=== PATIENT | female | born 1955 | race Caucasian/White ===

== ENCOUNTER 2023-06-23 11:58 | Outpatient (OUT) | payer MEDICARE, SELFPAY ==
--- NOTE | 2023-06-23 | XR_ITS ---
The [address] [address] Patient Name: SUSU CORONA MRN: [id number] date: 1955 Sex: F Assigned Patient Location: LAB Current Patient Location: LAB Accession/Order Number: [id number] Exam Date: 06/23/2023 12:35 Report Date: 06/23/2023 14:33 At the request of: JASVIR SHAVER Procedure: XR hip LT 2V w/ pelvis EXAM: AP of the pelvis and left hip HISTORY: . left hip pain . COMPARISON: None. TECHNIQUE: Views FINDINGS: Bony pelvis is intact. No fracture or bony destructive process is noted. No fracture or dislocation of the left hip is noted. Small spurs are noted involving the femoral head and the acetabulum. Surrounding soft tissues are unremarkable. XR/XR hip LT 2V w/ pelvis IMPRESSION: 1. Negative AP of the pelvis. 2. 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 Electronically authenticated by: JOSE LEE Date: 06/23/2023 14:33
[2023-06-23 12:34] LABS: Estimated Average Glucose 154 mg/dL
[2023-06-23 12:41] LABS: Creatinine Urine Random 65.65 mg/dL (20.00-300.00); Microalbum Creatinine Ratio Ur 19.8 mg/g (0.0-29.9); Microalbumin Urine Random <1.3 mg/dL (<=30.0)
[2023-06-23 13:15] LABS: Basophils Percent Auto 0.5 % (0.2-2.0); Eosinophils Absolute Auto 0.4 10^3/uL (0.0-0.7); Eosinophils Percent Auto 4.6 % (0.9-7.0); Hematocrit 41.6 % (36.0-48.0); Hemoglobin 13.2 g/dL (12.0-16.0); Immature Granulocytes Abs Auto 0.03 10^3/uL (0.00-0.03); Immature Granulocytes Pct Auto 0.4 % (0.0-0.5); Lymphocytes Absolute Auto 2.5 10^3/uL (1.2-3.8); Lymphocytes Percent Auto 31.5 % (20.5-60.0); Mean Corpuscular HGB Conc 31.7 g/dL (29.9-35.2); Mean Corpuscular Hemoglobin 29.1 pg (26.7-34.0); Mean Corpuscular Volume 91.6 fL (81.0-99.0); Monocytes Absolute Auto 0.8 10^3/uL (0.3-0.8); Monocytes Percent Auto 9.6 % (1.7-12.0); Neutrophils Absolute Auto 4.2 10^3/uL (1.4-6.5); Neutrophils Percent Auto 53.4 % (43.0-75.0); Platelet Count 319 10^3/uL (150-450); Red Blood Count 4.54 10^6/uL (4.20-5.40); White Blood Count 7.8 10^3/uL (4.0-11.0)
[2023-06-23 13:22] LABS: Bilirubin Urine NEGATIVE (NEGATIVE); Blood Urine NEGATIVE (NEGATIVE); Clarity Urine CLEAR (CLEAR); Color Urine LT. YELLOW (YELLOW); Glucose Urine UA >=1000 mg/dL (NEGATIVE); Ketones Urine NEGATIVE (NEGATIVE); Leukocyte Esterase Urine NEGATIVE (NEGATIVE); Nitrite Urine NEGATIVE (NEGATIVE); Protein Urine NEGATIVE (NEG/TRACE); Specific Gravity Urine 1.025 (1.005-1.025); Urobilinogen Urine 0.2 EU/dL (0.2-1.0); pH Urine 5.5 (5.0-9.0)
[2023-06-23 13:23] LABS: Urine Microscopic Indicated NO
[2023-06-23 13:39] LABS: Alanine Aminotransferase 18 U/L (14-59); Albumin Level 3.7 g/dL (3.4-5.0); Alkaline Phosphatase 84 U/L (46-116); Anion Gap 10.6; Aspartate Amino Transferase 14 U/L (15-37); BUN Creatinine Ratio 21.1; Bilirubin Total 0.6 mg/dL (0.2-1.0); Calcium 8.8 mg/dL (8.5-10.1); Carbon Dioxide 32.4 mmol/L (21.0-32.0); Chloride 100 mmol/L (98-107); Chol HDL Ratio 2.7; Cholesterol 178 mg/dL (<=200); Estimated GFR (African America >60 (>=60); Estimated GFR (Non-African Ame >60 (>=60); Globulin 3.6 g/dL; Glucose 123 mg/dL (74-106); HDL Cholesterol 66 mg/dL (40-60); Sodium 139 mmol/L (136-145); Total Protein 7.3 g/dL (6.4-8.2); Triglycerides 112 mg/dL (<=150); VLDL CHOLESTEROL 22.4 mg/dL
== END 2023-06-23 11:59 | disposition home or self-care (01) ==
LOC: LAB 12:04
PROVIDERS: PCP Nurse Practitioner; Visit Provider Nurse Practitioner
DX: I25.119 Atherosclerotic heart disease of native coronary artery with unspecified angina pectoris (principal); I10 Essential (primary) hypertension; E11.9 Type 2 diabetes mellitus without complications; E55.9 Vitamin D deficiency, unspecified; E78.2 Mixed hyperlipidemia; M25.552 Pain in left hip
CPT/HCPCS: 36415; 73502; 80053; 80061; 81003; 82043; 82306; 82570; 83036; 85025

== ENCOUNTER 2023-06-30 09:45 | Outpatient (RCR) | payer MEDICARE, SELFPAY | END 2023-07-01 11:27 | disposition home or self-care (01) | LOC: PT 09:45 | PROVIDERS: PCP Nurse Practitioner; Visit Provider Nurse Practitioner | DX: M25.552 Pain in left hip (principal); M54.16 Radiculopathy, lumbar region; R26.89 Other abnormalities of gait and mobility | CPT/HCPCS: 97110; 97161 ==

== ENCOUNTER 2023-07-05 08:07 | Outpatient (OUT) | payer MEDICARE, SELFPAY ==
--- NOTE | 2023-07-05 08:10 | MM_ITS ---
Patient Name: SUSU CORONA MR#: [id number] : 1955 Exam Date: 07/05/2023 Ordering Doctor: BROWN Mahmood CNP RADIOLOGY REPORT PROCEDURE: MM TOMOSYNTHESIS SCREENING BI COMPARISON: MG MAMM SCREEN 3D CAM CAD, 05/16/2022. MG MAMM SCREEN 3D CAM CAD, 04/06/2021. MG MAMM SCREEN CAM W CAD, 03/30/2020. MG MAMM CAM SCRN W CAD DIG, 06/19/2013. INDICATIONS: screening Calculator Name NCI Breast Cancer Risk Assessment Tool 5 Year Breast Cancer Risk 1.50% Lifetime Breast Cancer Risk 5.00% Personal Breast Cancer No Personal Ovarian Cancer No Treatments CHEMOTHERAPY AND RADIATION Family Cancers None LOCATION: The [facility] BREAST COMPOSITION: Heterogeneously dense,which may obscure small masses. FINDINGS: DIAGNOSTIC CATEGORY 2--BENIGN FINDING: RIGHT BREAST: No significant suspicious finding. Scattered benign-appearing lymph nodes are present. No significant change has occurred. LEFT BREAST: No significant suspicious finding. Scattered benign-appearing lymph nodes are present. No significant change has occurred. RECOMMENDATIONS: ROUTINE MAMMOGRAM AND CLINICAL EVALUATION IN 12 MONTHS. PLEASE NOTE: A NORMAL MAMMOGRAM DOES NOT EXCLUDE THE POSSIBILITY OF BREAST CANCER. A CLINICALLY SUSPICIOUS PALPABLE LUMP SHOULD BE BIOPSIED. Dictated by: Nahum Amato M.D. on 07/07/2023 at 10:31 Approved by: Nahum Amato M.D. on 07/07/2023 at 10:33
== END 2023-07-05 08:08 | disposition home or self-care (01) ==
LOC: MAMMO 08:07
PROVIDERS: PCP Nurse Practitioner; Visit Provider Nurse Practitioner
DX: Z12.31 Encounter for screening mammogram for malignant neoplasm of breast (principal)
CPT/HCPCS: 77063; 77067

== ENCOUNTER 2023-12-26 10:31 | Outpatient (OUT) | payer MEDICARE, SELFPAY ==
[2023-12-26 12:04] LABS: Estimated Average Glucose 148 mg/dL; Glycohemoglobin A1C 6.8 % (4.5-6.2)
== END 2023-12-26 10:32 | disposition home or self-care (01) ==
LOC: LAB 10:32
PROVIDERS: PCP Nurse Practitioner; Visit Provider Nurse Practitioner
DX: E11.9 Type 2 diabetes mellitus without complications (principal)
CPT/HCPCS: 36415; 83036

== ENCOUNTER 2024-06-24 09:15 | Outpatient (OUT) | payer MEDICARE, SELFPAY ==
--- OUTSIDE RECORDS SUMMARY | 2024-06-24 09:34 | XMS_ITS | CCD ---
Author Organization [facility] Care Team Providers Care Arbor Press Operator Name Role Phone Kinjal Sandhu Primary Care Provider MAGDA CARBALLO Referring Unavailable MAGDA CARBALLO Primary Care Unavailable MAGDA CARBALLO Referring Unavailable MAGDA CARBALLO Primary Care Unavailable MAGDA CARBALLO Referring Unavailable MAGDA CARBALLO Primary Care Unavailable MARY WATSON Admitting Unavailable MARY WATSON Attending Unavailable RICHIE MULTANI Consulting Unavailable KINJAL SANDHU Primary Care Unavailable MAGDA CARBALLO Referring Unavailable KINJAL SANDHU Primary Care Unavailable Magda Carballo Primary Care Provider Philhseverinoz, Ivanna Maya Unavailable Unavailable Unavailable RADHA HARRIS Primary Care Physician Rosie FARIAS Attending Unavailable AICHHOLZIVANNA Referring Unavailabl e NILNathalie, Rosie Weems Attending Unavailable NILRosie Zelaya Attending Unavailable McGuinn IIDavid Attending Unav ailable McGuinn II, David Mathias Referring Unav ailable Aichholz, MrsArsalan Trejo Primary Care Unavailab le AICHHOLZ, MANAGER OF ORGANIZATIONAL DEVELOPMENT IVANNA Admitting Unavailable AICHHOLZ, MANAGER OF ORGANIZATIONAL DEVELOPMENT IVANNA Primary Care Unavailable DR JOSE HICKS V Consulting Unavailable AICHHOLZ, MANAGER OF ORGANIZATIONAL DEVELOPMENT IVANNA Attending Unavailable AICHHOLZ, MANAGER OF ORGANIZATIONAL DEVELOPMENT IVANNA Consulting Unavailable JOSE LEE Consulting Unavailable AICHHOLZ, MANAGER OF ORGANIZATIONAL DEVELOPMENT IVANNA Admitting Unavailable AICHHOLZ, MANAGER OF ORGANIZATIONAL DEVELOPMENT IVANNA Primary Care Unavailable AICHHOLZ, MANAGER OF ORGANIZATIONAL DEVELOPMENT IVANNA Consulting Unavailable AICHHOLZ, MANAGER OF ORGANIZATIONAL DEVELOPMENT IVANNA Attending Unavailable AICHHOLZ, MANAGER OF ORGANIZATIONAL DEVELOPMENT IVANNA Primary Care Unavailable JARRETT, DR VELEZ Admitting Unavailable NILL, DR VELEZ Consulting Unavailable NILL, DR VELEZ Attending Unavailable AICHHOLZ, MANAGER OF ORGANIZATIONAL DEVELOPMENT IVANNA Primary Care Unavailable NILL, DR VELEZ Admitting Unavailable NILL, DR VELEZ Consulting Unavailable NILL, DR VELEZ Attending Unavailable DAVID TOPETE Consulting Unava ilable Philhholwaqar SOLAR BUSINESS DEVELOPER-MANAGER OF ORGANIZATIONAL DEVELOPMENT, Ivanna Trejo Primary Care Provider Alfonso Blank MD Primary Care Provider Aichuzair PEST LOCATOR, Ivanna Unavailable TIMOTEO, IVANNA Attending Unavailable AICHHOLZ, IVANNA Attending Unavailable AICHHOLZ, IVANNA Attending Unavailable AICHHOLZ, IVANNA Attending Unavailable PARI NORTON Attending Unavailable DAVID BERRIOS Referring Unavailable PHILHHOLWaqar, IVANNA TREJO Primary Care Unavailable PARI NORTON Referring Unavailable AICHHOLWaqar, IVANNA MAYA Primary Care Unavailable MEGHAN NORTONNA K Referring Unavailable TIMOTEO, IVANNA TREJO Primary Care Unavailable MEGHAN NORTONNA K Referring Unavailable PHILHHOLWaqar, IVANNA TREJO Primary Care Unavailable MEGHAN NORTONNA K Referring Unavailable AICHHOLWaqar, IVANNA MAYA Primary Care Unavailable Allergies Allergy Classification Reported Allergen(s) Allergy Type Date of Onset Reaction(s) Facility (1 source) No Known Medication Allergies; Translations: [No Known Medication Allergies] Propensity to adverse reactions (disorder) [facility] Rep[facility] Medications Current Medications Medication Drug Class(es) Dates Sig (Normalized) Sig (Original) alendronic acid 35 mg oral tablet (6 sources) Bisphosphonate Start: 11-05-2021 take 1 tablet by mouth every week alendronate 35 mg oral tablet 35 mg = 1 tab(s), Oral, qWeek, Refills(s) 0 Start Date: 11/05/21 Status: Ordered Start: 12-07-2018 End: 04-12-2023 alendronate (FOSAMAX) 35 MG tablet Take 1 tablet by mouth every 7 days 12 tablet 3 12/07/2018 Active amLODIPine 2.5 mg oral tablet (20 sources) Dihydropyridine Calcium Channel Pierre Start: 03-21-2019 End: 06-26-2024 take 1 tablet by mouth once daily amLODIPine (Norvasc) 2.5 MG tablet Indications: Primary hypertension (CMS/HCC) Take 1 tablet (2.5 mg) by mouth Daily 90 tablet 1 03/28/2024 06/26/2024 Active Arexvy 120 MCG/0.5ML reconstituted suspension (2 sources) Start: 07-14-2023 End: 04-09-2024 Arexvy 120 MCG/0.5ML reconstituted suspension 07/14/2023 04/09/2024 Discontinued (Therapy completed) aspirin 81 mg delayed release oral tablet (20 sources) Platelet Aggregation Inhibitor, Nonsteroidal Anti-inflammatory Drug Start: 11-09-2021 take 1 tablet by mouth once daily aspirin 81 mg Oral EC Tab 81 mg = 1 tab(s), Oral, Daily, Refills(s) 0 Start Date: 11/09/21 Status: Ordered Start: 11-27-[address] once daily aspirin (ASPIRIN [employer]IL[employer]) 81 MG chewable tablet Take 1 tablet by mouth daily 90 tablet 1 11/27/2018 Active take 81 mg by mouth once daily A SPIRIN 81 PO Take 81 mg by mouth Daily Active atorvastatin 10 mg oral tablet (3 sources) HMG-CoA Reductase Inhibitor Start: 04-10-2024 End: 04-24-2025 take 1 tablet by mouth once daily atorvastatin (Lipitor) 10 mg tablet Indications: 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 Take 1 tablet (10 mg) by mouth once daily. 30 tablet 11 04/24/2024 04/24/2025 Active cholecalciferol 0.05 mg oral tablet (20 sources) Vitamin D Start: 12-25-2023 take 1 tablet by mouth once daily cholecalciferol (Vitamin D-3) 50 MCG (2000 UT) tablet Indications: Vitamin D deficiency TAKE 1 TABLET BY MOUTH DAILY 90 tablet 1 12/25/2023 Active 0.5 ml dulaglutide 3 mg/ml auto-injector (2 sources) GLP-1 Receptor Agonist Start: 03-21-2019 Dulaglutide (TRULICITY) 1.5 MG/0.5ML SOPN Indications: Type 2 diabetes mellitus with complication, without long-term current use of insulin ([facility]) Inject 1.5 mg into the skin once a week 12 pen 3 03/21/2019 Active Start: 01-29-2019 Dulaglutide (T RULICITY) 0.75 MG/0.5ML SOPN Indications: Type 2 diabetes mellitus with complication, without long-term current use of insulin ([facility]) Inject 0.75 mg into the skin once a week 4 pen 3 01/29/2019 Active DULoxetine 30 mg delayed release oral capsule (20 sources) Serotonin and Norepinephrine Reuptake Inhibitor Start: 11-05-2021 End: 06-26-2024 take 1 capsule by mouth once daily DULoxetine (Cymbalta) [address] capsule Indications: Anxiety Take 1 capsule (30 mg) by mouth Daily 90 capsule 1 03/28/2024 06/26/2024 Active Start: 11-27-2018 take 1 capsule by [facility] once daily DULoxetine (CYMBALTA) 60 MG extended release capsule Indications: Positive depression screening , Dysthymia Take 1 capsule by mouth daily 90 capsule 1 11/27/2018 Active empagliflozin 10 mg oral tablet (20 sources) Sodium-Glucose Cotransporter 2 Inhibitor Start: 04-16-2024 End: 07-15-2024 take 1 tablet by mouth once daily empagliflozin (Jardiance) 10 MG Indications: Type 2 diabetes mellitus without complication, without long-term current use of insulin ([facility]) Take 1 tablet (10 mg) by mouth Daily 90 tablet 1 04/16/2024 07/15/2024 Active Start: 11-05-2021 End: 04-16-2024 take 1 tablet by mouth once daily in the morning Jardiance 10 mg oral tablet 10 mg = 1 tab(s), Oral, qAM, Refills(s) 0 Start Date: 11/05/21 Status: Ordered gabapentin 300 mg oral capsule (20 sources) Anti-epileptic Agent Start: 11-05-2021 End: 07-08-2024 take 1 capsule by mouth in the morning, then take 1 capsule by mouth in the evening, then take 1 capsule by mouth at bedtime gabapentin (Neurontin) 300 MG capsule Indications: Restless leg syndrome Take 1 capsule (300 mg) by mouth in the morning and 1 capsule (300 mg) in the evening and 1 capsule (300 mg) before bedtime. 270 capsule 1 04/09/2024 07/08/2024 Active Start: 11-27-2018 End: 05-26-2019 take 3 capsules by mouth once daily gabapentin (NEURONTIN) 300 MG capsule Take 3 capsules by mouth nightly for 180 days. Take 300 mg 1 tablet at dinner time and 600 mg 2 tablets 1-2 hours prior to sleeping. 270 capsule 1 11/27/2018 05/26/2019 Active glipiZIDE er 5 mg 24 hr extended release oral tablet (20 sources) Sulfonylurea Start: 09-05-2023 End: 07-08-2024 take 1 tablet by mouth once daily glipiZIDE XL (Glucotrol XL) 5 MG 24 hr tablet Indications: Type 2 diabetes mellitus without complication, without long-term current use of insulin (CMS/HCC) Take 1 tablet (5 mg) by mouth Daily 90 tablet 1 04/09/2024 07/08/2024 Active Start: 11-05-[address] once daily glipiZIDE 5 mg ER Tab 5 mg = 1 tab(s), Oral, Daily, Refills(s) 0 Start Date: 11/05/21 Status: Ordered Start: 11-27-[address] once daily glipiZIDE (GLUCOTROL XL) 5 MG extended release tablet Indications: Type 2 diabetes mellitus with complication, without long-term current use of insulin (HCC) Take 1 tablet by mouth daily 90 tablet 1 11/27/2018 Active take [address] once daily glipiZIDE (Glucotrol) 5 mg tablet Take 1 tablet (5 mg) by mouth once daily. Active hydroCHLOROthiazide 25 mg oral tablet (20 sources) Thiazide Diuretic Start: 04-02-2024 End: 07-08-2024 take 1 tablet by mouth in the morning hydroCHLOROthiazide (HYDRODiuril) 25 MG tablet Indications: Primary hypertension (CMS/HCC) Take 1 tablet (25 mg) by mouth in the morning. 90 tablet 1 04/09/2024 07/08/2024 Active Start: 12-07-2018 End: 03-04-2024 take 1 tablet by mouth in the morning hydroCHLOROthiazide (HYDRODiuril) 25 MG tablet Indications: Primary hypertension (CMS/HCC) Take 1 tablet (25 mg) by mouth in the morning. 90 tablet 1 12/05/2023 Active 24 hr isosorbide mononitrate 60 mg extended release oral tablet (20 sources) Nitrate Vasodilator Start: 04-09-2024 End: 04-09-2025 take 1 tablet by mouth once daily isosorbide mononitrate ER (Imdur) 60 mg 24 hr tablet Indications: Chest pain, unspecified type , Coronary artery disease involving [place] heart with other form of angina pectoris, unspecified vessel or lesion type Take 1 tablet (60 mg) by mouth once daily. Do not crush or chew. 90 tablet 3 04/09/2024 04/09/2025 Active Start: 09-05-[address] once daily isosorbide mononitrate ER (Imdur) 30 MG 24 hr tablet Indications: 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 (CMS/HCC) Take 1 tablet (30 mg) by mouth Daily 90 tablet 1 09/05/2023 Active Start: 03-21-[address] once daily in the morning isosorbide mononitrate 30 mg ER Tab 30 mg = 1 tab(s), Oral, qAM, Refills(s) 0 Start Date: 11/05/21 Status: Ordered lisinopril 5 mg oral tablet (20 sources) Angiotensin Converting Enzyme Inhibitor Start: 03-21-2019 End: 05-17-2024 take 1 tablet by mouth in the morning lisinopril 5 MG tablet Indications: Primary hypertension (CMS/HCC) Take 1 tablet (5 mg) by mouth in the morning. 90 tablet 1 02/17/2024 05/17/2024 Active losartan potassium 50 mg oral tablet (1 source) Angiotensin 2 Receptor Pierre Start: 11-27-2018 take 1 tablet by mouth once daily losartan (COZAAR) 50 MG tablet Take 1 tablet by mouth daily 90 tablet 1 11/27/2018 Active nitroglycerin 0.4 mg sublingual tablet (2 sources) Nitrate Vasodilator Start: 11-05-2021 nitroglycerin 0.4 mg sublingual Tab 0.4 mg = 1 tab(s), SubLingual, q5min, PRN for chest pain, Refills(s) 0 Start Date: 11/05/21 Status: Ordered Start: 03-13-2019 nitroGLYCERIN (NITROSTAT) 0.4 MG SL tablet up to max of 3 total doses. If no relief after 1 dose, call 911. 20 tablet 0 03/13/2019 Active propranolol hydrochloride 40 mg oral tablet (20 sources) beta-Adrenergic Pierre Start: 09-05-2023 End: 07-08-2024 take 1 tablet by mouth in the morning propranolol (Inderal) 40 MG tablet Indications: Tremors of nervous system Take 1 tablet (40 mg) by mouth in the morning and 1 tablet (40 mg) before bedtime. 180 tablet 1 04/09/2024 07/08/2024 Active Start: 12-07-[address] twice daily propranolol 40 mg Tab 40 mg = 1 tab(s), Oral, BID, Refills(s) 0 Start Date: 11/05/21 Status: Ordered take 2 tablets by mo [facility] once daily propranolol (Inderal) 40 mg tablet Take 2 tablets (80 mg) by mouth once daily. Active take [address] once daily Propranolol HCl - 40 MG Oral Tablet Take 1 tablet daily Quantity: 0 Refills: 0 Ordered: 05-Apr-2021 DO Active simvastatin 10 mg oral tablet (20 sources) HMG-CoA Reductase Inhibitor Start: 12-07-2018 End: 06-26-2024 take 1 tablet by mouth at bedtime simvastatin (Zocor) 10 MG tablet Indications: Mixed hyperlipidemia (CMS/HCC) Take 1 tablet (10 mg) by mouth at bedtime 90 tablet 1 03/28/2024 04/10/2024 Discontinued (Ineffective) Vitamin D3 2000 intl units oral Tab (1 source) Start: 11-05-2021 take 1 tablet by mouth once daily Vitamin D3 2000 intl units oral Tab 50 mcg, Oral, Daily, Refills(s) 0 Start Date: 11/05/21 Status: Ordered Completed/Discontinued Medications Medication Drug Class(es) Dates Sig (Normalized) Sig (Original) 10 ml aminophylline 25 mg/ml injection (1 source) Start: 04-22-2024 End: 04-22-2024 50 mg, intravenous, Administer over 1 Minutes, Once, On Mon04/22/24 at 1445, For 1 dose Start: 04-22-2024 End: 04-22-2024 50 mg, intravenous, Administ er over 1 Minutes, Once, On Mon04/22/24 at 1445, For 1 dose regadenoson (Lexiscan) injection 0.4 mg (1 source) Start: 04-22-2024 End: 04-22-2024 0.4 mg, intravenous, Once, O n 04/22/24 at 1330, For 1 dose Tc-99m tetrofosmin (Myoview) injection 10 millicurie (1 source) Start: 04-22-2024 End: 04-22-2024 10 millicurie, intravenous, Once in imaging, Starting on Mon04/22/24 at 1253, For 1 dose, Administer 45 to 90 minutes prior to imaging unless otherwise indicated. Tc-99m tetrofosmin (Myoview) injection 30 millicurie (1 source) Start: 04-22-2024 End: 04-22-2024 30 millicurie, intravenous, Once in imaging, Starting on Mon04/22/24 at 1418, For 1 dose, Administer 45 to 90 minutes prior to imaging unless otherwise indicated. Problems Active Problems Problem Classification Problem Date Documented Da te Episodic/Chronic Anxiety disorders (20 sources) Anxiety; Translations: [Anxiety disorder, unspecified] Onset: 06-05-2023 06-05-2023 Chronic Congestive heart failure; nonhypertensive (1 source) Chronic diastolic heart failure Onset: 03-13-2019 03-13-2019 Chronic Coronary atherosclerosis and other heart disease (20 sources) Coronary arteriosclerosis; Translations: [Coronary atherosclerosis of unspecified type of vessel, [place] or graft] Onset: 12-10-2021 11-05-2021 Chronic Diabetes mellitus with complications (2 sources) Retinopathy due to diabetes mellitus; Translations: [Type 2 diabetes mellitus with unspecified diabetic retinopathy without macular edema] Onset: 12-10-2021 11-05-2021 Chronic Diabetes mellitus without complication (20 sources) Type 2 diabetes mellitus; Translations: [Diabetes mellitus] Onset: 10-31-2018 03-13-2019 Chronic Disorders of lipid metabolism (20 sources) Dyslipidemia; Translations: [Hyperlipidemia] Onset: 01-29-2019 Resolved: 12-28-2023 01-29-2019 Chronic Diverticulosis and diverticulitis (2 sources) Diverticular disease; Translations: [Diverticulosis of large intestine without perforation or abscess without bleeding] Onset: 12-10-2021 11-08-2021 Chronic Essential hypertension (20 sources) Essential hypertension; Translations: [Benign essential hypertension] Onset: 01-29-2019 03-13-2019 Chronic Genitourinary symptoms and ill-defined conditions (1 source) Urinary incontinence 11-05-2021 Chronic Headache; including migraine (1 source) Migraine 11-05-2021 Chronic Mood disorders (4 sources) Dysthymia; Translations: [Depressive disorder] Onset: 10-31-2018 10-31-2018 Chronic Nonspecific chest pain (20 sources) Chest pain; Translations: [Chest pain, unspecified] Onset: 03-11-2019 03-13-2019 Episodic Nutritional deficiencies (18 sources) Vitamin D deficiency; Translations: [Vitamin D deficiency, unspecified] Onset: 05-20-2022 11-05-2021 Chronic Osteoporosis (2 sources) Osteoporosis; Translations: [Age-related osteoporosis without current pathological fracture] Onset: 12-10-2021 11-05-2021 Chronic Other and unspecified benign neoplasm (2 sources) History of polyp of colon; Translations: [Personal history of colonic polyps] Onset: 11-09-2021 Episodic Other and unspecified benign neoplasm (1 source) Villous adenoma of rectum 11-08-2021 Episodic Other gastrointestinal disorders (1 source) Irritable bowel syndrome without diarrhea; Translations: [IRRITABLE BOWEL SYND W/O DIARRHEA] Onset: 12-10-2021 Chronic Other hereditary and degenerative nervous system conditions (20 sources) Restless legs; Translations: [Restless legs syndrome] Onset: 10-31-2018 01-29-2019 Chronic Other hereditary and degenerative nervous system conditions (1 source) Essential tremor; Translations: [Essential and other specified forms of tremor] Chronic Other hereditary and degenerative nervous system conditions (1 source) Restless legs syndrome; Translations: [RESTLESS LEGS SYNDROME] Onset: 12-10-2021 Chronic Other nutritional; endocrine; and metabolic disorders (5 sources) Overweight in adulthood with body mass index of 25 or more but less than 30; Translations: [Overweight] Onset: 04-24-2024 11-09-2021 Episodic Other nutritional; endocrine; and metabolic disorders (2 sources) Body mass index (BMI) 26.0-26.9, adult; Translations: [Body mass index (BMI) 26.0-26.9, adult] Onset: 04-24-2024 Episodic Prolapse of female genital organs (1 source) Uterovaginal prolapse 11-05-2021 Chronic Residual codes; unclassified (1 source) Edema 11-05-2021 Episodic Residual codes; unclassified (1 source) Asymptomatic menopausal state; Translations: [ASYMPTOMATIC MENOPAUSAL STATE] Onset: 05-20-2022 Episodic Unclassified (1 source) CONTACT W/AND (SUSP) EXPOS COVID-19; Translations: [CONTACT W/AND (SUSP) EXPOS COVID-19] Onset: 12-07-2021 Past or Other Problems Problem Classification Problem Date Documented Da te Episodic/Chronic Mood disorders (15 sources) Mood disorders Onset: 09-05-2023 09-05-2023 Other aftercare (1 source) Other group home (current) drug therapy; Translations: [OTH HALF-WAY CURRENT DRUG THERAPY] Onset: 12-10-2021 Episodic Other aftercare (1 source) supervisor intermediates (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; 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] Onset: 12-10-2021 Episodic Other and unspecified benign neoplasm (1 source) Personal history of colonic polyps; Translations: [PERSONAL HISTORY OF COLONIC POLYPS] Onset: 12-10-2021 Episodic Other bone disease and musculoskeletal deformities (18 sources) Osteopenia; Translations: [Other specified disorders of bone density and structure, unspecified site] Onset: 01-29-2019 01-29-2019 Episodic Other gastrointestinal disorders (3 sources) Other fecal abnormalities; Translations: [OTHER FECAL ABNORMALITIES] Onset: 12-08-2021 Episodic Other gastrointestinal disorders (1 source) Change in bowel habit; Translations: [CHANGE IN BOWEL HABIT] Onset: 12-10-2021 Episodic Other nervous system disorders (20 sources) Tremor; Translations: [Tremor, unspecified] Onset: 06-05-2023 11-05-2021 Episodic Other non-traumatic joint disorders (15 sources) Hip pain; Translations: [Pain in left hip] Onset: 06-21-2023 06-21-2023 Episodic Other screening for suspected conditions (not mental disorders or infectious disease) (16 sources) Encounter for screening mammogram for malignant neoplasm of breast; Translations: [Patient encounter status] Onset: 05-20-2022 06-21-2023 Episodic Residual codes; unclassified (1 source) Postmenopausal state; Translations: [Post-menopausal] Episodic Residual codes; unclassified (8 sources) Never smoked any substance; Translations: [Other specified health status] Onset: 04-12-2023 04-12-2023 Episodic Spondylosis; intervertebral disc disorders; other back problems (15 sources) Lumbar radiculopathy; Translations: [Radiculopathy, lumbar region] Onset: 03-20-2024 03-20-2024 Episodic Unclassified (1 source) Never smoked tobacco; Translations: [Never a smoker] Unclassified (7 sources) Onset: 04-12-2023 Resolved: 04-24-2024 04-12-2023 Results Test Name Value Interpretation Reference Range Facility NM Heart Perfusion W stress and W radionuclide Betzy 04-22-2024 Normal Lexiscan Myov iew cardiac perfusion stress test. No evidence of ischemia or myocardial infarction by perfusion imaging. Normal left ventricular systolic function, ejection fraction 70%. No previous study available for comparison. Signed by: Dennis Cheng 04/22/2024 4:44 PM Dictation workstation: [id number] MMODAL Interpreted By: Dennis Cheng, and Navi Velez STUDY: MYOCARDIAL PERFUSION STRESS TEST WITH LEXISCAN Performing facility: [facility], [address] [place] [address], [address], [address] Provider: Pari Norton RN, MANAGER OF ORGANIZATIONAL DEVELOPMENT PCP: Dr. Jabier Mahmood MANAGER OF ORGANIZATIONAL DEVELOPMENT Supervising provider: Pari Norton RN, MANAGER OF ORGANIZATIONAL DEVELOPMENT INDICATION: Chest Pain; CAD; HISTORY: Gender: F; Age: 68 y/o ; Height: HT 160 cm cm; Weight: WT 67.132 kg kg. High Cholesterol; CAD; Diabetes; HTN; Chest Pain; Denies smoking. Cardiac catheterization on 2018. PTCA on 2018. COMPARISON: No comparison. ACCESSION NUMBER(S): [id number] ORDERING CLINICIAN: PARI NORTON TECHNIQUE: ONE DAY protocol. Stress injection: Date:04-22-24, 35.3 mCi of Myoview IV 20 seconds after rapid injection of Lexiscan. Rest injection: Date: 04-22-24, 10.7 mCi of Myoview IV at rest. The patient had a rapid injection of 0.4 mg of Lexiscan IV over 10 seconds. Imaging was performed by gated tomographic technique. Reason for Lexiscan: dizziness/unsteady/fall risk STRESS TEST DATA: Resting heart rate was 55 BPM. Resting blood pressure was 108/68 mmHg. Peak blood pressure was 100/64 mmHg. Peak heart rate was 80 BPM. TEST TERMINATED DUE TO: Protocol completed FINDINGS: STRESS TEST RESULTS: Resting electrocardiogram revealed normal sinus rhythm nonspecific ST-T changes. There were no significant ischemic ECG changes or dysrhythmias. The patient did not have chest pains/symptoms during procedure. There was a normal recovery phase. IMAGING RESULTS: Image quality was good. Rest and stress tomographic images were reviewed and revealed normal perfusion without evidence of ischemia, myocardial infarction, or left ventricular dilatation with stress. Overall left ventricular systolic function appeared to be normal without regional wall motion abnormalities. Ejection fraction was 78%. TID is 1.1 and is normal. There were no evidence of attenuation artifact. MMODAL Dennis Cheng MD - 04/22/2024 Interpreted By: Dennis Cheng and Giannuzzi Michael STUDY: MYOCARDIAL PERFUSION STRESS TEST WITH LEXISCAN Performing facility: [facility], [address] [place] [address], [address], [address] Provider: Pari Norton RN, MANAGER OF ORGANIZATIONAL DEVELOPMENT PCP: Dr. Jabier Mahmood CNP Supervising provider: Pari Norton RN, MANAGER OF ORGANIZATIONAL DEVELOPMENT INDICATION: Chest Pain; CAD; HISTORY: Gender: F; Age: 68 y/o ; Height: HT 160 cm cm; Weight: WT 67.132 kg kg. High Cholesterol; CAD; Diabetes; HTN; Chest Pain; Denies smoking. Cardiac catheterization on 2019. PTCA on 2019. COMPARISON: No comparison. ACCESSION NUMBER(S): [id number] ORDERING CLINICIAN: PARI NORTON TECHNIQUE: ONE DAY protocol. Stress injection: Date:04-22-24, 35.3 mCi of Myoview IV 20 seconds after rapid injection of Lexiscan. Rest injection: Date: 04-22-24, 10.7 mCi of Myoview IV at rest. The patient had a rapid injection of 0.4 mg of Lexiscan IV over 10 seconds. Imaging was performed by gated tomographic technique. Reason for Lexiscan: dizziness/unsteady/fall risk STRESS TEST DATA: Resting heart rate was 55 BPM. Resting blood pressure was 108/68 mmHg. Peak blood pressure was 100/64 mmHg. Peak heart rate was 80 BPM. TEST TERMINATED DUE TO: Protocol completed FINDINGS: STRESS TEST RESULTS: Resting electrocardiogram revealed normal sinus rhythm nonspecific ST-T changes. There were no significant ischemic ECG changes or dysrhythmias. The patient did not have chest pains/symptoms during procedure. There was a normal recovery phase. IMAGING RESULTS: Image quality was good. Rest and stress tomographic images were reviewed and revealed normal perfusion without evidence of ischemia, myocardial infarction, or left ventricular dilatation with stress. Overall left ventricular systolic function appeared to be normal without regional wall motion abnormalities. Ejection fraction was 78%. TID is 1.1 and is normal. There were no evidence of attenuation artifact. IMPRESSION: Normal Lexiscan Myoview cardiac perfusion stress test. No evidence of ischemia or myocardial infarction by perfusion imaging. Normal left ventricular systolic function, ejection fraction 70%. No previous study available for comparison. Signed by: Dennis Cheng 04/22/2024 4:44 PM Dictation workstation: [id number] [facility] Work Phone: Radiology Study observation (narrative) [facility] Work Phone: NM Heart Perfusion W stress and W radionuclide IVOrdered By: Dennis Cheng on 04-22-2024 [facility] Work Phone: NUCLEAR STRESS TESTon 2024 NUCLEAR STRESS TEST Interpreted By: Dennis Cheng and Giannuzzi Michael STUDY: MYOCARDIAL PERFUSION STRESS TEST WITH LEXISCAN Performing facility: [facility], [address] [place] [address], [address], [address] Provider: Pari Norton RN, MANAGER OF ORGANIZATIONAL DEVELOPMENT PCP: Dr. Jabier Mahmood MANAGER OF ORGANIZATIONAL DEVELOPMENT Supervising provider: Pari Norton RN, MANAGER OF ORGANIZATIONAL DEVELOPMENT INDICATION: Chest Pain; CAD; HISTORY: Gender: F; Age: 68 y/o ; Height: HT 160 cm cm; Weight: WT 67.132 kg kg. High Cholesterol; CAD; Diabetes; HTN; Chest Pain; Denies smoking. Cardiac catheterization on 2019. PTCA on 2019. COMPARISON: No comparison. ACCESSION NUMBER(S): [id number] ORDERING CLINICIAN: PARI NORTON TECHNIQUE: ONE DAY protocol. Stress injection: Date:04-22-24, 35.3 mCi of Myoview IV 20 seconds after rapid injection of Lexiscan. Rest injection: Date: 04-22-24, 10.7 mCi of Myoview IV at rest. The patient had a rapid injection of 0.4 mg of Lexiscan IV over 10 seconds. Imaging was performed by gated tomographic technique. Reason for Lexiscan: dizziness/unsteady/fall risk STRESS TEST DATA: Resting heart rate was 55 BPM. Resting blood pressure was 108/68 mmHg. Peak blood pressure was 100/64 mmHg. Peak heart rate was 80 BPM. TEST TERMINATED DUE TO: Protocol completed FINDINGS: STRESS TEST RESULTS: Resting electrocardiogram revealed normal sinus rhythm nonspecific ST-T changes. There were no significant ischemic ECG changes or dysrhythmias. The patient did not have chest pains/symptoms during procedure. There was a normal recovery phase. IMAGING RESULTS: Image quality was good. Rest and stress tomographic images were reviewed and revealed normal perfusion without evidence of ischemia, myocardial infarction, or left ventricular dilatation with stress. Overall left ventricular systolic function appeared to be normal without regional wall motion abnormalities. Ejection fraction was 78%. TID is 1.1 and is normal. There were no evidence of attenuation artifact. IMPRESSION: Normal Lexiscan Myoview cardiac perfusion stress test. No evidence of ischemia or myocardial infarction by perfusion imaging. Normal left ventricular systolic function, ejection fraction 70%. No previous study available for comparison. Signed by: Dennis Cheng 04/22/2024 4:44 PM Dictation workstation: [id number] [facility] HbA1c (Bld) [Mass fraction]o n 04-09-2024 Interpretation and review of laboratory results Abnormal [facility] 04-09-2024 HbA1c (Bld) [Mass fraction] 7.30 % [facility] MLR HEMOGLOBIN A1Con 024 Glucose [Mass/Vol] 148 mg/dL [facility] HbA1c (Bld) [Mass fraction] 6.8 % High 4.5 - 6.2 % [facility] Comment on above: ADA RECOMMENDED LIMI T 4.0 - 6.0 ADA THERAPEUTIC TARGET < 7.0 ACTION SUGGESTED > 7.0 Interpretation and review of laboratory results Abnormal [facility] CBC AUTO DIFFon 05-16-2022 BASO # 0.1 103/ul Normal 0.0-0.1 [facility] Comment on above: Performed By: #### C BC ####[facility] [address] [place], [place] [address]EoArsalan Herman Curiel Basophils/100 WBC (Bld) 0.6 % Normal 0.2-2.0 [facility] Comment on above: Performed By: #### C BC ####[facility] [address] [place] [address]Dr. Virgil Curiel EO # 0.2 103/ul Normal 0.0-0.7 [facility] Comment on above: Performed By: #### C BC ####[facility] [address] [place], [place] [address]Dr. Virgil Curiel Eosinophils/100 WBC (Bld) 2.6 % Normal 0.9-7.0 [facility] Comment on above: Performed By: #### C BC ####[facility] [address] [place], [place] [address]Dr. Virgil Curiel Erythrocyte distribution width (RBC) [Ratio] 13.1 % Normal 11.0-15.0 [facility] Comment on above: Performed By: #### C BC ####[facility] [address] [place], [place] [address]Dr. Virgil Curiel Hematocrit (Bld) [Volume fraction] 45.9 % Normal 36.0-48.0 [facility] Comment on above: Performed By: #### C BC ####[facility] [address] [place], [place] [address]Dr. Virgil Curiel Hemoglobin (Bld) [Mass/Vol] 15.1 g/dL Normal 12.0-16.0 [facility] Comment on above: Performed By: #### C BC ####[facility] [address] [place], [place] [address]Dr. Virgil Curiel IG # 0.02 10e3/ul Normal 0.00-0.03 [facility] Comment on above: Performed By: #### C BC ####[facility] [address] [place], [place] [address]Dr. Virgil Curiel IG % 0.2 % Normal 0.0-0.5 [facility] Comment on above: Performed By: #### C BC ####[facility] [address] [place], [place] [address]Dr. Virgil Curiel LYMPH # 2.6 103/ul Normal 1.2-3.8 [facility] Comment on above: Performed By: #### C BC ####[facility] [address] [place] [id number]. Ronitlupillo Curiel Lymphocytes/100 WBC (Bld) 31.6 % Normal 20.5-60.0 [facility] Comment on above: Performed By: #### C BC ####[facility] [address] [place] [id number]. Virgil Curiel MANUAL DIFF REQ NO Normal [facility] Comment on above: Performed By: #### C BC ####[facility] [address] [place] [id number]. Ronitlupillo Curiel MCH (RBC) [Entitic mass] 28.8 pg Normal 26.7-34.0 [facility] Comment on above: Performed By: #### C BC ####[facility] [address] [place], [place] [address]Dr. Virgil Curiel MCHC (RBC) [Mass/Vol] 32.9 g/dL Normal 29.9-35.2 [facility] Comment on above: Performed By: #### C BC ####[facility] [address] [place], [place] [address]Dr. Ronitlupillo Curiel MCV (RBC) [Entitic vol] 87.6 fL Normal 81.0-99.0 [facility] Comment on above: Performed By: #### C BC ####[facility] [address] [place], [place] [address]Dr. Virgil Curiel MONO # 1.0 103/ul Critically high 0.3-0.8 [facility] Comment on above: Performed By: #### C BC ####[facility] [address] [place], [place] [address]Dr. Virgil Curiel Monocytes/100 WBC (Bld) 12.2 % Critically high 1.7-12.0 [facility] Comment on above: Performed By: #### C BC ####[facility] [address] [place], [place] [address]Dr. Virgil Curiel NEUT # 4.4 103/ul Normal 1.4-6.5 [facility] Comment on above: Performed By: #### C BC ####[facility] [address] [place] [id number]. Virgil Curiel Neutrophils/100 WBC (Bld) 52.8 % Normal 43.0-75.0 [facility] Comment on above: Performed By: #### C BC ####[facility] [address] [place] [id number]. Virgil Curiel Platelet mean volume (Bld) [Entitic vol] 9.4 fL Critically low 9.5-13.5 [facility] Comment on above: Performed By: #### C BC ####[facility] [address] [place] [id number]. Virgil Curiel PLT 335 103/ul Normal 150-450 [facility] Comment on above: Performed By: #### C BC ####[facility] [address] [place] [id number]. Virgil Curiel RBC 5.24 106/ul Normal 4.20-5.40 [facility] Comment on above: Performed By: #### C BC ####[facility] [address] [place] [address]Dr. Virgil Curiel WBC 8.4 103/ul Normal 4.0-11.0 [facility] Comment on above: Performed By: #### C BC ####[facility] [address] [place] [id number]. Virgil Curiel GLYCOHEMOGLOBIN A1Con 2022 ADA RECOMMENDATION SEE BELOW Normal [facility] Comment on above: Result Comment: ADA RECOMMENDED LIMIT 4.0 - 6.0 ADA THERAPEUTIC TARGET < 7.0 ACTION SUGGESTED > 7.0 Performed By: #### A 1C #### [facility] [address] [place] [address] [address] Virgil Curiel Glucose [Mass/Vol] 163 mg/dL Normal [facility] Comment on above: Performed By: #### A 1C #### [facility] [address] [place] [address] [address] Virgil Curiel HbA1c (Bld) [Mass fraction] 7.3 % Critically high 4.5-6.2 [facility] Comment on above: Performed By: #### A 1C #### [facility] [address] [place], [place] [address] Dr. Virgil Curiel LIPID PROFILEon 05-16-2022 CHOL-HDL RATIO NORM SEE BELOW Normal [facility] Comment on above: Result Comment: 3.3 - 4.4 LOW RISK 4.4 - 7.1 AVERAGE RISK 7.1 - 11.0 MODERATE RISK >11.0 HIGH RISK Performed By: #### C MP, LIPID #### [facility] [address] [place], [place] [address] Dr. Virgil Curiel Cholesterol [Mass/Vol] 151 mg/dL Normal <=200 [facility] Comment on above: Performed By: #### C MP, LIPID #### [facility] [address] [place] [address] [address] Virgil Curiel Cholesterol in HDL [Mass/Vol] 56 mg/dL Normal 40-60 [facility] Comment on above: Performed By: #### C MP, LIPID #### [facility] [address] [place], [place] [address] Dr. Virgil Curiel Cholesterol in LDL [Mass/Vol] 74.0 mg/dL Normal [facility] Comment on above: Performed By: #### C MP, LIPID #### [facility] [address] [place], [place] [address] Dr. Virgil Curiel Cholesterol.total/C holesterol in HDL [Mass ratio] 2.7 {ratio} Normal [facility] Comment on above: Performed By: #### C MP, LIPID #### [facility] [address] [place], [place] [address] Dr. Virgil Curiel HDL NORMAL > or = 60 mg/dl - LO W CARDIOVASCULAR RISK <40 mg/dl - HIGH CARDIOVASCULAR RISK Normal [facility] Comment on above: Performed By: #### C MP, LIPID #### [facility] [address] [place], [place] [address] Dr. Virgil Curiel LDL CALC NORMAL SEE BELOW Normal [facility] Comment on above: Result Comment: <100 mg/dl OPTIMAL 100 - 129 mg/dl NEAR OR ABOVE OPTIMAL 130 - 159 mg/dl BORDERLINE HIGH 160 - 189 mg/dl HIGH >190 mg/dl VERY HIGH Performed By: #### C MP, LIPID #### [facility] [address] [place], [place] [address] Dr. Virgil Curiel Triglyceride [Mass/Vol] 105 mg/dL Normal <=150 [facility] Comment on above: Performed By: #### C MP, LIPID #### [facility] [address] [place], [place] [address] Dr. Virgil Curiel VLDL CALC 21.0 mg/dL Normal [facility] Comment on above: Performed By: #### C MP, LIPID #### [facility] [address] [place], [place] [address] Dr. Virgil Curiel MG MAMM SCREEN 3D CAM CADon 05-16-2022 MG MAMM SCREEN 3D CAM CAD Patient: NNEKA GARCIA Exam Date: 05/16/2022 : 1955 Gender:F Ordering : [facility] Admission #: [id number] Family : Order #: [id number] CLICK HERE TO VIEW EXAM RADIOLOGY REPORT PROCEDURE: MAMMOGRAM SCREENING 3D BILATERAL CAD COMPARISON: MG MAMM SCREEN CAM W CAD, 03/30/2020. MG MAMM SCREEN 3D CAM CAD, 04/06/2021. INDICATIONS: Screening mammography Calculator Name NCI Breast Cancer Risk Assessment Tool 5 Year Breast Cancer Risk 1.50% Lifetime Breast Cancer Risk 5.20% Personal Breast Cancer No Personal Ovarian Cancer No Treatments CHEMOTHERAPY AND RADIATION Family Cancers None LOCATION: [facility] BREAST COMPOSITION: Heterogeneously dense,which may obscure small masses. FINDINGS: DIAGNOSTIC CATEGORY 2--BENIGN FINDING. NO CHANGE FROM COMPARISON. Scattered benign-appearing nodules are present. Scattered benign-appearing calcifications are present. Scattered benign-appearing lymph nodes are present. RIGHT BREAST: No significant suspicious finding. LEFT BREAST: No significant suspicious finding. RECOMMENDATIONS: ROUTINE MAMMOGRAM AND CLINICAL EVALUATION IN 12 MONTHS. PLEASE NOTE: A NORMAL MAMMOGRAM DOES NOT EXCLUDE THE POSSIBILITY OF BREAST CANCER. A CLINICALLY SUSPICIOUS PALPABLE LUMP SHOULD BE BIOPSIED. Dictated by: Jose Hicks MD on 05/16/2022 at 08:58 Approved by: Jose Hicks MD on 05/16/2022 at 09:01 Normal [facility] MICROALBUMIN, RAND URon 02-1 3-2023 mALB <1.3 Normal <=30.0 [facility] Comment on above: Performed By: #### M ALBR ####[facility] [address] [place], [place] [address]RyDr. Virgil Curiel PROF 14(COMP METB)on 023 Albumin [Mass/Vol] 4.0 g/dL Normal 3.4-5.0 [facility] Comment on above: Performed By: #### C MP, LIPID #### [facility] [address] [place] [address] [address] Virgil Curiel Albumin/Globulin [Mass ratio] 1.0 {ratio} Normal [facility] Comment on above: Performed By: #### C MP, LIPID #### [facility] [address] [place] [address] [address] Virgil Curiel ALP [Catalytic activity/Vol] 87 U/L Normal 46-116 [facility] Comment on above: Performed By: #### C MP, LIPID #### [facility] [address] [place] [address] [address] Virgil Curiel ALT [Catalytic activity/Vol] 23 U/L Normal 14-59 [facility] Comment on above: Performed By: #### C MP, LIPID #### [facility] [address] [place] [address] [address] Virgil Curiel Anion gap [Moles/Vol] 12.8 mmol/L Normal [facility] Comment on above: Performed By: #### C MP, LIPID #### [facility] [address] [place] [address] [address] Virgil Curiel AST [Catalytic activity/Vol] 17 U/L Normal 15-37 [facility] Comment on above: Performed By: #### C MP, LIPID #### [facility] [address] [place] [address] [address] Virgil Curiel Bilirubin [Mass/Vol] 0.7 mg/dL Normal 0.2-1.0 [facility] Comment on above: Performed By: #### C MP, LIPID #### [facility] [address] [place] [address] [address] Virgil Curiel Calcium [Mass/Vol] 9.2 mg/dL Normal 8.5-10.1 [facility] Comment on above: Performed By: #### C MP, LIPID #### [facility] [address] [place] [address] Dr. Virgil Curiel Chloride [Moles/Vol] 101 mmol/L Normal 98-107 [facility] Comment on above: Performed By: #### C MP, LIPID #### [facility] [address] [place] [address] Dr. Virgil Curiel CO2 [Moles/Vol] 34.0 mmol/L Critically high 21.0-32.0 [facility] Comment on above: Performed By: #### C MP, LIPID #### [facility] [address] [place] [address] Dr. Virgil Curiel Creatinine [Mass/Vol] 0.68 mg/dL Normal 0.55-1.02 [facility] Comment on above: Performed By: #### C MP, LIPID #### [facility] [address] [place] [address] Dr. Virgil Curiel EGFR-AF CAMEROONIAN >60 Normal >=60 [facility] Comment on above: Performed By: #### C MP, LIPID #### [facility] [address] [place] [address] Dr. Virgil Curiel EGFR-NON AF CAMEROONIAN >60 Normal >=60 [facility] Comment on above: Performed By: #### C MP, LIPID #### [facility] [address] [place] [address] Dr. Virgil Curiel Globulin (S) [Mass/Vol] 3.9 g/dL Normal [facility] Comment on above: Performed By: #### C MP, LIPID #### [facility] [address] [place] [address] Dr. Virgil Curiel Glucose [Mass/Vol] 137 mg/dL Critically high 74-106 [facility] Comment on above: Performed By: #### C MP, LIPID #### [facility] [address] [place] [address] Dr. Virgil Curiel Potassium [Moles/Vol] 3.8 mmol/L Normal 3.5-5.1 [facility] Comment on above: Performed By: #### C MP, LIPID #### [facility] [address] [place] [address] Dr. Virgil Curiel Protein [Mass/Vol] 7.9 g/dL Normal 6.4-8.2 [facility] Comment on above: Performed By: #### C MP, LIPID #### [facility] [address] [place] [address] Dr. Virgil Curiel Sodium [Moles/Vol] 144 mmol/L Normal 136-145 [facility] Comment on above: Performed By: #### C MP, LIPID #### [facility] [address] [place] [address] Dr. Virgil Curiel Urea nitrogen [Mass/Vol] 14.0 mg/dL Normal 7.0-18.0 [facility] Comment on above: Performed By: #### C MP, LIPID #### [facility] [address] [place] [address] Dr. Virgil Curiel Urea nitrogen/Creatinine [Mass ratio] 20.6 mg/mg Normal [facility] Comment on above: Performed By: #### C MP, LIPID #### [facility] [address] [place] [address] Dr. Virgil Curiel UA RANDOM W/MICROSCOPICon BACTERIA NONE SEEN Normal NONE SEEN [facility] Comment on above: Performed By: #### U AMIC #### [facility] [address] [place] [address] Dr. Virgil Curiel Bilirubin Ql (U) Negative Normal NEGATIVE [facility] Comment on above: Performed By: #### U AMIC #### [facility] [address] [place] [address] Dr. Virgil Curiel CAST NONE SEEN Normal NONE SEEN [facility] Comment on above: Performed By: #### U AMIC #### [facility] [address] [place] [address] Dr. Virgil Curiel Clarity (U) CLEAR Normal CLEAR [facility] Comment on above: Performed By: #### U AMIC #### [facility] [address] [place] [address] [address] Virgil Curiel Color (U) YELLOW Normal YELLOW [facility] Comment on above: Performed By: #### U AMIC #### [facility] [address] [place] [address] [address] Virgil Curiel Crystals LM Nom (Urine sed) NONE SEEN Normal NONE SEEN [facility] Comment on above: Performed By: #### U AMIC #### [facility] [address] [place] [address] Dr. Virgil Curiel Epithelial cells LM Ql (Urine sed) NONE SEEN Normal NONE SEEN /RARE [facility] Comment on above: Performed By: #### U AMIC #### [facility] [address] [place] [address] Dr. Virgil Curiel Glucose Ql (U) 1000 mg/dl Abnormal NEGATIVE [facility] Comment on above: Performed By: #### U AMIC #### [facility] [address] [place] [address] Dr. Virgil Curiel Hemoglobin Ql (U) TRACE-INTACT Abnormal NEGATIVE [facility] Comment on above: Performed By: #### U AMIC #### [facility] [address] [place] [address] Dr. Virgil Curiel Ketones Ql (U) 15 mg/dl Abnormal NEGATIVE [facility] Comment on above: Performed By: #### U AMIC #### [facility] [address] [place] [address] [address] Virgil Curiel LEUKOCYTES Negative Normal NEGATIVE [facility] Comment on above: Performed By: #### U AMIC #### [facility] [address] [place] [address] [address] Virgil Curiel MUCOUS NONE SEEN Normal NONE SEEN [facility] Comment on above: Performed By: #### U AMIC #### [facility] [address] [place] [address] Dr. Virgil Curiel Nitrite Ql (U) Negative Normal NEGATIVE [facility] Comment on above: Performed By: #### U AMIC #### [facility] [address] [place] [address] Dr. Virgil Curiel pH (U) 5.5 [pH] Normal 5-9 [facility] Comment on above: Performed By: #### U AMIC #### [facility] [address] [place] [address] Dr. Virgil Curiel RBC 0-2 Normal 0-2 [facility] Comment on above: Performed By: #### U AMIC #### [facility] [address] [place] [address] [address] Virgil Curiel SPEC GRAVITY 1.020 Normal 1.005-<=1.025 [facility] Comment on above: Performed By: #### U AMIC #### [facility] [address] [place] [address] Dr. Virgil Curiel UA PROTEIN Negative Normal NEGATIVE/ TRACE [facility] Comment on above: Performed By: #### U AMIC #### [facility] [address] [place] [address] Dr. Virgil Curiel Urobilinogen Qn (U) 1.0 {Jaden'U}/dL Normal 0.2 - 1. 0 [facility] Comment on above: Performed By: #### U AMIC #### [facility] [address] [place] [address] Dr. Virgil Curiel WBC NONE SEEN Normal NONE SEEN [facility] Comment on above: Performed By: #### U AMIC #### [facility] [address] [place] [address] Dr. Virgil Curiel VITAMIN D 25 OHon 05-16-2022 VIT D 25-OH 62.7 ng/mL Normal [facility] Comment on above: Performed By: #### V ITAD #### [facility] [address] [place] [address] Dr. Virgil Curiel VIT D RANGES SEE BELOW Normal [facility] Comment on above: Result Comment: <20 ng/mL Vit D deficient 20 - <30 ng/mL Vit D insufficient 30 - 100 ng/mL Vit D sufficient >100 ng/mL Potential Toxicity Performed By: #### V ITAD #### [facility] [address] [place] [address] [address] Virgil Curiel XR DEXA BONE DENSITYon 05-16 XR DEXA BONE DENSITY DEXA Bone Density Study CLINICAL: Evaluate bone mineral density. Postmenopausal COMPARISON: 03/30/2020 FINDINGS: The bone density study was assessed by dual-energy x-ray absorptiometry with the [employer] scanner. The test results are expressed in T-Score, which is used for diagnosis for osteoporosis, and reflects the standard deviations from the mean peak bone mineral density in young adults. Additional information regarding the Z-Score reflects the standard deviations from the mean peak bone mineral density for age- and gender- matched subject. Lumbar Spine (L1-L4): BMD (gm/cm2): 1.226 T-Score: 0.4 Left Hip: BMD (gm/cm2): 0.955 T-Score: -0.4 Left Femoral Neck: BMD (gm/cm2): 0.932 T-Score: -0.8 Right Hip: BMD (gm/cm2): 0.909 T-Score: -0.8 Right Femoral Neck: BMD (gm/cm2): O.911 T-Score: -0.9 IMPRESSION: Lumbar spine, left hip, and right hip indicate no osteopenia or osteoporosis. REFERENCE: In children, postmenopausal women and males under age 50 not at increased risk for fractures, only Z-Scores, not T-Scores, are used to indicate fracture risk. A Z-Score above -2.0 is defined as within the expected range for age and Z-Score at or less than -2.0 is below the expected range for age. A Z-Score below the expected range for age in a patient with recent fractures and/or chronic corticosteroid treatment is consistent with a diagnosis of osteoporosis. In postmenopausal women and males over 50, comparison of the measured bone mineral density with the average value in young normal subjects (the T-Score) has been found to be useful in assessing fracture risk. Fracture risk approximately doubles for each 1.0 standard deviation (SD) that the individual's hip or spine bone mineral density is below the average value of young normal subjects. The World health Organization (WHO) has provided the following definitions: 1. Normal: T-Score within one standard deviation of young adult mean value (T-Score greater than -1.0). 2. Osteopenia (low bone mass): T-Score more than one standard deviation below the young adult mean but less than 2.5 standard deviations below the young adult mean (T-Score between -1.0 and -2.5). 3. Osteoporosis: T-Score more than 2.5 standard deviations below the young adult mean (T-Score less than -2.5). 4. Sever Osteoporosis (established osteoporosis): T-Score more than 2.5 standard deviations below young adult and one or more fragility fracture (T-Score less than -2.5 + fragility fractures). Electronically authenticated by: JOSE LEE Date: 2022-05-16 11:43 Normal [facility] Tobacco Screening.on 023 Adult depression screening assessment No [facility] [employer] [employer] 250 DO Work Phone: Fall risk assessment a) No falls within the last year [facility] 250 DO Work Phone: Tobacco use status [facility] b) No [facility] 250 DO Work Phone: Outside Colonoscopyon 2021 Outside Colonoscopy [id number]: 127 Normal [facility] Reminderson 12-09-2021 Reminders - From: Christy Xiao LPN To: N - Clinical; Sent: 12/09/2021 13:09:21 EDT Show up: 11/07/2026 07:00:00 EDT Subject: colonoscopy recall Due Date/Time: 12/08/2026 07:00:00 EDT Reminder/Recall Patient is due for colonoscopy 12/08/2026 due to history of rectal tubulovillous adenoma. Normal [facility] POINT OF CARE GLUCOSEon Glucose [Mass/Vol] 163 mg/dL Critically high 74-106 [facility] Comment on above: Performed By: #### P OCGLUC #### [facility] [address] [place] [address] Dr. Virgil Curiel Lab Reportson 12-07-2021 Lab Reports [id number]: 127 Normal [facility] Covid-19 PCR (CVDTB)on SARS-CoV-2 (COVID-19) RNA MOISÉS+probe Ql (Unsp spec) Not detected Normal NOT DETECTED [facility] Comment on above: Result Comment: This test is not yet approved or cleared by the [place] FDA. When there are no FDA-approved or cleared tests available, and other criteria are met, FDA can make tests available under an emergency access mechanism called an Emergency Use Authorization (EUA). The EUA for this test is supported by the [place] of Health and Human Service's (HHS's) declaration that circumstances exist to justify the emergency use of in vitro diagnostics for the detection and/or diagnosis of the virus that causes COVID-19. This EUA will remain in effect (meaning this test can be used) for the duration of the COVID-19 declaration justifying emergency of IVDs, unless it is terminated or revoked by FDA (after which the test may no longer be used). When diagnostic testing is negative, the possibility of a false negative should be considered in the context of a patient's recent exposures and the presence of clinical signs and symptoms consistent with SARS-CoV-2. Performed By: #### C ON LICENSE OF [facility] #### [facility] [address] [place] [address] Dr. Virgil Curiel Pre-Certification Formon Pre-Certification Form [id number] D:127 Normal [facility] Consent for Procedure/Surger yon 11-11-2021 Consent for Procedure/Surgery [id number]: 127 Normal [facility] Ambulatory Visit Summaryon 0 11-09-2021 Ambulatory Visit Summary NNEKA GARCIA :1955 Visit Date:11/09/2021 Ambulatory Visit Instructions Your Diagnosis Personal history of colonic polyps Your Care Team Attending Physician - JARRETT MARTINEZ, Rosie Weems Primary Care Physician - RADHA HARRIS DC This Is Your Medications List Contact prescribing physician if questions or concerns alendronate (alendronate 35 mg oral tablet) amlodipine (amLODIPine 2.5 mg Tab) aspirin (aspirin 81 mg Oral EC Tab) cholecalciferol (Vitamin D3 2000 intl units oral Tab) duloxetine (duloxetine 30 mg Cap-DR) empagliflozin (Jardiance 10 mg oral tablet) gabapentin (gabapentin 300 mg Cap) glipiZIDE (glipiZIDE 5 mg ER Tab) hydrochlorothiazide (hydrochlorothiazide 25 mg oral tablet) isosorbide mononitrate (isosorbide mononitrate 30 mg ER Tab) lisinopril (lisinopril 5 mg Tab) nitroglycerin (nitroglycerin 0.4 mg sublingual Tab) propranolol (propranolol 40 mg Tab) simvastatin (simvastatin 10 mg Tab) Procedures Performed Colonoscopy (02/25/2013), Colonoscopy (02/28/2007), Sigmoidoscopy (06/26/2006), Destruction of lesion of rectum by fulguration (04/27/2006), Sigmoidoscopy (04/24/2006), Cardiac catheterization, Diagnostic laparoscopy, Tonsillectomy, Tubal ligation. Discharge Vitals Heart Rate (Peripheral) 60 Respiratory Rate 16 Blood Pressure 106/60 Height 157.4 cm Height 157.4 cm Weight 66.8 kg Weight 66.8 kg BMI 26.96 Medications What How Much When Instructions Unchanged alendronate (alendronate 35 mg oral tablet) 1 Tablets By Mouth Every week Contact prescribing physician if questions or concerns Unchanged amlodipine (amLODIPine 2.5 mg Tab) 1 Tablets By Mouth Every day Contact prescribing physician if questions or concerns Unchanged aspirin (aspirin 81 mg Oral EC Tab) 1 Tablets By Mouth Every day Contact prescribing physician if questions or concerns Unchanged cholecalciferol (Vitamin D3 2000 intl units oral Tab) 50 Microgram By Mouth Every day Contact prescribing physician if questions or concerns Unchanged duloxetine (duloxetine 30 mg Cap-DR) 1 Capsules By Mouth Every day Contact prescribing physician if questions or concerns Unchanged empagliflozin (Jardiance 10 mg oral tablet) 1 Tablets By Mouth Once a day (in the morning) Contact prescribing physician if questions or concerns Unchanged gabapentin (gabapentin 300 mg Cap) 1 Capsules By Mouth 3 times a day Contact prescribing physician if questions or concerns Unchanged glipiZIDE (glipiZIDE 5 mg ER Tab) 1 Tablets By Mouth Every day Contact prescribing physician if questions or concerns Unchanged hydrochlorothiazide (hydrochlorothiazide 25 mg oral tablet) 1 Tablets By Mouth Every day Contact prescribing physician if questions or concerns Unchanged isosorbide mononitrate (isosorbide mononitrate 30 mg ER Tab) 1 Tablets By Mouth Once a day (in the morning) Contact prescribing physician if questions or concerns Unchanged lisinopril (lisinopril 5 mg Tab) 1 Tablets By Mouth Every day Contact prescribing physician if questions or concerns Unchanged nitroglycerin (nitroglycerin 0.4 mg sublingual Tab) 1 Tablets Sublingual Every 5 minutes as needed for for chest pain Contact prescribing physician if questions or concerns Unchanged propranolol (propranolol 40 mg Tab) 1 Tablets By Mouth 2 times a day Contact prescribing physician if questions or concerns Unchanged simvastatin (simvastatin 10 mg Tab) 1 Tablets By Mouth Once a day (at bedtime) Contact prescribing physician if questions or concerns Allergies No Known Allergies No Known Medication Allergies Problems Ongoing - Any problem that you are currently receiving treatment for. BMI 26.0-26.9,adult CAD (coronary artery disease) Depression Diabetes Diabetic retinopathy Diverticulosis Edema HTN (hypertension) Hyperlipemia Migraines Osteoporosis Personal history of colonic polyps Restless leg Tremors of nervous system Urinary incontinence Uterovaginal prolapse Villous adenoma of rectum Vitamin D deficiency Normal [facility] Physician Referralon 022 Physician Referral [id number]: 127 Normal [facility] GLYCOHEMOGLOBIN A1Con 2021 ADA RECOMMENDATION SEE BELOW Normal [facility] Comment on above: Result Comment: ADA RECOMMENDED LIMIT 4.0 - 6.0 ADA THERAPEUTIC TARGET < 7.0 ACTION SUGGESTED > 7.0 Performed By: #### A 1C #### [facility] [address] [address] [address] Virgil Curiel Glucose [Mass/Vol] 154 mg/dL Normal [facility] Comment on above: Performed By: #### A 1C #### [facility] [address], [place] [address] Dr. Virgil Curiel HbA1c (Bld) [Mass fraction] 7.0 % Critically high 4.5-6.2 [facility] Comment on above: Performed By: #### A 1C #### [facility] [address] [address] [address] Virgil Curiel PROF CHEM 8 (BAS METB)on Anion gap [Moles/Vol] 11.2 mmol/L Normal [facility] Comment on above: Performed By: #### B MP #### [facility] [address] [address] [address] Virgil Curiel Calcium [Mass/Vol] 9.1 mg/dL Normal 8.5-10.1 [facility] Comment on above: Performed By: #### B MP #### [facility] [address] [address] [address] Virgil Curiel Chloride [Moles/Vol] 100 mmol/L Normal 98-107 [facility] Comment on above: Performed By: #### B MP #### [facility] [address] [place] [address] Dr. Virgil Curiel CO2 [Moles/Vol] 32.6 mmol/L Critically high 21.0-32.0 [facility] Comment on above: Performed By: #### B MP #### [facility] [address] [place] [address] Dr. Virgil Curiel Creatinine [Mass/Vol] 0.73 mg/dL Normal 0.55-1.02 [facility] Comment on above: Performed By: #### B MP #### [facility] [address] [place] [address] Dr. Virgil Curiel EGFR-AF CAMEROONIAN >60 Normal >=60 [facility] Comment on above: Performed By: #### B MP #### [facility] [address] [place] [address] Dr. Virgil Curiel EGFR-NON AF CAMEROONIAN >60 Normal >=60 [facility] Comment on above: Performed By: #### B MP #### [facility] [address] [place] [address] Dr. Virgil Curiel Glucose [Mass/Vol] 107 mg/dL Critically high 74-106 [facility] Comment on above: Performed By: #### B MP #### [facility] [address], [place] [address] Dr. Virgil Curiel Potassium [Moles/Vol] 3.8 mmol/L Normal 3.5-5.1 [facility] Comment on above: Performed By: #### B MP #### [facility] [address], [place] [address] Dr. Virgil Curiel Sodium [Moles/Vol] 140 mmol/L Normal 136-145 [facility] Comment on above: Performed By: #### B MP #### [facility] [address], [place] [address] Dr. Virgil Curiel Urea nitrogen [Mass/Vol] 17.0 mg/dL Normal 7.0-18.0 [facility] Comment on above: Performed By: #### B MP #### [facility] [address], [place] [address] Dr. Virgil Curiel Urea nitrogen/Creatinine [Mass ratio] 23.3 mg/mg Normal [facility] Comment on above: Performed By: #### B MP #### [facility] [address], [place] [address] Dr. Virgil Curiel Office Visit (Cardiology)on 04-05-2021 Follow-up visit Diagnoses/Problems Assessed Hyperlipidemia (272.4) (E78.5) Diabetes mellitus (250.00) (E11.9) CAD (coronary artery disease) (414.00) (I25.10) Benign essential hypertension (401.1) (I10) Overweight with body mass index (BMI) of 26 to 26.9 in adult (278.02,V85.22) (E66.3,Z68.26) Orders CAD (coronary artery disease) Renew: Aspirin EC 81 MG Oral Tablet Delayed Release; TAKE 1 TABLET DAILY Patient Instructions By signing my name below, I, Aiden Okeefe LPN, attest that this documentation has been prepared under the direction and in the presence of Dr. David Berrios MD. Please bring all medicines, vitamins, and herbal supplements with you when you come to the office. Prescriptions will not be filled unless you are compliant with your follow up appointments or have a follow up appointment scheduled as per instruction of your physician. Refills should be requested at the time of your visit. Follow up in 1 year. Chief Complaint NNEKA GARCIA is being seen for an annual follow-up of. History of Present Illness Patient returns in follow-up of problems as noted. She doing well. She is active with no angina CHF arrhythmia or neurologic symptomatology. Cardiac risk factors and their management are reviewed including that of diabetes hypertension and hyperlipidemia and her control and treatment appears to be excellent. Because of this we recommend no change. We did advocate a modest diet and weight loss but otherwise she is doing well and consequently we suggest continued pharmacologic therapy as is and follow-up next year Current Meds Medication NameInstruction Alendronate Sodium 35 MG Oral TabletTAKE 1 TABLET ONCE WEEKLY. amLODIPine Besylate 2.5 MG Oral TabletTAKE 1 TABLET DAILY. Aspirin EC 81 MG Oral Tablet Delayed ReleaseTAKE 1 TABLET DAILY. DULoxetine HCl - 30 MG Oral Capsule Delayed Release ParticlesTAKE 1 CAPSULE Daily Gabapentin 300 MG Oral CapsuleTAKE 1 CAPSULE 3 TIMES DAILY. glipiZIDE 5 MG Oral TabletTAKE 1 TABLET DAILY. hydroCHLOROthiazide 25 MG Oral TabletTAKE 1 TABLET DAILY. Isosorbide Mononitrate ER 30 MG Oral Tablet Extended Release 24 HourTAKE 1 TABLET DAILY. Jardiance 10 MG Oral TabletTAKE 1 TABLET BY MOUTH ONCE DAILY Lisinopril 5 MG Oral TabletTAKE 1 TABLET DAILY. Propranolol HCl - 40 MG Oral TabletTake 1 tablet daily Simvastatin 10 MG Oral TabletTAKE 1 TABLET DAILY. Vitamin D 50 MCG (1999) Oral TabletTake 1 tablet daily Allergies Medication No Known Drug Allergies Recorded By: Martina Cohen; 03/02/2021 12:06:20 PM Social History Problems Caffeine use (V49.89) (Z78.9) 2 CUPS A DAY Never a smoker No alcohol use No illicit drug use Review of Systems Constitutional: not feeling tired. Eyes: no eyesight problems. ENT: no hearing loss and no nosebleeds. Cardiovascular: no intermittent leg claudication and as noted in HPI. Respiratory: no chronic cough and no shortness of breath. Gastrointestinal: no change in bowel habits and no blood in stools. Genitourinary: no urinary frequency. Skin: no skin rashes. Neurological: no seizures and no frequent falls. Psychiatric: no depression and not suicidal. All other systems have been reviewed and are negative for complaint. Vitals Vital Signs Recorded: 05Apr2021 10:10AM Heart Rate56, R Radial Pulse QualityRegular, R Radial Eciiwxrs033, RUE, Sitting [id number], RUE, Sitting Height5 ft 3 in [id number] lb 9.6 oz BMI Lkglyswcae51.86 kg/m2 BSA Calculated1.72 Tobacco Useb) No Fall Screeninga) No falls within the last year Physical Exam Constitutional: alert and in no acute distress. Eyes: no erythema, swelling or discharge from the eye . Neck: neck is supple, symmetric, trachea midline, no masses and no thyromegaly . Pulmonary: no increased work of breathing or signs of respiratory distress and lungs clear to auscultation. Cardiovascular: carotid pulses 2+ bilaterally with no bruit , JVP was normal, no thrills , regular rhythm, normal S1 and S2, no murmurs , pedal pulses 2+ bilaterally and no edema . Abdomen: abdomen non-tender, no masses and no hepatomegaly . Skin: skin warm and dry, normal skin turgor . Psychiatric judgment and insight is normal and oriented to person, place and time . Signatures Electronically signed by : David Berrios MD; Apr 05 2021 11:45AM EST (Author) Normal [employer] Tobacco Screening.on 022 Fall risk assessment a) No falls within the last year [facility] DO Work Phone: Heart Rate Regular [facility] DO Work Phone: Tobacco use status CP b) No [facility] DO Work Phone: Basic Metabolic Panelon 02-0 Anion gap [Moles/Vol] 12 mmol/L 9 - 17 mmol/L [employer] Phone: Bun/Cre Ratio 20 [employer] Work Phone: Calcium [Mass/Vol] 9.5 mg/dL 8.6 - 10. 4 mg/dL [employer] Phone: Chloride [Moles/Vol] 99 mmol/L 98 - 107 mmol/L [employer] Phone: CO2 [Moles/Vol] 30 mmol/L 20 - 31 mmol/L [facility] Work Phone: Creatinine [Mass/Vol] 0.71 mg/dL 0.5 - 0.9 mg/dL [facility] [employer] Phone: GFR >60 >60 mL/min [facility] [employer] Phone: GFR Non- >60 >60 mL/min [facility] [employer] Phone: Glucose [Mass/Vol] 102 mg/dL High 70 - 99 mg/dL [facility] [employer] Work Phone: Interpretation and review of laboratory results Abnormal [facility] [employer] Phone: Potassium [Moles/Vol] 4.3 mmol/L 3.7 - 5.3 mmol/L [facility] [employer] Phone: Sodium [Moles/Vol] 141 mmol/L 135 - 144 mmol/L [facility] [employer] Phone: Urea nitrogen [Mass/Vol] 14 mg/dL 8 - 23 mg/dL [facility] [employer] Phone: Basic Metabolic Profon 05-08 (cont.) Normal [facility] Comment on above: Result Comment: Aver age GFR for 60-69 years old: 85 mL/min/1.73sq m Chronic Kidney Disease: <60 mL/min/1.73sq m Kidney failure: <15 mL/min/1.73sq m eGFR calculated using average adult body mass. Additional eGFR calculator available at: http://www.Trovit.DivvyDown/multiple_crcl_2011.htm Performed By: #### C BC, BMP, FE, LIPR, GLYHGB #### [facility] [address] [place] [address] Web Publisher: Sharif Sims MD Anion gap [Moles/Vol] 12 mmol/L Normal - [facility] Comment on above: Performed By: #### C BC, BMP, FE, LIPR, GLYHGB #### [facility] [address] [place] [address] Web Publisher: Sharif Sims MD BUN/CRE Ratio 20 Normal 9-20 [facility] Comment on above: Performed By: #### C BC, BMP, FE, LIPR, GLYHGB #### [facility] [address] [place] [address] Web Publisher: Sharif Sims MD Calcium [Mass/Vol] 9.5 mg/dL Normal 8.6-10.4 [facility] Comment on above: Performed By: #### C BC, BMP, FE, LIPR, GLYHGB #### [facility] [address] [place] [address] Web Publisher: Sharif Sims MD Chloride [Moles/Vol] 99 mmol/L Normal 98-107 [facility] Comment on above: Performed By: #### C BC, BMP, FE, LIPR, GLYHGB #### [facility] [address] [place], [facility]83 Web Publisher: Sharif Sims MD CO2 [Moles/Vol] 30 mmol/L Normal 20-[address] [facility] Comment on above: Performed By: #### C BC, BMP, FE, LIPR, GLYHGB #### [facility] [address] [place] [address] Web Publisher: Sharif Sims MD Creatinine [Mass/Vol] 0.71 mg/dL Normal 0.50-0.90 [facility] Comment on above: Performed By: #### C BC, BMP, FE, LIPR, GLYHGB #### [facility] [address] [place] [address] Web Publisher: Sharif Sims MD GFR, Amer >60 Normal >60 [facility] Comment on above: Performed By: #### C BC, BMP, FE, LIPR, GLYHGB #### [facility] [address] [place] [address] Web Publisher: Sharif Sims MD GFR,non Amer >60 Normal >60 [facility] Comment on above: Performed By: #### C BC, BMP, FE, LIPR, GLYHGB #### [facility] [address] [place] [address] Web Publisher: Sharif Sims MD Glucose [Mass/Vol] 102 mg/dL High 70-99 [facility] Comment on above: Performed By: #### C BC, BMP, FE, LIPR, GLYHGB #### [facility] [address] [place] [address] Web Publisher: Sharif Sims MD Potassium [Moles/Vol] 4.3 mmol/L Normal 3.7-5.3 [facility] Comment on above: Performed By: #### C BC, BMP, FE, LIPR, GLYHGB #### [facility] [address] [place], [place] [address] Web Publisher: Sharif Sims MD Sodium [Moles/Vol] 141 mmol/L Normal 135-144 [facility] Comment on above: Performed By: #### C BC, BMP, FE, LIPR, GLYHGB #### [facility] [address] [place] [address] Web Publisher: Sharif Sims MD Staging: Normal [facility] Comment on above: Result Comment: Stag e 1: Some kidney damage normal GFR Stage 2: Mild kidney damage GFR 60-89 Stage 3: Moderate kidney damage GFR 30-59 Stage 4: Severe kidney damage GFR 15-29 Stage 5: Severe kidney damage GFR <15 ESRD - chronic treatment by dialysis or transplant Performed By: #### C BC, BMP, FE, LIPR, GLYHGB #### [facility] [address] [place] [address] Web Publisher: Sharif Sims MD Urea nitrogen [Mass/Vol] 14 mg/dL Normal 8-23 [facility] Comment on above: Performed By: #### C BC, BMP, FE, LIPR, GLYHGB #### [facility] [address] [place] [address] Web Publisher: Sharif Sims MD CBC Auto Differentialon - Basophils (Bld) [#/Vol] 0.06 10*3/uL [employer] Phone: Basophils/100 WBC (Bld) 1 % 0 - 2 % [employer] Phone: Differential Type NOT REPORTED [employer] Phone: Eosinophils (Bld) [#/Vol] 1.09 10*3/uL High [employer] Phone: Eosinophils/100 WBC (Bld) 12 % High 1 - 4 % [employer] Phone: Erythrocyte distribution width (RBC) [Ratio] 12.9 % 11.8 - 14.4 % [employer] Phone: Hematocrit (Bld) [Volume fraction] 43.8 % 36.3 - 47.1 % [employer] Phone: Hemoglobin (Bld) [Mass/Vol] 13.8 g/dL 11.9 - 15.1 g/dL [employer] Phone: Immature granulocytes (Bld) [#/Vol] 0 % 0 [employer] Phone: Immature granulocytes (Bld) [#/Vol] 0.03 10*3/uL [employer] Phone: Interpretation and review of laboratory results Abnormal [employer] Phone: Lymphocytes (Bld) [#/Vol] 2.38 10*3/uL [employer] Phone: Lymphocytes/100 WBC (Bld) 26 % 24 - 43 % [employer] Phone: MCH (RBC) [Entitic mass] 29.2 pg 25.2 - 33.5 pg [employer] Phone: MCHC (RBC) [Mass/Vol] 31.5 g/dL 28.4 - 34.8 g/dL [employer] Phone: MCV (RBC) [Entitic vol] 92.6 fL 82.6 - 102.9 fL [employer] Phone: Monocytes (Bld) [#/Vol] 0.72 10*3/uL [employer] Work Phone: Monocytes/100 WBC (Bld) 8 % 3 - 12 % [employer] Phone: Platelet mean volume (Bld) [Entitic vol] 9.3 fL 8.1 - 13.5 fL [employer] Phone: Platelets (Bld) [#/Vol] NOT REPORTED [employer] Phone: Platelets (Bld) [#/Vol] 367 10*3/uL [employer] Work Phone: RBC (Bld) [#/Vol] 4.73 10*6/uL 3.95 - 5.1 1 m/uL [employer] Work Phone: RBC morphology finding Nom (Bld) NOT REPORTED [employer] Phone: Segmented neutrophils/100 WBC (Bld) 53 % 36 - 65 % [employer] Work Phone: Segs Absolute 4.85 [employer] [facility] Work Phone: WBC (Bld) [#/Vol] 9.1 10*3/uL [employer] Work Phone: WBC (Bld) [#/Vol] 0.0 10*3/uL 0.0 per 10 0 WBC [employer] Phone: WBC Morphology NOT REPORTED [facility] Work Phone: CBC with Diffon 05-08-2019 Abs. Basophil 0.06 k/uL Normal 0.00-0.20 [facility] Comment on above: Performed By: #### C BC, BMP, FE, LIPR, GLYHGB #### [facility] [address] [place] [id number] Web Publisher: Sharif Sims MD Abs.Imm.Granulocyte 0.03 k/uL Normal 0.00-0.30 [facility] Comment on above: Performed By: #### C BC, BMP, FE, LIPR, GLYHGB #### [facility] [address] [address] Web Publisher: Sharif Sims MD Abs.Neutrophil (Seg) 4.85 k/uL Normal 1.50-8.10 [facility] Comment on above: Performed By: #### C BC, BMP, FE, LIPR, GLYHGB #### [address] [place] [address] Web Publisher: Sharif Sims MD Basophils/100 WBC (Bld) 1 % Normal 0-2 [facility] Comment on above: Performed By: #### C BC, BMP, FE, LIPR, GLYHGB #### [address] [place] [address] Web Publisher: Sharif Sims MD Eosinophils (Bld) [#/Vol] 1.09 10*3/uL High 0.00-0.44 [facility] Comment on above: Performed By: #### C BC, BMP, FE, LIPR, GLYHGB #### [address] [place] [id number] Web Publisher: Sharif Sims MD Eosinophils/100 WBC (Bld) 12 % High 1-4 [facility] Comment on above: Performed By: #### C BC, BMP, FE, LIPR, GLYHGB #### [address] [place] [id number] Web Publisher: Sharif Sims MD Erythrocyte distribution width (RBC) [Ratio] 12.9 % Normal 11.8-14.4 [facility] Comment on above: Performed By: #### C BC, BMP, FE, LIPR, GLYHGB #### [facility] [address] [place], [place] [id number] Web Publisher: Sharif Sims MD Hematocrit (Bld) [Volume fraction] 43.8 % Normal 36.3-47.1 [facility] Comment on above: Performed By: #### C BC, BMP, FE, LIPR, GLYHGB #### [facility] [address] [place] [place] [address] Web Publisher: Sharif Sims MD Hemoglobin (Bld) [Mass/Vol] 13.8 g/dL Normal 11.9-15.1 [facility] Comment on above: Performed By: #### C BC, BMP, FE, LIPR, GLYHGB #### [facility] [address] [place] [id number] Web Publisher: Sharif Sims MD Immature granulocytes (Bld) [#/Vol] 0 % Normal 0 [facility] Comment on above: Performed By: #### C BC, BMP, FE, LIPR, GLYHGB #### [facility] [address] [place] [id number] Web Publisher: Sharif Sims MD Lymphocytes (Bld) [#/Vol] 2.38 10*3/uL Normal 1.10-3.70 [facility] Comment on above: Performed By: #### C BC, BMP, FE, LIPR, GLYHGB #### [facility] [address] [place], [place] [id number] Web Publisher: Sharif Sims MD Lymphocytes/100 WBC (Bld) 26 % Normal 24-43 [facility] Comment on above: Performed By: #### C BC, BMP, FE, LIPR, GLYHGB #### [facility] [address] [place], [facility]83 Web Publisher: Sharif Sims MD MCH (RBC) [Entitic mass] 29.2 pg Normal 25.2-33.5 [facility] Comment on above: Performed By: #### C BC, BMP, FE, LIPR, GLYHGB #### [facility] [address] [place] [facility]83 Web Publisher: Sharif Sims MD MCHC (RBC) [Mass/Vol] 31.5 g/dL Normal 28.4-34.8 [facility] Comment on above: Performed By: #### C BC, BMP, FE, LIPR, GLYHGB #### [facility] [address] [place], [facility]83 Web Publisher: Sharif Sims MD MCV (RBC) [Entitic vol] 92.6 fL Normal 82.6-102.9 [facility] Comment on above: Performed By: #### C BC, BMP, FE, LIPR, GLYHGB #### [facility] [address] [place], [facility]83 Web Publisher: Sharif Sims MD Monocytes (Bld) [#/Vol] 0.72 10*3/uL Normal 0.10-1.20 [facility] Comment on above: Performed By: #### C BC, BMP, FE, LIPR, GLYHGB #### [facility] [address] [place], [facility]83 Web Publisher: Sharif Sims MD Monocytes/100 WBC (Bld) 8 % Normal 3-12 [facility] Comment on above: Performed By: #### C BC, BMP, FE, LIPR, GLYHGB #### [facility] [address] [place], [facility]83 Web Publisher: Sharif Sims MD Neutrophil (Seg) 53 % Normal 36-65 [facility] Comment on above: Performed By: #### C BC, BMP, FE, LIPR, GLYHGB #### [facility] [address] [place], [place] [id number] Web Publisher: Sharif Sims MD NRBC Automated 0.0 per 100 WBC Normal 0.0 [facility] Comment on above: Performed By: #### C BC, BMP, FE, LIPR, GLYHGB #### [facility] [address] [place], [facility]83 Web Publisher: Sharif Sims MD Platelet mean volume (Bld) [Entitic vol] 9.3 fL Normal 8.1-13.5 [facility] Comment on above: Performed By: #### C BC, BMP, FE, LIPR, GLYHGB #### [facility] [address] [place], [place] [id number] Web Publisher: Sharif Sims MD Platelets (Bld) [#/Vol] 367 10*3/uL Normal 138-453 [facility] Comment on above: Performed By: #### C BC, BMP, FE, LIPR, GLYHGB #### [address] [place], [place] [id number] Web Publisher: Sharif Sims MD RBC (Bld) [#/Vol] 4.73 10*6/uL Normal 3.95-5.11 [facility] Comment on above: Performed By: #### C BC, BMP, FE, LIPR, GLYHGB #### [facility] [address] [place], [place] [id number] Web Publisher: Sharif Sims MD WBC (Bld) [#/Vol] 9.1 10*3/uL Normal 3.5-11.3 [facility] Comment on above: Performed By: #### C BC, BMP, FE, LIPR, GLYHGB #### [facility] [address] [place], [place] [id number] Web Publisher: Sharif Sims MD Auto Diff Performed NOT REPORTED Normal [facility] Comment on above: Performed By: #### C BC, BMP, FE, LIPR, GLYHGB #### [facility] [address] [place], [place] [id number] Web Publisher: Sharif Sims MD Platelets (Bld) [#/Vol] NOT REPORTED Normal [facility] Comment on above: Performed By: #### C BC, BMP, FE, LIPR, GLYHGB #### [facility] [address] [place] [address] Web Publisher: Sharif Sims MD RBC morphology finding Nom (Bld) NOT REPORTED Normal [facility] Comment on above: Performed By: #### C BC, BMP, FE, LIPR, GLYHGB #### [facility] [address] [place], [place] [id number] Web Publisher: Sharif Sims MD WBC Morphology NOT REPORTED Normal [facility] Comment on above: Performed By: #### C BC, BMP, FE, LIPR, GLYHGB #### [facility] [address] [place], [place] [id number] Web Publisher: Sharif Sims MD Hemoglobin A1Con 05-08-2019 HbA1c (Bld) [Mass fraction] 6.5 % High 4.8-5.9 [facility] Comment on above: Performed By: #### C BC, BMP, FE, LIPR, GLYHGB #### [facility] [address] [place], [place] [id number] Web Publisher: Sharif Sims MD HbA1c (Bld) [Mass fraction] 140 mg/dL Normal [facility] Comment on above: Result Comment: The ADA and AACC recommend providing the estimated average glucose result to permit better patient understanding of their HBA1c result. Performed By: #### C BC, BMP, FE, LIPR, GLYHGB #### [facility] [address] [place], [place] [id number] Web Publisher: Sharif Sims MD Glucose [Mass/Vol] 140 mg/dL [facility] Phone: Comment on above: The ADA and AACC rec ommend providing the estimated average glucose result to permit better patient understanding of their HBA1c result. HbA1c (Bld) [Mass fraction] 6.5 % High 4.8 - 5.9 % [facility] Phone: Interpretation and review of laboratory results Abnormal [facility] Phone: Lipid Panelon 05-08-2019 Cholesterol [Mass/Vol] 133 mg/dL <200 [facility] Phone: Comment on above: Cholesterol Guidelines: <200 Desirable 200-240 Borderline >240 Undesirable Cholesterol in HDL [Mass/Vol] 52 mg/dL >40 [facility] Phone: Comment on above: HDL Guidelines: <40 Undesirable 40-59 Borderline >59 Desirable Cholesterol in LDL [Mass/Vol] 55 mg/dL 0 - 130 mg/dL [facility] Phone: Comment on above: LDL Guidelines: <100 Desirable 100-129 Near to/above Desirable 130-159 Borderline >159 Undesirable Direct (measured) LDL and calculated LDL are not interchangeable tests. Cholesterol in VLDL [Mass/Vol] NOT REPORTED 1 - 30 mg/dL [facility] Phone: Cholesterol.total/C holesterol in HDL [Mass ratio] 2.6 {ratio} <5 [facility] Phone: Triglyceride [Mass/Vol] 131 mg/dL <150 [facility] Phone: Comment on above: Triglyceride Guidelines: <150 Desirable 150-199 Borderline 200-499 High >499 Very high Based on AHA Guidelines for fasting triglyceride, January 2012. Lipid Profileon 05-08-2019 Cholesterol [Mass/Vol] 133 mg/dL Normal <200 [facility] Comment on above: Result Comment: Cholesterol Guidelines: <200 Desirable 200-240 Borderline >240 Undesirable Performed By: #### C BC, BMP, FE, LIPR, GLYHGB #### [facility] [address] [place], [facility]83 Web Publisher: Sharif Sims MD Cholesterol in HDL [Mass/Vol] 52 mg/dL Normal >40 [facility] Comment on above: Result Comment: HDL Guidelines: <40 Undesirable 40-59 Borderline >59 Desirable Performed By: #### C BC, BMP, FE, LIPR, GLYHGB #### [facility] [address] [place] [address] Web Publisher: Sharif Sims MD Cholesterol in LDL [Mass/Vol] 55 mg/dL Normal 0-130 [facility] Comment on above: Result Comment: LDL Guidelines: <100 Desirable 100-129 Near to/above Desirable 130-159 Borderline >159 Undesirable Direct (measured) LDL and calculated LDL are not interchangeable tests. Performed By: #### C BC, BMP, FE, LIPR, GLYHGB #### [facility] [address] [place] [address] Web Publisher: Sharif Sims MD Cholesterol.total/C holesterol in HDL [Mass ratio] 2.6 {ratio} Normal <5 [facility] Comment on above: Performed By: #### C BC, BMP, FE, LIPR, GLYHGB #### [facility] [address] [place] [address] Web Publisher: Sharif Sims MD Triglyceride [Mass/Vol] 131 mg/dL Normal <150 [facility] Comment on above: Result Comment: Triglyceride Guidelines: <150 Desirable 150-199 Borderline 200-499 High >499 Very high Based on AHA Guidelines for fasting triglyceride, January 2012. Performed By: #### C BC, BMP, FE, LIPR, GLYHGB #### [facility] [address] [place] [address] Web Publisher: Sharif Sims MD Cholesterol in VLDL [Mass/Vol] NOT REPORTED Normal 1-30 [facility] Comment on above: Performed By: #### C BC, BMP, FE, LIPR, GLYHGB #### [facility] [address] [place] [address] Web Publisher: Sharif Sims MD Metabolic Panelon 05-08-2019 GFR/1.73 sq M predicted among non-blacks MDRD (S/P/Bld) [Vol rate/Area] [facility] Work Phone: Comment on above: Stage 1: Some kidney damage normal GFR Stage 2: Mild kidney damage GFR 60-89 Stage 3: Moderate kidney damage GFR 30-59 Stage 4: Severe kidney damage GFR 15-29 Stage 5: Severe kidney damage GFR <15 ESRD - chronic treatment by dialysis or transplant Average GFR for 60-6 9 years old: 85 mL/min/1.73sq m Chronic Kidney Disease: <60 mL/min/1.73sq m Kidney failure: <15 mL/min/1.73sq m eGFR calculated using average adult body mass. Additional eGFR calculator available at: http://www.[employer]/multiple_crcl_2012.htm Microalb.,Random Uron 2019 Creatinine [Mass/Vol] 189.8 mg/dL Normal 28.0-217.0 [facility] Comment on above: Performed By: #### C BC, BMP, FE, LIPR, GLYHGB #### [facility] [address] [place] [address] [place] [address] Web Publisher: Sharif Sims MD Microalb/Creat Ratio CANNOT BE CALCULATED Normal <25 [facility] Comment on above: Performed By: #### C BC, BMP, FE, LIPR, GLYHGB #### [facility] [address] [place] [address] Web Publisher: Sharif Sims MD Microalbumin conc. <12 Normal <21 [facility] Comment on above: Performed By: #### C BC, BMP, FE, LIPR, GLYHGB #### [facility] [address] [place] [address] Web Publisher: Sharif Sims MD Microalbumin, Uron 0 Albumin/Creatinine DL <= 20 mg/L (24H U) [Mass ratio] <12 <21 mg/L [facility] Phone: Albumin/Creatinine DL <= 20 mg/L (U) [Ratio] CANNOT BE CALCULATED <25 mcg/mg creat [facility] Phone: Creatinine [Mass/Vol] 189.8 mg/dL 28 - 217 mg/dL [facility] Phone: CARDIAC STRESS TESTon 2018 CARDIAC STRESS TEST [address] [id number] CARDIAC STRESS TEST PATIENT NAME: NNEKA GARCIA : 1955 MED REC NO: [id number] ROOM: 0318 ACCOUNT NO: [id number] ADMIT DATE: 03/11/2019 PROVIDER: Richie Multani CARDIOVASCULAR DIAGNOSTIC DEPARTMENT DATE OF STUDY: 03/12/2019 ORDERING PROVIDER: Mary Watson MD PRIMARY CARE PROVIDER: Magda Carballo CNP INTERPRETING PHYSICIAN: Richie Multani MD EXERCISE MYOCARDIAL PERFUSION STRESS TEST REPORT Rest/stress single-isotope SPECT imaging with exercise stress and gated SPECT imaging INDICATION: Assessment of recent chest pain and/or discomfort CLINICAL HISTORY: The patient is a 63-year-old woman with no known coronary artery disease. Previous cardiac history includes: None Other previous history includes: Chest pain, fatigue, dyspnea, lightheadedness, diabetes mellitus, indigestion, heartburn, family history of CAD in mother and father, hypertension Symptoms just prior to testing included: None Relevant medications: Inderal PROCEDURE: The patient performed treadmill exercise using a Elio protocol, completing 6:01 minutes and completing an estimated workload of 7.00 metabolic equivalents (METS). The test was terminated due to fatigue, shortness of breath and chest pain. The heart rate was 70 beats per minute at baseline and increased to 142 beats per minute at peak exercise, which was 91% of the maximum predicted heart rate. The rest blood pressure was 144/84 mmHg and increased to 178/70 mmHg, which is a normal response. During the procedure, the patient developed fatigue shortness of breath, fatigue, and chest pain (1/3). Myocardial perfusion imaging: Imaging was performed at rest 30-45 minutes following the injection of 10.0 mCi of sestamibi. At peak exercise, the patient was injected with 30.0 mCi of sestamibi and exercise was continued for 1 minute. Gating post-stress tomographic imaging was performed 30-45 minutes after stress. STRESS ECG RESULTS: The resting electrocardiogram demonstrated normal sinus rhythm with ST-segment abnormalities suggestive of myocardial ischemia. At peak exercise and during recovery, the patient developed: No significant ST segment changes suggestive of myocardial ischemia with occasional premature atrial contractions (PACs) and occasional premature ventricular contractions (PVCs). NUCLEAR IMAGING RESULTS: The overall quality of the study is excellent. Mild attenuation artifact was seen. There is no evidence of abnormal lung uptake. Additionally, the right ventricle appears normal. The left ventricular cavity is noted to be normal in size on the stress images. There is no evidence of transient ischemic dilatation (TID) of the left ventricle. Gated SPECT imaging reveals normal myocardial thickening and wall motion with a calculated left ventricular ejection fraction of 69%. The rest images demonstrate homogeneous tracer distribution throughout the myocardium. On stress imaging, a small perfusion abnormality of mild intensity was noted in the lateral region(s) which may be due to artifact. IMPRESSION: 1. Most likely normal myocardial perfusion imaging with soft tissue artifact but without evidence of significant myocardial ischemia or infarction. 2. Global left ventricular systolic function was normal without regional wall motion abnormalities. 3. Significant electrocardiographic evidence of myocardial ischemia during EKG monitoring without significant associated arrhythmias. The patient's Copeland Treadmill score is -2, which correlates with an intermediate risk for significant coronary artery disease. Overall, these results are most consistent with a low/intermediate risk for significant coronary artery disease. Depending on the patient symptoms and level of clinical suspicion, aggressive medical management vs. additional testing by coronary angiography may be indicated. The sensitivity for detecting ischemia on this test may have been reduced due to the patient being on a beta pierre. RICHIE MULTANI AXEL/MARLIN_EDIT Doc#: Unknown CC: Mary Watson Shawn M. APRN-MANAGER OF ORGANIZATIONAL DEVELOPMENT Normal [facility] CBCon 03-12-2019 Erythrocyte distribution width (RBC) [Ratio] 13.5 % Normal 11.8-14.4 [facility] Comment on above: Performed By: #### C BC, BMP, FE, LIPR, GLYHGB #### [facility] [address] [place], [place] [id number] Web Publisher: Sharif Sims MD Hematocrit (Bld) [Volume fraction] 39.3 % Normal 36.3-47.1 [facility] Comment on above: Performed By: #### C BC, BMP, FE, LIPR, GLYHGB #### [facility] [address] [place] [facility]83 Web Publisher: Sharif Sims MD Hemoglobin (Bld) [Mass/Vol] 12.3 g/dL Normal 11.9-15.1 [facility] Comment on above: Performed By: #### C BC, BMP, FE, LIPR, GLYHGB #### [facility] [address] [place] [address] Web Publisher: Shraif Sims MD MCH (RBC) [Entitic mass] 28.6 pg Normal 25.2-33.5 [facility] Comment on above: Performed By: #### C BC, BMP, FE, LIPR, GLYHGB #### [address] [place] [address] Web Publisher: Sharif Sims MD MCHC (RBC) [Mass/Vol] 31.3 g/dL Normal 28.4-34.8 [facility] Comment on above: Performed By: #### C BC, BMP, FE, LIPR, GLYHGB #### [facility] [address] [place] [id number] Web Publisher: Sharif Sims MD MCV (RBC) [Entitic vol] 91.4 fL Normal 82.6-102.9 [facility] Comment on above: Performed By: #### C BC, BMP, FE, LIPR, GLYHGB #### [facility] [address] [place] [address] Web Publisher: Sharif Sims MD NRBC Automated 0.0 per 100 WBC Normal 0.0 [facility] Comment on above: Performed By: #### C BC, BMP, FE, LIPR, GLYHGB #### [facility] [address] [place], [place] [id number] Web Publisher: Sharif Sims MD Platelet mean volume (Bld) [Entitic vol] 9.1 fL Normal 8.1-13.5 [facility] Comment on above: Performed By: #### C BC, BMP, FE, LIPR, GLYHGB #### [facility] [address] [place], [place] [address] Web Publisher: Sharif Sims MD Platelets (Bld) [#/Vol] 344 10*3/uL Normal 138-453 [facility] Comment on above: Performed By: #### C BC, BMP, FE, LIPR, GLYHGB #### [facility] [address] [place], [place] [id number] Web Publisher: Sharif Sims MD RBC (Bld) [#/Vol] 4.30 10*6/uL Normal 3.95-5.11 [facility] Comment on above: Performed By: #### C BC, BMP, FE, LIPR, GLYHGB #### [facility] [address] [place], [place] [id number] Web Publisher: Sharif Sims MD WBC (Bld) [#/Vol] 6.9 10*3/uL Normal 3.5-11.3 [facility] Comment on above: Performed By: #### C BC, BMP, FE, LIPR, GLYHGB #### [facility] [address] [place] [address] Web Publisher: Sharif Sims MD Lipid Profileon 03-12-2019 Cholesterol [Mass/Vol] 134 mg/dL Normal <200 [facility] Comment on above: Result Comment: Cholesterol Guidelines: <200 Desirable 200-240 Borderline >240 Undesirable Performed By: #### C BC, BMP, FE, LIPR, GLYHGB #### [facility] [address] [place] [address] Web Publisher: Sharif Sims MD Cholesterol in HDL [Mass/Vol] 41 mg/dL Normal >40 [facility] Comment on above: Result Comment: HDL Guidelines: <40 Undesirable 40-59 Borderline >59 Desirable Performed By: #### C BC, BMP, FE, LIPR, GLYHGB #### [facility] [address] [place] [address] Web Publisher: Sharif Sims MD Cholesterol in LDL [Mass/Vol] 59 mg/dL Normal 0-130 [facility] Comment on above: Result Comment: LDL Guidelines: <100 Desirable 100-129 Near to/above Desirable 130-159 Borderline >159 Undesirable Direct (measured) LDL and calculated LDL are not interchangeable tests. Performed By: #### C BC, BMP, FE, LIPR, GLYHGB #### [address] [place] [address] Web Publisher: Sharif Sims MD Cholesterol.total/C holesterol in HDL [Mass ratio] 3.3 {ratio} Normal <5 [facility] Comment on above: Performed By: #### C BC, BMP, FE, LIPR, GLYHGB #### [facility] [address] [place] [address] Web Publisher: Sharif Sims MD Triglyceride [Mass/Vol] 172 mg/dL High <150 [facility] Comment on above: Result Comment: Triglyceride Guidelines: <150 Desirable 150-199 Borderline 200-499 High >499 Very high Based on AHA Guidelines for fasting triglyceride, January 2012. Performed By: #### C BC, BMP, FE, LIPR, GLYHGB #### [facility] [address] [place] [address] Web Publisher: Sharif Sims MD Cholesterol in VLDL [Mass/Vol] NOT REPORTED Normal 1-30 [facility] Comment on above: Performed By: #### C BC, BMP, FE, LIPR, GLYHGB #### [facility] [address] [place] [address] Web Publisher: Sharif Sims MD Troponinon 03-12-2019 Troponin I.cardiac [Mass/Vol] Normal [facility] Comment on above: Result Comment: Refe rence Range: <0.03 Within reference range. 0.03-0.09 Possible myocardial damage. Repeat at appropriate intervals to rule out chronic elevation. >= 0.10 Indicative of myocardial damage. Patients with high levels of Biotin oral intake (i.e >5mg/day) may have falsely decreased Troponin T levels. Samples collected within 8 hours of biotin intake may require additional information for diagnosis. Performed By: #### C BC, BMP, FE, LIPR, GLYHGB #### [facility] [address] [place] [address] Web Publisher: Sharif Sims MD Troponin I.cardiac [Mass/Vol] ng/mL Normal <0.03 [facility] Comment on above: Result Comment: Trop onin T results cannot be compared to Troponin-I results. Performed By: #### C BC, BMP, FE, LIPR, GLYHGB #### [facility] [address] [place] [address] Web Publisher: Sharif Sims MD Troponin I.cardiac [Mass/Vol] NOT REPORTED Normal 0-14 [facility] Comment on above: Performed By: #### C BC, BMP, FE, LIPR, GLYHGB #### [facility] [address] [place] [address] Web Publisher: Sharif Sims MD APTTon 03-11-2019 aPTT Coag (Bld) [Time] 20.4 s Low 23.2-34.4 [facility] Comment on above: Performed By: #### C BC, BMP, FE, LIPR, GLYHGB #### [facility] [address] [place] [address] Web Publisher: Sharif Sims MD Basic Metabolic Profon 03-11 (cont.) Normal [facility] Comment on above: Result Comment: Aver age GFR for 60-69 years old: 85 mL/min/1.73sq m Chronic Kidney Disease: <60 mL/min/1.73sq m Kidney failure: <15 mL/min/1.73sq m eGFR calculated using average adult body mass. Additional eGFR calculator available at: http://www.[employer]/multiple_crcl_2012.htm Performed By: #### C BC, BMP, FE, LIPR, GLYHGB #### [facility] [address] [place] [address] Web Publisher: Sharif Sims MD Anion gap [Moles/Vol] 13 mmol/L Normal 9-17 [facility] Comment on above: Performed By: #### C BC, BMP, FE, LIPR, GLYHGB #### [facility] [address] [place] [address] Web Publisher: Sharif Sims MD BUN/CRE Ratio 22 High 9-20 [facility] Comment on above: Performed By: #### C BC, BMP, FE, LIPR, GLYHGB #### [facility] [address] [place] [address] Web Publisher: Sharif Sims MD Calcium [Mass/Vol] 9.1 mg/dL Normal 8.6-10.4 [facility] Comment on above: Performed By: #### C BC, BMP, FE, LIPR, GLYHGB #### [facility] [address] [place] [address] Web Publisher: Sharif Sims MD Chloride [Moles/Vol] 97 mmol/L Low 98-107 [facility] Comment on above: Performed By: #### C BC, BMP, FE, LIPR, GLYHGB #### [facility] [address] [place] [address] Web Publisher: Sharif Sims MD CO2 [Moles/Vol] 30 mmol/L Normal 20-[address] [facility] Comment on above: Performed By: #### C BC, BMP, FE, LIPR, GLYHGB #### [facility] [address] [place] [address] Web Publisher: Sharif Sims MD Creatinine [Mass/Vol] 0.60 mg/dL Normal 0.50-0.90 [facility] Comment on above: Performed By: #### C BC, BMP, FE, LIPR, GLYHGB #### [facility] [address] [place] [address] Web Publisher: Sharif Sims MD GFR, Amer >60 Normal >60 [facility] Comment on above: Performed By: #### C BC, BMP, FE, LIPR, GLYHGB #### [facility] [address] [place] [address] Web Publisher: Sharif Sims MD GFR,non Amer >60 Normal >60 [facility] Comment on above: Performed By: #### C BC, BMP, FE, LIPR, GLYHGB #### [facility] [address] [place] [address] Web Publisher: Sharif Sims MD Glucose [Mass/Vol] 79 mg/dL Normal 70-99 [facility] Comment on above: Performed By: #### C BC, BMP, FE, LIPR, GLYHGB #### [facility] [address] [place] [address] Web Publisher: Sharif Sims MD Potassium [Moles/Vol] 3.6 mmol/L Low 3.7-5.3 [facility] Comment on above: Performed By: #### C BC, BMP, FE, LIPR, GLYHGB #### [facility] [address] [place] [address] Web Publisher: Sharif Sims MD Sodium [Moles/Vol] 140 mmol/L Normal 135-144 [facility] Comment on above: Performed By: #### C BC, BMP, FE, LIPR, GLYHGB #### [facility] [address] [place] [id number] Web Publisher: Sharif Sims MD Staging: Normal [facility] Comment on above: Result Comment: Stag e 1: Some kidney damage normal GFR Stage 2: Mild kidney damage GFR 60-89 Stage 3: Moderate kidney damage GFR 30-59 Stage 4: Severe kidney damage GFR 15-29 Stage 5: Severe kidney damage GFR <15 ESRD - chronic treatment by dialysis or transplant Performed By: #### C BC, BMP, FE, LIPR, GLYHGB #### [facility] [address] [place] [id number] Web Publisher: Sharif Sims MD Urea nitrogen [Mass/Vol] 13 mg/dL Normal 8-23 [facility] Comment on above: Performed By: #### C BC, BMP, FE, LIPR, GLYHGB #### [facility] [address] [place] [id number] Web Publisher: Sharif Sims MD CBC with Diffon 03-11-2019 Abs. Basophil 0.04 k/uL Normal 0.00-0.20 [facility] Comment on above: Performed By: #### C DP, BMP, TROPI #### [address] [place] [id number] Web Publisher: Sharif Sims MD Abs.Imm.Granulocyte <0.03 Normal 0.00-0.30 [facility] Comment on above: Performed By: #### C DP, BMP, TROPI #### [facility] [address] [place] [id number] Web Publisher: Sharif Sims MD Abs.Neutrophil (Seg) 4.69 k/uL Normal 1.50-8.10 [facility] Comment on above: Performed By: #### C DP, BMP, TROPI #### [address] [place], [place] [address] Web Publisher: Sharif Sims MD Basophils/100 WBC (Bld) 0 % Normal 0-2 [facility] Comment on above: Performed By: #### C DP, BMP, TROPI #### [facility] [address] [place], [facility]83 Web Publisher: Sharif Sims MD Eosinophils (Bld) [#/Vol] 0.43 10*3/uL Normal 0.00-0.44 [facility] Comment on above: Performed By: #### C DP, BMP, TROPI #### [facility] [address] [place], [place] [address] Web Publisher: Sharif Sims MD Eosinophils/100 WBC (Bld) 5 % High 1-4 [facility] Comment on above: Performed By: #### C DP, BMP, TROPI #### [address] [place], [place] [address] Web Publisher: Sharif Sims MD Erythrocyte distribution width (RBC) [Ratio] 13.2 % Normal 11.8-14.4 [facility] Comment on above: Performed By: #### C DP, BMP, TROPI #### [address] [place], [facility]83 Web Publisher: Sharif Sims MD Hematocrit (Bld) [Volume fraction] 41.1 % Normal 36.3-47.1 [facility] Comment on above: Performed By: #### C DP, BMP, TROPI #### [facility] [address] [place], [facility]83 Web Publisher: Sharif Sims MD Hemoglobin (Bld) [Mass/Vol] 13.5 g/dL Normal 11.9-15.1 [facility] Comment on above: Performed By: #### C DP, BMP, TROPI #### [facility] [address] [place], [facility]83 Web Publisher: Sharif Sims MD Immature granulocytes (Bld) [#/Vol] 0 % Normal 0 [facility] Comment on above: Performed By: #### C DP, BMP, TROPI #### [facility] [address] [place] [address] Web Publisher: Sharif Sims MD Lymphocytes (Bld) [#/Vol] 2.68 10*3/uL Normal 1.10-3.70 [facility] Comment on above: Performed By: #### C DP, BMP, TROPI #### [facility] [address] [place] [address] Web Publisher: Sharif Sims MD Lymphocytes/100 WBC (Bld) 30 % Normal 24-43 [facility] Comment on above: Performed By: #### C DP, BMP, TROPI #### [facility] [address] [place] [address] Web Publisher: Sharif Sims MD MCH (RBC) [Entitic mass] 29.1 pg Normal 25.2-33.5 [facility] Comment on above: Performed By: #### C SRINIVAS GARCIA, TROPI #### [facility] [address] [place], [place] [address] Web Publisher: Sharif Sims MD MCHC (RBC) [Mass/Vol] 32.8 g/dL Normal 28.4-34.8 [facility] Comment on above: Performed By: #### C RADHA BMP, TROPI #### [facility] [address] [place] [facility]83 Web Publisher: Sharif Sims MD MCV (RBC) [Entitic vol] 88.6 fL Normal 82.6-102.9 [facility] Comment on above: Performed By: #### C DP, BMP, TROPI #### [facility] [address] [place], [facility]83 Web Publisher: Sharif Sims MD Monocytes (Bld) [#/Vol] 1.03 10*3/uL Normal 0.10-1.20 [facility] Comment on above: Performed By: #### C DP, BMP, TROPI #### [facility] [address] [place] [address] Web Publisher: Sharif Sims MD Monocytes/100 WBC (Bld) 12 % Normal 3-12 [facility] Comment on above: Performed By: #### C DP, BMP, TROPI #### [facility] [address] [place] [address] Web Publisher: Sharif Sims MD Neutrophil (Seg) 53 % Normal 36-65 [facility] Comment on above: Performed By: #### C DP, BMP, TROPI #### [facility] [address] [place] [address] Web Publisher: Sharif Sims MD NRBC Automated 0.0 per 100 WBC Normal 0.0 [facility] Comment on above: Performed By: #### C DP, BMP, TROPI #### [facility] [address] [place] [address] Web Publisher: Sharif Sims MD Platelet mean volume (Bld) [Entitic vol] 9.1 fL Normal 8.1-13.5 [facility] Comment on above: Performed By: #### C DP, BMP, TROPI #### [facility] [address] [place] [address] Web Publisher: Sharif Sims MD Platelets (Bld) [#/Vol] 380 10*3/uL Normal 138-453 [facility] Comment on above: Performed By: #### C DP, BMP, TROPI #### [facility] [address] [place], [place] [id number] Web Publisher: Sharif Sims MD RBC (Bld) [#/Vol] 4.64 10*6/uL Normal 3.95-5.11 [facility] Comment on above: Performed By: #### C DP, BMP, TROPI #### [facility] [address] [place], [place] [id number] Web Publisher: Sharif Sims MD WBC (Bld) [#/Vol] 8.9 10*3/uL Normal 3.5-11.3 [facility] Comment on above: Performed By: #### C DP, BMP, TROPI #### [facility] [address] [place] [address] Web Publisher: Sharif Sims MD Auto Diff Performed NOT REPORTED Normal [facility] Comment on above: Performed By: #### C DP, BMP, TROPI #### [address] [place] [address] Web Publisher: Sharif Sims MD Platelets (Bld) [#/Vol] NOT REPORTED Normal [facility] Comment on above: Performed By: #### C DP, BMP, TROPI #### [address] [place] [address] Web Publisher: Sharif Sims MD RBC morphology finding Nom (Bld) NOT REPORTED Normal [facility] Comment on above: Performed By: #### C DP, BMP, TROPI #### [address] [place] [address] Web Publisher: Sharif Sims MD WBC Morphology NOT REPORTED Normal [facility] Comment on above: Performed By: #### C DP, BMP, TROPI #### [facility] [address] [place], [place] [id number] Web Publisher: Sharif Sims MD CTA CHEST W WO CONTRASTon CTA CHEST W WO CONTRAST EXAMINATION: CTA OF THE CHEST WITH AND WITHOUT CONTRAST 03/11/2019 4:29 pm TECHNIQUE: CTA of the chest was performed before and after the administration of intravenous contrast. Multiplanar reformatted images are provided for review. MIP images are provided for review. Dose modulation, iterative reconstruction, and/or weight based adjustment of the mA/kV was utilized to reduce the radiation dose to as low as reasonably achievable. COMPARISON: None. HISTORY: ORDERING SYSTEM PROVIDED HISTORY: rule out thoracic aortic dissection TECHNOLOGIST PROVIDED HISTORY: rule out thoracic aortic dissection FINDINGS: Aorta: No evidence of thoracic aortic aneurysm or dissection. No acute abnormality of the aorta. Mediastinum: Satisfactory enhancement of pulmonary arteries. No evidence of mediastinal lymphadenopathy. The heart and pericardium demonstrate no acute abnormality. Lungs/Pleura: Bandlike reticular densities at the lung bases consistent with subsegmental atelectasis/scarring. There is some air trapping noted with geographic lucent areas scattered throughout the lungs. No focal consolidation to suggest pneumonia. No pleural effusion or pneumothorax. Central airways unremarkable. Upper Abdomen: Limited images of the upper abdomen are unremarkable. Soft Tissues/Bones: No acute bone or soft tissue abnormality. IMPRESSION: 1. No evidence for thoracic aorta aneurysm or dissection. 2. Bibasilar subsegmental atelectasis/scarring. 3. Air trapping. Interpreted by: Cedric Shannon MD Signed by: Cedric Shannon MD 03/11/19 Final result Normal [facility] PTon 03-11-2019 INR Coag (PPP) [Relative time] 1.0 {INR} Normal 0.9-1.2 [facility] Comment on above: Performed By: #### C SRINIVAS CARRASCO, FE, LIPR, GLYHGB #### [facility] [address] [place] [address] Web Publisher: Sharif Sims MD PT Coag (PPP) [Time] 10.0 s Normal 9.7-12.2 [facility] Comment on above: Performed By: #### C DANILO, BMP, FE, LIPR, GLYHGB #### [facility] [address] [place] [address] Web Publisher: Sharif Sims MD Troponinon 03-11-2019 Troponin I.cardiac [Mass/Vol] Normal [facility] Comment on above: Result Comment: Refe rence Range: <0.03 Within reference range. 0.03-0.09 Possible myocardial damage. Repeat at appropriate intervals to rule out chronic elevation. >= 0.10 Indicative of myocardial damage. Patients with high levels of Biotin oral intake (i.e >5mg/day) may have falsely decreased Troponin T levels. Samples collected within 8 hours of biotin intake may require additional information for diagnosis. Performed By: #### C BC, BMP, FE, LIPR, GLYHGB #### [facility] [address] [place], [place] [id number] Web Publisher: Sharif Sims MD Troponin I.cardiac [Mass/Vol] ng/mL Normal <0.03 [facility] Comment on above: Result Comment: Trop onin T results cannot be compared to Troponin-I results. Performed By: #### C BC, BMP, FE, LIPR, GLYHGB #### [facility] [address] [place], [place] [id number] Web Publisher: Sharif Sims MD Troponin I.cardiac [Mass/Vol] NOT REPORTED Normal 0-14 [facility] Comment on above: Performed By: #### C BC, BMP, FE, LIPR, GLYHGB #### [facility] [address] [place], [place] [id number] Web Publisher: Sharif Sims MD Troponin I.cardiac [Mass/Vol] Normal [facility] Comment on above: Result Comment: Refe rence Range: <0.03 Within reference range. 0.03-0.09 Possible myocardial damage. Repeat at appropriate intervals to rule out chronic elevation. >= 0.10 Indicative of myocardial damage. Patients with high levels of Biotin oral intake (i.e >5mg/day) may have falsely decreased Troponin T levels. Samples collected within 8 hours of biotin intake may require additional information for diagnosis. Performed By: #### C BC, BMP, FE, LIPR, GLYHGB #### [facility] [address] [place], [place] [id number] Web Publisher: Sharif Sims MD Troponin I.cardiac [Mass/Vol] ng/mL Normal <0.03 [facility] Comment on above: Result Comment: Trop onin T results cannot be compared to Troponin-I results. Performed By: #### C BC, BMP, FE, LIPR, GLYHGB #### [facility] [address] [place], [place] [id number] Web Publisher: Sharif Sims MD Troponin I.cardiac [Mass/Vol] NOT REPORTED Normal 0-14 [facility] Comment on above: Performed By: #### C BC, BMP, FE, LIPR, GLYHGB #### [facility] [address] [place], [place] [address] Web Publisher: Sharif Sims MD Troponin I.cardiac [Mass/Vol] ng/mL Normal <0.03 [facility] Comment on above: Result Comment: Trop onin T results cannot be compared to Troponin-I results. Performed By: #### C BC, BMP, FE, LIPR, GLYHGB #### [facility] [address] [place], [place] [id number] Web Publisher: Sharif Sims MD Troponin I.cardiac [Mass/Vol] Normal [facility] Comment on above: Result Comment: Refe rence Range: <0.03 Within reference range. 0.03-0.09 Possible myocardial damage. Repeat at appropriate intervals to rule out chronic elevation. >= 0.10 Indicative of myocardial damage. Patients with high levels of Biotin oral intake (i.e >5mg/day) may have falsely decreased Troponin T levels. Samples collected within 8 hours of biotin intake may require additional information for diagnosis. Performed By: #### C BC, BMP, FE, LIPR, GLYHGB #### [facility] [address] [place] [address] Web Publisher: Sharif Sims MD Troponin I.cardiac [Mass/Vol] NOT REPORTED Normal 0-14 [facility] Comment on above: Performed By: #### C BC, BMP, FE, LIPR, GLYHGB #### [facility] [address] [place], [place] [id number] Web Publisher: Sharif Sims MD XR CHEST PORTABLEon 12-09-20 19 XR CHEST PORTABLE EXAMINATION: ONE XRAY VIEW OF THE CHEST 03/11/2019 3:04 pm COMPARISON: None. HISTORY: ORDERING SYSTEM PROVIDED HISTORY: cp TECHNOLOGIST PROVIDED HISTORY: cp FINDINGS: Single portable frontal view of the chest is submitted for review. The cardiac silhouette is normal in size. Mild generalized interstitial prominence. Linear scarring/atelectasis within the left lower lobe. No obvious focal airspace consolidation or pneumothorax. Trachea is midline. Osseous structures and soft tissues are grossly intact. IMPRESSION: Generalized interstitial thickening and left basilar atelectasis/scarring. No focal airspace consolidation. Interpreted by: Reji Oleary MD Signed by: Reji Oleary MD 03/11/19 Final result Normal [facility] DEXA BONE DENSITY AXIAL SKEL ETONon 02-20-2019 DEXA BONE DENSITY AXIAL SKELETON EXAMINATION: BONE DENSITOMETRY 02/20/2019 1:55 pm TECHNIQUE: A bone density dual x-ray absorptiometry (DEXA) scan was performed of the lumbar spine and left hip on a Digital [employer] system. COMPARISON: None. HISTORY: ORDERING SYSTEM PROVIDED HISTORY: Post-menopausal 63-year-old postmenopausal female who presents for osteoporosis screening FINDINGS: LUMBAR SPINE: The bone mineral density in the lumbar spine including the L1-L4 levels is measured at 1.173 g/cm2, which corresponds to a T-score of -0.1 and a Z-score of 1.2. This is within the normal range by WHO criteria. LEFT HIP: The bone mineral density in the total hip is measured at 0.960 g/cm2 corresponding to a T-score of -0.4 and a Z-score of 0.6. This is within the normal range by WHO criteria. The bone mineral density of the femoral neck is measured at 0.853 g/cm2 corresponding to a T-score of -1.3 and a Z-score of -0.1. This is within the osteopenia range by WHO criteria. IMPRESSION: Osteopenia by WHO criteria. Fracture risk is moderate. Treatment is advised. Interpreted by: Primitivo Ordaz MD Signed by: Primitivo Ordaz MD 02/20/19 Final result Normal [facility] Osteopenia by WHO criteria. Fracture risk is moderate. Treatment is advised. [facility] [place] EXAMINATION: BONE DENSITOMETRY 02/20/2019 1:55 pm TECHNIQUE: A bone density dual x-ray absorptiometry (DEXA) scan was performed of the lumbar spine and left hip on a [employer] system. COMPARISON: None. HISTORY: ORDERING SYSTEM PROVIDED HISTORY: Post-menopausal 63-year-old postmenopausal female who presents for osteoporosis screening FINDINGS: LUMBAR SPINE: The bone mineral density in the lumbar spine including the L1-L4 levels is measured at 1.173 g/cm2, which corresponds to a T-score of -0.1 and a Z-score of 1.2. This is within the normal range by WHO criteria. LEFT HIP: The bone mineral density in the total hip is measured at 0.960 g/cm2 corresponding to a T-score of -0.4 and a Z-score of 0.6. This is within the normal range by WHO criteria. The bone mineral density of the femoral neck is measured at 0.853 g/cm2 corresponding to a T-score of -1.3 and a Z-score of -0.1. This is within the osteopenia range by WHO criteria. [facility] [place] [place] Incoming Radiant Results From [employer] - 02/20/2019 2:06 PM EST EXAMINATION: BONE DENSITOMETRY 02/20/2019 1:55 pm TECHNIQUE: A bone density dual x-ray absorptiometry (DEXA) scan was performed of the lumbar spine and left hip on a [employer] system. COMPARISON: None. HISTORY: ORDERING SYSTEM PROVIDED HISTORY: Post-menopausal 63-year-old postmenopausal female who presents for osteoporosis screening FINDINGS: LUMBAR SPINE: The bone mineral density in the lumbar spine including the L1-L4 levels is measured at 1.173 g/cm2, which corresponds to a T-score of -0.1 and a Z-score of 1.2. This is within the normal range by WHO criteria. LEFT HIP: The bone mineral density in the total hip is measured at 0.960 g/cm2 corresponding to a T-score of -0.4 and a Z-score of 0.6. This is within the normal range by WHO criteria. The bone mineral density of the femoral neck is measured at 0.853 g/cm2 corresponding to a T-score of -1.3 and a Z-score of -0.1. This is within the osteopenia range by WHO criteria. IMPRESSION: Osteopenia by WHO criteria. Fracture risk is moderate. Treatment is advised. [facility]- [place], [place] DEANNE DIGITAL SCREEN W OR WO C AD BILATERALon 12-26-2018 DEANNE DIGITAL SCREEN W OR WO CAD BILATERAL EXAMINATION: BILATERAL DIGITAL SCREENING MAMMOGRAM 12/25/2018 TECHNIQUE: Screening mammography was performed with tomosynthesis including MLO and CC views of the bilateral breasts. Computer aided detection was used for the interpretation of this exam. COMPARISON: 04/20/2017, 10/06/2016, 03/15/2016, 03/08/2016 HISTORY: Screening. No current complaints, prior breast procedures, nor family history of breast cancer. Personal history of colon cancer. FINDINGS: There are scattered areas of fibroglandular density. No new dominant masses, suspicious calcifications, nor areas of architectural distortion are seen. Tomosynthesis images demonstrate no suspicious abnormality. IMPRESSION: Stable benign mammogram. BIRADS: BIRADS - CATEGORY 1 Negative, no evidence of malignancy. Normal interval follow-up is recommended in 12 months. OVERALL ASSESSMENT - NEGATIVE A letter of notification will be sent to the patient regarding the results. The [employer] recommends annual mammograms for women 40 years and older. Interpreted by: Rosie Smith MD Signed by: Rosie Smith MD 12/26/18 Final result Normal [facility] Basic Metabolic Profon 07-30 (cont.) Normal [facility] Comment on above: Result Comment: Aver age GFR for 60-69 years old: 85 mL/min/1.73sq m Chronic Kidney Disease: <60 mL/min/1.73sq m Kidney failure: <15 mL/min/1.73sq m eGFR calculated using average adult body mass. Additional eGFR calculator available at: http://www.Trovit.DivvyDown/multiple_crcl_2012.htm Performed By: #### C BC, BMP, FE, LIPR, GLYHGB #### [facility] [address] [place] [address] Web Publisher: Sharif Sims MD Anion gap [Moles/Vol] 12 mmol/L Normal - [facility] Comment on above: Performed By: #### C BC, BMP, FE, LIPR, GLYHGB #### [facility] [address] [place] [address] Web Publisher: Sharif Sims MD BUN/CRE Ratio 20 Normal 9-20 [facility] Comment on above: Performed By: #### C BC, BMP, FE, LIPR, GLYHGB #### [facility] [address] [place], [place] [id number] Web Publisher: Sharif Sims MD Calcium [Mass/Vol] 9.3 mg/dL Normal 8.6-10.4 [facility] Comment on above: Performed By: #### C BC, BMP, FE, LIPR, GLYHGB #### [facility] [address] [place] [address] Web Publisher: Sharif Sims MD Chloride [Moles/Vol] 93 mmol/L Low 98-107 [facility] Comment on above: Performed By: #### C BC, BMP, FE, LIPR, GLYHGB #### [address] [place], [place] [id number] Web Publisher: Sharif Sims MD CO2 [Moles/Vol] 32 mmol/L High 20-[address] [facility] Comment on above: Performed By: #### C BC, BMP, FE, LIPR, GLYHGB #### [address] [place] [address] Web Publisher: Sharif Sims MD Creatinine [Mass/Vol] 0.64 mg/dL Normal 0.50-0.90 [facility] Comment on above: Performed By: #### C BC, BMP, FE, LIPR, GLYHGB #### [facility] [address] [place] [address] Web Publisher: Sharif Sims MD GFR, Amer >60 Normal >60 [facility] Comment on above: Performed By: #### C BC, BMP, FE, LIPR, GLYHGB #### [facility] [address] [place] [address] Web Publisher: Sharif Sims MD GFR,non Amer >60 Normal >60 [facility] Comment on above: Performed By: #### C BC, BMP, FE, LIPR, GLYHGB #### [facility] [address] [place], [place] [id number] Web Publisher: Sharif Sims MD Glucose [Mass/Vol] 166 mg/dL High 70-99 [facility] Comment on above: Performed By: #### C BC, BMP, FE, LIPR, GLYHGB #### [facility] [address] [place] [address] Web Publisher: Sharif Sims MD Potassium [Moles/Vol] 3.8 mmol/L Normal 3.7-5.3 [facility] Comment on above: Performed By: #### C BC, BMP, FE, LIPR, GLYHGB #### [facility] [address] [place], [place] [id number] Web Publisher: Sharif Sims MD Sodium [Moles/Vol] 137 mmol/L Normal 135-144 [facility] Comment on above: Performed By: #### C BC, BMP, FE, LIPR, GLYHGB #### [facility] [address] [place], [place] [id number] Web Publisher: Sharif Sims MD Staging: Normal [facility] Comment on above: Result Comment: Stag e 1: Some kidney damage normal GFR Stage 2: Mild kidney damage GFR 60-89 Stage 3: Moderate kidney damage GFR 30-59 Stage 4: Severe kidney damage GFR 15-29 Stage 5: Severe kidney damage GFR <15 ESRD - chronic treatment by dialysis or transplant Performed By: #### C BC, BMP, FE, LIPR, GLYHGB #### [facility] [address] [place] [address] Web Publisher: Sharif Sims MD Urea nitrogen [Mass/Vol] 13 mg/dL Normal 8-23 [facility] Comment on above: Performed By: #### C BC, BMP, FE, LIPR, GLYHGB #### [facility] [address] [place] [address] Web Publisher: Sharif Sims MD CBCon 07-30-2018 Erythrocyte distribution width (RBC) [Ratio] 12.9 % Normal 11.8-14.4 [facility] Comment on above: Performed By: #### C BC, BMP, FE, LIPR, GLYHGB #### [facility] [address] [place], [place] [id number] Web Publisher: Sharif Sims MD Hematocrit (Bld) [Volume fraction] 45.9 % Normal 36.3-47.1 [facility] Comment on above: Performed By: #### C BC, BMP, FE, LIPR, GLYHGB #### [address] [place], [facility]83 Web Publisher: Sharif Sims MD Hemoglobin (Bld) [Mass/Vol] 14.4 g/dL Normal 11.9-15.1 [facility] Comment on above: Performed By: #### C BC, BMP, FE, LIPR, GLYHGB #### [address] [place] [address] Web Publisher: Sharif Sims MD MCH (RBC) [Entitic mass] 28.7 pg Normal 25.2-33.5 [facility] Comment on above: Performed By: #### C BC, BMP, FE, LIPR, GLYHGB #### [address] [place] [address] Web Publisher: Sharif Sims MD MCHC (RBC) [Mass/Vol] 31.4 g/dL Normal 28.4-34.8 [facility] Comment on above: Performed By: #### C BC, BMP, FE, LIPR, GLYHGB #### [address] [place] [id number] Web Publisher: Sharif Sims MD MCV (RBC) [Entitic vol] 91.6 fL Normal 82.6-102.9 [facility] Comment on above: Performed By: #### C BC, BMP, FE, LIPR, GLYHGB #### [address] [place] [address] Web Publisher: Sharif Sims MD NRBC Automated 0.0 per 100 WBC Normal 0.0 [facility] Comment on above: Performed By: #### C BC, BMP, FE, LIPR, GLYHGB #### [address] [place] [id number] Web Publisher: Sharif Sims MD Platelet mean volume (Bld) [Entitic vol] 9.8 fL Normal 8.1-13.5 [facility] Comment on above: Performed By: #### C BC, BMP, FE, LIPR, GLYHGB #### [address] [place], [facility]83 Web Publisher: Sharif Sims MD Platelets (Bld) [#/Vol] 321 10*3/uL Normal 138-453 [facility] Comment on above: Performed By: #### C BC, BMP, FE, LIPR, GLYHGB #### [address] [place] [address] Web Publisher: Sharif Sims MD RBC (Bld) [#/Vol] 5.01 10*6/uL Normal 3.95-5.11 [facility] Comment on above: Performed By: #### C BC, BMP, FE, LIPR, GLYHGB #### [address] [place] [address] Web Publisher: Sharif Sims MD WBC (Bld) [#/Vol] 8.0 10*3/uL Normal 3.5-11.3 [facility] Comment on above: Performed By: #### C BC, BMP, FE, LIPR, GLYHGB #### [facility] [address] [place] [address] Web Publisher: Sharif Sims MD Hemoglobin A1Con 07-30-2018 HbA1c (Bld) [Mass fraction] 8.1 % High 4.8-5.9 [facility] Comment on above: Performed By: #### C BC, BMP, FE, LIPR, GLYHGB #### [facility] [address] [place], [place] [id number] Web Publisher: Sharif Sims MD HbA1c (Bld) [Mass fraction] 186 mg/dL Normal [facility] Comment on above: Result Comment: The ADA and AACC recommend providing the estimated average glucose result to permit better patient understanding of their HBA1c result. Performed By: #### C BC, BMP, FE, LIPR, GLYHGB #### [facility] [address] [place] [address] Web Publisher: Sharif Sims MD Ironon 07-30-2018 Iron [Mass/Vol] 127 ug/dL Normal 37-[address] [facility] Comment on above: Performed By: #### C BC, BMP, FE, LIPR, GLYHGB #### [facility] [address] [place] [address] Web Publisher: Sharif Sims MD Lipid Profileon 07-30-2018 Cholesterol [Mass/Vol] 164 mg/dL Normal <200 [facility] Comment on above: Result Comment: Cholesterol Guidelines: <200 Desirable 200-240 Borderline >240 Undesirable Performed By: #### C BC, BMP, FE, LIPR, GLYHGB #### [facility] [address] [place] [address] Web Publisher: Sharif Sims MD Cholesterol in HDL [Mass/Vol] 60 mg/dL Normal >40 [facility] Comment on above: Result Comment: HDL Guidelines: <40 Undesirable 40-59 Borderline >59 Desirable Performed By: #### C BC, BMP, FE, LIPR, GLYHGB #### [facility] [address] [place], [place] [id number] Web Publisher: Sharif Sims MD Cholesterol in LDL [Mass/Vol] 79 mg/dL Normal 0-130 [facility] Comment on above: Result Comment: LDL Guidelines: <100 Desirable 100-129 Near to/above Desirable 130-159 Borderline >159 Undesirable Direct (measured) LDL and calculated LDL are not interchangeable tests. Performed By: #### C BC, BMP, FE, LIPR, GLYHGB #### [facility] [address] [place], [place] [id number] Web Publisher: Sharif Sims MD Cholesterol.total/C holesterol in HDL [Mass ratio] 2.7 {ratio} Normal <5 [facility] Comment on above: Performed By: #### C BC, BMP, FE, LIPR, GLYHGB #### [facility] [address] [place], [place] [id number] Web Publisher: Sharif Sims MD Triglyceride [Mass/Vol] 123 mg/dL Normal <150 [facility] Comment on above: Result Comment: Triglyceride Guidelines: <150 Desirable 150-199 Borderline 200-499 High >499 Very high Based on AHA Guidelines for fasting triglyceride, January 2012. Performed By: #### C BC, BMP, FE, LIPR, GLYHGB #### [facility] [address] [place], [place] [id number] Web Publisher: Sharif Sims MD Cholesterol in VLDL [Mass/Vol] NOT REPORTED Normal 05-02 [facility] Comment on above: Performed By: #### C BC, BMP, FE, LIPR, GLYHGB #### [facility] [address] [place] [address] Web Publisher: Sharif Sims MD Microalb.,Random Uron 2018 Creatinine [Mass/Vol] 122.9 mg/dL Normal 28.0-217.0 [facility] Comment on above: Performed By: #### U RNMAB #### [facility] [address] [place], [place] [id number] Web Publisher: Sharif Sims MD Microalb/Creat Ratio CANNOT BE CALCULATED Normal <25 [facility] Comment on above: Performed By: #### U RNMAB #### [facility] [address] [place] [address] Web Publisher: Sharif Sims MD Microalbumin conc. <12 Normal <21 [facility] Comment on above: Performed By: #### U RNMAB #### [facility] [address] [place] [address] Web Publisher: Sharif Sims MD TSH w/reflex to FT4on 2018 TSH Qn 1.02 m[IU]/L Normal 0.30-5.00 [facility] Comment on above: Performed By: #### T SHX #### [facility] [address] [place], [facility] Web Publisher: Sharif Sims MD Vital Signs Date Time Vital Sign Value Performing Clinician Facility 04-24-2024 13:18-0500 Body height 160 cm Pari Norton APRN-MANAGER OF ORGANIZATIONAL DEVELOPMENT Work Phone: [facility] 04-24-2024 13:18-0500 Body mass index (BMI) [Ratio] 26.22 kg/m2 Pari Norton APRN-MANAGER OF ORGANIZATIONAL DEVELOPMENT Work Phone: [facility] 04-24-2024 13:18-0500 Body weight 67.13 kg Pari Norton APRN-MANAGER OF ORGANIZATIONAL DEVELOPMENT Work Phone: [facility] 04-24-2024 13:18-0500 Diastolic blood pressure 68 mm[Hg] Pari Norton SOLAR BUSINESS DEVELOPER-MANAGER OF ORGANIZATIONAL DEVELOPMENT Work Phone: [facility] 04-24-2024 13:18-0500 Heart rate 60 /min Pari Norton SOLAR BUSINESS DEVELOPER-MANAGER OF ORGANIZATIONAL DEVELOPMENT Work Phone: [facility] 04-24-2024 13:18-0500 Systolic blood pressure 100 mm[Hg] Pari Norton SOLAR BUSINESS DEVELOPER-MANAGER OF ORGANIZATIONAL DEVELOPMENT Work Phone: [facility] 04-09-2024 13:06-0500 Body height 160 cm Ivanna Crookswaqar PEST LOCATOR Work Phone: [facility] 04-09-2024 13:06-0500 Body mass index (BMI) [Ratio] 26.29 kg/m2 Ivanna Jaredholz PEST LOCATOR Work Phone: [facility] 04-09-2024 13:06-0500 Body temperature 98.1 [degF] Ivannaedvin Colemanholz PEST LOCATOR Work Phone: [facility] 04-09-2024 13:06-0500 Body weight 67.31 kg Ivannaedvin Colemanholz PEST LOCATOR Work Phone: [facility] 04-09-2024 13:06-0500 Diastolic blood pressure 80 mm[Hg] Ivanna Jaredholz PEST LOCATOR Work Phone: [facility] 04-09-2024 13:06-0500 Heart rate 56 /min Ivannaedvin Colemanholz PEST LOCATOR Work Phone: [facility] 04-09-2024 13:06-0500 Respiratory rate 18 /min Ivannaedvin Colemanholz PEST LOCATOR Work Phone: [facility] 04-09-2024 13:06-0500 SaO2% (BldA) [Mass fraction] 96 % Ivanna Valeriyz PEST LOCATOR Work Phone: [facility] 04-09-2024 13:06-0500 Systolic blood pressure 110 mm[Hg] Ivannaedvin Colemanholz PEST LOCATOR Work Phone: [facility] 12-28-2023 10:41-0400 Body height 160 cm Ivannaedvin Colemanholz PEST LOCATOR Work Phone: [facility] 12-28-2023 10:41-0400 Body mass index (BMI) [Ratio] 26.18 kg/m2 Ivanna Jaredholz PEST LOCATOR Work Phone: [facility] 12-28-2023 10:41-0400 Body temperature 98.29 [degF] Ivanna Crooksz PEST LOCATOR Work Phone: [facility] 12-28-2023 10:41-0400 Body weight 67.04 kg Ivannaedvin Colemanholz PEST LOCATOR Work Phone: [facility] 12-28-2023 10:41-0400 Diastolic blood pressure 78 mm[Hg] Ivanna Jardeholz PEST LOCATOR Work Phone: [facility] 12-28-2023 10:41-0400 Heart rate 59 /min Ivanna Philhholz PEST LOCATOR Work Phone: [facility] 12-28-2023 10:41-0400 Respiratory rate 19 /min Ivanna Jaredholz PEST LOCATOR Work Phone: [facility] 12-28-2023 10:41-0400 SaO2% (BldA) [Mass fraction] 96 % Ivanna Jaredholz PEST LOCATOR Work Phone: [facility] 12-28-2023 10:41-0400 Systolic blood pressure 120 mm[Hg] Ivanna Jaredholz PEST LOCATOR Work Phone: [facility] 04-12-2023 12:47-0500 Body height 160 cm David Berrios MD Work Phone: [facility] 04-12-2023 12:47-0500 Body mass index (BMI) [Ratio] 26.22 kg/m2 David Berrios MD Work Phone: [facility] 04-12-2023 12:47-0500 Body weight 67.13 kg David Berrios MD Work Phone: [facility] 04-12-2023 12:47-0500 Diastolic blood pressure 58 mm[Hg] David Berrios MD Work Phone: [facility] 04-12-2023 12:47-0500 Heart rate 52 /min David Berrios MD Work Phone: [facility] 04-12-2023 12:47-0500 Systolic blood pressure 98 mm[Hg] David Berrios MD Work Phone: [facility] 04-12-2022 10:46-0500 Body height 160.02 cm Ivanna Mahmood Work Phone: [facility] 250 DO Work Phone: 04-12-2022 10:46-0500 Body mass index (BMI) [Ratio] 26.39 kg/m2 Ivanna Colemanholwaqar Work Phone: [facility] 250 DO Work Phone: 04-12-2022 10:46-0500 Body surface area Derived from formula 1.71 m2 Ivanna Trejo Philalexsandra Work Phone: [facility] 250 DO Work Phone: 04-12-2022 10:46-0500 Body weight 67.59 kg Ivanna Mahmood Work Phone: [facility] 250 DO Work Phone: 04-12-2022 10:46-0500 Diastolic blood pressure 76 mm[Hg] Ivanna Mahmood Work Phone: [facility] 250 DO Work Phone: 04-12-2022 10:46-0500 Heart rate 62 /min Ivanna Mahmood Work Phone: [facility] 250 DO Work Phone: 04-12-2022 10:46-0500 Systolic blood pressure 110 mm[Hg] Ivanna Trejo Philhaileyholwaqar Work Phone: [facility] 250 DO Work Phone: 11-09-2021 13:23-0400 Blood Pressure Location Rosie JARRETT [facility] [place] 11-09-2021 13:23-0400 Diastolic blood pressure 60 mm[Hg] Rosie NILL [facility] [place] 11-09-2021 13:23-0400 Heart rate 60 /min Rosie NILL [facility] [place] 11-09-2021 13:23-0400 Respiratory rate 16 /min Rosie NILL [facility] [place] 11-09-2021 13:23-0400 Systolic blood pressure 106 mm[Hg] Rosie NILL [facility] [place] 04-05-2021 10:10-0500 Body height 160.02 cm Ivanna Mahmood Work Phone: [facility] [employer] 250 DO Work Phone: 04-05-2021 10:10-0500 Body mass index (BMI) [Ratio] 26.86 kg/m2 Ivanna Mahmood Work Phone: [facility] [employer] 250 DO Work Phone: 04-05-2021 10:10-0500 Body surface area Derived from formula 1.72 m2 Ivanna Mahmood Work Phone: [facility] [employer] 250 DO Work Phone: 04-05-2021 10:10-0500 Body weight 68.77 kg Ivanna Mahmood Work Phone: [facility] [employer] 250 DO Work Phone: 04-05-2021 10:10-0500 Diastolic blood pressure 80 mm[Hg] Ivanna Colemanholwaqar Work Phone: [facility] [employer] 250 DO Work Phone: 04-05-2021 10:10-0500 Heart rate 56 /min Ivanna Trejo Philhholz Work Phone: [facility] 250 DO Work Phone: 04-05-2021 10:10-0500 Systolic blood pressure 110 mm[Hg] Ivanna Trejo Aichholz Work Phone: [facility] 250 DO Work Phone: Encounters Encounter Date Encounter Type Care Provider Facility Start: 04-24-2024 End: 04-24-2024 Office outpatient visit 15 minutes Pari [facility] SOLAR BUSINESS DEVELOPER-MANAGER OF ORGANIZATIONAL DEVELOPMENT Work Phone: [facility] Comment on above: Mixed hyperlipidemia (Primary Dx); 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; Benign essential hypertension; Diabetes mellitus of other type without complication, unspecified whether group home insulin use (Multi); BMI 26.0-26.9,adult Start: 04-24-2024 End: 04-24-2024 ambulatory [facility] Start: 04-22-2024 End: 04-22-2024 Subsequent hospital visit by physician Filomena Neil [facility] [facility] Comment on above: Chest pain, unspecif ied type; Coronary artery disease involving p[place]enta heart with other form of angina pectoris, unspecified vessel or lesion type Start: 04-22-2024 End: 04-22-2024 ambulatory [facility] Start: 04-16-2024 End: 04-16-2024 Refill Ivanna Aichholz PEST LOCATOR Work Phone: [facility] Comment on above: Type 2 diabetes montserrat itus without complication, without long- term current use of insulin (CMS/HCC) (Primary Dx) Start: 04-10-2024 End: 04-10-2024 Refill Ivanna Aichholz PEST LOCATOR Work Phone: [facility] Comment on above: Mixed hyperlipidemia (CMS/HCC) (Primary Dx); 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 (CMS/HCC) Start: 04-09-2024 End: 04-09-2024 Bamboo flowsheet Ivanna Aichholz PEST LOCATOR Work Phone: [facility] Start: 04-09-2024 End: 04-09-2024 Bamboo flowsheet Ivanna Aichholz PEST LOCATOR Work Phone: [facility] Start: 04-09-2024 End: 04-09-2024 ambulatory IVANNA AICHHOLZ Not Available Start: 04-09-2024 End: 04-09-2024 Office outpatient visit 25 minutes Ivanna Aichholz PEST LOCATOR Work Phone: [facility] Comment on above: 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 (CMS/HCC) (Primary Dx); Type 2 diabetes mellitus without complication, without long-term current use of insulin (CMS/HCC); Restless leg syndrome; Primary hypertension (CMS/HCC); Mixed hyperlipidemia (CMS/HCC); Tremors of nervous system; Anxiety Start: 03-28-2024 End: 03-28-2024 Refill Ivanna Aichholz PEST LOCATOR Work Phone: [facility] Comment on above: Anxiety; Primary hypertension (CMS/HCC); Mixed hyperlipidemia (CMS/HCC) Start: 02-17-2024 End: 02-17-2024 Refill Ivanna Aichholz PEST LOCATOR Work Phone: [facility] Comment on above: Primary hypertension (CMS/HCC) Start: 01-02-2024 End: 01-02-2024 Refill Ivanna Aichholz PEST LOCATOR Work Phone: [facility] Comment on above: Tremors of nervous s ystem Start: 12-28-2023 End: 12-28-2023 Bamboo flowsheet Ivanna Aichholz PEST LOCATOR Work Phone: [facility] Start: 12-28-2023 End: 12-28-2023 Bamboo flowsheet Ivanna Aichholz PEST LOCATOR Work Phone: [facility] Start: 12-28-2023 End: 12-28-2023 Office outpatient visit 25 minutes Ivanna Aichholz PEST LOCATOR Work Phone: [facility] Comment on above: 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 (CMS/HCC) (Primary Dx); Primary hypertension (CMS/HCC); Type 2 diabetes mellitus without complication, without long-term current use of insulin (CMS/HCC); Anxiety; Mixed hyperlipidemia (CMS/HCC); Tremors of nervous system Start: 12-28-2023 End: 12-28-2023 ambulatory IVANNA AICHHOLZ Not Available Start: 12-26-2023 End: 12-26-2023 Clinisync Result Encounter Ivanna Aichholz PEST LOCATOR Work Phone: [facility] External Department Unsolicited Start: 12-26-2023 End: 12-26-2023 Clinisync Result Encounter Ivanna Aichholz PEST LOCATOR Work Phone: [facility] External Department Unsolicited Start: 12-25-2023 End: 12-25-2023 Refill Ivanna Aichholz PEST LOCATOR Work Phone: [facility] Comment on above: Vitamin D deficiency Start: 12-05-2023 End: 12-05-2023 Refill Ivanna Aichholz PEST LOCATOR Work Phone: [facility] Comment on above: Primary hypertension (CMS/HCC); Anxiety Start: 09-05-2023 Patient encounter procedure Ivanna Aichholz PEST LOCATOR Work Phone: [facility] Start: 09-05-2023 End: 09-05-2023 ambulatory IVANNA AICHHOLZ Not Available Start: 06-21-2023 End: 06-21-2023 ambulatory IVANNA AICHHOLZ Not Available Start: 04-12-2023 End: 04-12-2023 Office outpatient visit 25 minutes David Berrios MD Work Phone: [facility] Comment on above: 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paskenta coronary artery of p[place]enta heart without angina pectoris (Primary Dx); Benign essential hypertension; Mixed hyperlipidemia; Diabetes mellitus of other type without complication, unspecified whether group home insulin use ([facility]); Never smoked any substance Start: 05-16-2022 End: 05-17-2022 ambulatory BROWN TAY PHILHaileySEVERINOWaqar Facility:[facility]1 Start: 04-12-2022 ambulatory David Berrios II Facility: Start: 04-12-2022 Office outpatient vi sit 25 minutes Ivanna Maya Mahmood Work Phone: [facility] 250 DO Work Phone: Start: 12-08-2021 End: 12-09-2021 ambulatory Rosie FARIAS Facility:CD:[id number] Start: 12-07-2021 Encounter for preprocedural laboratory examination DR ROSIE FARIAS [facility] Start: 12-04-2021 End: 12-05-2021 ambulatory BROWN TAY PHILHaileyUZAIR Facility:[facility] Start: 12-04-2021 End: 12-05-2021 Encounter for preprocedural laboratory examination BROWN COLEMANSEVERINOWaqar Facility:[facility] Start: 11-09-2021 End: 11-10-2021 ambulatory Rosie FARIAS Facility:[facility] Start: 11-09-2021 End: 11-09-2021 Patient encounter procedure Rosie FARIAS [facility] [place] Start: 10-08-2021 ambulatory Rosie FARIAS Facility :[facility] Start: 10-07-2021 End: 10-08-2021 ambulatory BROWN COLEMANSEVERINOWaqar Facility:[facility] Start: 04-05-2021 Office outpatient vi sit 25 minutes Ivanna Maya Villarrealhaileyuzair Work Phone: [facility] 250 DO Work Phone: Start: 05-08-2019 End: 05-09-2019 Patient encounter procedure MAGDA Richards [facility] Start: 05-08-2019 End: 05-08-2019 Subsequent hospital visit by physician Kinjal [facility] Comment on above: Type 2 diabetes montserrat itus with complication, without long-term current use of insulin ([facility]); Essential hypertension; Dyslipidemia Start: 03-11-2019 End: 03-13-2019 Evaluation and management of inpatient MARY Richards [facility] Start: 02-20-2019 End: 02-23-2019 Patient encounter procedure MAGDA M [facility] Start: 02-20-2019 End: 02-22-2019 Subsequent hospital visit by physician Melissa Araiza [facility] Comment on above: Post-menopausal; Osteopenia, unspecified location Start: 12-25-2018 End: 12-28-2018 Patient encounter procedure MAGDA Richards [facility] Start: 07-30-2018 End: 07-31-2018 Patient encounter procedure [facility] Procedures Date Procedure Procedure Detail Performing Clinician Start: 04-22-2024 Cv strs tst xers&/or rx cont ecg trcg only Pari Norton SOLAR BUSINESS DEVELOPER-MANAGER OF ORGANIZATIONAL DEVELOPMENT Work Phone: Start: 04-09-2024 Hemoglobin glycosylated a1c Ivanna Aichholz PEST LOCATOR Work Phone: Start: 12-26-2023 MLR HEMOGLOBIN A1C Ivanna Aichholz PEST LOCATOR Work Phone: Start: 07-07-2023 Mammography Ivanna Aichh olz PEST LOCATOR Work Phone: Start: 12-08-2021 Colonoscopy Ivanna Aichh olz PEST LOCATOR Work Phone: Start: 05-08-2019 Urine albumin quantitative MAGDA CARBALLO Start: 05-08-2019 Basic metabolic pane l calcium total MAGDA CARBALLO Start: 05-08-2019 Blood count complete auto&auto difrntl wbc MAGDA CARBALLO Start: 05-08-2019 Hemoglobin glycosylated a1c MAGDA CARBALLO Start: 05-08-2019 Lipid panel MAGDA TORRES S Start: 05-08-2019 Urine albumin quantitative Magda Carballo Work Phone: Start: 05-08-2019 Basic metabolic pane l calcium total Magda Carballo Work Phone: Start: 05-08-2019 Blood count complete auto&auto difrntl wbc Magda Carballo Work Phone: Start: 05-08-2019 Hemoglobin glycosylated a1c Magda Maurice Ishmael Work Phone: Start: 05-08-2019 Lipid panel Magda Maurice Khan Work Phone: Start: 03-13-2019 Myocardial spect mul tiple studies MAGDA CARBALLO Start: 03-13-2019 DISCHARGE PATIENT MAGDA CARBALLO Start: 03-13-2019 AMBULATE PATIENT MAGDA DEAWESLEY Start: 03-13-2019 DIET GENERAL MAGDA DEAT S Start: 03-13-2019 INITIATE OXYGEN THER APY PROTOCOL MAGDA CARBALLO Start: 03-13-2019 NEURO/VASCULAR CHECKS Eric CARBALLO Start: 03-13-2019 NOTIFY PHYSICIAN (SPECIFY) MAGDA CARBALLO Start: 03-13-2019 NURSING COMMUNICATION Eric CARBALLO Start: 03-13-2019 PUNCTURE SITE CARE KATRINA CARBALLO Start: 03-13-2019 TOBACCO CESSATION EDUCATION MAGDA CARBALLO Start: 03-13-2019 FULL CODE MAGDA ROWET S Start: 03-13-2019 TELEMETRY MONITORING MORIS CARBALLO Start: 03-13-2019 VITAL SIGNS MAGDA TORRES S Start: 03-13-2019 TRANSFER PATIENT MAGDA CARBALLO Start: 03-13-2019 HAND RUG BRAIDER REPORT MAGDA LAZCANO Start: 03-13-2019 NOTIFY PHYSICIAN (SPECIFY) MAGDA CARBALLO Start: 03-13-2019 NURSING COMMUNICATION Eric CARBALLO Start: 03-13-2019 PULSE OXIMETRY SPOT CHECK MAGDA CARBALLO Start: 03-13-2019 TELEMETRY MONITORING MORIS CARBALLO Start: 03-13-2019 VITAL SIGNS MAGDA ROWET S Start: 03-13-2019 DIAGNOSIS FOR PROCEDURE MAGDA CARBALLO Start: 03-13-2019 R & l hrt cath w/njx l ventriculog img s&i MAGDA DEAWESLEY Start: 03-13-2019 TREATMENT CONSENT MAGDA DEATS Start: 03-13-2019 VERIFY INFORMED CONSENT MAGDA CARBALLO Start: 03-13-2019 Glucose quantitative blood xcpt reagent strip MAGDA CARBALLO Start: 03-13-2019 INITIATE OXYGEN THER APY PROTOCOL MAGDA CARBALLO Start: 03-13-2019 INTAKE AND OUTPUT MAGDA DEATS Start: 03-12-2019 Echo tthrc r-t 2d w/ wom-mode compl spec&colr d MAGDA DEATS Start: 03-12-2019 Ecg routine ecg w/le ast 12 lds w/i&r MAGDA DEATS Start: 03-12-2019 EKG REPORT MAGDA DEAT S Start: 03-12-2019 INITIATE OXYGEN THER APY PROTOCOL MAGDA DEATS Start: 03-12-2019 Blood count complete automated MAGDA DEATS Start: 03-12-2019 Lipid panel MAGDA DEAT S Start: 03-12-2019 DAILY WEIGHTS MAGDA JAE TS Start: 03-12-2019 INTAKE AND OUTPUT MAGDA DEATS Start: 03-12-2019 Assay of troponin quantitative MAGDA DEATS Start: 03-11-2019 Assay of troponin quantitative MAGDA DEATS Start: 03-11-2019 IP CONSULT TO [facility] MAGDA DEATS Start: 03-11-2019 IP CONSULT TO CARDIOLOGY MAGDA DEATS Start: 03-11-2019 REASON FOR NOT SELEC TING ANTILIPEMIC MAGDA DEATS Start: 03-11-2019 INITIATE OXYGEN THER APY PROTOCOL MAGDA DEATS Start: 03-11-2019 INTAKE AND OUTPUT MAGDA DEATS Start: 03-11-2019 IP CONSULT TO CASE MANAGEMENT MAGDA DEATS Start: 03-11-2019 PULSE OXIMETRY SPOT CHECK MAGDA DEATS Start: 03-11-2019 REASON FOR NO MECHAN ICAL VTE PROPHYLAXIS MAGDA DEATS Start: 03-11-2019 TELEMETRY MONITORING SH AWN DEATS Start: 03-11-2019 TOBACCO CESSATION EDUCATION MAGDA DEATS Start: 03-11-2019 VITAL SIGNS MAGDA DEAT S Start: 03-11-2019 PATIENT STATUS (FROM ED OR OR/PROCEDURAL) MAGDA DEATS Start: 03-11-2019 Assay of troponin quantitative MAGDA DEATS Start: 03-11-2019 Ecg routine ecg w/le ast 12 lds w/i&r MAGDA DEATS Start: 03-11-2019 EKG REPORT MAGDA DEAT S Start: 03-11-2019 Ct angiography chest w/contrast/noncontrast MAGDA DEATS Start: 03-11-2019 Radiologic exam ches t single view MAGDA DEATS Start: 03-11-2019 Assay of troponin quantitative MAGDA DEATS Start: 03-11-2019 Basic metabolic pane l calcium total MAGDA DEATS Start: 03-11-2019 Blood count complete auto&auto difrntl wbc MAGDA DEATS Start: 03-11-2019 Prothrombin time MAGDA DEATS Start: 03-11-2019 Thromboplastin time partial plasma/whole blood MAGDA DEATS Start: 03-11-2019 Ecg routine ecg w/le ast 12 lds w/i&r MAGDA DEATS Start: 03-11-2019 EKG REPORT MAGDA DEAT S Start: 03-11-2019 INSERT PERIPHERAL IV SH AWN DEATS Start: 03-11-2019 TELEMETRY MONITORING SH AWN DEATS Start: 03-11-2019 VITAL SIGNS MAGDA DEAT S Start: 02-20-2019 Dxa bone density teresa dy 1/> sites axial skel MAGAD DEATS Start: 02-20-2019 Dxa bone density teresa dy 1/> sites axial skel Magda M Deats Work Phone: Start: 12-25-2018 Screening mammograph y bi 2-view breast inc cad MAGDA DEATS Start: 07-30-2018 Assay of thyroid sti mulating hormone tsh MAGDA DEATS Start: 07-30-2018 Assay of iron MAGDA JAE TS Start: 07-30-2018 Basic metabolic pane l calcium total MAGDA DEATS Start: 07-30-2018 Blood count complete automated MAGDA DEATS Start: 07-30-2018 Hemoglobin glycosylated a1c MAGDA DEATS Start: 07-30-2018 Lipid panel MAGDA DEAT S Start: 07-30-2018 Urine albumin quantitative MAGDA DEATS Start: 02-25-2013 Colonoscopy David Salguero MD Work Phone: Start: 02-25-2013 Colonoscopy Rosie CRAWFORD Start: 02-28-2007 Colonoscopy Rosie CRAWFORD Start: 06-26-2006 Sigmoidoscopy Rosie CROSS Start: 04-27-2006 Destruction of lesio n of rectum by fulguration Rosie FARIAS Start: 04-24-2006 Sigmoidoscopy Rosie CROSS Cardiac catheterization Marlo matthew NILNathalie Diagnostic laparoscopy [place] FARIAS Ligation of fallopian tube [address] Trejo Aichholz Work Phone: Ligation of fallopian tube M ichtiff CHOWDHURYL Operation on colon Ivanna Trejo Edvin ichholz Work Phone: Tonsillectomy Ivanna Trejo Aichho lz Work Phone: Tonsillectomy Rosie FARIAS Total colonoscopy Ivanna Trejo chholz Work Phone: Plan of Treatment Date Care Activity Detail Author Start: 07-13-2033 DTaP/Tdap/Td Vaccines (2 - Td or Tdap) DTaP/Tdap/Td Vaccines (2 - Td or Tdap) [facility] Start: 12-09-2031 Screening for malignant neoplasm of colon [facility] Start: 11-15-2025 Glaucoma screening Diabetes: Retinopathy Screening [facility] Start: 04-28-2025 End: 04-28-2025 Patient encounter procedure 04/28/2025 2:30 PM EST Office Visit [facility] [address] [address] [place] [id number] Pari Norton, SOLAR BUSINESS DEVELOPER-MANAGER OF ORGANIZATIONAL DEVELOPMENT [address] [facility] [address] [place] [address] [facility] Start: 11-15-2024 Glaucoma screening Diabetes: Retinopathy Screening [facility] Start: 09-04-2024 Medicare Annual Wellness (AWV) Medicare Annual Wellness (AWV) [facility] Start: 07-08-2024 Hemoglobin A1c measurement Diabetes: Hemoglobin A1C [facility] Start: 07-06-2024 Screening for malignant neoplasm of breast Mammogram [facility] Start: 06-22-2024 Urine screening for protein Diabetes: Urine Protein Screening [facility] Start: 06-08-2024 End: 04-10-2025 Alanine aminotransferase [Enzymatic activity/volume] in Serum or Plasma ALT Lab Routine Mixed hyperlipidemia (CMS/HCC) Expected: 06/08/2024 (Approximate), Expires: 04/10/2025 [facility] Comment on above: Expected: 06/08/2024 (Approximate), Expi res: 04/10/2025 Start: 06-08-2024 End: 04-10-2025 Aspartate aminotransferase [Enzymatic activity/volume] in Serum or Plasma AST Lab Routine Mixed hyperlipidemia (CMS/HCC) Expected: 06/08/2024 (Approximate), Expires: 04/10/2025 [facility] Comment on above: Expected: 06/08/2024 (Approximate), Expi res: 04/10/2025 Start: 06-08-2024 End: 04-10-2025 Lipid 1996 panel - Serum or Plasma Lipid panel Lab Routine Mixed hyperlipidemia (CMS/HCC) Expected: 06/08/2024 (Approximate), Expires: 04/10/2025 [facility] Work Phone: Comment on above: Expected: 06/08/2024 (Approximate), Expi res: 04/10/2025 Start: 05-08-2024 End: 05-08-2024 Patient encounter procedure 05/08/2024 1:20 PM EST Office Visit [facility] [address] [place] [address] Ivanna Mahmood, MARIAJOSE [address] [place] [id number] [facility] Start: 04-24-2024 End: 04-24-2024 Patient encounter procedure [facility] Start: 03-26-2024 Hemoglobin A1c measurement Diabetes: Hemoglobin A1C [facility] Start: 03-25-2024 End: 03-25-2024 Patient encounter procedure 03/25/2024 9:40 AM EST Office Visit [facility] [address] [place] [address] Ivanna Mahmood, PEST LOCATOR [address] [place] [id number] [facility] Start: 02-22-2024 Influenza vaccination Influenza Vaccine (#1) [facility] Comment on above: Postponed from 12/03/2023 (Patient Does Not Have Time) Start: 12-28-2023 End: 12-28-2023 Patient encounter procedure 12/28/2023 10:50 AM EDT Office Visit [facility] [address] [place] [address] Ivanna Mahmood NP [address] [place] [address] Arrived [facility] Comment on above: Arrived Start: 12-03-2023 COVID-19 Vaccine ( season) COVID-19 Vaccine ( season) [facility] Start: 12-03-2023 Influenza vaccination Influenza Vaccine (#1) [facility] Start: 04-12-2023 FUV, Provider: David Berrios, Status: Pen, Time: 1:00 PM FUV, Provider: David Berrios, Status: Pen, Time: 1:00 PM [facility] [employer] 250 DO Work Phone: Start: 04-11-2023 COVID-19 Vaccine (3 - Moderna series) COVID-19 Vaccine (3 - Moderna series) [facility] Start: 04-11-2023 Zoster Vaccines (2 of 2) Zoster Vaccines (2 of 2) [facility] Start: 02-25-2023 Screening for malignant neoplasm of colon [facility] Start: 04-12-2022 FUV, Provider: David Berrios, Status: Pen, Time: 10:30 AM FUV, Provider: David Berrios, Status: Pen, Time: 10:30 AM [facility] [employer] 250 DO Work Phone: Start: 12-25-2020 Breast cancer screen Breast cancer screen [employer] [facility] [place] Start: 03-12-2020 Lipid screen Lipid screen [employer] Work Phone: Start: 03-11-2020 Creatinine monitoring Creatinine monitoring [facility] [employer] Phone: Start: 03-11-2020 Potassium monitoring Potassium monitoring [facility] [employer] Phone: Start: 01-30-2020 [object Object] Diabetic foot exam [place], [place] Start: 01-30-2020 A1C test (Diabetic or Prediabetic) A1C test (Diabetic or Prediabetic) [place] Start: 01-30-2020 Colon Cancer Screen FIT/FOBT Colon Cancer Screen FIT/FOBT [place] Start: 11-06-2019 End: 11-06-2019 Office Visit 11/06/2019 Office Visit Cardiology Siddharth Garrison MD [address] [place] [address] [place] [address] [facility] Start: 10-26-2019 Diabetic retinal exam Diabetic retinal exam [place], [place] Comment on above: Postponed from 1964 (Patient Refus ed) Start: 08-06-2019 Hemoglobin A1c measurement Diabetes: Hemoglobin A1C [facility] Start: 07-31-2019 Creatinine monitoring Creatinine monitoring [place], [place] Start: 07-31-2019 Diabetic microalbuminuria test Diabetic microalbuminuria test [place] Start: 07-31-2019 Lipid screen Lipid screen [place] Start: 07-31-2019 Potassium monitoring Potassium monitoring [place] Start: 07-27-2019 Cervical cancer screen Cervical cancer screen [place], [place] Comment on above: Postponed from 07/18/1975 (Patient Refus ed) Start: 07-27-2019 DTaP/Tdap/Td vaccine (1 - Tdap) DTaP/Tdap/Td vaccine (1 - Tdap) [place] Comment on above: Postponed from 1965 (Patient Refus ed) Start: 07-27-2019 Hepatitis C screen Hepatitis C screen [place] Comment on above: Postponed from 1954 (Patient Refus ed) Start: 07-27-2019 HIV screen HIV screen [place] Comment on above: Postponed from 1969 (Patient Refus ed) Start: 07-27-2019 Shingles Vaccine (1 of 2) Shingles Vaccine (1 of 2) [facility] CITLALI THOMAS Comment on above: Postponed from 2004 (Patient Refus ed) Start: 06-20-2019 End: 06-20-2019 Office Visit 06/20/2019 Office Visit Primary Care Kinjal Sandhu, SOLAR BUSINESS DEVELOPER - MANAGER OF ORGANIZATIONAL DEVELOPMENT [address] [place] [address] [phone] [facility] Start: 05-01-2019 End: 05-01-2019 Office Visit 05/01/2019 Office Visit Primary Care Kinjal Sandhu, SOLAR BUSINESS DEVELOPER - MANAGER OF ORGANIZATIONAL DEVELOPMENT [address] [place] [address] [phone] [facility] Start: 06-27-2011 Screening for malignant neoplasm of colon Sigmoidoscopy [facility] Start: 1994 Screening for malignant neoplasm of breast Mammogram [facility] Start: 1976 DTaP/Tdap/Td Vaccines (1 - Tdap) DTaP/Tdap/Td Vaccines (1 - Tdap) [facility] Start: 1973 Hepatitis B vaccine (1 of 3 - Risk 3-dose series) Hepatitis B vaccine (1 of 3 - Risk 3-dose series) [facility] Work Phone: Start: 1973 Urine screening for protein Diabetes: Urine Protein Screening [facility] Start: 1972 Hepatitis C screening Hepatitis C Screening [facility] Start: 1964 Diabetic foot examination Diabetes: Foot Exam [facility] Start: 1964 Glaucoma screening Diabetes: Retinopathy Screening [facility] Start: 1954 Creatinine measurement Creatinine Level [facility] Start: 1954 Echocardiography Echocardiogram [facility] Start: 1954 Hemoglobin A1c measurement Diabetes: Hemoglobin A1C [facility] Start: 1954 Lipid panel Lipid Panel [facility] Start: 1954 Medicare Annual Wellness Visit Medicare Annual Wellness Visit (AWV) [facility] Start: 1954 Potassium measurement Potassium Level [facility] Start: 1954 Screening for malignant neoplasm of colon [facility] Start: 1954 Screening for osteoporosis Bone Density Scan [facility] Start: 1954 Urine screening for protein Diabetes: Urine Protein Screening [facility] Immunizations Immunization Date Immunization Notes Care Provider Fa cility 01-29-2024 influenza virus vacc ine, unspecified formulation Ivanna Timoteo PEST LOCATOR Work Phone: [facility] 01-29-2024 influenza, high dose seasonal, preservative-free Ivanna Valeriyz PEST LOCATOR Work Phone: [facility] 01-29-2024 Fluzone High-Dose 0. 5 ML suspension prefilled syringe Ivanna Timoteo PEST LOCATOR Work Phone: [facility] 01-16-2024 pneumococcal polysaccharide vaccine, 23 valent Pari Norton SOLAR BUSINESS DEVELOPER-MANAGER OF ORGANIZATIONAL DEVELOPMENT Work Phone: [facility] Work Phone: 01-09-2024 influenza, seasonal, injectable Pari Norton SOLAR BUSINESS DEVELOPER-MANAGER OF ORGANIZATIONAL DEVELOPMENT Work Phone: [facility] Work Phone: 01-08-2024 varicella virus vaccine Duke Norton SOLAR BUSINESS DEVELOPER-MANAGER OF ORGANIZATIONAL DEVELOPMENT Work Phone: [facility] Work Phone: 07-14-2023 diphtheria, tetanus toxoids and acellular pertussis vaccine, unspecified formulation Ivanna Jaredholz PEST LOCATOR Work Phone: [facility] 07-14-2023 RSV, recombinant, protein subunit RSVpreF, adjuvant reconstitu, 120mcg/0.5mL, PF (Arexvy) Ivanna Valeriyz PEST LOCATOR Work Phone: [facility] 07-14-2023 tetanus toxoid, redu martínez diphtheria toxoid, and acellular pertussis vaccine, adsorbed Ivanna Philhholz PEST LOCATOR Work Phone: [facility] 05-15-2023 zoster vaccine recombinant Ivanna Aichholz PEST LOCATOR Work Phone: [facility] 05-15-2023 Shingrix 50 MCG/0.5M L vaccine Ivanna Aichholz PEST LOCATOR Work Phone: [facility] 02-14-2023 zoster vaccine recombinant Ivanna Aichholz PEST LOCATOR Work Phone: [facility] 01-29-2023 Influenza, High-dose Seasonal, Quadrivalent, Preservative Free Ivanna Aichholz PEST LOCATOR Work Phone: [facility] 01-29-2023 Pneumococcal Conjuga te PCV 20 Ivanna Aichholz PEST LOCATOR Work Phone: [facility] 01-29-2023 influenza virus vacc ine, unspecified formulation Ivanna Aichholz PEST LOCATOR Work Phone: [facility] 01-12-2022 Fluzone High-Dose Quadrivalent 0.7 ML Intramuscular Suspension Prefilled Syringe Ivanna Maya Aichholz Work Phone: [facility] 250 DO Work Phone: 01-12-2022 influenza, injectabl e, quadrivalent, preservative free David Berrios MD Work Phone: [facility] Work Phone: 08-05-2020 Moderna COVID-19 Vac cine 100 MCG/0.5ML Intramuscular Suspension Ivanna Maya Aichholz Work Phone: [facility] 250 DO Work Phone: 07-08-2020 Moderna COVID-19 Vac cine 100 MCG/0.5ML Intramuscular Suspension Ivanna Maya Aichholz Work Phone: [facility] 250 DO Work Phone: 02-02-2020 influenza, seasonal, injectable Ivanna Maya Aichholz Work Phone: [facility] 250 DO Work Phone: 01-29-2019 influenza, injectabl e, quadrivalent, preservative free [facility] 12-02-2018 influenza, seasonal, injectable Ivanna Mahmood Work Phone: [facility] 10-25-2018 pneumococcal polysaccharide vaccine, 23 valent [facility] 04-03-2018 pneumococcal polysaccharide vaccine, 23 valent Ivanna Mahmood Work Phone: [facility] Payers Date Payer Category Payer Managed Care (Private) [facility] [id number] 2024 Medicare [id number] 2021 Medicare [id number] 2021 Medicare (Managed Care) 1.2. [id number] 2018 Unknown [id number]. [id number] 2018 Unknown [id number] 1959 Unknown [id number] 1954 Unknown [id number] 2.16.840.1.625053.3.579.2. 173 1954 Unknown [id number] 2.16.840.1.018872.3.579.2. 173 1954 Unknown [id number] 2.16.840.1.748441.3.579.2. 173 1954 Unknown [id number] 2.16.840.1.197636.3.579.2. 173 1954 Unknown [id number] 2.16.840.1.890916.3.579.2. 173 1954 Unknown [id number] 2.16.840.1.797172.3.579.2. 727 1954 Unknown [id number] 2.16.840.1.148061.3.579.2. 727 1954 Unknown [id number] 2.16.840.1.444993.3.579.2. 727 1954 Unknown [id number] 2.16.840.1.030523.3.579.2. 356 1954 Unknown [id number] 2.16.840.1.411819.3.579.2. 593 1954 Unknown [id number] 2.16.840.1.726593.3.579.2. 593 1954 Unknown [id number] 2.16.840.1.295454.3.579.2. 593 1954 Unknown [id number] 2.16.840.1.085573.3.579.2. 593 1954 Unknown [id number] 2.16.840.1.757245.3.579.2. 1259 1954 Unknown [id number] 2.16.840.1.165590.3.579.2. 1259 1954 Unknown [id number] 2.16.840.1.045102.3.579.2. 1259 1954 Unknown [id number] 2.16.840.1.463269.3.579.2. 1259 1954 Unknown [id number] 2.16.840.1.832802.3.579.2. 1244 1954 Unknown [id number] 2.16.840.1.380940.3.579.2. 1246 1954 Unknown [id number] 2.16.840.1.944755.3.579.2. 1246 1954 Unknown [id number] 2.16.840.1.751186.3.579.2. 1246 1954 Unknown [id number] 2.16.840.1.423087.3.579.2. 1246 1954 Unknown [id number] 2.16.840.1.181056.3.579.2. 124 Unknown ANTHEM MEDICARE ADV Social History Date Type Detail Facility Start: 05-08-2019 End: 04-12-2023 Tobacco smoking status NHIS Never smoker [place] Start: 05-08-2019 End: 04-24-2024 Alcohol intake Lifetime non-drinker (finding) [place] Start: 07-26-2018 History SDOH Alcohol Frequency 1 [place], [place] Start: 1955 Sex Assigned At Not on file M [place], [place] Start: 04-12-2023 End: 04-24-2024 Never a smoker Never a smoker [facility] 250 DO Work Phone: Comment on above: 2 CUPS A DAY; Tobacco smoking status Never [facility] Start: 04-12-2023 End: 04-24-2024 Sex Assigned At Female [facility] Start: 04-12-2023 End: 06-21-2023 Tobacco use and exposure Smokeless tobacco non-user [facility] Work Phone: Start: 04-02-2023 End: 04-24-2024 Exposure to SARS-CoV-2 (event) Not sure [facility] Start: 06-21-2023 Alcohol Comment caffine: 2-6 c ups of coffee/tea daily [facility] Functional Status Date Assessment Result Facility 11-09-2021 Functional Status N/A [facility] Clinical Notes 11-09-2021 to 04-24-2024 Assessment & Plan Note - JESS Malloy - 04/24/2024 3:51 PM ESTAssessment & Plan Note - JESS Malloy - 04/24/2024 3:51 PM ESTPatient InstructionsPatient Instructions Note Date & Type Note Facility 04-24-2024 Evaluation + Plan note Associated Problem(s): BMI 26.0-26.9,adult Reviewed the merits of healthy lifestyle choices on overall cardiovascular health. [facility] Work Phone: 04-24-2024 Evaluation + Plan note Associated Problem(s): Diabetes mellitus (Multi) On ROBERTA/statin Unknown hemoglobin A1c [facility] Work Phone: 04-24-2024 Miscellaneous Notes Associated Problem(s): BMI 26.0-26.9,adult Reviewed the merits of healthy lifestyle choices on overall cardiovascular health. Associated Problem(s): Diabetes mellitus (Multi) On ROBERTA/statin Unknown hemoglobin A1c Associated Problem(s): Hyperlipidemia Reports she was recently changed from simvastatin over to atorvastatin and we will plan on getting labs I believe in 2 months. Associated Problem(s): Benign essential hypertension Mild asymptomatic hypotension noted in the office today. Associated Problem(s): CAD (coronary artery disease) Mar 2019 @ [facility] heart cath: . Very small circumflex coronary artery with what appeared to be mild to moderate vasospasm of the left main on engagement but no significant atherosclerotic coronary artery disease. Normal left ventricular end diastolic pressure (LVEDP). Proceed with guideline directed maximal medical management for possible coronary vasospasm if clinically indicated. April 2024 MPI No ischemia, no infarct. EF 70% Current daily activity greater than 4 METS without recurrent symptoms documented in this encounter [facility] Work Phone: 04-24-2024 Evaluation + Plan note Associated Problem(s): Hyperlipidemia Reports she was recently changed from simvastatin over to atorvastatin and we will plan on getting labs I believe in 2 months. [facility] Work Phone: 04-24-2024 Evaluation + Plan note Associated Problem(s): Benign essential hypertension Mild asymptomatic hypotension noted in the office today. [facility] Work Phone: 04-24-2024 History of Presen t illness Narrative Chief Complaint I think I am doing better Reason for Visit Add-on at request of PCP Patient presents to the office today for outpatient follow-up for chest pain and cardiovascular testing. Last evaluated in clinic by Dr. Jean-Baptiste April 2023. Presents today ambulatory with steady gait. Accompanied by patient Patient denies any hospitalizations or significant changes to interval medical history since last office follow-up. History of Present Illness Patient is a pleasant 68-year-old female who presents to the office today with no voiced cardiovascular complaints. PCP had called into the office last month with concerns regarding chest pain, a perfusion study was completed last week without evidence of ischemia or infarct, EF 70%. Patient reports that approximately 1 month ago she was in the process of moving and after lifting boxes for period of time she will get a discomfort across her back with some pressure in her chest. It would be relieved with 1 nitroglycerin. It happened on 4 occasions. The last chest pain was about 1 month ago. She now remains aerobically active doing housework including vacuuming and mopping, came in from the parking lot without concerns. Reviewed prior cardiac cath showing possibility of vasospasm. She has been maintained on low-dose Norvasc, long-acting nitrates and beta-pierre since that time. Last month was her first episode of chest discomfort. Symptoms have abated over this last month. She is not limiting her physical activity to avoid exertional symptoms. Reviewed stress test findings. She will notify me if there is any additional symptoms and may consider cardiac catheterization versus intensification of Norvasc for possibility of vasospasm. She is a non-smoker. Patient reports that overall has no complaint(s) of chest pain, chest pressure/discomfort, claudication, dyspnea, exertional chest pressure/discomfort, fatigue, and irregular heart beat Daily activity: Greater than 4 METS Denies any change in exercise capacity or functional tolerance since last office visit. The importance of secondary prevention reviewed: HTN: Optimal HLD: Recent medication changes and due for repeat labs DM: Treated unknown hemoglobin A1c Smoker: Denies BMI: Reviewed the merits of healthy lifestyle choices on overall cardiovascular health. Discussed the dynamic nature of coronary artery disease and the importance of seeking medical attention if new symptoms arise. Review of Systems Cardiovascular: Negative for chest pain, dyspnea on exertion, irregular heartbeat, leg swelling, near-syncope, orthopnea, palpitations, paroxysmal nocturnal dyspnea and syncope. Visit Vitals BP 100/68 (BP Location: Left arm, Patient Position: Sitting) Pulse 60 Ht 1.6 m (5' 3 ) Wt 67.1 kg (148 lb) BMI 26.22 kg/m Smoking Status Never BSA 1.73 m Physical Exam Vitals and nursing note reviewed. HENT: Head: Normocephalic. Cardiovascular: Rate and Rhythm: Normal rate and regular rhythm. Heart sounds: Normal heart sounds. Pulmonary: Effort: Pulmonary effort is normal. Breath sounds: Normal breath sounds. Abdominal: Palpations: Abdomen is soft. Musculoskeletal: Right lower leg: No edema. Left lower leg: No edema. Skin: General: Skin is warm and dry. Neurological: General: No focal deficit present. Mental Status: She is alert. Psychiatric: Mood and Affect: Mood normal. Behavior: Behavior normal. No Known Allergies Current Outpatient Medications Medication Instructions amLODIPine (Norvasc) 2.5 mg tablet 1 tablet, Daily aspirin 81 mg EC tablet 1 tablet, Daily atorvastatin (LIPITOR) 10 mg, oral, Daily cholecalciferol (Vitamin D-3) 50 MCG (1999) tablet 1 tablet, Daily DULoxetine (Cymbalta) [address] capsule 1 capsule, Daily gabapentin (Neurontin) 300 mg capsule 1 capsule, 3 times daily glipiZIDE (Glucotrol) 5 mg tablet 1 tablet, Daily hydroCHLOROthiazide (HYDRODiuril) 25 mg tablet 1 tablet, Daily isosorbide mononitrate ER (IMDUR) 60 mg, oral, Daily, Do not crush or chew. lisinopril 5 mg tablet 1 tablet, Daily propranolol (Inderal) 40 mg tablet 2 tablets, Daily Assessment: CAD (coronary artery disease) Mar 2019 @ [facility] heart cath: . Very small circumflex coronary artery with what appeared to be mild to moderate vasospasm of the left main on engagement but no significant atherosclerotic coronary artery disease. Normal left ventricular end diastolic pressure (LVEDP). Proceed with guideline directed maximal medical management for possible coronary vasospasm if clinically indicated. April 2024 MPI No ischemia, no infarct. EF 70% Current daily activity greater than 4 METS without recurrent symptoms Benign essential hypertension Mild asymptomatic hypotension noted in the office today. Hyperlipidemia Reports she was recently changed from simvastatin over to atorvastatin and we will plan on getting labs I believe in 2 months. Diabetes mellitus (Multi) On ROBERTA/statin Unknown hemoglobin A1c BMI 26.0-26.9,adult Reviewed the merits of healthy lifestyle choices on overall cardiovascular health. Plan: Through informed decision making process incorporating patients unique circumstances, the following treatment plan will be initiated: 1. Prescription drug management of cardiovascular medication for efficacy, adherence to treatment, side effect assessment and polypharmacy. Current treatment clinically warranted and to continue without modifications. 2. Return for follow-up; in the interim, contact the office if new symptoms arise. PEST LOCATOR annual Discussed the dynamic nature of coronary artery disease and the importance of seeking medical attention if new symptoms arise. Pari Norton MSN, SOLAR BUSINESS DEVELOPER-MANAGER OF ORGANIZATIONAL DEVELOPMENT, PMHNP-[facility] [place], [place] Please excuse any errors in grammar or translation related to this dictation. Voice recognition software was utilized to prepare this document. documented in this encounter [facility] Work Phone: 04-24-2024 Instructions JESS Malloy - 04/24/2024 1:30 PM EST Please bring all medicines, vitamins, and herbal supplements with you when you come to the office. Prescriptions will not be filled unless you are compliant with your follow up appointments or have a follow up appointment scheduled as per instruction of your physician. Refills should be requested at the time of your visit. Fall Prevention Education Given PLAN: Through informed decision making process incorporating patients unique circumstances, the following treatment plan will be initiated: 1. Prescription drug management of cardiovascular medication for efficacy, adherence to treatment, side effect assessment and polypharmacy. Current treatment clinically warranted and to continue without modifications. 2. Return for follow-up; in the interim, contact the office if new symptoms arise. PEST LOCATOR annual Discussed the dynamic nature of coronary artery disease and the importance of seeking medical attention if new symptoms arise. documented in this encounter [facility] Work Phone: 04-24-2024 Evaluation + Plan note Associated Problem(s): CAD (coronary artery disease) Mar 2019 @ [facility] heart cath: . Very small circumflex coronary artery with what appeared to be mild to moderate vasospasm of the left main on engagement but no significant atherosclerotic coronary artery disease. Normal left ventricular end diastolic pressure (LVEDP). Proceed with guideline directed maximal medical management for possible coronary vasospasm if clinically indicated. April 2024 MPI No ischemia, no infarct. EF 70% Current daily activity greater than 4 METS without recurrent symptoms [facility] Work Phone: 04-09-2024 History of Presen t illness Narrative Images from the original note were not included. Nneka Corona is a 68 y.o. female presents with chief complaint of Diabetes HPI: Diabetes She presents for her follow-up diabetic visit. She has type 2 diabetes mellitus. Her disease course has been stable. Hypoglycemia symptoms include nervousness/anxiousness and tremors. Pertinent negatives for hypoglycemia include no dizziness, headaches or seizures. Associated symptoms include chest pain and polydipsia. Pertinent negatives for diabetes include no blurred vision, no foot paresthesias, no polyphagia and no polyuria. There are no hypoglycemic complications. Symptoms are stable. Diabetic complications include heart disease and peripheral neuropathy. Pertinent negatives for diabetic complications include no PVD. Risk factors for coronary artery disease include diabetes mellitus, dyslipidemia, hypertension and post-menopausal. Current diabetic treatment includes oral agent (dual therapy). She is compliant with treatment all of the time. An ROBERTA inhibitor/angiotensin II receptor pierre is being taken. She does not see a prepress stripper.Eye exam is current. Hypertension This is a chronic problem. The current episode started more than 1 year ago. The problem is unchanged. The problem is controlled. Associated symptoms include anxiety and chest pain. Pertinent negatives include no blurred vision, headaches, neck pain, orthopnea, palpitations, peripheral edema or shortness of breath. There are no associated agents to hypertension. Risk factors for coronary artery disease include diabetes mellitus, dyslipidemia, sedentary lifestyle and post-menopausal state. Past treatments include calcium channel blockers, diuretics and ROBERTA inhibitors. The current treatment provides significant improvement. There are no compliance problems. Hypertensive end-organ damage includes CAD/LA. There is no history of kidney disease, heart failure or PVD. Heart Problem This is a chronic problem. The current episode started more than 1 year ago. The problem occurs rarely. The problem has been unchanged. Associated symptoms include chest pain. Pertinent negatives include no abdominal pain, anorexia, arthralgias, chills, congestion, coughing, fever, headaches, joint swelling, myalgias, nausea, neck pain, numbness, rash, sore throat, vertigo or vomiting. Nothing aggravates the symptoms. Anxiety Presents for follow-up visit. Symptoms include chest pain and nervous/anxious behavior. Patient reports no decreased concentration, depressed mood, dizziness, insomnia, irritability, nausea, palpitations, shortness of breath or suicidal ideas. Symptoms occur occasionally. The severity of symptoms is mild. Her past medical history is significant for anxiety/panic attacks and CAD. Compliance with medications is 76-100%. Chest Pain This is a recurrent problem. The current episode started more than 1 month ago. The onset quality is gradual. The problem occurs intermittently. The problem has been gradually worsening. The pain is present in the substernal region. The pain is at a severity of 7/10. The pain is moderate. The quality of the pain is described as heavy. Radiates to: shoulder blades. Pertinent negatives include no abdominal pain, back pain, cough, dizziness, fever, headaches, lower extremity edema, nausea, numbness, orthopnea, palpitations, shortness of breath or vomiting. Her past medical history is significant for anxiety/panic attacks, CAD, heart disease and hypertension. Pertinent negatives for past medical history include no PVD and no seizures. SUBJECTIVE: MEDICATIONS: Current Outpatient Medications Medication Instructions amLODIPine (NORVASC) 2.5 mg, Oral, Daily ASPIRIN 81 PO 81 mg, Daily cholecalciferol (Vitamin D-3) 50 MCG (1999) tablet Oral, Daily DULoxetine (CYMBALTA) 30 mg, Oral, Daily empagliflozin (JARDIANCE) 10 mg, Daily gabapentin (NEURONTIN) 300 mg, Oral, 3 times daily glipiZIDE XL (GLUCOTROL XL) 5 mg, Oral, Daily hydroCHLOROthiazide (HYDRODIURIL) 25 mg, Oral, Every morning isosorbide mononitrate ER (IMDUR) 30 mg, Oral, Daily lisinopril 5 mg, Oral, Every morning propranolol (INDERAL) 40 mg, Oral, 2 times daily simvastatin (ZOCOR) 10 mg, Oral, Nightly ALLERGIES: No Known Allergies REVIEW OF SYMPTOMS: Review of Systems Constitutional: Negative for appetite change, chills, fever and irritability. HENT: Negative for congestion, ear pain and sore throat. Eyes: Negative for blurred vision, pain, discharge, redness and visual disturbance. Respiratory: Negative for cough, shortness of breath and wheezing. Cardiovascular: Positive for chest pain. Negative for palpitations, orthopnea and leg swelling. Gastrointestinal: Negative for abdominal pain, anorexia, blood in stool, constipation, diarrhea, nausea and vomiting. Genitourinary: Negative for difficulty urinating, dysuria and frequency. Musculoskeletal: Negative for arthralgias, back pain, joint swelling, myalgias and neck pain. Skin: Negative for rash and wound. Neurological: Positive for tremors. Negative for dizziness, vertigo, seizures, syncope, numbness and headaches. Psychiatric/Behavioral: Negative for behavioral problems, decreased concentration, self-injury and suicidal ideas. The patient is nervous/anxious. The patient does not have insomnia. Hematological: Does not bruise/bleed easily. Endocrine: Positive for polydipsia. Negative for polyphagia and polyuria. Allergic/Immunologic: Negative for environmental allergies and food allergies. 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 No pertinent surgical history. family history is not on file. OBJECTIVE: Visit Vitals BP 110/80 (BP Location: Left arm, Patient Position: Sitting, BP Cuff Size: Adult long) Pulse 56 Temp 98.1 F (Temporal) Resp 18 Ht 5' 3 Wt 148 lb 6.4 oz SpO2 96% BMI 26.29 kg/m Smoking Status Never BSA 1.73 m Physical Exam Vitals and nursing note reviewed. Constitutional: General: She is not in acute distress. Appearance: Normal appearance. HENT: Head: Normocephalic and atraumatic. Right Ear: External ear normal. Left Ear: External ear normal. Nose: Nose normal. Mouth/Throat: Mouth: Mucous membranes are moist. Eyes: Extraocular Movements: Extraocular movements intact. Conjunctiva/sclera: Conjunctivae normal. Neck: Vascular: No carotid bruit. Cardiovascular: Rate and Rhythm: Normal rate and regular rhythm. Pulses: Normal pulses. Heart sounds: Normal heart sounds. Pulmonary: Effort: Pulmonary effort is normal. Breath sounds: Normal breath sounds. No wheezing or rales. Abdominal: General: Bowel sounds are normal. There is no distension. Palpations: Abdomen is soft. There is no mass. Tenderness: There is no abdominal tenderness. There is no guarding. Hernia: No hernia is present. Musculoskeletal: General: Normal range of motion. Cervical back: Normal range of motion and neck supple. Right lower leg: No edema. Left lower leg: No edema. Lymphadenopathy: Cervical: No cervical adenopathy. Skin: General: Skin is warm and dry. Capillary Refill: Capillary refill takes 2 to 3 seconds. Findings: No rash. Neurological: General: No focal deficit present. Mental Status: She is alert and oriented to person, place, and time. Psychiatric: Mood and Affect: Mood normal. Behavior: Behavior normal. Thought Content: Thought content normal. Judgment: Judgment normal. ASSESSMENT AND PLAN: No follow-ups on file. Problem List Items Addressed This Visit Primary hypertension ([facility]) Please check blood pressure daily and record DASH diet Limit caffeine Take medication as directed Contact office if chest pain, pressure, dizziness, shortness of breath, swelling legs Recommend slow position changes Current meds: amlodipine, asa, hydrochlorothiazide, lisinopril, propranolol Relevant Medications hydroCHLOROthiazide (HYDRODiuril) 25 MG tablet Type 2 diabetes mellitus without complication, without long-term current use of insulin ([facility]) - Primary Check blood sugars daily, notify if <70 or >200. Take medications (pills or insulin) as directed. Monitor for s/s of hypoglycemia (sweaty, dizziness, nausea, vomiting, or shakiness). Watch for increase in thirst, urination, or appetite. Inspect feet frequently monitoring for open wounds , and also recommend yearly eye exam. Pt should attempt to remain as physically active as chronic conditions allow, as well as trying to follow a diet low in carbohydrates, and simple sugars. Current meds: asa, statin, roberta, jardiance and glipizide A1c 7.3% 04/09/24 Relevant Medications glipiZIDE XL (Glucotrol XL) 5 MG 24 hr tablet Other Relevant Orders POCT glycosylated hemoglobin (Hb A1C) docked device (Completed) 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 ([facility]) chest pain, w activity, nitroglycerin relieves it Spoke with NESHA Gentile regarding this, she does have upcoming appt with Cardiology PEST LOCATOR on 04/24/24, she will speak to PEST LOCATOR about possible ECHO or stress prior to this appt. I did confirm that they had her working number continue tight blood pressure/blood sugar control Cont ASA 81mg and imdur and statin Hyperlipidemia (CMS/HCC) On statin therapy Check labs yearly and prn dose changes Restless leg syndrome Takes julianne Relevant Medications gabapentin (Neurontin) 300 MG capsule Anxiety Currently taking duloxetine Tremors of nervous system Cont with b pierre therapy Relevant Medications propranolol (Inderal) 40 MG tablet Associated Problem(s): Anxiety Currently taking duloxetine Associated Problem(s): Tremors of nervous system Cont with b pierre therapy Associated Problem(s): Hyperlipidemia ([facility]) On statin therapy Check labs yearly and prn dose changes Associated Problem(s): Type 2 diabetes mellitus without complication, without long-term current use of insulin ([facility]) Check blood sugars daily, notify if <70 or >200. Take medications (pills or insulin) as directed. Monitor for s/s of hypoglycemia (sweaty, dizziness, nausea, vomiting, or shakiness). Watch for increase in thirst, urination, or appetite. Inspect feet frequently monitoring for open wounds , and also recommend yearly eye exam. Pt should attempt to remain as physically active as chronic conditions allow, as well as trying to follow a diet low in carbohydrates, and simple sugars. Current meds: asa, statin, roberta, jardiance and glipizide A1c 7.3% 04/09/24 Associated Problem(s): Primary hypertension (CMS/HCC) Please check blood pressure daily and record DASH diet Limit caffeine Take medication as directed Contact office if chest pain, pressure, dizziness, shortness of breath, swelling legs Recommend slow position changes Current meds: amlodipine, asa, hydrochlorothiazide, lisinopril, propranolol Associated Problem(s): 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 (CMS/HCC) chest pain, w activity, nitroglycerin relieves it Spoke with NESHA Gentile regarding this, she does have upcoming appt with Cardiology PEST LOCATOR on 04/24/24, she will speak to PEST LOCATOR about possible ECHO or stress prior to this appt. I did confirm that they had her working number continue tight blood pressure/blood sugar control Cont ASA 81mg and imdur and statin Associated Problem(s): Restless leg syndrome Takes julianne documented in this encounter [facility] 04-09-2024 Instructions Ivanna Mahmood NP - 04/09/2024 1:00 PM EST I called [facility] ([phone]), spoke with Nurse Gentile, she will contact the PEST LOCATOR to see if a stress test or ECHO of your heart is to be done prior to appt on 04/24/24 If worsening chest pain, go to ER. Avoid strenuous activity as well documented in this encounter [facility] 12-28-2023 History of Presen t illness Narrative Associated Problem(s): Tremors of nervous system Cont with b pierre therapy Associated Problem(s): Hyperlipidemia (CMS/HCC) Cont statin Associated Problem(s): Anxiety Continue current dose of meds Associated Problem(s): Type 2 diabetes mellitus without complication, without long-term current use of insulin (CMS/HCC) Check blood sugars daily, notify if <70 or >200. Take medications (pills or insulin) as directed. Monitor for s/s of hypoglycemia (sweaty, dizziness, nausea, vomiting, or shakiness). Watch for increase in thirst, urination, or appetite. Inspect feet frequently monitoring for open wounds , and also recommend yearly eye exam. Pt should attempt to remain as physically active as chronic conditions allow, as well as trying to follow a diet low in carbohydrates, and simple sugars. Reviewed A1c, no med dose changes Associated Problem(s): Primary hypertension (CMS/HCC) Stable with current med dose Associated Problem(s): 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 (CMS/HCC) No active chest pain, continue tight blood pressure/blood sugar control Cont ASA 81mg and imdur and statin Pt had gotten her retinopathy screening done in nov at the [facility] [place] on Images from the original note were not included. chase Corona is a 68 y.o. female presents with chief complaint of No chief complaint on file. HPI: Diabetes She presents for her follow-up diabetic visit. She has type 2 diabetes mellitus. Her disease course has been stable. Hypoglycemia symptoms include nervousness/anxiousness. Pertinent negatives for hypoglycemia include no dizziness, headaches, seizures or tremors. Associated symptoms include foot paresthesias. Pertinent negatives for diabetes include no chest pain, no polydipsia, no polyphagia, no polyuria, no visual change and no weight loss. Symptoms are stable. Diabetic complications include heart disease and peripheral neuropathy. Pertinent negatives for diabetic complications include no nephropathy. Risk factors for coronary artery disease include dyslipidemia, diabetes mellitus, hypertension and sedentary lifestyle. She is compliant with treatment all of the time. She is following a diabetic diet. She has not had a previous visit with a dietitian. She participates in exercise weekly. Her overall blood glucose range is 140-180 mg/dl. An ROBERTA inhibitor/angiotensin II receptor pierre is being taken. She does not see a prepress stripper.Eye exam is current. Hypertension This is a chronic problem. The current episode started more than 1 year ago. The problem is unchanged. The problem is controlled. Associated symptoms include anxiety. Pertinent negatives include no chest pain, headaches, palpitations, peripheral edema or shortness of breath. There are no associated agents to hypertension. Risk factors for coronary artery disease include diabetes mellitus and dyslipidemia. Past treatments include beta blockers, calcium channel blockers and angiotensin blockers. The current treatment provides significant improvement. There are no compliance problems. Hypertensive end-organ damage includes CAD/LA. Anxiety Presents for follow-up visit. Symptoms include nervous/anxious behavior. Patient reports no chest pain, dizziness, irritability, nausea, palpitations, panic, shortness of breath or suicidal ideas. Symptoms occur occasionally. The severity of symptoms is mild. The quality of sleep is good. Compliance with medications is 76-100%. SUBJECTIVE: MEDICATIONS: Current Outpatient Medications Medication Instructions amLODIPine (NORVASC) 2.5 mg, Oral, Daily ASPIRIN 81 PO 81 mg, Oral, Daily cholecalciferol (Vitamin D-3) 50 MCG (1999) tablet Oral, Daily DULoxetine (CYMBALTA) 30 mg, Oral, Daily RT empagliflozin (JARDIANCE) 10 mg, Daily, PA program gabapentin (NEURONTIN) 300 mg, Oral, 3 times daily glipiZIDE XL (GLUCOTROL XL) 5 mg, Oral, Daily hydroCHLOROthiazide (HYDRODIURIL) 25 mg, Oral, Every morning isosorbide mononitrate ER (IMDUR) 30 mg, Oral, Daily lisinopril 5 mg, Oral, Every morning propranolol (INDERAL) 40 mg, Oral, 2 times daily simvastatin (ZOCOR) 10 mg, Oral, Nightly ALLERGIES: No Known Allergies REVIEW OF SYMPTOMS: Review of Systems Constitutional: Negative for appetite change, chills, fever, irritability and weight loss. HENT: Negative for congestion, ear pain and sore throat. Eyes: Negative for pain, discharge, redness and visual disturbance. Respiratory: Negative for cough, shortness of breath and wheezing. Cardiovascular: Negative for chest pain, palpitations and leg swelling. Gastrointestinal: Negative for abdominal pain, blood in stool, constipation, diarrhea, nausea and vomiting. Genitourinary: Negative for difficulty urinating, dysuria and frequency. Musculoskeletal: Negative for arthralgias, back pain, joint swelling and myalgias. Skin: Negative for rash and wound. Neurological: Negative for dizziness, tremors, seizures, syncope and headaches. Psychiatric/Behavioral: Negative for behavioral problems, self-injury and suicidal ideas. The patient is nervous/anxious. Hematological: Does not bruise/bleed easily. Endocrine: Negative for polydipsia, polyphagia and polyuria. Allergic/Immunologic: Negative for environmental allergies and food allergies. PAST MEDICAL HISTORY Past Medical History: Diagnosis Date 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 ([facility]) 03/20/2023 Primary hypertension (CMS/HCC) 03/06/2023 Type 2 diabetes mellitus without complication, without long-term current use of insulin ([facility]) 03/06/2023 History reviewed. No pertinent surgical history. family history is not on file. OBJECTIVE: Visit Vitals BP 120/78 Pulse 59 Temp 98.3 F (Temporal) Resp 19 Ht 5' 3 Wt 147 lb 12.8 oz SpO2 96% BMI 26.18 kg/m Smoking Status Never BSA 1.73 m Physical Exam Vitals and nursing note reviewed. Constitutional: General: She is not in acute distress. Appearance: Normal appearance. HENT: Head: Normocephalic and atraumatic. Right Ear: External ear normal. Left Ear: External ear normal. Nose: Nose normal. Mouth/Throat: Mouth: Mucous membranes are moist. Eyes: Extraocular Movements: Extraocular movements intact. Conjunctiva/sclera: Conjunctivae normal. Neck: Vascular: No carotid bruit. Cardiovascular: Rate and Rhythm: Normal rate and regular rhythm. Pulses: Normal pulses. Heart sounds: Normal heart sounds. Pulmonary: Effort: Pulmonary effort is normal. Breath sounds: Normal breath sounds. No wheezing or rales. Abdominal: General: Bowel sounds are normal. There is no distension. Palpations: Abdomen is soft. There is no mass. Tenderness: There is no abdominal tenderness. Musculoskeletal: General: Normal range of motion. Cervical back: Normal range of motion and neck supple. Right lower leg: No edema. Left lower leg: No edema. Lymphadenopathy: Cervical: No cervical adenopathy. Skin: General: Skin is warm and dry. Capillary Refill: Capillary refill takes 2 to 3 seconds. Findings: No rash. Neurological: General: No focal deficit present. Mental Status: She is alert and oriented to person, place, and time. Psychiatric: Mood and Affect: Mood normal. Behavior: Behavior normal. Thought Content: Thought content normal. Judgment: Judgment normal. ASSESSMENT AND PLAN: No follow-ups on file. Problem List Items Addressed This Visit Primary hypertension (CMS/HCC) Stable with current med dose Type 2 diabetes mellitus without complication, without long-term current use of insulin ([facility]) Check blood sugars daily, notify if <70 or >200. Take medications (pills or insulin) as directed. Monitor for s/s of hypoglycemia (sweaty, dizziness, nausea, vomiting, or shakiness). Watch for increase in thirst, urination, or appetite. Inspect feet frequently monitoring for open wounds , and also recommend yearly eye exam. Pt should attempt to remain as physically active as chronic conditions allow, as well as trying to follow a diet low in carbohydrates, and simple sugars. Reviewed A1c, no med dose changes 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 (CMS/HCC) - Primary No active chest pain, continue tight blood pressure/blood sugar control Cont ASA 81mg and imdur and statin Hyperlipidemia (CMS/HCC) Cont statin Anxiety Continue current dose of meds Tremors of nervous system Cont with b pierre therapy documented in this encounter [facility] 04-12-2023 History of Presen t illness Narrative Subjective Nneka CORONA is a 67 y.o. female Chief Complaint Follow-up HPI had 50 % lad in 2019 Patient returns in follow-up of problems as noted. She is done well in the interim and denies angina CHF or arrhythmia symptomatology. She recently got and has been more active than usual. These increased aerobic activities have not provoke typical or atypical anginal type symptoms and because of this we believe her coronary disease to be stable. In that regard, we do not have the angiogram that was performed in 2019 in [facility]. Nonetheless the patient gives a good recounting of the event and she states she had 50% stenosis in 1 vessel. Because of this no intervention was undertaken and she has been stable and asymptomatic ever since. The merits of treating her risk factors hypertension and hyperlipidemia were reviewed and review of the treatment demonstrates satisfactory control hence no adjustments in therapy are recommended. She has a low normal blood pressure today but she is completely asymptomatic and because of this no changes in therapy are planned Review of Systems All other systems reviewed and are negative. Visit Vitals BP 98/58 (BP Location: Left arm, Patient Position: Sitting) Pulse 52 Ht 1.6 m (5' 3 ) Wt 67.1 kg (148 lb) BMI 26.22 kg/m Smoking Status Never BSA 1.73 m Objective Physical Exam Constitutional: Appearance: Normal appearance. She is normal weight. HENT: Nose: Nose normal. Neck: Vascular: No carotid bruit. Cardiovascular: Rate and Rhythm: Normal rate. Pulses: Normal pulses. Heart sounds: Normal heart sounds. Pulmonary: Effort: Pulmonary effort is normal. Abdominal: General: Bowel sounds are normal. Palpations: Abdomen is soft. Genitourinary: Rectum: Normal. Musculoskeletal: General: Normal range of motion. Cervical back: Normal range of motion. Right lower leg: No edema. Left lower leg: No edema. Skin: General: Skin is warm and dry. Neurological: General: No focal deficit present. Mental Status: She is alert. Psychiatric: Mood and Affect: Mood normal. Behavior: Behavior normal. Thought Content: Thought content normal. Judgment: Judgment normal. Current Medications Current Outpatient Medications: amLODIPine (Norvasc) 2.5 mg tablet, Take 1 tablet (2.5 mg) by mouth once daily., Disp: , Rfl: aspirin 81 mg EC tablet, Take 1 tablet (81 mg) by mouth once daily., Disp: , Rfl: cholecalciferol (Vitamin D-3) 50 MCG (2000 UT) tablet, Take 1 tablet (2,000 Units) by mouth once daily., Disp: , Rfl: DULoxetine (Cymbalta) [address] capsule, Take 1 capsule (30 mg) by mouth once daily., Disp: , Rfl: gabapentin (Neurontin) 300 mg capsule, Take 1 capsule (300 mg) by mouth 3 times a day., Disp: , Rfl: glipiZIDE (Glucotrol) 5 mg tablet, Take 1 tablet (5 mg) by mouth once daily., Disp: , Rfl: hydroCHLOROthiazide (HYDRODiuril) 25 mg tablet, Take 1 tablet (25 mg) by mouth once daily., Disp: , Rfl: isosorbide mononitrate ER (Imdur) 30 mg 24 hr tablet, Take 1 tablet (30 mg) by mouth once daily., Disp: , Rfl: lisinopril 5 mg tablet, Take 1 tablet (5 mg) by mouth once daily., Disp: , Rfl: propranolol (Inderal) 40 mg tablet, Take 2 tablets (80 mg) by mouth once daily., Disp: , Rfl: simvastatin (Zocor) 10 mg tablet, Take 1 tablet (10 mg) by mouth once daily., Disp: , Rfl: Assessment/Plan 1. 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 No anginal symptomatology with aerobic activity. We presume CAD to be stable. 2. Benign essential hypertension Upon review it appears she has good blood pressure control. We offered to reduce her antihypertensive regimen because of a low normal reading today but she is reluctant hence we will continue as is. 3. Mixed hyperlipidemia Lipids are adequately controlled on current therapy. No indication for adjustment. 4. Diabetes mellitus of other type without complication, unspecified whether terminal computer operator insulin use ([facility]) Managed by other providers. She claims good control. 5. Never smoked any substance As above Scribe Attestation By signing my name below, Deborah Sorto Wolf Ahumada LPN , [place] attest that this documentation has been prepared under the direction and in the presence of David Berrios MD. documented in this encounter [facility] Work Phone: 04-12-2023 Instructions Deborah Bowens LPN - 04/12/2023 1:00 PM EST Please bring all medicines, vitamins, and herbal supplements with you when you come to the office. Prescriptions will not be filled unless you are compliant with your follow up appointments or have a follow up appointment scheduled as per instruction of your physician. Refills should be requested at the time of your visit. documented in this encounter [facility] Work Phone: 12-08-2021 Note OPERATIVE NOTE OPERATION DATE: 12/08/2021 PREOPERATIVE DIAGNOSIS: Guaiac positive stool, personal history of rectal tubulovillous adenoma, bowel changes. POSTOPERATIVE DIAGNOSIS: Sigmoid diverticulosis as well as spasm of the colon. PROCEDURE: Colonoscopy to cecum. SURGEON: Rosie Farias M.D. ANESTHESIA: Monitored anesthesia care. ESTIMATED BLOOD LOSS: Zero. INDICATIONS AND CONSENT: Patient is a 66-year-old female with a persona history of tubulovillous adenoma of the rectum that was treated in 2005. She did have a colonoscopy in 2012 that was within normal limits, a negative Cologuard in 2018. She presented with problems with constipation and occult positive stools. Indications, risks, benefits, alternatives of proceeding with colonoscopy were explained extensively to the patient, including the risks of bleeding, colon perforation or anesthetic complications. All of her questions were answered. Informed consent was obtained. PROCEDURE: Patient brought to the operating room, placed in the left lateral decubitus position. Monitored anesthesia care was provided. Rectal exam was performed which revealed no masses or blood. The scope was inserted into the anal canal. Under direct visualization was advanced. With the aid of abdominal compression, it was advanced to the cecum where cecal markings were clearly identified. There was noted to be a fair prep with some cloudy liquid stool throughout the colon that was partially irrigated clear. Upon withdrawal of the scope, mucosal surfaces were carefully examined. There were no mass lesions or polyps noted. No inflammatory changes or ulcerations. There was mild sigmoid diverticulosis without inflammatory changes or scarring. The scope was retroflexed in the anal canal. There was no evidence of recurrent polyps, no ulceration, no evidence of old or new blood. The scope was then withdrawn. Patient tolerated procedure well, was sent to recovery room in good condition. CC: Ivanna Mahmood, BROWN [facility] 11-09-2021 Note Chief Complaint consultation for anemia and positive occult stool HPI Staff 66 year old female presents on consultation from Ivanna Mahmood for colonoscopy. 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 Treatment included partial excision, radiation, chemotherapy and electrofulguration. Denies abdominal or rectal pain. No rectal bleeding. Reports one month history of constipation for which she takes Colace. Denies unexplained weight loss. Last colonoscopy completed 02/2013- normal. History of Present Illness 66 yo female with h/o CAD, htn, DMII, hyperlipidemia, migraine headaches, referred for surveillance colonoscopy; h/o tubulovillous adenoma, extensive, dx in 2005; had multiple excisions and fulgurations; last colonoscopy [address] Dumont, [place]; negative Cologuard in 2018; some constipation over the past month, improved with colace, no blood in stools, no abdominal complaints; abdominal operations significant for Laparoscopy and tubal ligation; on baby asa daily, no NSAID use, no SBE prophylaxis; no fmhx of GI malignancy or IBD; no tobacco use. Review of Systems PHQ Score Initial Depression Screen Score: 0 ROS - Provider Constitutional: no fever, no sweats, no weight loss. Eyes: no glasses, no blurred vision, no visual loss. ENMT: no dentures, no hoarseness, no swallowing difficulties, no hearing loss, no ear infection(s), no nose bleeds. Cardiovascular: normal blood pressure, no chest pain, regular heartbeat, no heart murmur. Respiratory: no shortness of breath, no cough, no asthma, no wheezing. Gastrointestinal: no nausea, no vomiting, no diarrhea, no constipation, no blood in stool, no change in bowel habits, no abdominal pain, no hepatitis. Genitourinary: no kidney stones, no urine infection, no dysuria. Musculoskeletal: no pain, no weakness. Skin: no changing moles, no rash, no skin lumps. Neurologic: no seizures, no epilepsy, no headache. Psychiatric: no emotional or psychiatric problem. Heme/Lymph: no bleeding problems, no anemia, no blood clots, no transfusions. Allergy/Immunologic: no swollen lymph nodes/glands, no IV drug abuse. Other: Additional ROS info: Except as noted in the above Review of Systems and in the History of Present Illness, all other systems have been reviewed and are negative or noncontributory. Physical Exam Vitals & Measurements HR: 60(Peripheral) RR: 16 BP: 106/60 HT: 157.4 cm HT: 157.4 cm WT: 66.8 kg WT: 66.8 kg BMI: 26.96 HEENT: normal conjunctiva, sclera clear, no scleral icterus, EOM intact, PERRLA, oral mucosa moist without lesions. Neck: trachea midline, no mass, symmetric, no thyromegaly or nodules, no adenopathy Respiratory: lungs CTA, respirations non labored. Cardiovascular: regular rate and rhythm, no murmur, no pedal edema or varicosities. Gastrointestinal: obese, soft, non distended, no tenderness, no masses, no palpable hernias, diastasis recti no, no hepatosplenomegaly; normal bs Lymphatic: no cervical adenopathy, Musculoskeletal: normal gait, digits and nails without infection, nodes, cyanosis, clubbing. Skin: no rashes, no lesions, no ulcers, no subcutaneous nodules, induration. Psychiatric/Neuro: oriented to time, place, person, judgement normal, affect appropriate for age, insight intact, no focal deficits. Tests: review of old records completed, Discussed surgical options, risks, and possible complications with patient. Assessment/Plan 1. Personal history of colonic polyps (Z86.010: Personal history of colonic polyps) plan colonoscopy under anesthesia, informed consent obtained. Follow-up No qualifying data available Problem List/Past Medical History Ongoing BMI 26.0-26.9,adult CAD (coronary artery disease) Depression Diabetes Diabetic retinopathy Diverticulosis Edema HTN (hypertension) Hyperlipemia Migraines Osteoporosis Personal history of colonic polyps Restless leg Tremors of nervous system Urinary incontinence Uterovaginal prolapse Villous adenoma of rectum Vitamin D deficiency Historical No qualifying data Procedure/Surgical History Colonoscopy (02/25/2013), Colonoscopy (02/28/2007), Sigmoidoscopy (06/26/2006), Destruction of lesion of rectum by fulguration (04/27/2006), Sigmoidoscopy (04/24/2006), Cardiac catheterization, Diagnostic laparoscopy, Tonsillectomy, Tubal ligation. Medications alendronate 35 mg oral tablet, 35 mg= 1 tab(s), Oral, qWeek amLODIPine 2.5 mg Tab, 2.5 mg= 1 tab(s), Oral, Daily aspirin 81 mg Oral EC Tab, 81 mg= 1 tab(s), Oral, Daily duloxetine 30 mg Cap-DR, 1 cap(s), Oral, Daily gabapentin 300 mg Cap, 300 mg= 1 cap(s), Oral, TID glipiZIDE 5 mg ER Tab, 5 mg= 1 tab(s), Oral, Daily hydrochlorothiazide 25 mg oral tablet, 25 mg= 1 tab(s), Oral, Daily isosorbide mononitrate 30 mg ER Tab, 30 mg= 1 tab(s), Oral, qAM Jardiance 10 mg oral tablet, 10 mg= 1 tab(s), Oral, qAM lisinopril 5 mg Tab, 5 mg= 1 tab(s), Oral, Daily nitroglycerin 0.4 mg sublingual Tab, 0.4 mg= 1 (more content not included)... 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 insulin use (CMS/HCC) Never smoked any substance documented in this encounter [facility] Work Phone: Evaluation note* Diagnosis Tremors of nervous system [facility] Diagnosis Left hip pain- Primary Pain in joint, pelvic region and thigh 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 (CMS/HCC) Primary hypertension (CMS/HCC) Unspecified essential hypertension Type 2 diabetes mellitus without complication, without long-term current use of insulin (CMS/HCC) Vitamin D deficiency Mixed hyperlipidemia (CMS/HCC) Mixed hyperlipidemia Encounter for screening mammogram for malignant neoplasm of breast Lumbar back pain with radiculopathy affecting left lower extremity Encounter for subsequent annual wellness visit (AWV) in Medicare patient- Primary Primary hypertension (CMS/HCC) Unspecified essential hypertension Anxiety Anxiety state, unspecified Restless leg syndrome Restless legs syndrome (RLS) Tremors of nervous system Type 2 diabetes mellitus without complication, without long-term current use of insulin (CMS/HCC) 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 (CMS/HCC) Mixed hyperlipidemia (CMS/HCC) Mixed hyperlipidemia Vitamin D deficiency 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 (CMS/HCC)- Primary Primary hypertension (CMS/HCC) Unspecified essential hypertension Type 2 diabetes mellitus without complication, without long-term current use of insulin (CMS/HCC) Anxiety Anxiety state, unspecified Mixed hyperlipidemia (CMS/HCC) Mixed hyperlipidemia Tremors of nervous system Primary hypertension (CMS/HCC) Unspecified essential hypertension [facility] Diagnosis Primary hypertension (CMS/HCC) Unspecified essential hypertension Anxiety Anxiety state, unspecified [facility] Diagnosis 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 (CMS/HCC)- Primary Primary hypertension (CMS/HCC) Unspecified essential hypertension Type 2 diabetes mellitus without complication, without long-term current use of insulin (CMS/HCC) Anxiety Anxiety state, unspecified Mixed hyperlipidemia (CMS/HCC) Mixed hyperlipidemia Tremors of nervous system [facility] Diagnosis Vitamin D deficiency [facility] Diagnosis Left hip pain- Primary Pain in joint, pelvic region and thigh 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 (CMS/HCC) Primary hypertension (CMS/HCC) Unspecified essential hypertension Type 2 diabetes mellitus without complication, without long-term current use of insulin (CMS/HCC) Vitamin D deficiency Mixed hyperlipidemia (CMS/HCC) Mixed hyperlipidemia Encounter for screening mammogram for malignant neoplasm of breast Lumbar back pain with radiculopathy affecting left lower extremity Encounter for subsequent annual wellness visit (AWV) in Medicare patient- Primary Primary hypertension (CMS/HCC) Unspecified essential hypertension Anxiety Anxiety state, unspecified Restless leg syndrome Restless legs syndrome (RLS) Tremors of nervous system Type 2 diabetes mellitus without complication, without long-term current use of insulin (CMS/HCC) 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 (CMS/HCC) Mixed hyperlipidemia (CMS/HCC) Mixed hyperlipidemia Vitamin D deficiency 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 (CMS/HCC)- Primary Primary hypertension (CMS/HCC) Unspecified essential hypertension Type 2 diabetes mellitus without complication, without long-term current use of insulin (CMS/HCC) Anxiety Anxiety state, unspecified Mixed hyperlipidemia (CMS/HCC) Mixed hyperlipidemia Tremors of nervous system Anxiety Anxiety state, unspecified Primary hypertension (CMS/HCC) Unspecified essential hypertension Mixed hyperlipidemia (CMS/HCC) Mixed hyperlipidemia [facility] Diagnosis Left hip pain- Primary Pain in joint, pelvic region and thigh 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 (CMS/HCC) Primary hypertension (CMS/HCC) Unspecified essential hypertension Type 2 diabetes mellitus without complication, without long-term current use of insulin (CMS/HCC) Vitamin D deficiency Mixed hyperlipidemia (CMS/HCC) Mixed hyperlipidemia Encounter for screening mammogram for malignant neoplasm of breast Lumbar back pain with radiculopathy affecting left lower extremity Encounter for subsequent annual wellness visit (AWV) in Medicare patient- Primary Primary hypertension (CMS/HCC) Unspecified essential hypertension Anxiety Anxiety state, unspecified Restless leg syndrome Restless legs syndrome (RLS) Tremors of nervous system Type 2 diabetes mellitus without complication, without long-term current use of insulin ([facility]/HCC) 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 (CMS/HCC) Mixed hyperlipidemia (CMS/HCC) Mixed hyperlipidemia Vitamin D deficiency 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 (CMS/HCC)- Primary Primary hypertension (CMS/HCC) Unspecified essential hypertension Type 2 diabetes mellitus without complication, without long-term current use of insulin (CMS/HCC) Anxiety Anxiety state, unspecified Mixed hyperlipidemia (CMS/HCC) Mixed hyperlipidemia Tremors of nervous system 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 (CMS/HCC)- Primary Type 2 diabetes mellitus without complication, without long-term current use of insulin (CMS/HCC) Restless leg syndrome Restless legs syndrome (RLS) Primary hypertension (CMS/HCC) Unspecified essential hypertension Mixed hyperlipidemia (CMS/HCC) Mixed hyperlipidemia Tremors of nervous system Anxiety Anxiety state, unspecified [facility] Diagnosis Left hip pain- Primary Pain in joint, pelvic region and thigh 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 (CMS/HCC) Primary hypertension (CMS/HCC) Unspecified essential hypertension Type 2 diabetes mellitus without complication, without long-term current use of insulin (CMS/HCC) Vitamin D deficiency Mixed hyperlipidemia (CMS/HCC) Mixed hyperlipidemia Encounter for screening mammogram for malignant neoplasm of breast Lumbar back pain with radiculopathy affecting left lower extremity Encounter for subsequent annual wellness visit (AWV) in Medicare patient- Primary Primary hypertension (CMS/HCC) Unspecified essential hypertension Anxiety Anxiety state, unspecified Restless leg syndrome Restless legs syndrome (RLS) Tremors of nervous system Type 2 diabetes mellitus without complication, without long-term current use of insulin (CMS/HCC) 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 (CMS/HCC) Mixed hyperlipidemia (CMS/HCC) Mixed hyperlipidemia Vitamin D deficiency 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 (CMS/HCC)- Primary Primary hypertension (CMS/HCC) Unspecified essential hypertension Type 2 diabetes mellitus without complication, without long-term current use of insulin (CMS/HCC) Anxiety Anxiety state, unspecified Mixed hyperlipidemia (CMS/HCC) Mixed hyperlipidemia Tremors of nervous system 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 (CMS/HCC)- Primary Type 2 diabetes mellitus without complication, without long-term current use of insulin (CMS/HCC) Restless leg syndrome Restless legs syndrome (RLS) Primary hypertension (CMS/HCC) Unspecified essential hypertension Mixed hyperlipidemia (CMS/HCC) Mixed hyperlipidemia Tremors of nervous system Anxiety Anxiety state, unspecified Mixed hyperlipidemia (CMS/HCC)- Primary Mixed hyperlipidemia 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 (CMS/HCC) [facility] Diagnosis Left hip pain- Primary Pain in joint, pelvic region and thigh 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 (CMS/HCC) Primary hypertension (CMS/HCC) Unspecified essential hypertension Type 2 diabetes mellitus without complication, without long-term current use of insulin (CMS/HCC) Vitamin D deficiency Mixed hyperlipidemia (CMS/HCC) Mixed hyperlipidemia Encounter for screening mammogram for malignant neoplasm of breast Lumbar back pain with radiculopathy affecting left lower extremity Encounter for subsequent annual wellness visit (AWV) in Medicare patient- Primary Primary hypertension (CMS/HCC) Unspecified essential hypertension Anxiety Anxiety state, unspecified Restless leg syndrome Restless legs syndrome (RLS) Tremors of nervous system Type 2 diabetes mellitus without complication, without long-term current use of insulin (CMS/HCC) 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 (CMS/HCC) Mixed hyperlipidemia (CMS/HCC) Mixed hyperlipidemia Vitamin D deficiency 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 (CMS/HCC)- Primary Primary hypertension (CMS/HCC) Unspecified essential hypertension Type 2 diabetes mellitus without complication, without long-term current use of insulin (CMS/HCC) Anxiety Anxiety state, unspecified Mixed hyperlipidemia (CMS/HCC) Mixed hyperlipidemia Tremors of nervous system 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 (CMS/HCC)- Primary Type 2 diabetes mellitus without complication, without long-term current use of insulin (CMS/HCC) Restless leg syndrome Restless legs syndrome (RLS) Primary hypertension (CMS/HCC) Unspecified essential hypertension Mixed hyperlipidemia (CMS/HCC) Mixed hyperlipidemia Tremors of nervous system Anxiety Anxiety state, unspecified Type 2 diabetes mellitus without complication, without long-term current use of insulin (CMS/HCC)- Primary [facility] Diagnosis Chest pain, unspecified type Coronary artery disease involving [place] heart with other form of angina pectoris, unspecified vessel or lesion type documented in this encounter [facility] Work Phone: Evaluation note* Diagnosis Mixed hyperlipidemia- Primary 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 Benign essential hypertension Essential hypertension, benign Diabetes mellitus of other type without complication, unspecified whether group home insulin use (Multi) BMI 26.0-26.9,adult documented in this encounter [facility] Work Phone: History of Present illness NarrativePatient returns in follow-up of problems as noted. She doing well. She is active with no angina CHF arrhythmia or neurologic symptomatology. Cardiac risk factors and their management are reviewed including that of diabetes hypertension and hyperlipidemia and her control and treatment appears to be excellent. Because of this we recommend no change. We did advocate a modest diet and weight loss but otherwise she is doing well and consequently we suggest continued pharmacologic therapy as is and follow-up next yearWilliam [place]ille [id number] DO Work Phone: History of Present illness NarrativePatient returns in follow-up of problems as noted. In the interim she is done well. Control risk factors including diabetes hypertension and hyperlipidemia is reviewed and felt to be adequate and appropriate. We reviewed in detail the old and/or outside records from [facility]. She appeared to have coronary spasm but no occlusive disease and because of this the likelihood of a coronary event in the near future appears very low. We suggest continued aggressive risk factor management but otherwise no other testing or intervention appears necessary.[place] [id number] DO Work Phone: Hospital Discharge instructions No data available for this section [facility] [place] Progress note No data available for this section [facility] [place] Reason for referral (narrative)* Consultation (Routine) - Authorized Specialty Diagnoses / Procedures Referred By Contac t Referred To Contact Cardiology Diagnoses 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 Benign essential hypertension Procedures Follow Up In Cardiology David Berrios MD [address] [facility] [address], [address] [address] David Berrios MD [address] [facility] [address], [address] [address] Referral ID Status Reason Start Date Expiration Date V isits Requested Visits Authorized [id number] Authorized 04/12/2023 04/11/2024 1 1 [facility] Work Phone: reason for visit Narrative* Cardiac Stress Testing (Routine) - Authorized Specialty Diagnoses / Procedures Referred By Contac t Referred To Contact Radiology Diagnoses Chest pain, unspecified type Coronary artery disease involving [place] heart with other form of angina pectoris, unspecified vessel or lesion type Procedures Nuclear Stress Test CHG MYOCARDIAL SPECT MULTIPLE STUDIES Pari Norton SOLAR BUSINESS DEVELOPER-MANAGER OF ORGANIZATIONAL DEVELOPMENT [address] [facility] [address], [address] [address] Phone: tel: fax: Referral ID Status Reason Start Date Expiration Date V isits Requested Visits Authorized [id number] Authorized 04/09/2024 04/09/2025 5 5 [facility] Work Phone: reason for visit Narrative* Cardiac Stress Testing (Routine) - Authorized Specialty Diagnoses / Procedures Referred By Contac t Referred To Contact Radiology Diagnoses Chest pain, unspecified type Coronary artery disease involving [place] heart with other form of angina pectoris, unspecified vessel or lesion type Procedures Nuclear Stress Test CHG MYOCARDIAL SPECT MULTIPLE STUDIES Pari Norton SOLAR BUSINESS DEVELOPER-MANAGER OF ORGANIZATIONAL DEVELOPMENT [address] [facility] [address], [address] [address] Phone: tel: fax: Referral ID Status Reason Start Date Expiration Date V isits Requested Visits Authorized [id number] Authorized 04/09/2024 04/09/[address] [place] [address] Work Phone: Assessments Diagnosis Type 2 diabetes mellitus with complication, without long-term current use of insulin (HCC) Essential hypertension Unspecified essential hypertension Dyslipidemia Other and unspecified hyperlipidemia Diagnosis Post-menopausal Asymptomatic postmenopausal status (age-related) (natural) Osteopenia, unspecified location Advance Directives No Advanced Directives Records FoundDocuments on File Type Date Recorded Patient 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 Expl anation Advance Directives and Living Will Power of Law Enforcement Instructor Latest Code Status on File Code Status Date Activated Date Inactivated Comments Full Code 03/13/2019 10:08 AM 03/13/2019 4:32 PM Full Code 03/13/2019 8:12 AM 03/13/2019 10:08 AM Full Code 03/11/2019 6:58 PM 03/13/2019 8:12 AM Documents on File Type Date Recorded Patient 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 Expl anation Advance Directives and Living Will Power of Law Enforcement Instructor Summary Purpose Family History No Family History Records FoundUnknown Family Member Name Dates Details Heart problem: Mother, Fathe r Status:Active Family history of diabetes m ellitus: Brother(V18.0, Z83.3) Status:Active Unknown Family Member Name Dates Details Heart problem: Mother, Fathe r Status:Active Family history of diabetes m ellitus: Brother(V18.0, Z83.3) Status:Active Chief Complaint NNEKA GARCIA is being seen for an annual follow-up of.NNEKA GARCIA is being seen for an annual follow-up of. Additional Source Comments INFORMATION SOURCE (unrecogn ized section and content) DATE CREATED AUTHOR 05/09/2019 [facility] DATE CREATED AUTHOR AUTHOR'S ORGANIZ ATION 04/05/2021 Touchworks DATE CREATED AUTHOR AUTHOR'S ORGANIZ ATION 01/01/2022 [facility] ical Center DATE CREATED AUTHOR AUTHOR'S ORGANIZ ATION 04/12/2022 [facility] ical Center DATE CREATED AUTHOR AUTHOR'S ORGANIZ ATION 05/21/2022 [facility] DATE CREATED AUTHOR AUTHOR'S ORGANIZ ATION 04/15/2024 [facility] EPIC DATE CREATED AUTHOR AUTHOR'S ORGANIZ ATION 04/24/2024 [facility] DATE CREATED AUTHOR AUTHOR'S ORGANIZ ATION 04/26/2024 [facility] Reason for Visit (unrecogniz ed section and content) Status Reason Specialty Diagnoses / Procedures Referre d By Contact Referred To Contact Open Radiology Diagnoses Post-menopausal Osteopenia, unspecified location Procedures DEXA BONE DENSITY AXIAL SKELETON DEXA BONE DENSITY 2 SITES HC DEXA AXIAL SKELETON Magda Carballo, SOLAR BUSINESS DEVELOPER - MANAGER OF ORGANIZATIONAL DEVELOPMENT [address] [place] [address] Reason Comments Follow-up 1y Reason Comments Med Refill Reason Comments Diabetes Reason Comments Results mpl Specialty Diagnoses / Procedures Referred By Zack t Referred To Contact Cardiology Diagnoses 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 Benign essential hypertension Procedures Follow Up In Cardiology David Berrios MD McGuinn, William P, MD Retired From Practice Referral ID Status Reason Start Date Expiration Date V isits Requested Visits Authorized [id number] Authorized 04/12/2023 04/11/2024 1 1 Care Team (unrecognized sect ion and content) Arbor Press Operator Relationship Specialty Start Date End Date Ivanna Mahmood, SOLAR BUSINESS DEVELOPER-MANAGER OF ORGANIZATIONAL DEVELOPMENT [address] [place] [address] PCP - General 04/03/16 Arbor Press Operator Relationship Specialty Start Date End Date Alfonso Blank MD [address] [place] [address] PCP - General Family Medicine 06/21/23 Arbor Press Operator Relationship Specialty Start Date End Date Alfonso Blank MD [address] [place] [address] PCP - General Family Medicine 06/21/23 Ivanna Mahmood NP [address] [place] [address] PCP - Deep CARDOZA 12/03/23 Arbor Press Operator Relationship Specialty Start Date End Date Alfonso Blank MD [address] [place] [address] PCP - General Family Medicine 06/21/23 Arbor Press Operator Relationship Specialty Start Date End Date Alfonso Blank MD [address] [place] [address] PCP - General Family Medicine 06/21/23 Arbor Press Operator Relationship Specialty Start Date End Date Alfonso Blank MD [address] [place] [address] PCP - General Family Medicine 06/21/23 Arbor Press Operator Relationship Specialty Start Date End Date Alfonso Blank MD [address] [place] [address] PCP - General Family Medicine 06/21/23 Arbor Press Operator Relationship Specialty Start Date End Date Alfonso Blank MD [address] [place] [address] PCP - General Family Medicine 06/21/23 Arbor Press Operator Relationship Specialty Start Date End Date Alfonso Blank MD [address] [place] [address] PCP - General Family Medicine 06/21/23 Ivanna Mahmood, MARIAJOSE [address] [place] [address] PCP - Deep CARDOZA 12/03/23 Arbor Press Operator Relationship Specialty Start Date End Date Alfonso Blank MD [address] [place] [address] PCP - General Family Medicine 06/21/23 Ivanna Mahmood, MARIAJOSE [address] [place] [address] PCP Cruz Adame MA 12/03/23 Arbor Press Operator Relationship Specialty Start Date End Date Alfonso Blank MD [address] [place] [address] PCP - General Family Medicine 06/21/23 Ivanna Mahmood NP [address] [place] [address] PCP Cruz Adame MA 12/03/23 Arbor Press Operator Relationship Specialty Start Date End Date Alfonso Blank MD [address] [place] [address] PCP - General Family Medicine 06/21/23 Ivanna Mahmood NP [address] [place] [address] PCP Cruz Adame MA 12/03/23 Arbor Press Operator Relationship Specialty Start Date End Date Alfonso Blank MD [address] [place] [address] PCP - General Family Medicine 06/21/23 Ivanna Mahmood NP [address] [place] [address] PCP Cruz Adame MA 12/03/23 Arbor Press Operator Relationship Specialty Start Date End Date Ivanna Mahmood, SOLAR BUSINESS DEVELOPER-MANAGER OF ORGANIZATIONAL DEVELOPMENT [address] [place] [address] PCP - General 04/03/16 Arbor Press Operator Relationship Specialty Start Date End Date JaredseverinowaqarIvanna APRN-MANAGER OF ORGANIZATIONAL DEVELOPMENT [address] [place] [facility] [address] PCP - General 04/03/16 Arbor Press Operator Relationship Specialty Start Date End Date PhilhaileyIvanna davalos [facility] [address] [facility] [place] [address] PCP - General 04/03/16 Arbor Press Operator Relationship Specialty Start Date End Date PhilhaileyIvanna davalos APRN-MANAGER OF ORGANIZATIONAL DEVELOPMENT [address] [place] [facility] [address] PCP - General 04/03/16 Arbor Press Operator Relationship Specialty Start Date End Date PhlihaileyIvanna davalos APRN-MANAGER OF ORGANIZATIONAL DEVELOPMENT [address] [place] [address] PCP General 04/03/16 FOR RECORDS PERTAINING TO PATIENTS WHO ARE OR HAVE BEEN ENROLLED IN A CHEMICAL DEPENDENCY/SUBSTANCEABUSE PROGRAM, SOME INFORMATION MAY BE OMITTED. This clinical summary was aggregated from multiple sources. Caution should be exercised in using it in the provision of clinical care. This summary normalizes information from multiple sources, and as a consequence, information in this document may materially change the coding, format and clinical context of patient data. In addition, data may be omitted in some cases. CLINICAL DECISIONS SHOULD BE BASED ON THE PRIMARY CLINICAL RECORDS. [facility] [facility] provides no warranty or guarantee of the accuracy or completeness of information in this document.
[2024-06-24 10:05] LABS: Alanine Aminotransferase 25 U/L (14-59); Aspartate Amino Transferase 14 U/L (15-37); Chol HDL Ratio 2.6; Cholesterol 171 mg/dL (<=200); HDL Cholesterol 66 mg/dL (40-60); Triglycerides 138 mg/dL (<=150); VLDL CHOLESTEROL 27.6 mg/dL
== END 2024-06-24 09:16 | disposition home or self-care (01) ==
PROVIDERS: PCP Nurse Practitioner; Visit Provider Nurse Practitioner
DX: E78.2 Mixed hyperlipidemia (principal)
CPT/HCPCS: 36415; 80061; 84450; 84460

== ENCOUNTER 2024-08-27 12:51 | Outpatient (OUT) | payer MEDICARE, SELFPAY ==
--- NOTE | 2024-08-27 | MM_ITS ---
Patient Name: SUSU CORONA MR#: [id number] : 1955 Exam Date: 08/27/2024 Ordering Doctor: BROWN SHAVER CNP RADIOLOGY REPORT PROCEDURE: MM TOMOSYNTHESIS SCREENING BI COMPARISON: MM TOMOSYNTHESIS SCREENING BI, 07/05/2023. MG MAMM SCREEN 3D CAM CAD, 05/16/2022. MG MAMM SCREEN 3D CAM CAD, 04/06/2021. MG MAMM CAM SCRN W CAD DIG, 06/19/2013. INDICATIONS: Screening for malignant neoplasm Calculator Name NCI Breast Cancer Risk Assessment Tool 5 Year Breast Cancer Risk 1.50% Lifetime Breast Cancer Risk 4.50% Personal Breast Cancer No Personal Ovarian Cancer No Treatments CHEMOTHERAPY AND RADIATION Family Cancers None LOCATION: [facility] BREAST COMPOSITION: The breasts are heterogeneously dense,which may obscure small masses. FINDINGS: RIGHT BREAST: No significant suspicious finding. LEFT BREAST: No significant suspicious finding. DIAGNOSTIC CATEGORY 1--NEGATIVE. RECOMMENDATIONS: ROUTINE MAMMOGRAM AND CLINICAL EVALUATION IN 12 MONTHS. PLEASE NOTE: A NORMAL MAMMOGRAM DOES NOT EXCLUDE THE POSSIBILITY OF BREAST CANCER. A CLINICALLY SUSPICIOUS PALPABLE LUMP SHOULD BE BIOPSIED. Dictated by: Dimitry Mahan DO on 08/27/2024 at 13:39 Approved by: Dimitry Mahan DO on 08/27/2024 at 13:41
--- OUTSIDE RECORDS SUMMARY | 2024-08-27 12:53 | XMS_ITS | Encounter Summary ---
Author Organization [facility] Address [address] [place] [address] Care Team Providers Care Cook Helper Juice Name Role Phone Alfonso Blank MD Primary Care Provider [phone] Ivanna Mahmood OCTAVE BOARD RACKER Unavailable [phone] Encounter Details Date Type Department Care Team (Late st Contact Info) Description 06/26/2023 Orders Only [facility] [address] [place] [address] Ivanna Mahmood, OCTAVE BOARD RACKER [address] [place] [address] Social History Tobacco Use Types Packs/Day Years Used Date Smoking Tobacco: Never Smokeless Tobacco: Never Alcohol Use Standard Drinks/Week Comments Never 0 (1 standard drink = 0.6 oz pure alcohol) caffine: 2-6 cups of coffee/tea daily PHQ-2 Answer Date Recorded Patient Health Questionnaire-2 Score 0 06/21/2023 Comments Unknown Sex and Gender Information Value Date Recorded Sex Assigned at Not on file Legal Sex Female 6:48 PM EDT Gender Identity Not on file Sexual Orientation Not on file documented as of this encounter Plan of Treatment Not on file documented as of this encounter Procedures Procedure Name Priority Date/Time Associated Diagnosis Comments XR HIP 2-3 VIEWS LEFT Routine 06/23/2023 9:28 AM EDT documented in this encounter Results * XR HIP 2-3 VIEWS LEFT (06/23/2023 9:28 AM EDT) Anatomical Region Laterality Modality Radiographic Lilly ging us Ivanna Aichholz OCTAVE BOARD RACKER IMG XR PROCEDURES Final Result documented in this encounter Visit Diagnoses Not on filedocumented in this encounter Care Teams Cook Helper Juice Relationship Specialty Start Date End Date Alfonso Blank MD [address] [place] [address] PCP - General Family Medicine 06/21/23 Ivanna Mahmood NP [address] [place] [address] PCP - Deep CARDOZA 12/03/23 04/02/24 documented as of this encounter
--- OUTSIDE RECORDS SUMMARY | 2024-08-27 12:53 | XMS_ITS | Encounter Summary ---
Author Organization [facility] Address [address] [place] [address] Care Team Providers Care Film Touch Up Inspector Name Role Phone Alfonso Blank MD Primary Care Provider [phone] Ivanna Mahmood NP Unavailable [phone] Encounter Details Date Type Department Care Team (Late st Contact Info) Description 07/07/2023 Clinisync Result Encounter [facility] External Department Unsolicited Ivanna Mahmood, MARIAJOSE [address] [place] [address] Social History Tobacco Use Types Packs/Day Years [...] Procedure Name Priority Date/Time Associated Diagnosis Comments MM TOMOSYNTHESIS SCREENING BI 07/07/2023 10:33 AM EDT documented in this encounter Results * MM TOMOSYNTHESIS SCREENING BI (07/07/2023 10:33 AM EDT) Anatomical Region Laterality Modality Other 07/07/2023 10:3 3 AM EDT Narrative 07/07/2023 10:34 [place] [address] Mammography Report Signed Patient: NNEKA LEI MR#: [id number] : 1955 Acct:[id number] Age/Sex: 67 / F ADM Date: 07/05/23 Loc: MAMMO Attending Dr: Ivanna Mahmood NP Ordering Physician: Ivanna Mahmood NP Results: Date of Service: 07/05/23 Follow Up: Procedure(s): MM tomosynthesis screening BI Accession Number(s): [id number] cc: Ivanna Mahmood NP Patient Name: NNEKA LEI MR#: [id number] : 1955 Exam Date: 07/05/2023 Ordering Doctor: BROWN Mahmood CNP RADIOLOGY REPORT PROCEDURE: MM TOMOSYNTHESIS SCREENING BI COMPARISON: MG MAMM SCREEN 3D CAM CAD, 05/16/2022. MG MAMM SCREEN 3D CAM CAD, 04/06/2021. MG MAMM SCREEN CAM W CAD, 03/30/2020. MG MAMM CAM SCRN W CAD DIG, 06/19/2013. INDICATIONS: screening Calculator Name NCI Breast Cancer Risk Assessment Tool 5 Year Breast Cancer Risk 1.50% Lifetime Breast Cancer Risk 5.00% Personal Breast Cancer No Personal Ovarian Cancer No Treatments CHEMOTHERAPY AND RADIATION Family Cancers None LOCATION: [facility] BREAST COMPOSITION: Heterogeneously dense,which may obscure small masses. FINDINGS: DIAGNOSTIC CATEGORY 2--BENIGN FINDING: RIGHT BREAST: No significant suspicious finding. Scattered benign-appearing lymph nodes are present. No significant change has occurred. LEFT BREAST: No significant suspicious finding. Scattered benign-appearing lymph nodes are present. No significant change has occurred. RECOMMENDATIONS: ROUTINE MAMMOGRAM AND CLINICAL EVALUATION IN 12 MONTHS. PLEASE NOTE: A NORMAL MAMMOGRAM DOES NOT EXCLUDE THE POSSIBILITY OF BREAST CANCER. A CLINICALLY SUSPICIOUS PALPABLE LUMP SHOULD BE BIOPSIED. Dictated by: Nahum Amato M.D. on 07/07/2023 at 10:31 Approved by: Nahum Amato M.D. on 07/07/2023 at 10:33 Dictated By: Nahum Amato M.D. Signed By: 07/07/23 1034 DD/ 1033 TD/TT: Hanging Flags Decorator: Procedure Note Radiology, Radiologist, MD - 07/07/2023 [place] [address] Mammography Report Signed Patient: NNEKA LEI LMR#: [id number] : 5Acct:[id number] Age/Sex: 67 / FADM Date: 07/05/23 Loc: MAMMO Attending Dr: Ivanna Mahmood WORD PROCESSOR TECHNICIAN Ordering Physician: Ivanna Mahmood NPResults: Date of Service: 07/05/23Follow Up: Procedure(s): MM tomosynthesis screening BI Accession Number(s): [id number] cc: Ivanna Mahmood NP Patient Name: NNEKA LEI MR#: [id number] : 1955 Exam Date: 07/05/2023 Ordering Doctor: BROWN Mahmood MANAGER PLAN RADIOLOGY REPORT PROCEDURE: MM TOMOSYNTHESIS SCREENING BI COMPARISON: MG MAMM SCREEN 3D CAM CAD, 05/16/2022. MG MAMM SCREEN 3DBIL CAD, 04/06/2021. MG MAMM SCREEN CAM W CAD, 03/30/2020. MG MAMM CAM SCRN WCAD DIG, 06/19/2013. INDICATIONS: screening Calculator Name NCI Breast Cancer Risk Assessment Tool 5 Year Breast Cancer Risk 1.50% Lifetime Breast Cancer Risk 5.00% Personal Breast Cancer No Personal Ovarian Cancer No Treatments CHEMOTHERAPY AND RADIATION Family Cancers None LOCATION: [facility] BREAST COMPOSITION: Heterogeneously dense,which may obscure smallmasses. FINDINGS: DIAGNOSTIC CATEGORY 2--BENIGN FINDING: RIGHT BREAST: No significant suspicious finding. Scatteredbenign-appearing lymph nodes are present. No significant change has occurred. LEFT BREAST: No significant suspicious finding. Scatteredbenign-appearing lymph nodes are present. No significant change has occurred. RECOMMENDATIONS: ROUTINE MAMMOGRAM AND CLINICAL EVALUATION IN 12 MONTHS. PLEASE NOTE: A NORMAL MAMMOGRAM DOES NOT EXCLUDE THE POSSIBILITY OFBREAST CANCER. A CLINICALLY SUSPICIOUS PALPABLE LUMP SHOULD BE BIOPSIED. Dictated by: Nahum Amato M.D. on 07/07/2023 at 10:31 Approved by: Nahum Amato M.D. on 07/07/2023 at 10:33 Dictated By: Nahum Amato M.D. Signed By:07/07/23 1034 DD/ 1033 TD/TT: Hanging Flags Decorator: us Ivanna Mahmood NP [facility] Final Result documented in this encounter Visit Diagnoses Not on filedocumented in this encounter Care Teams Film Touch Up Inspector Relationship Specialty Start Date End Date Alfonso Blank MD [address] [place] [address] PCP - General Family Medicine 06/21/23 Ivanna Mahmood NP [address] [place] [address] PCP - Deep CARDOZA 12/03/23 04/02/24 documented as of this encounter
--- OUTSIDE RECORDS SUMMARY | 2024-08-27 12:53 | XMS_ITS | Encounter Summary ---
Author Organization [facility] Address [address] [place] [address] Care Team Providers Care Crimping Press Operator Name Role Phone Alfonso Blank MD Primary Care Provider [phone] Ivanna Mahmood NP Unavailable [phone] Encounter Details Date Type Department Care Team (Late st Contact Info) Description 06/23/2023 Clinisync Result Encounter [facility] External Department Unsolicited Ivanna Mahmood, MARIAJOSE [address] [place] [address] Social History Tobacco Use Types Packs/Day Years [...] Priority Date/Time Associated Diagnosis Comments XR HIP 2 OR 3 VW LEFT 06/23/2023 2:33 PM EDT documented in this encounter Results * XR hip left 2 or 3 views (06/23/2023 2:33 PM EDT) Anatomical Region Laterality Modality Lower Extremities, Hip Left Radiograp hic Imaging 06/23/2023 2:33 PM EDT Narrative 06/23/2023 2:35 PM EDT The [address] [address] XRay Report Signed Patient: NNEKA LEI MR#: [id number] : 1955 Acct:[id number] Age/Sex: 67 / F ADM Date: 06/23/23 Loc: LAB Attending Dr: Ivanna Mahmood BREAST PULLER Ordering Physician: Ivanna Mahmood NP Date of Service: 06/23/23 Procedure(s): XR hip LT 2V w/ pelvis Accession Number(s): [id number] cc: Ivanna Mahmood NP The [place] [id number] Patient Name: NNEKA LEI MRN: [id number] date: 1955 Sex: F Assigned Patient Location: LAB Current Patient Location: LAB Accession/Order Number: [id number] Exam Date: 06/23/2023 12:35 Report Date: 06/23/2023 14:33 At the request of: IVANNA MAHMOOD Procedure: XR hip LT 2V w/ pelvis EXAM: AP of the pelvis and left hip HISTORY: . left hip pain . COMPARISON: None. TECHNIQUE: Views FINDINGS: Bony pelvis is intact. No fracture or bony destructive process is noted. No fracture or dislocation of the left hip is noted. Small spurs are noted involving the femoral head and the acetabulum. Surrounding soft tissues are unremarkable. XR/XR hip LT 2V w/ pelvis IMPRESSION: 1. Negative AP of the pelvis. 2. 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 Electronically authenticated by: JOSE DORAN Date: 06/23/2023 14:33 Dictated By: Jose Doran M.D. Signed By: 06/23/23 1435 DD/ 143 TD/TT: Crossing Supervisor: Procedure Note Radiology, Radiologist, - 06/23/[address] [address] XRay Report Signed Patient: NNEKA LEI LMR#: [id number] : 5Acct:[id number] Age/Sex: 67 / FADM Date: 06/23/23 Loc: LAB Attending Dr: Ivanna Mahmood BREAST PULLER Ordering Physician: Ivanna Mahmood NP Date of Service: 06/23/23 Procedure(s): XR hip LT 2V w/ pelvis Accession Number(s): [id number] cc: Ivanna Mahmood NP [place] [id number] Patient Name: NNEKA LEI MRN: [id number] date: 1955 Sex: F Assigned Patient Location: LAB Current Patient Location: LAB Accession/Order Number: [id number] Exam Date: 06/23/2023 12:35 Report Date: 06/23/2023 14:33 At the request of: IVANNA MAHMOOD Procedure: XR hip LT 2V w/ pelvis EXAM: AP of the pelvis and left hip HISTORY: . left hip pain . COMPARISON: None. TECHNIQUE: Views FINDINGS: Bony pelvis is intact. No fracture or bony destructive processis noted. No fracture or dislocation of the left hip is noted. Small spurs are noted involving the femoral head and the acetabulum. Surrounding soft tissues are unremarkable. XR/XR hip LT 2V w/ pelvis IMPRESSION: 1. Negative AP of the pelvis. 2. 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 Electronically authenticated by: JOSE DORAN Date: 06/23/2023 14:33 Dictated By: Jose Doran M.D. Signed By:06/23/23 1435 DD/ 1433 TD/TT: Crossing Supervisor: us Ivanna Mahmood BREAST PULLER IMG XR PROCEDURES Final Result documented in this encounter Visit Diagnoses Not on filedocumented in this encounter Care Teams Crimping Press Operator Relationship Specialty Start Date End Date Alfonso Blank MD [address] [place] [address] PCP - General Family Medicine 06/21/23 Ivanna Mahmood NP [address] [place] [address] PCP - Deep CARDOZA 12/03/23 04/02/24 documented as of this encounter
--- OUTSIDE RECORDS SUMMARY | 2024-08-27 12:53 | XMS_ITS | Clinical Summary ---
Author Organization [facility] Address [address] [place] [address] Phone Care Team Providers Care Medical Technologist Name Role Phone Ivanna Mahmood APRN-PRODUCT SAFETY CONSULTANT Primary Care Provider Allergies No known active allergies Medications gabapentin (Neurontin) 300 mg capsule Take 1 capsule (300 mg) by mouth 3 times a day. Active glipiZIDE (Glucotrol) 5 mg tablet Take 1 tablet (5 mg) by mouth once daily. Active lisinopril 5 mg tablet Take 1 tablet (5 mg) by mouth once daily. Active propranolol (Inderal) 40 mg tablet Take 2 tablets (80 mg) by mouth once daily. Active amLODIPine (Norvasc) 2.5 mg tablet Take 1 tablet (2.5 mg) by mouth once daily. Active aspirin 81 mg EC tablet Take 1 tablet (81 mg) by mouth once daily. Active DULoxetine (Cymbalta) [address] capsule Take 1 capsule (30 mg) by mouth once daily. Active hydroCHLOROthiaz mariano (HYDRODiuril) 25 mg tablet Take 1 tablet (25 mg) by mouth once daily. Active cholecalciferol (Vitamin D-3) 50 MCG (2000 UT) tablet Take 1 tablet (2,000 Units) by mouth once daily. Active isosorbide mononitrate ER (Imdur) 60 mg 24 hr tabletIndication s:Chest pain, unspecified type,Coronary artery disease involving [place] heart with other form of angina pectoris, unspecified vessel or lesion type Take 1 tablet (60 mg) by mouth once daily. Do not crush or chew. 90 tablet 3 04/09/2024 04/09/19 26 Active atorvastatin (Lipitor) 10 mg tabletIndication s:Coronary artery disease involving [place] coronary artery of [place] heart without angina pectoris Take 1 tablet (10 mg) by mouth once daily. 30 tablet 11 04/24/2024 04/24/19 26 Active Active Problems Problem Noted Date Diagnosed Date BMI 26.0-26.9,adult 04/24/2024 Assessment & Plan (04/24/2024 3:51 PM EST): Reviewed the merits of healthy lifestyle choices on overall cardiovascular health. Never smoked any substance 04/12/2023 Benign essential hypertension 03/29/2023 Assessment & Plan (04/24/2024 3:50 PM EST): Mild asymptomatic hypotension noted in the office today. CAD (coronary artery disease) 03/29/2023 Assessment & Plan (04/24/2024 3:50 PM EST): Mar 2019 @ [facility] heart cath: . Very small circumflex [...] greater than 4 METS without recurrent symptoms Diabetes mellitus (Multi) 03/29/2023 Assessment & Plan (04/24/2024 3:51 PM EST): On FRANC/statin Unknown hemoglobin A1c Hyperlipidemia 03/29/2023 Assessment & Plan (04/24/2024 3:50 PM EST): Reports she was recently changed from simvastatin over to atorvastatin and we will plan on getting labs I believe in 2 months. Immunizations Immunization Administration Dates Next Due Flu vaccine (IIV4), preserva tive free *Check age/dose* 01/12/2022 Influenza, seasonal, injectable 01/09/2024,12/02 Moderna SARS-CoV-2 Vaccination 08/05/2020,2020 Pneumococcal polysaccharide vaccine, 23-valent, age 2 years and older (PNEUMOVAX 23) 01/16/2024,10/25/2018,04/03/2018 Varicella vaccine, subcutaneous (VARIVAX) 2023 Family History Medical History Relation Name Comments heart problems Father heart problems Mother Diabetes type I Mother's Sister Relation Name Status Comments Father Mother Mother's Sister Social History Tobacco Use Types Packs/Day Years Used Date Smoking Tobacco: Never Smokeless Tobacco: Never Tobacco Cessation:Counseling Given: Yes Alcohol Use Standard Drinks/Week Comments Never 0 (1 standard drink = 0.6 oz pur e alcohol) Comments Unknown Sex and Gender Information Value Date Recorded Sex Assigned at Not on file Legal Sex Female 8:27 PM EST Gender Identity Not on file Sexual Orientation Not on file Last Filed Vital Signs Vital Sign Reading Time Taken Comments Blood Pressure 100/68 04/24/2024 1:18 PM EST Pulse 60 04/24/2024 1:18 PM EST Temperature - - Respiratory Rate - - Oxygen Saturation - - Inhaled Oxygen Concentration - - Weight 67.1 kg (148 lb) 04/24/2024 1:18 PM EST Height 160 cm (5' 3 ) 04/24/2024 1:18 PM EST Body Mass Index 26.22 04/24/2024 1:18 PM EST Plan of Treatment Upcoming Encounters Date Type Department Care Team (Late st Contact Info) Description 04/28/2025 2:30 PM EST Office Visit [facility] [address] [phone] Yaneth Norton, SILICA FILTER OPERATOR-PRODUCT SAFETY CONSULTANT [address] [facility] [address] [place] [address] Health Maintenance Due Date Last Done Comments Bone Density Scan 1954 CT Colonography 1954 Creatinine Level 1954 Diabetes: Hemoglobin A1C 1954 Diabetes: Urine Protein Screening 1954 Echocardiogram 1954 FIT-DNA (Cologuard) 1954 FIT 1954 Lipid Panel 1954 Medicare Annual Wellness Visit (AWV) 1954 Potassium Level 1954 Diabetes: Retinopathy Screening 1964 Hepatitis C Screening 1972 Mammogram 1994 Sigmoidoscopy 06/27/2011 06/26/2006, 04/24/2006 Colonoscopy 02/25/2023 02/25/2013, 02/28/2007 Colorectal Cancer Screening 02/25/2023 COVID-19 Vaccine ( season) 2023 02/14/2023, 08/05/2020, 07/08/2020 DTaP/Tdap/Td Vaccines (2 - Td or Tdap) 07/13/2033 07/14/2023 RSV High Risk: (Elderly (60+) or Population) Completed 07/14/2023 Zoster Vaccines Completed 01/08/2024, 05/04, 02/14/2023 Pneumococcal Vaccine Completed 01/16/2024, 01/29/2023, 10/25/2018, Additional history exists Influenza Vaccine Completed 01/29/2024, , 01/29/2023, Additional history exists HIB Vaccines Aged Out No longer eligi ble based on patient's age to complete this topic HPV Vaccines Aged Out No longer eligi ble based on patient's age to complete this topic Hepatitis A Vaccines Aged Out No long er eligible based on patient's age to complete this topic Hepatitis B Vaccines Aged Out No long er eligible based on patient's age to complete this topic IPV Vaccines Aged Out No longer eligi ble based on patient's age to complete this topic Meningococcal Vaccine Aged Out No george devin eligible based on patient's age to complete this topic Rotavirus Vaccines Aged Out No longer eligible based on patient's age to complete this topic Insurance [employer]M MEDICARE ADVANTAGE Member Subscriber Plan / Payer (Ef fective 2023-Present) Name:Nneka Bergeron Relation to Subscriber:Self Name:Nneka Bergeron Payer ID:[id number] ([facility]) Group ID:[id number] Type:Not on file Address: [address] [employer] MEDICARE [employer]M MEDICARE ADVANTAGE UNITED HEALTH[employer] MEDICARE Care Teams Medical Technologist Relationship Specialty Start Date End Date Ivanna Mahmood, SILICA FILTER OPERATOR-PRODUCT SAFETY CONSULTANT [address] [place] [address] PCP - General 04/03/16
--- OUTSIDE RECORDS SUMMARY | 2024-08-27 12:53 | XMS_ITS | Encounter Summary ---
Author Organization [facility] Address [address] [place] [address] Care Team Providers Care Nuclear Reactor Operator Name Role Phone Alfonso Blank MD Primary Care Provider [phone] Ivanna Mahmood NP Unavailable [phone] Encounter Details Date Type Department Care Team (Late st Contact Info) Description 07/11/2023 Orders Only [facility] [address] [place] [address] Ivanna Mahmood, MARIAJOSE [address] [place] [address] Social History Tobacco Use Types Packs/Day Years [...] Name Priority Date/Time Associated Diagnosis Comments MM SCREENING MAMM WITH 3D JOSE - US AND ADDITIONAL Routine 07/05/2023 9:37 AM EDT documented in this encounter Results * MM SCREENING MAMM WITH 3D JOSE - US AND ADDITIONAL (07/05/2023 9:37 AM EDT) Anatomical Region Laterality Modality Radiographic Lilly ging Ivanna Mahmood CHIEF SCIENTIFIC OFFICER IMG XR PROCEDURES Final Result documented in this encounter Visit Diagnoses Not on filedocumented in this encounter Care Teams Nuclear Reactor Operator Relationship Specialty Start Date End Date Alfonso Blank MD [address] [place] [address] PCP - General Family Medicine 06/21/23 Ivanna Mahmood NP [address] [place] [phone] PCP - Deep CARDOZA 12/03/23 04/02/24 documented as of this encounter
--- OUTSIDE RECORDS SUMMARY | 2024-08-27 12:53 | XMS_ITS | Encounter Summary ---
Author Organization [facility] Address [address] [place] [address] Phone Care Team Providers Care Employer Relations Representative Name Role Phone Ivanna Mahmood APRN-BROWN Primary Care Provider Encounter Details Date Type Department Care Team (Late st Contact Info) Description 03/18/2021 Orders Only [facility] [address] [place] [address] Conversion, Onbase Social History Tobacco Use Types Packs/Day Years Used Date Smoking Tobacco: Never Assessed Comments Unknown Sex and Gender Information Value Date Recorded Sex Assigned at Not on file Legal Sex Female 8:27 PM EST Gender Identity Not on file Sexual Orientation Not on file documented as of this encounter Plan of Treatment Upcoming Encounters Date Type Department Care Team (Late st Contact Info) Description 04/28/2025 2:30 PM EST Office Visit [place] [id number] [facility] [address] [place] [address] Yaneth Norton APRN-BUILDING DRAFTING OFFICER [address]03 [facility] [address] [place] [address] Scheduled Orders Name Type Priority Associated Diagnoses Orde r Schedule OUTSIDE LAB SCAN Lab Ordered: 03/18/2021 documented as of this encounter Visit Diagnoses Not on filedocumented in this encounter Care Teams Employer Relations Representative Relationship Specialty Start Date End Date Ivanna Mahmood APRN-CNP [address] [place] [address] PCP - General 04/03/16 documented as of this encounter
--- OUTSIDE RECORDS SUMMARY | 2024-08-27 12:53 | XMS_ITS | Encounter Summary ---
Author Organization [facility] Address [address] [place] [address] Phone Care Team Providers Care Substation Superintendent Name Role Phone Ivanna Mahmood APRN-BROWN Primary Care Provider Encounter Details Date Type Department Care Team (Late st Contact Info) Description 10/07/2021 Orders Only [facility] [address] [place] [address] Conversion, Onbase Social History Tobacco Use Types [...] Description 04/28/2025 2:30 PM EST Office Visit [place] [id number] [facility] [address] [place] [address] Yaneth Norton APRN-INDUSTRIAL REHABILITATION CONSULTANT [address] [facility] [address] [place] [address] Scheduled Orders Name Type Priority Associated Diagnoses Orde r Schedule OUTSIDE LAB SCAN Lab Ordered: 10/07/2021 documented as of this encounter Visit Diagnoses Not on filedocumented in this encounter Care Teams Substation Superintendent Relationship Specialty Start Date End Date Ivanna Mahmood APRN-CNP [address] [place] [address] PCP - General 04/03/16 documented as of this encounter
--- OUTSIDE RECORDS SUMMARY | 2024-08-27 12:53 | XMS_ITS | Encounter Summary ---
Author Organization [facility] Address [address] [facility] [place] [address] Care Team Providers Care Handmade Tile Artist Name Role Phone Alfonso Blank MD Primary Care Provider [phone] Ivanna Mahmood NP Unavailable [phone] Reason for Visit * Reason Comments Med Refill Encounter Details Date Type Department Care Team (Late st Contact Info) Description 04/01/2024 Refill [facility] [address] [place] [address] Ivanna Mahmood NP [address] [place] [address] Primary hypertension (CMS/HCC) Social History Tobacco Use Types Packs/Day Years Used Date Smoking Tobacco: Never Smokeless Tobacco: Never Alcohol Use Standard Drinks/Week Comments Never 0 (1 standard drink = 0.6 oz pure alcohol) caffine: 2-6 cups of coffee/tea daily PHQ-2 Answer Date Recorded Patient Health Questionnaire-2 Score 0 09/05/2023 Comments Unknown Sex and Gender Information Value Date Recorded Sex Assigned at Not on file Legal Sex Female 6:48 PM EDT Gender Identity Not on file Sexual Orientation Not on file documented as of this encounter Miscellaneous Notes * Telephone Encounter - Ivanna Mahmood NP - 04/02/2024 6:24 AM EST Please call and reschedule pt's appt . Cancelled her 03/25/24 appt [place] documented in this encounter Plan of Treatment Not on file documented as of this encounter Visit Diagnoses Diagnosis Primary hypertension (CMS/HCC) Unspecified essential hypertension documented in this encounter Additional Health Concerns Assessment Noted Time PHQ-9 Depression Total Score: 2 09/05/19 10:22 AM EDT documented as of this encounter Care Teams Handmade Tile Artist Relationship Specialty Start Date End Date Alfonso Blank MD [address] [place] [address] PCP - General Family Medicine 06/21/23 Ivanna Mahmood NP [address] [place] [address] PCP - Deep CARDOZA 12/03/23 04/02/24 documented as of this encounter
--- OUTSIDE RECORDS SUMMARY | 2024-08-27 12:53 | XMS_ITS | Clinical Summary ---
Author Organization [facility] Healthcare Address [address] [place] [address] Care Team Providers Care Gyro Mechanic Name Role Phone Alfonso Blank MD Primary Care Provider [phone] Allergies No known active allergies Medications cholecalciferol (Vitamin D-3) 50 MCG (1999) tabletIndications:V itamin D deficiency TAKE 1 TABLET BY MOUTH DAILY 90 tablet 1 4 Active ASPIRIN 81 PO Take 81 mg by mouth Daily Active DULoxetine (Cymbalta) [address] capsuleIndications: Anxiety Take 1 capsule (30 mg) by mouth Daily 90 capsule 1 4 Active amLODIPine (Norvasc) 2.5 MG tabletIndications:P rimary hypertension (CMS/HCC) Take 1 tablet (2.5 mg) by mouth Daily 90 tablet 1 4 Active gabapentin (Neurontin) 300 MG capsuleIndications: Restless leg syndrome Take 1 capsule (300 mg) by mouth in the morning and 1 capsule (300 mg) in the evening and 1 capsule (300 mg) before bedtime. 270 capsule 5 Active glipiZIDE XL (Glucotrol XL) 5 MG 24 hr tabletIndications:T ype 2 diabetes mellitus without complication, without long-term current use of insulin Take 1 tablet (5 mg) by mouth Daily 90 tablet 1 5 Active hydroCHLOROthiazide (HYDRODiuril) 25 MG tabletIndications:P rimary hypertension (CMS/HCC) Take 1 tablet (25 mg) by mouth in the morning. 90 tablet 1 5 Active propranolol (Inderal) 40 MG tabletIndications:T remors of nervous system Take 1 tablet (40 mg) by mouth in the morning and 1 tablet (40 mg) before bedtime. 180 tablet 1 5 Active atorvastatin (Lipitor) 10 MG tabletIndications:M ixed hyperlipidemia (CMS/HCC),Coronary artery disease involving [place] coronary artery of [place] heart with angina pectoris (CMS/HCC) Take 1 tablet (10 mg) by mouth at bedtime 90 tablet 5 Active empagliflozin (Jardiance) 10 MGIndications:Type 2 diabetes mellitus without complication, without long-term current use of insulin Take 1 tablet (10 mg) by mouth Daily 90 tablet 1 5 Active isosorbide mononitrate ER (Imdur) 30 MG 24 hr tabletIndications:C oronary artery disease involving [place] coronary artery of [place] heart with angina pectoris (CMS/HCC) Take 1 tablet (30 mg) by mouth Daily 90 tablet 1 5 09/29/19 25 Active lisinopril 5 MG tabletIndications:P rimary hypertension (CMS/HCC) Take 1 tablet (5 mg) by mouth in the morning. 90 tablet 1 5 10/21/19 25 Active Active Problems Problem Noted Date Diagnosed Date Encounter for subsequent [facility] wellness visit (AWV) in Medicare patient 09/05/2023 Assessment & Plan (09/05/2023 11:09 AM EDT): Reviewed Ht/Wt/BMI Recommend eye exam yearly Recommend dental exams twice a year Balance work/leisure activities Exercises is recommended most days of the week (appropriate as chronic conditions allow) Follow up yearly and prn Encounter for screening mamm ogram for malignant neoplasm of breast 06/21/2023 Left hip pain 06/21/2023 Assessment & Plan (06/21/2023 5:10 PM EDT): Unclear if this is radiculopathy from lumbar spine, or bursitis Will check xray, trial NSAID Fu in 2-3 weeks Lumbar back pain with radicu lopathy affecting left lower extremity 06/21/2023 Assessment & Plan (06/21/2023 5:15 PM EDT): Trial NSAIDS No steroids at this time d/t DM Vitamin D deficiency 06/05/2023 Assessment & Plan (06/21/2023 5:12 PM EDT): Check labs Anxiety 06/05/2023 Assessment & Plan (04/09/2024 7:06 AM EST): Currently taking duloxetine Assessment & Plan (12/28/2023 11:25 AM EDT): Continue current dose of meds Tremors of nervous system 06/05/2023 Assessment & Plan (04/09/2024 7:06 AM EST): Cont with b pierre therapy Assessment & Plan (12/28/2023 11:25 AM EDT): Cont with b pierre therapy Hyperlipidemia 03/29/2023 Assessment & Plan (04/09/2024 7:06 AM EST): On statin therapy Check labs yearly and prn dose changes Assessment & Plan (12/28/2023 11:25 AM EDT): Cont statin Assessment & Plan (06/21/2023 5:12 PM EDT): Cont statin, check labs Coronary artery disease invo lving [place] coronary artery of [place] heart with angina pectoris 03/20/2023 Assessment & Plan (04/09/2024 1:53 PM EST): chest pain, w activity, nitroglycerin relieves it Spoke with NESHA Gentile regarding this, she does have upcoming appt with Cardiology ART PROFESSOR on 04/24/24, she will speak to ART PROFESSOR about possible ECHO or stress prior to this appt. I did confirm that they had her working number continue tight blood pressure/blood sugar control Cont ASA 81mg and imdur and statin Assessment & Plan (12/28/2023 11:24 AM EDT): No active chest pain, continue tight blood pressure/blood sugar control Cont ASA 81mg and imdur and statin Assessment & Plan (06/21/2023 5:10 PM EDT): Stable no chest pain, cont statin and b pierre Primary hypertension 03/06/2023 Assessment & Plan (04/09/2024 7:05 AM EST): Please check blood pressure daily and record DASH diet Limit caffeine Take medication as directed Contact office if chest pain, pressure, dizziness, shortness of breath, swelling legs Recommend slow position changes Current meds: amlodipine, asa, hydrochlorothiazide, lisinopril, propranolol Assessment & Plan (12/28/2023 11:24 AM EDT): Stable with current med dose Assessment & Plan (06/21/2023 5:10 PM EDT): At goal, cont current meds, check labs Type 2 diabetes mellitus wit hout complication, without long-term current use of insulin 03/06/2023 Overview (04/09/2024): A1c on 04/02/23: 7.0%, 12/26/23: 6.8%, 04/09/24 7.3% Assessment & Plan (04/09/2024 1:23 PM EST): Check blood sugars daily, notify if <70 [...] roberta, jardiance and glipizide A1c 7.3% 04/09/24 Assessment & Plan (12/28/2023 11:25 AM EDT): Check blood sugars daily, notify if <70 [...] sugars. Reviewed A1c, no med dose changes Assessment & Plan (09/05/2023 11:11 AM EDT): Check blood sugars daily, notify if <70 [...] diet low in carbohydrates, and simple sugars. Needs eye exam Check A1c in late September Discussed occ hypoglycemic episodes, they seem to be related to inadequate food intake Assessment & Plan (06/21/2023 5:12 PM EDT): Check blood sugars daily, notify if <70 [...] diet low in carbohydrates, and simple sugars. Add back jardiance, cannot afford with insurance, we will trial PA form Jardiance 10mg #4 samples, [id number], exp 08/2024 total 28 days Chest pain 03/11/2019 Osteopenia 01/29/2019 Restless leg syndrome 10/31/2018 Assessment & Plan (04/09/2024 7:03 AM EST): Takes julianne Resolved Problems Problem Noted Date Diagnosed Date Resolved Date Dyslipidemia 01/29/2019 12/28/2023 Encounters Date Type Department Care Team Description 07/22/2024 Refill [facility] [address] [place] [address] Ivanna Mahmood NP Mixed hyperlipidemia ([facility]); Coronary artery disease involving [place] coronary artery of [place] heart with angina pectoris ([facility]); Primary hypertension ([facility]) 07/22/2024 Telephone [facility] [address] [place] [address] Ivanna Mahmood NP 07/01/2024 Refill [facility] [address] [place] [address] Ivanna Mahmood NP Primary hypertension ([facility]) 06/30/2024 Refill [facility] [address] [place] [address] Ivanna Mahmood NP Coronary artery disease involving [place] coronary artery of [place] heart with angina pectoris ([facility]) 06/24/2024 Clinisync Result Encounter [facility] External Department Unsolicited Ivanna Mahmood NP from Last 3 Months Immunizations Immunization Administration Dates Next Due Influenza, High Dose Seasonal, Preservative Free 01/29/2024 Influenza, High-dose Seasona l, Quadrivalent, Preservative Free 01/29/2023,01/12/2022 Influenza, Unspecified 01/29/2024 Influenza, injectable, quadrivalent, preservativ e free 01/12/2022,01/29/2019 Influenza, seasonal, injectable 02/02/2020,12/02 Pneumococcal Conjugate PCV 20 01/29/2023 Pneumococcal Polysaccharide PPSV23 10/25/2018, RSV, recombinant, protein hardy bunit RSVpreF, adjuvant reconstitu, 120mcg/0.5mL, PF (Arexvy) 07/14/2023 Tdap 07/14/2023 Zoster, Recombinant 05/15/2023,02/14/2023 Social History Tobacco Use Types Packs/Day Years Used Date Smoking Tobacco: Never Smokeless Tobacco: Never Tobacco Cessation:Counseling Given: Not Answered Alcohol Use Standard Drinks/Week Comments Never 0 [...] Sign Reading Time Taken Comments Blood Pressure 110/80 04/09/2024 1:06 PM EST Pulse 56 04/09/2024 1:06 PM EST Temperature 36.7 C (98.1 F) 04/09/2024 1:06 PM EST Respiratory Rate 18 04/09/2024 1:06 PM EST Oxygen Saturation 96% 04/09/2024 1:06 PM EST Inhaled Oxygen Concentration - - Weight 67.3 kg (148 lb 6.4 oz) 04/09/2024 1:06 P M EST Height 160 cm (5' 3 ) 04/09/2024 1:06 PM EST Body Mass Index 26.29 04/09/2024 1:06 PM EST Plan of Treatment Health Maintenance Due Date Last Done Comments CT Colonography 1955 FIT-DNA 1955 FIT 1955 FOBT 1955 Sigmoidoscopy 1955 Diabetes: Urine Protein Screening 06/22/2024 024 Mammogram 07/06/2024 07/07/2023, 04/0 06/2023, 05/16/2022, Additional history exists Diabetes: Hemoglobin A1C 07/08/2024 025, 04/09/2024, 12/26/2023, Additional history exists Medicare Annual Wellness (AWV) 09/04/2024 0 09/05/2023, 09/05/2023, 09/05/2023, Additional history exists Diabetes: Retinopathy Screening 11/15/2024 Colonoscopy 12/09/2031 12/08/2021, 09/0 10/2021, 12/08/2021 Colorectal Cancer Screening 12/09/2031 Pneumococcal Vaccine: 65+ Years Completed 01/16/2024, 01/29/2023, 10/25/2018, Additional history exists Influenza Vaccine Completed 01/29/2024, , 01/09/2024, Additional history exists Procedures Procedure Name Priority Date/Time Associated Diagnosis Comments ALL LIPID PROFILE (FASTING) Routine 06/24/2024 9:02 AM EDT [facility] ALT Routine 06/24/2024 9:02 AM EDT [facility] AST Routine 06/24/2024 9:02 AM EDT POCT GLYCOSYLATED HEMOGLOBIN (HGB A1C) Routine 04/09/2024 1:24 PM EST Type 2 diabetes mellitus without complication, without long-term current use of insulin MM TOMOSYNTHESIS SCREENING BI 07/07/2023 10:33 AM EDT from Last 3 Months or Most Recently Relevant to Health Maintenance Results * (ABNORMAL) [facility] AST (06/24/2024 9:02 AM EDT) ASPARTATE AMINO TRANSFERASE 14(L) 15 - 37 U/L [facility] 06/24/2024 9:02 AM EDT 06/24/2024 9:31 AM EDT Narrative CLINISYNC - 06/24/2024 10:08 AM EDT us Ivanna Mahmood NP CLINISYNC Final Result [facility] TB * [facility] ALT (06/24/2024 9:02 AM EDT) ALANINE AMINOTRANSFERASE 25 14 - 59 U/L [facility] 06/24/2024 9:02 AM EDT 06/24/2024 9:31 AM EDT Narrative CLINISYNC - 06/24/2024 10:08 AM EDT us Ivanna Mahmood NP CLINISYNC Final Result [facility] TB * (ABNORMAL) ALL LIPID PROFILE (FASTING) (06/24/2024 9:02 AM EDT) TRIGLYCERIDES 138 <=150 mg/dL TBH CHOLESTEROL 171 <=200 mg/dL TBH HDL CHOLESTEROL 66(H) 40 - 60 mg/dL TBH Comment: > or =60 mg/dl - LOW CARDIOVASCULAR RISK <40 mg/dl - HIGH CARDIOVASCULAR RISK LDL CHOLESTEROL CALCULATED 78.0 mg/dL TB Comment: <100 mg/dl OPTIMAL 100-129 mg/dl NEAR OR ABOVE OPTIMAL 130-159 mg/dl BORDERLINE HIGH 160-189 mg/dl HIGH >190 mg/dl VERY HIGH VLDL CHOLESTEROL 27.6 mg/dL TBH CHOL HDL RATIO 2.6 TB Comment: 3.3 - 4.4 LOW RISK 4.4 - 7.1 AVERAGE RISK 7.1 - 11.0 MODERATE RISK >11.0 HIGH RISK 06/24/2024 9:02 AM EDT 06/24/2024 9:31 AM EDT Narrative CLINISYNC - 06/24/2024 10:08 AM EDT Ivanna Mahmood NP CLINISYNC Final Result [facility] * (ABNORMAL) POCT glycosylated hemoglobin (Hb A1C) docked device (04/09/2024 1:24 PM EST) Hemoglobin A1C 7.3 Blood Venous blood specimen / Unknown 04/09/2024 1:24 PM EST Ivanna Mahmood NP POINT OF CARE TEST ENTER/EDIT O RDERABLES Edited Result - Final * MM TOMOSYNTHESIS SCREENING BI (07/07/2023 10:33 AM EDT) Anatomical Region Laterality Modality Other 07/07/2023 10:3 3 AM EDT Narrative 07/07/2023 10:[place] [address] Mammography Report Signed Patient: NNEKA LEI MR#: [id number] : 1955 Acct:[id number] Age/Sex: 67 / F ADM Date: 07/05/23 Loc: MAMMO Attending Dr: Ivanna Mahmood NP Ordering Physician: Ivanna Mahmood NP Results: Date of Service: 07/05/23 Follow Up: Procedure(s): MM tomosynthesis screening BI Accession Number(s): [id number] cc: Ivanna Mahmood NP Patient Name: NNEKA LEI MR#: [id number] : 1955 Exam Date: 07/05/2023 Ordering Doctor: [...] AND RADIATION Family Cancers None LOCATION: [facility] BREAST COMPOSITION: Heterogeneously dense,which may obscure small [...] Signed By: 07/07/23 1034 DD/ 1033 TD/TT: Dough Panner: Procedure Note Radiology, Radiologist, MD - 07/07/2023 [place] [address] Mammography Report Signed Patient: NNEKA LEI LMR#: [id number] : 5Acct:[id number] Age/Sex: 67 / FADM Date: 07/05/23 Loc: MAMMO Attending Dr: Ivanna Mahmood ART PROFESSOR Ordering Physician: Ivanna Mahmood NPResults: Date of Service: 07/05/23Follow Up: Procedure(s): MM tomosynthesis screening BI Accession Number(s): [id number] cc: Ivanna Mahmood ART PROFESSOR Patient Name: NNEKA LEI MR#: [id number] : 1955 Exam Date: 07/05/2023 Ordering Doctor: BROWN Mahmood SPECIAL NEEDS NANNY RADIOLOGY REPORT PROCEDURE: MM TOMOSYNTHESIS SCREENING BI [...] AND RADIATION Family Cancers None LOCATION: [facility] BREAST COMPOSITION: Heterogeneously dense,which may obscure smallmasses. [...] M.D. Signed By:07/07/23 1034 DD/ 1033 TD/TT: Dough Panner: Ivanna Mahmood NP [facility]INISYNC IMAGING Final Result from Last 3 Months or Most Recently Relevant to Health Maintenance Insurance [employer] MED[employer]ARE Care Teams Gyro Mechanic Relationship Specialty Start Date End Date Alfonso Blank MD [address] [place] [address] PCP - General Family Medicine 06/21/23
--- OUTSIDE RECORDS SUMMARY | 2024-08-27 12:53 | XMS_ITS | Encounter Summary ---
Author Organization [facility] Address [address] [place] [address] Care Team Providers Care Soil Technologist Name Role Phone Alfonso Blank MD Primary Care Provider [phone] Encounter Details Date Type Department Care Team (Late st Contact Info) Description 04/22/2024 Clinisync Result Encounter [facility] External Department Unsolicited Provider, Generic External Data Social History Tobacco Use Types Packs/Day Years [...] Procedure Name Priority Date/Time Associated Diagnosis Comments NUCLEAR STRESS TEST EXERCISE (CARD) 04/22/2024 12:38 PM EST documented in this encounter Results * NUCLEAR STRESS TEST EXERCISE (CARD) (04/22/2024 12:38 PM EST) Anatomical Region Laterality Modality Radiographic Lilly ging 04/22/2024 12:3 8 PM EST Narrative 04/22/2024 4:44 PM EST Source Facility: [facility] Interpreted By: Dennis Cheng and Giannuzzi Michael STUDY: MYOCARDIAL PERFUSION STRESS TEST WITH LEXISCAN Performing facility: [facility], [address], [address], [place] [address] [facility] Provider: Yaneth Norton RN, HIDE INSPECTOR AND SORTER PCP: Dr. Jabier Mahmood HIDE INSPECTOR AND SORTER Supervising provider: Yaneth Norton RN, HIDE INSPECTOR AND SORTER INDICATION: Chest Pain; CAD; HISTORY: Gender: F; Age: 68 y/o ; Height: HT 160 cm cm; Weight: WT 67.132 kg kg. High Cholesterol; CAD; Diabetes; HTN; Chest Pain; Denies smoking. Cardiac catheterization on 2019. PTCA on 2019. COMPARISON: No comparison. ACCESSION NUMBER(S): [id number] ORDERING CLINICIAN: YANETH NORTON TECHNIQUE: ONE DAY protocol. Stress injection: [...] Dennis Cheng 04/22/2024 4:44 PM Dictation workstation: [id number] Procedure Note Radiology, Radiologist, - 04/22/2024 Source Facility: [facility] Interpreted By: Dennis Cheng and Giannuzzi Michael STUDY: MYOCARDIAL PERFUSION STRESS TEST WITH LEXISCAN Performing facility: [facility], [address] [place] [address], [address], [place] [address] [facility] Provider: Yaneth Norton RN, HIDE INSPECTOR AND SORTER PCP: Dr. Jabier Mahmood CNP Supervising provider: Yaneth Norton RN, HIDE INSPECTOR AND SORTER INDICATION: Chest Pain; CAD; HISTORY: Gender: F; Age: 68 y/o ; Height: HT 160 cm cm; Weight: WT 67.132 kg kg. High Cholesterol; CAD; Diabetes; HTN; Chest Pain; Denies smoking. Cardiac catheterization on 2019. PTCA on 2019. COMPARISON: No comparison. ACCESSION NUMBER(S): [id number] ORDERING CLINICIAN: YANETH NORTON TECHNIQUE: ONE DAY protocol. Stress injection: [...] Dennis Cheng 04/22/2024 4:44 PM Dictation workstation: [id number] us Generic External Data Provider IMG XR PROCEDURES Final Result documented in this encounter Visit Diagnoses Not on filedocumented in this encounter Additional Health Concerns Assessment Noted Time PHQ-9 Depression Total Score: 2 09/05/19 10:22 AM EDT documented as of this encounter Care Teams Soil Technologist Relationship Specialty Start Date End Date Alfonso Blank MD [address] [place] [address] PCP - General Family Medicine 06/21/23 documented as of this encounter
== END 2024-08-27 12:52 | disposition home or self-care (01) ==
LOC: MAMMO 12:51
PROVIDERS: PCP Nurse Practitioner; Visit Provider Nurse Practitioner
DX: Z12.31 Encounter for screening mammogram for malignant neoplasm of breast (principal)
CPT/HCPCS: 77063; 77067

== ENCOUNTER 2024-12-10 11:06 | Outpatient (OUT) | payer MEDICARE, SELFPAY ==
--- OUTSIDE RECORDS SUMMARY | 2024-12-05 12:46 | XMS_ITS | Continuity of Care Document ---
Author Organization [facility] Address [address] [place] [address] Phone Care Team Providers Care Patient Account Representative Name Role Phone Ivanna Mahmood Primary Care Provider Ivanna Mahmood Attending Provider [phone] Care Teams Patient Care Team Team Status: Active Member Role Status Dates Ivanna Mahmood Primary Care Provider Active Patient Care Team Team Status: Inactive Member Role Status Dates Ivanna Mahmood Primary Care Provider Active Sta rt: December 05, 2024 End: December 05, 2024 Ivanna Mahmood Attending Provider Active Start: December 05, 2024 End: December 05, 2024 Chief Complaint and Reason for Visit Chief Complaint Admit Date hip pain December 05, 2024 3:58pm Reason for Visit Admit Date Greater trochanteric bursitis of left hi p December 05, 2024 3:58pm Allergies, Adverse Reactions, Alerts Allergen Type Severity Reaction Last Updated Verified Status No Known Allergies Allergy Unknown 2024 8:27am Yes Active Social History Smoking Status Unknown if ever smoked Observation Status Observation Response Date of Response Legal Sex Female (finding) Sex Assigned At Female July Problems Active Problems Medical Problem Onset Date Status ELLIOTT (generalized anxiety disorder) Unknown Active Greater trochanteric bursitis of left hip Unknow n Active Hyperlipidemia Unknown Active CAD (coronary artery disease), enterprise coronary a rtery Unknown Active Osteopenia Unknown Active Lumbar back pain with radiculopathy affecting le ft lower extremity Unknown Active Restless leg syndrome Unknown Active Tremors of nervous system Unknown Active Hypertension, essential Unknown Active Type 2 diabetes mellitus wit hout complication, with long-term current use of insulin Unknown Active Lumbar back pain Unknown Active Vitamin D deficiency Unknown Active Medications Medication Status Dose Units Route Directions Qty Days St art Date Stop Date End Date Instructions Adherence Atorvastati n 10 mg tablet Active 10 MG PO Every evening 2024 12:00a m Complies with drug therapy Isosorbide Mononitrate 30 mg tablet extended release 24 hr Active 30 MG PO Daily 2024 12:00a m Complies with drug therapy Glipizide 5 mg tablet extended release 24hr Active 5 MG PO Daily 2024 12:00a m Complies with drug therapy Amlodipine 2.5 mg tablet Active 2.5 MG PO Daily 2024 12:00a m Complies with drug therapy Propranolol 40 mg tablet Active 40 MG PO Twice daily 2024 12:00a m Complies with drug therapy Gabapentin 300 mg capsule Active 300 MG PO Three times daily 2024 12:00a m Complies with drug therapy Aspirin 81 mg tablet Active 81 MG PO Daily 2024 12:00a m Complies with drug therapy Lisinopril 5 mg tablet Active 5 MG PO Daily 2024 12:00a m Complies with drug therapy Hydrochloro thiazide 25 mg tablet Active 25 MG PO Daily 2024 12:00a m Complies with drug therapy Duloxetine 30 mg capsule,del ayed release(DR/ EC) Active 30 MG PO Daily 2024 12:00a m Complies with drug therapy Cholecalcif aura (Vitamin D3) 50 mcg (2,000 unit) capsule Active 50 MCG PO Daily 2024 12:00a m Complies with drug therapy Empaglifloz in (Jardiance) 10 mg tablet Active 10 MG PO Daily 2024 12:00a m Complies with drug therapy Methylpredn isolone (Medrol (Faustino)) 4 mg tablets,dos e pack Active 0 PO per package directions 21 2024 12:00a m PO PER PKG DIR for 6 days, take with food, will cause rise in blood sugar Complies with drug therapy Vital Signs Vital Reading Result Reference Range Collection Date/Time Height 61.22 [in_i] December 05, 2024 4:10pm Weight 66.22 kg December 05, 2024 4:10pm Body Temperature 98.1 [degF] 97.6-99.0 December 052024 4:10pm Heart Rate 63 /min 60-100 December 05, 2024 4:10pm Respiratory rate 20 /min 12-24 December 052024 4:10pm Oxygen saturation by Pulse oximetry 95 % 95-100 December 05, 2024 4:10pm BP Systolic 126 mm[Hg] 100-140 December 05, 2024 4:10pm BP Diastolic 76 mm[Hg] 60-100 December 05, 2024 4:10pm BMI (Body Mass Index) 27.3 kg/m2 Sept2024 4:10pm Advance Directives Advance Directive Response Recorded Date/ Time Advance Directives No December 2:02pm Insurance Providers Guarantor Nneka Quique Address [address] [facility] [address] Contact Info. Home Phone: Payer Policy Id Subscriber's Name Subscriber Id Effectiv e Date Expiration Date Medicare [id number] Nneka Sanchezaley [id number] [facility] [id number] Nneka Lei [id number] Encounters Encounter Location(s) Arrival/Admit Date Discharge/Depart Date Provider(s) Departed Physician/Prov ider Office Visit -[facility] Karl December 05, 2024 3:58pm December 05, 2024 4:45pm SARAH PizanoC Recent Diagnosis Onset Date Admit Date Greater trochanteric bursitis of left hip Unknow n December 05, 2024 3:58pm Assessments Diagnosis Onset Date Resolution Status Admit Date Greater trochanteric bursiti s of left hip acute December 05, 2 025 3:58pm Plan of Treatment Future Tests Future scheduled test information is unavailable Pending Tests Test Name Ordered Date Scheduled Date XR hip LT min 2V(w/wo pelvis)* December 05 4:40pm XR lumbar spine 2-3V* December 05, 2024 4:40pm Future Visits Future appointment information is unavailable Referrals to Other Providers Referral information is unavailable Future Procedures Future procedure information is unavailable Future Medications Future medication information is unavailable Patient Instructions Patient instructions are unavailable
--- OUTSIDE RECORDS SUMMARY | 2024-12-10 11:09 | XMS_ITS | Encounter Summary ---
Author Organization [facility] Address [address] [facility] [place] [address] Care Team Providers Care Pediatric Oncology Nurse Name Role Phone Alfonso Blank MD Primary Care Provider [phone] Ivanna Mahmood NP Unavailable [phone] Reason for Visit * Reason Comments Med Refill Encounter Details Date Type Department Care Team (Late st Contact Info) Description 04/01/2024 Refill [facility] [address] [place] [address] Ivanna Mhamood NP [address] [place] [address] Primary hypertension Social History Tobacco Use Types Packs/Day Years [...] this encounter Visit Diagnoses Diagnosis Primary hypertension Unspecified essential hypertension documented in this encounter Additional Health Concerns Assessment Noted Time PHQ-9 Depression Total Score: 2 09/05/19 10:22 AM EDT documented as of this encounter Care Teams Pediatric Oncology Nurse Relationship Specialty Start Date End Date Alfonso Blank MD PCP - General Family Medicine 06/21/23 Ivanna Mahmood NP [address] [place] [address] PCP - Deep CARDOZA 12/03/23 04/02/24 documented as of this encounter
--- OUTSIDE RECORDS SUMMARY | 2024-12-10 11:09 | XMS_ITS | Encounter Summary ---
Author Organization [facility] Address [address] [facility] [place] [address] Care Team Providers Care Yarn Weight And Strength Tester Name Role Phone Alfonso Blank MD Primary Care Provider [phone] Encounter Details Date Type Department Care Team [...] Narrative 04/22/2024 4:44 PM EST Source Facility: [facility] Interpreted By: Dennis Cheng and Giannuzzi Michael STUDY: MYOCARDIAL PERFUSION STRESS TEST WITH LEXISCAN Performing facility: [facility], [address], [address], [place] [address] [facility] Provider: Yaneth Norton RN, DEV TECHNICAL MGR PCP: Dr. Jabier Mahmood DEV TECHNICAL MGR Supervising provider: Yaneth Norton RN, DEV TECHNICAL MGR INDICATION: Chest Pain; CAD; HISTORY: Gender: F; Age: 68 y/o ; Height: HT 160 cm cm; Weight: WT 67.132 kg kg. High Cholesterol; CAD; Diabetes; HTN; Chest Pain; Denies smoking. Cardiac catheterization on 2019. PTCA on 2019. COMPARISON: No comparison. ACCESSION NUMBER(S): [id number] ORDERING CLINICIAN: YANETH NORTON TECHNIQUE: ONE DAY [...] Dennis Cheng 04/22/2024 4:44 PM Dictation workstation: [id number] Procedure Note Radiology, Radiologist, - 04/22/2024 Source Facility: [facility] Interpreted By: Dennis Cheng and Giannuzzi Michael STUDY: MYOCARDIAL PERFUSION STRESS TEST WITH LEXISCAN Performing facility: [facility], [address] [place] [address], [address], [place] [address] [facility] Provider: Yaneth Norton RN, DEV TECHNICAL MGR PCP: Dr. Jabier Mahmood CNP Supervising provider: Yaneth Norton RN, DEV TECHNICAL MGR INDICATION: Chest Pain; CAD; HISTORY: Gender: F; Age: 68 y/o ; Height: HT 160 cm cm; Weight: WT 67.132 kg kg. High Cholesterol; CAD; Diabetes; HTN; Chest Pain; Denies smoking. Cardiac catheterization on 2019. PTCA on 2019. COMPARISON: No comparison. ACCESSION NUMBER(S): [id number] ORDERING CLINICIAN: YANETH NORTON TECHNIQUE: ONE DAY [...] Dennis Cheng 04/22/2024 4:44 PM Dictation workstation: [id number] us Generic External Data Provider IMG XR PROCEDURES Final Result documented in this encounter Visit Diagnoses Not on filedocumented in this encounter Additional Health Concerns Assessment Noted Time PHQ-9 Depression Total Score: 2 09/05/19 10:22 AM EDT documented as of this encounter Care Teams Yarn Weight And Strength Tester Relationship Specialty Start Date End Date Alfonso Blank MD PCP - General Family Medicine 06/21/23 documented as of this encounter
--- OUTSIDE RECORDS SUMMARY | 2024-12-10 11:10 | XMS_ITS | Encounter Summary ---
Author Organization [facility] Address [address] [facility] [place] [address] Care Team Providers Care Florist Manager Name Role Phone Alfonso Blank MD Primary Care Provider [phone] Ivanna Mahmood BINDERY MACHINE SETTER Unavailable [phone] Encounter Details Date Type Department Care Team (Late st Contact Info) Description 06/26/2023 Orders Only [facility] [address] [place] [address] Ivanna Mahmood NP [address] [place] [address] Social History Tobacco Use Types Packs/Day Years [...] Region Laterality Modality Radiographic Lilly ging us Ivnana Mahmood BINDERY MACHINE SETTER IMG XR PROCEDURES Final Result documented in this encounter Visit Diagnoses Not on filedocumented in this encounter Care Teams Florist Manager Relationship Specialty Start Date End Date Alfonso Blank MD PCP - General Family Medicine 06/21/23 Ivanna Mahmood NP [address] [place] [address] PCP - Deep CARDOZA 12/03/23 04/02/24 documented as of this encounter
--- OUTSIDE RECORDS SUMMARY | 2024-12-10 11:10 | XMS_ITS | Clinical Summary ---
Author Organization [facility] Healthcare Address [address] [facility] [place] [address] Care Team Providers Care Oil And Gas Lease Pumper Name Role Phone Alfonso Blank MD Primary Care Provider [phone] Allergies No known active allergies Medications cholecalciferol (Vitamin D-3) 50 MCG (1999) tabletIndications: Vitamin D deficiency TAKE 1 TABLET BY MOUTH DAILY 90 tablet 1 12/25/19 24 Active ASPIRIN 81 PO Take 81 mg by mouth Daily Active empagliflozin (Jardiance) 10 MGIndications:Type 2 diabetes mellitus without complication, without long-term current use of insulin (HCC) Take 1 tablet (10 mg) by mouth Daily 90 tablet 1 04/16/19 25 Active isosorbide mononitrate ER (Imdur) 30 MG 24 hr tabletIndications: Coronary artery disease involving [place] coronary artery of [place] heart with angina pectoris Take 1 tablet (30 mg) by mouth Daily 90 tablet 1 07/01/19 25 Active amLODIPine (Norvasc) 2.5 MG tabletIndications: Primary hypertension Take 1 tablet (2.5 mg) by mouth Daily 90 tablet 10/01/19 25 025 Active DULoxetine (Cymbalta) [address] capsuleIndications :Anxiety Take 1 capsule (30 mg) by mouth Daily 90 capsule 10/01/19 25 025 Active atorvastatin (Lipitor) 10 MG tabletIndications: Coronary artery disease involving [place] coronary artery of [place] heart with angina pectoris,Mixed hyperlipidemia Take 1 tablet (10 mg) by mouth at bedtime 90 tablet 1 10/30/19 25 025 Active gabapentin (Neurontin) 300 MG capsuleIndications :Restless leg syndrome Take 1 capsule (300 mg) by mouth in the morning and 1 capsule (300 mg) in the evening and 1 capsule (300 mg) before bedtime. 270 capsule 10/30/19 025 Active glipiZIDE XL (Glucotrol XL) 5 MG 24 hr tabletIndications: Type 2 diabetes mellitus without complication, without long-term current use of insulin ([facility]) Take 1 tablet (5 mg) by mouth Daily 90 tablet 1 10/30/19 025 Active hydroCHLOROthiazid e (HYDRODiuril) 25 MG tabletIndications: Primary hypertension Take 1 tablet (25 mg) by mouth in the morning. 90 tablet 1 10/30/19 025 Active lisinopril 5 MG tabletIndications: Primary hypertension Take 1 tablet (5 mg) by mouth in the morning. 90 tablet 10/30/19 025 Active propranolol (Inderal) 40 MG tabletIndications: Tremors of nervous system Take 1 tablet (40 mg) by mouth in the morning and 1 tablet (40 mg) before bedtime. 180 tablet 10/30/19 025 Active glucose blood test strip 1 each by Other route if needed Use as instructed Active glucose blood (Accu-Chek Faye Plus) test stripIndications:T ype 2 diabetes mellitus without complication, without long-term current use of insulin ([facility]) 1 each by Other route Daily 100 each 3 11/12/19 25 025 Active glucose blood (Accu-Chek Guide Test) test stripIndications:T ype 2 diabetes mellitus without complication, without long-term current use of insulin ([facility]) Check blood sugar one a day 100 each 3 11/19/19 25 026 Active Blood Glucose Monitoring Suppl (Accu-Chek Guide) w/Device kitIndications:Typ e 2 diabetes mellitus without complication, without long-term current use of insulin ([facility]) 1 kit Daily 1 kit 11/19/19 25 026 Active Lancets 33G miscIndications:Ty pe 2 diabetes mellitus without complication, without long-term current use of insulin ([facility]) 1 each Daily 100 each 3 11/19/19 25 025 Active Blood Glucose Monitoring Suppl (Accu-Chek Faye Plus) w/Device kitIndications:Typ e 2 diabetes mellitus without complication, without long-term current use of insulin ([facility]) 1 kit Daily 1 kit 11/12/19 25 025 Discontin ued(Cost of medicatio n) Lancets 33G miscIndications:Ty pe 2 diabetes mellitus without complication, without long-term current use of insulin ([facility]) 1 each Daily 100 each 3 11/12/19 25 025 Discontin ued(Reord er) Blood Glucose Monitoring Suppl (Accu-Chek Guide) w/Device kitIndications:Typ e 2 diabetes mellitus without complication, without long-term current use of insulin ([facility]) 1 kit Daily 1 kit 11/19/19 25 025 Discontin ued(Reord er) glucose blood (Accu-Chek Guide Test) test stripIndications:T ype 2 diabetes mellitus without complication, without long-term current use of insulin ([facility]) Check blood sugar one a day 100 each 3 11/19/19 025 Discontin ued(Reord er) Active Problems Problem Noted Date Diagnosed Date Acute bacterial conjunctivitis of right eye 10/02 Assessment & Plan (10/29/2024 10:53 AM EDT): Warm compress to effected eye Cleanse eye with 1:1 ration of JJ baby shampoo and water Atb drops, in 2 days if not better call your eye doctor Encounter for subsequent [facility] wellness visit (AWV) in Medicare patient 09/05/2023 Assessment & Plan (10/29/2024 6:33 AM EDT): Reviewed Ht/Wt/BMI Recommend eye exam yearly Recommend dental exams twice a year Balance work/leisure activities Exercises is recommended most days of the week (appropriate as chronic conditions allow) Follow up yearly and prn Assessment & Plan (09/05/2023 11:09 AM EDT): [...] Check labs Anxiety 06/05/2023 Assessment & Plan (10/29/2024 6:33 AM EDT): Currently taking duloxetine Assessment & Plan (04/09/2024 7:06 AM EST): Currently taking duloxetine Assessment & Plan (12/28/2023 11:25 AM EDT): Continue current dose of meds Tremors of nervous system 06/05/2023 Assessment & Plan (04/09/2024 7:06 AM EST): Cont with b pierre therapy Assessment & Plan (12/28/2023 11:25 AM EDT): Cont with b pierre therapy Hyperlipidemia 03/29/2023 Assessment & Plan (10/29/2024 6:32 AM EDT): On statin therapy Check labs yearly and prn dose changes Assessment & Plan (04/09/2024 7:06 AM EST): On statin therapy Check labs yearly and prn dose changes Assessment & Plan (12/28/2023 11:25 AM EDT): Cont statin Assessment & Plan (06/21/2023 5:12 PM EDT): Cont statin, check labs Coronary artery disease invo lving [place] coronary artery of [place] heart with angina pectoris 03/20/2023 Assessment & Plan (10/29/2024 6:32 AM EDT): NESHA is Operations Support Representative Cont ASA 81mg and imdur and statin Assessment & Plan (04/09/2024 1:53 PM EST): chest pain, w activity, nitroglycerin relieves it Spoke with NESHA Krupa regarding this, she does have upcoming appt with Cardiology LINOTYPE MACHINIST on 04/24/24, she will speak to LINOTYPE MACHINIST about possible ECHO or stress prior to [...] pierre Primary hypertension 03/06/2023 Assessment & Plan (10/29/2024 6:31 AM EDT): Please check blood pressure daily and record DASH diet Limit caffeine Take medication as directed Contact office if chest pain, pressure, dizziness, shortness of breath, swelling legs Recommend slow position changes Current meds: amlodipine, asa, hydrochlorothiazide, lisinopril, propranolol Assessment & Plan (04/09/2024 7:05 AM EST): [...] 12/26/23: 6.8%, 04/09/24 7.3% Assessment & Plan (10/29/2024 10:30 AM EDT): Check blood sugars daily, notify [...] asa, statin, roberta, jardiance and glipizide A1c 7.4% 10/29/24, 7.3% 04/09/24 Assessment & Plan (04/09/2024 1:23 PM EST): [...] trial PA form Jardiance 10mg #4 samples, [id number], exp 08/2024 total 28 days Chest pain 03/11/2019 Osteopenia 01/29/2019 Restless leg syndrome 10/31/2018 Assessment & Plan (10/29/2024 6:31 AM EDT): Takes julianne Assessment & Plan (04/09/2024 7:03 AM EST): Takes julianne Resolved Problems Problem Noted Date Diagnosed Date Resolved Date Dyslipidemia 01/29/2019 12/28/2023 Encounters Date Type Department Care Team Description 11/18/2024 [facility] [address] [place] [address] Timoteo Ivanna, LINOTYPE MACHINIST Type 2 diabetes mellitus without complication, without long-term current use of insulin (HCC) 11/18/2024 Refill [facility] [address] [place] [address] Aicalexsandra Ivanna, LINOTYPE MACHINIST Type 2 diabetes mellitus without complication, without long-term current use of insulin (HCC) (Primary Dx) 11/18/2024 Telephone [facility] [address] [place] [phone] Aicalexsandra Ivanna, LINOTYPE MACHINIST 11/11/2024 Refill [facility] [address] [place] [phone] Aicalexsandra Ivanna, LINOTYPE MACHINIST Type 2 diabetes mellitus without complication, without long-term current use of insulin (HCC) (Primary Dx) 11/11/2024 Abstract [facility] [address] [place] [address] Aicalexsandra Ivanna, LINOTYPE MACHINIST 11/11/2024 Refill [facility] [address] [place] [address] Aichholz, Ivanna, LINOTYPE MACHINIST Type 2 diabetes mellitus without complication, without long-term current use of insulin (HCC) (Primary Dx) 10/29/2024 10:00 AM EDT Office Visit [facility] [address] [place] [address] Aichholz, Ivanna, LINOTYPE MACHINIST Encounter for subsequent annual wellness visit (AWV) in Medicare patient (Primary Dx); Restless leg syndrome; Primary hypertension ; Coronary artery disease involving [place] coronary artery of [place] heart with angina pectoris ; Type 2 diabetes mellitus without complication, without long-term current use of insulin (HCC); Mixed hyperlipidemia ; Anxiety; Tremors of nervous system; Acute bacterial conjunctivitis of right eye 10/29/2024 Bamboo flowsheet [facility] [address] [place] [phone] Ivanna Mahmood NP 10/28/2024 Telephone [facility] [address] [place] [phone] Ivanna Mahmood NP Medication Question 09/30/2024 Telephone [facility] [address] [place] [address] Ivanna Mahmood NP 09/30/2024 Refill [facility] [address] [place] [address] Ivanna Mahmood NP Primary hypertension ; Anxiety from Last 3 Months Immunizations Immunization Administration Dates Next Due Influenza, High Dose Seasona l, Preservative Free 01/29/2024 Influenza, High-dose Seasona l, Quadrivalent, Preservative Free 01/29/2023,01/12/2022 Influenza, Unspecified 01/29/2024 Influenza, injectable, quadr ivalent, preservative free 01/12/2022,01/29/2019 Influenza, seasonal, injectable 01/09/2024,02/01,12/02/2018 Pneumococcal Conjugate PCV 20 01/29/2023 Pneumococcal Polysaccharide PPSV23 01/16/2024,,04/03/2018 RSV, recombinant, protein hardy bunit RSVpreF, adjuvant reconstitu, 120mcg/0.5mL, PF (Arexvy) 07/14/2023 Tdap 07/14/2023 Varicella 01/08/2024 Zoster, Recombinant 05/15/2023,02/14/2023 Social History Tobacco Use Types Packs/Day Years Used Date Smoking Tobacco: Never Smokeless Tobacco: Never Tobacco Cessation:Counseling Given: Not Answered Alcohol Use Standard Drinks/Week Comments Never 0 (1 standard drink = 0.6 oz pure alcohol) caffine: 2-6 cups of coffee/tea daily PHQ-2 Answer Date Recorded Patient Health Questionnaire-2 Score 0 10/29/2024 Comments Unknown Sex and Gender Information Value Date Recorded Sex Assigned at Not on file Legal Sex Female 6:48 PM EDT Gender Identity Not on file Sexual Orientation Not on file Last Filed Vital Signs Vital Sign Reading Time Taken Comments Blood Pressure 118/76 10/29/2024 10:05 AM EDT Pulse 56 10/29/2024 10:05 AM EDT Temperature 37.1 C (98.7 F) 10/29/2024 10:05 AM EDT Respiratory Rate 18 10/29/2024 10:05 AM EDT Oxygen Saturation 98% 10/29/2024 10:05 AM EDT Inhaled Oxygen Concentration - - Weight 66.5 kg (146 lb 9.6 oz) 10/29/2024 10:05 AM EDT Height 160 cm (5' 3 ) 04/09/2024 1:06 PM EST Body Mass Index 25.97 04/09/2024 1:06 PM EST Plan of Treatment Health Maintenance Due Date Last Done Comments CT Colonography 1955 FIT-DNA 1955 FIT 1955 FOBT 1955 Sigmoidoscopy 1955 Diabetes: Urine Protein Screening 06/22/2024 024 Diabetes: Retinopathy Screening 11/15/2024 Influenza Vaccine (#1) 2024 4, 01/29/2024, 01/09/2024, Additional history exists Diabetes: Hemoglobin A1C 01/29/2025 025, 04/09/2024, 04/09/2024, Additional history exists Mammogram 08/27/2025 08/27/2024, 04/0 08/2023, 07/05/2023, Additional history exists Medicare Annual Wellness (AWV) 10/29/2025 0 10/29/2024, 09/05/2023, 09/05/2023, Additional history exists Colonoscopy 12/09/2031 12/08/2021, 10/2021, 12/08/2021 Colorectal Cancer Screening 12/09/2031 Pneumococcal Vaccine: 65+ Years Completed 01/16/2024, 01/29/2023, 10/25/2018, Additional history exists Procedures Procedure Name Priority Date/Time Associated Diagnosis Comments POCT GLYCOSYLATED HEMOGLOBIN (HGB A1C) Routine 10/29/2024 10:25 AM EDT Type 2 diabetes mellitus without complication, without long-term current use of insulin (HCC) MM TOMOSYNTHESIS SCREENING BI 08/27/2024 1:41 PM EDT from Last 3 Months or Most Recently Relevant to Health Maintenance Results * (ABNORMAL) POCT glycosylated hemoglobin (Hb A1C) docked device (10/29/2024 10:25 AM EDT) Hemoglobin A1C 7.4 Blood Venous blood specimen / Unknown 10/29/2024 10:25 AM EDT us Ivanna Mahmood NP POINT OF CARE TEST ENTER/EDIT O RDERABLES Final Result * MM TOMOSYNTHESIS SCREENING BI (08/27/2024 1:41 PM EDT) Anatomical Region Laterality Modality Other 08/27/2024 1:41 PM EDT Narrative 08/27/2024 1:42 [place] [address] Mammography Report Signed Patient: NNEKA LEI MR#: [id number] : 1955 Acct:[id number] Age/Sex: 69 / F ADM Date: 08/27/24 Loc: MAMMO Attending Dr: Ivanna Mahmood NP Ordering Physician: Ivanna Mahmood NP Results: Date of Service: 08/27/24 Follow Up: Procedure(s): MM tomosynthesis screening BI Accession Number(s): [id number] cc: Ivanna Mahmood LINOTYPE MACHINIST Patient Name: NNEKA LEI MR#: [id number] : 1955 Exam Date: 08/27/2024 Ordering Doctor: BROWN MAHMOOD CNP RADIOLOGY REPORT PROCEDURE: MM TOMOSYNTHESIS SCREENING BI COMPARISON: MM TOMOSYNTHESIS SCREENING BI, 07/05/2023. MG MAMM SCREEN 3D CAM CAD, 05/16/2022. MG MAMM SCREEN 3D CAM CAD, 04/06/2021. MG MAMM CAM SCRN W CAD DIG, 06/19/2013. INDICATIONS: Screening for malignant neoplasm Calculator Name NCI Breast Cancer Risk Assessment Tool 5 Year Breast Cancer Risk 1.50% Lifetime Breast Cancer Risk 4.50% Personal Breast Cancer No Personal Ovarian Cancer No Treatments CHEMOTHERAPY AND RADIATION Family Cancers None LOCATION: [facility] BREAST COMPOSITION: The breasts are heterogeneously dense,which may obscure small masses. FINDINGS: RIGHT BREAST: No significant suspicious finding. LEFT BREAST: No significant suspicious finding. DIAGNOSTIC CATEGORY 1--NEGATIVE. RECOMMENDATIONS: ROUTINE MAMMOGRAM AND CLINICAL EVALUATION IN 12 MONTHS. PLEASE NOTE: A NORMAL MAMMOGRAM DOES NOT EXCLUDE THE POSSIBILITY OF BREAST CANCER. A CLINICALLY SUSPICIOUS PALPABLE LUMP SHOULD BE BIOPSIED. Dictated by: Dimitry Mahan DO on 08/27/2024 at 13:39 Approved by: Dimitry Mahan DO on 08/27/2024 at 13:41 Dictated By: Dimitry Mahan D.O. Signed By: 08/27/24 1342 DD/ 1341 TD/TT: Lead Php Developer: Procedure Note Radiology, Radiologist, MD - 08/27/2024 [place] [address] Mammography Report Signed Patient: NNEKA LEI LMR#: [id number] : 5Acct:[id number] Age/Sex: 69 / FADM Date: 08/27/24 Loc: MAMMO Attending Dr: Ivanna Mahmood NP Ordering Physician: Ivanna Mahmood NPResults: Date of Service: 08/27/24Follow Up: Procedure(s): MM tomosynthesis screening BI Accession Number(s): [id number] cc: Ivanna Mahmood NP Patient Name: NNEKA LEI MR#: [id number] : 1955 Exam Date: 08/27/2024 Ordering Doctor: BROWN MAHMOOD CNP RADIOLOGY REPORT PROCEDURE: MM TOMOSYNTHESIS SCREENING BI COMPARISON: MM TOMOSYNTHESIS SCREENING BI, 07/05/2023. MG MAMM [id number] CAM CAD, 05/16/2022. MG MAMM SCREEN 3D CAM CAD, 04/06/2021. MG MAMM BILSCRN W CAD DIG, 06/19/2013. INDICATIONS: Screening for malignant neoplasm Calculator Name NCI Breast Cancer Risk Assessment Tool 5 Year Breast Cancer Risk 1.50% Lifetime Breast Cancer Risk 4.50% Personal Breast Cancer No Personal Ovarian Cancer No Treatments CHEMOTHERAPY AND RADIATION Family Cancers None LOCATION: [facility] BREAST COMPOSITION: The breasts are heterogeneously dense,which may obscure small masses. FINDINGS: RIGHT BREAST: No significant suspicious finding. LEFT BREAST: No significant suspicious finding. DIAGNOSTIC CATEGORY 1--NEGATIVE. RECOMMENDATIONS: ROUTINE MAMMOGRAM AND CLINICAL EVALUATION IN 12 MONTHS. PLEASE NOTE: A NORMAL MAMMOGRAM DOES NOT EXCLUDE THE POSSIBILITY OFBREAST CANCER. A CLINICALLY SUSPICIOUS PALPABLE LUMP SHOULD BE BIOPSIED. Dictated by: Dimitry Mahan DO on 08/27/2024 at 13:39 Approved by: Dimitry Mahan DO on 08/27/2024 at 13:41 Dictated By: Dimitry Mahan D.O. Signed By:08/27/24 1342 DD/ 1341 TD/TT: Lead Php Developer: Ivanna Mahmood NP [facility] Final Result from Last 3 Months or Most Recently Relevant to Health Maintenance Insurance [place] [phone] Care Teams Oil And Gas Lease Pumper Relationship Specialty Start Date End Date Alfonso Blank MD PCP - General Family Medicine 06/21/23
--- OUTSIDE RECORDS SUMMARY | 2024-12-10 11:10 | XMS_ITS | Encounter Summary ---
Author Organization [facility] Address [address] [place] [address] Phone Care Team Providers Care Job Estimator Name Role Phone Ivanna Mahmood APRN-BROWN Primary Care Provider Encounter Details Date Type Department Care Team (Late st Contact Info) Description 10/07/2021 Orders Only [facility] [address] [place] [address] Conversion, Onbase Social History Tobacco Use Types [...] Description 04/28/2025 2:30 PM EST Office Visit [place] [address] [facility] [address] [place] [address] Yaneth Norton APRN-DIE CUTTER [facility] [address] [facility] [address] [place] [address] Scheduled Orders Name Type Priority Associated Diagnoses Orde r Schedule OUTSIDE LAB SCAN Lab Ordered: 10/07/2021 documented as of this encounter Visit Diagnoses Not on filedocumented in this encounter Care Teams Job Estimator Relationship Specialty Start Date End Date Ivanna Mahmood APRN-CNP [address] [place] [address] PCP - General 04/03/16 documented as of this encounter
--- OUTSIDE RECORDS SUMMARY | 2024-12-10 11:10 | XMS_ITS | Encounter Summary ---
Author Organization [facility] Address [address] [place] [address] Care Team Providers Care Web Content Director Name Role Phone Alfonso Blank MD Primary Care Provider [phone] Ivanna Mahmood NP Unavailable [phone] Encounter Details Date Type Department Care Team (Late st Contact Info) Description 06/23/2023 Clinisync Result Encounter [facility] External Department Unsolicited Ivanna Mahmood, MARIAJOSE [address] [place] [address] Social History Tobacco Use Types Packs/Day Years [...] EDT Narrative 06/23/2023 2:35 PM EDT The [address] [address] XRay Report Signed Patient: NNEKA LEI MR#: [id number] : 1955 Acct:[id number] Age/Sex: 67 / F ADM Date: 06/23/23 Loc: LAB Attending Dr: Ivanna Mahmood OFFICE SUPERVISOR Ordering Physician: Ivanna Mhamood NP Date of Service: 06/23/23 Procedure(s): XR hip LT 2V w/ pelvis Accession Number(s): [id number] cc: Ivanna Mahmood NP The [place] [id number] Patient Name: NNEKA LEI MRN: [id number] date: 1955 Sex: F Assigned Patient Location: LAB Current Patient Location: LAB Accession/Order Number: [id number] Exam Date: 06/23/2023 12:35 Report Date: 06/23/2023 [...] Signed By: 06/23/23 1435 DD/ 143 TD/TT: Treatment Supervisor: Procedure Note Radiology, Radiologist, - 06/23/[address] [address] XRay Report Signed Patient: NNEKA LEI LMR#: [id number] : 5Acct:[id number] Age/Sex: 67 / FADM Date: 06/23/23 Loc: LAB Attending Dr: Ivanna Mahmood OFFICE SUPERVISOR Ordering Physician: Ivanna Mahmood NP Date of Service: 06/23/23 Procedure(s): XR hip LT 2V w/ pelvis Accession Number(s): [id number] cc: Ivanna Mahmood NP [place] [address] Patient Name: NNEKA LEI MRN: [id number] date: 1955 Sex: F Assigned Patient Location: LAB Current Patient Location: LAB Accession/Order Number: [id number] Exam Date: 06/23/2023 12:35 Report Date: 06/23/2023 [...] M.D. Signed By:06/23/23 1435 DD/ 1433 TD/TT: Treatment Supervisor: us Ivanna Mahmood OFFICE SUPERVISOR IMG XR PROCEDURES Final Result documented in this encounter Visit Diagnoses Not on filedocumented in this encounter Care Teams Web Content Director Relationship Specialty Start Date End Date Alfonso Blank MD PCP - General Family Medicine 06/21/23 Ivanna Mahmood NP [facility] [place] [address] EDMAR Adame MA 12/03/23 04/02/24 documented as of this encounter
--- OUTSIDE RECORDS SUMMARY | 2024-12-10 11:10 | XMS_ITS | Clinical Summary ---
Author Organization [facility] Address [address] 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 Do not crush or chew. 90 tablet 3 04/09/2024 04/09/19 26 Active atorvastatin (Lipitor) 10 mg tabletIndication s:Coronary artery disease involving [place] coronary artery of [place] heart without angina pectoris Take 1 tablet [...] (04/24/2024 3:50 PM EST): Mar 2019 @ [facility] heart cath: . Very small circumflex coronary [...] Description 04/28/2025 2:30 PM EST Office Visit [facility] [address] [phone] Yaneth Norton, CP BLEACHER OPERATOR-LEAD MANUFACTURING ENGINEERING TECH [address] [facility] [address] [place] [address] Health Maintenance Due Date Last Done Comments CT Colonography 1955 Creatinine Level 1955 Diabetes: Hemoglobin A1C 1955 Diabetes: Urine Protein Screening 1955 Echocardiogram 1955 FIT-DNA (Cologuard) 1955 FIT 1955 Lipid Panel 1955 Medicare Annual Wellness Visit (AWV) 1955 Potassium Level 1955 Diabetes: Retinopathy Screening 1964 Hepatitis C Screening 1972 Mammogram 1994 Sigmoidoscopy 06/27/2011 06/26/2006, 04/24/2006 Bone Density Scan 07/18/2019 Colonoscopy 02/25/2023 02/25/2013, 02/28/2007 Colorectal Cancer Screening 02/25/2023 MMR Vaccines (1 of 1 - Standard series) 02/05/2024 COVID-19 Vaccine (4 - season) 2024 02/14/2023, 08/05/2020, 07/08/2020 Influenza Vaccine (#1) 2024 , 01/09/2024, 01/29/2023, Additional history exists DTaP/Tdap/Td Vaccines (2 - Td or Tdap) 07/13/2033 07/14/2023 RSV High Risk: (Elderly (60+) or Population) Completed 07/14/2023 Zoster Vaccines Completed 01/08/2024, 05/04, 02/14/2023 Pneumococcal Vaccine Completed 01/16/2024, 01/29/2023, 10/25/2018, Additional history exists HIB Vaccines Aged Out [...] patient's age to complete this topic Insurance [facility] MEDICARE ADVANTAGE Member Subscriber Plan / Payer (Ef fective 2023-Present) Name:Nneka Bergeron Relation to Subscriber:Self Name:Nneka Bergeron Payer ID:[id number] (NAIC) Group ID:[id number] Type:Not on file Address: [address] [employer] MED[employer] AN[employer]M MEDICARE ADVANTAGE Member Subscriber Plan / Payer (Ef fective 2023-Present) Name:Nneka Bergeron Relation to Subscriber:Self Name:Nneka Bergeron Payer ID:[id number] (NAIC) Group ID:[id number] Type:Not on file Address: [address] [employer] MEDICARE Care Teams Survey Rodman Relationship Specialty Start Date End Date Ivanna Mahmood, CP BLEACHER OPERATOR-LEAD MANUFACTURING ENGINEERING TECH [facility] [place] [address] PCP - General 04/03/16
--- OUTSIDE RECORDS SUMMARY | 2024-12-10 11:10 | XMS_ITS | Encounter Summary ---
Author Organization [facility] Address [address] [place] [address] Care Team Providers Care Construction Secretary Name Role Phone Alfonso Blank MD Primary Care Provider [phone] Ivanna Mahmood NP Unavailable [phone] Encounter Details Date Type Department Care Team (Late st Contact Info) Description 07/07/2023 Clinisync Result Encounter [facility] External Department Unsolicited Ivanna Mahmood, MARIAJOSE [address] [place] [address] Social History Tobacco Use Types Packs/Day Years [...] EDT Narrative 07/07/2023 10:34 [place] [address] Mammography Report Signed Patient: NNEKA LEI MR#: [id number] : 1955 Acct:[id number] Age/Sex: 67 / F ADM Date: 07/05/23 Loc: MAMMO Attending Dr: Ivanna Mahmood NP Ordering Physician: Ivanna Mahmood NP Results: Date of Service: 07/05/23 Follow Up: Procedure(s): MM tomosynthesis screening BI Accession Number(s): [id number] cc: Ivanna Mahmood NP Patient Name: NNEKA LEI MR#: [id number] : 1955 Exam Date: 07/05/2023 Ordering Doctor: [...] AND RADIATION Family Cancers None LOCATION: [facility] BREAST COMPOSITION: Heterogeneously dense,which may obscure [...] Signed By: 07/07/23 1034 DD/ 1033 TD/TT: Jewelry Consultant: Procedure Note Radiology, Radiologist, MD - 07/07/2023 [place] [address] Mammography Report Signed Patient: NNEKA LEI LMR#: [id number] : 5Acct:[id number] Age/Sex: 67 / FADM Date: 07/05/23 Loc: MAMMO Attending Dr: Ivanna Mahmood LINUX ADMIN ENGINEER Ordering Physician: Ivanna Mahmood NPResults: Date of Service: 07/05/23Follow Up: Procedure(s): MM tomosynthesis screening BI Accession Number(s): [id number] cc: Ivanna Mahmood NP Patient Name: NNEKA LEI MR#: [id number] : 1955 Exam Date: 07/05/2023 Ordering Doctor: BROWN Mahmood [facility] REPORT PROCEDURE: MM TOMOSYNTHESIS SCREENING BI [...] AND RADIATION Family Cancers None LOCATION: [facility] BREAST COMPOSITION: Heterogeneously dense,which may obscure smallmasses. [...] M.D. Signed By:07/07/23 1034 DD/ 1033 TD/TT: Jewelry Consultant: us Ivanna Mahmood NP [facility] Final Result documented in this encounter Visit Diagnoses Not on filedocumented in this encounter Care Teams Construction Secretary Relationship Specialty Start Date End Date Alfonso Blank MD PCP - General Family Medicine 06/21/23 Ivanna Mahmood NP [address] [place] [address] PCP - Deep CARDOZA 12/03/23 04/02/24 documented as of this encounter
--- OUTSIDE RECORDS SUMMARY | 2024-12-10 11:10 | XMS_ITS | Encounter Summary ---
Author Organization [facility] Address [address] [facility] [place] [address] Care Team Providers Care Disability Advocate Name Role Phone Alfonso Blank MD Primary Care Provider [phone] Encounter Details Date Type Department Care Team (Late st Contact Info) Description 11/11/2024 Abstract [facility] [address] [facility] [place] [address] Ivanna Mahmood, CLINICAL LABORATORY MANAGER [address] [facility] [place] [address] Social History Tobacco Use Types Packs/Day Years [...] Assessment Noted Time PHQ-9 Depression Total Score: 1 10/30/19 25 10:11 AM EDT documented as of this encounter Care Teams Disability Advocate Relationship Specialty Start Date End Date Alfonso Blank MD PCP - General Family Medicine 06/21/23 documented as of this encounter
--- OUTSIDE RECORDS SUMMARY | 2024-12-10 11:10 | XMS_ITS | Encounter Summary ---
Author Organization [facility] Address [address] [place] [address] Phone Care Team Providers Care Metal Sprayer Machined Parts Name Role Phone Ivanna Mahmood APRN-DIRT BIKE RACER Primary Care Provider Encounter Details Date Type Department Care Team (Late st Contact Info) Description 1955 Scanned Document [facility] [address] [place] [phone] Scanning, Generic Provider Social History Tobacco Use Types Packs/Day Years [...] Description 04/28/2025 2:30 PM EST Office Visit [place] [address] [facility] [address] [place] [address] Yaneth Norton APRN-DIRT BIKE RACER [address] [facility] [address], [address] [place] [address] documented as of this encounter Visit Diagnoses Not on filedocumented in this encounter Care Teams Metal Sprayer Machined Parts Relationship Specialty Start Date End Date Ivanna Mahmood APRN-DIRT BIKE RACER [address] [place] [address] PCP - General 04/03/16 documented as of this encounter
--- OUTSIDE RECORDS SUMMARY | 2024-12-10 11:10 | XMS_ITS | Encounter Summary ---
Author Organization [facility] Address [address] [place] [address] Care Team Providers Care Pigment Weigher Name Role Phone Alfonso Blank MD Primary Care Provider [phone] Reason for Visit * Reason Onset Date Comments Medication Question 10/28/2024 Encounter Details Date Type Department Care Team (Late st Contact Info) Description 10/28/2024 Telephone [facility] [address] [place] [address] Ivanna Mahmood, MARIAJOSE [address] [place] [address] Medication Question Social History Tobacco Use Types Packs/Day Years [...] on file documented as of this encounter Functional Status * Over the past 2 weeks, how often have you been bothered by any of the following problems? Question Answer Date of Assessment Author Little interest or pleasure in doing things Not at all 10/29/2024 10:11 AM EDT Kristy Bassett MA Feeling down, depressed, or hopeless Not at all 10/29/2024 10:11 AM EDKristy Trent MA Patient Health Questionnaire-2 Score 0 10/29/2024 10:11 AM Edelmira Farrell MA * Question Answer Date of Assessment Author Trouble falling or staying asleep, or sleeping too much Not at all 10/29/2024 10:11 AM Ashley Castano MA Feeling tired or having little energy Not at all 10/29/2024 10:11 AM Kristy Farrell MA Poor appetite or overeating Not at all 10/29/2024 10 :11 AM Ashley Farrell MA Feeling bad about yourself - or that you are a failure or have let yourself or your family down Not at all 10/29/2024 10:11 AM Kristy Farrell MA Trouble concentrating on things, such as reading the newspaper or watching television Not at all 10/29/2024 10:11 AM Kristy Farrell MA Moving or speaking so slowly that other people could have noticed? Or the opposite - being so fidgety or restless that you have been moving around a lot more than usual. Several days 10/29/2024 10:11 AM Kristy Farrell MA Thoughts that you would be better off or hurting yourself in some way Not at all 10/29/2024 10:11 AM Palma Farrell MA Patient Health Questionnaire-9 Score 1 10/29/2024 10:11 AM Edelmira Farrell MA documented as of this encounter Miscellaneous Notes * Telephone Encounter - Ashley Bassett MA - 11/11/2024 4:41 PM EDT Text Chemical Engraver Hi, this is an Dee Dee from [facility], and I am calling because Ivanna WEST sent over a prescription for a meter and test strips for Nneka, why last name is spelled W [facility] date of birthis 89 of 54, and I am calling because all we received was a meter and test Strips and not a scriptfor let. So I was just calling to see if you guys can send that over for a for that so we can fill that for her. Um, if you have any [place] [phone]. Thank you * Telephone Encounter - Anh Soto - 11/11/2024 12:58 PM EDT Patient left a voicemail stating that she thought you were calling in an Accu check device so she can check her blood sugar levels. She said the pharmacy does not have that. JN * Telephone Encounter - Latanya Pagan - 10/28/2024 9:44 AM EDT Nneka scheduled an appointment to see you on November 04, at 9:00 AM. She has an eye infection and wanted to know if you would call a prescription in for her. [phone] documented in this encounter Plan of Treatment Not on file documented as of this encounter Visit Diagnoses Not on filedocumented in this encounter Additional Health Concerns Assessment Noted Time PHQ-9 Depression Total Score: 2 09/05/19 10:22 AM EDT documented as of this encounter Care Teams Pigment Weigher Relationship Specialty Start Date End Date Alfonso Blank MD PCP - General Family Medicine 06/21/23 documented as of this encounter
--- OUTSIDE RECORDS SUMMARY | 2024-12-10 11:10 | XMS_ITS | Encounter Summary ---
Author Organization [facility] Address [address] [place] [address] Phone Care Team Providers Care Garage Mechanic Name Role Phone Ivanna Mahmood APRN-BROWN Primary Care Provider Encounter Details Date Type Department Care Team (Late st Contact Info) Description 03/18/2021 Orders Only [facility] [address] [place] [address] Conversion, Onbase Social History Tobacco Use Types [...] Description 04/28/2025 2:30 PM EST Office Visit [place] [id number] [facility] [address] [place] [address] Yaneth Norton APRN-AMBULATORY CARE COORDINATOR [address] [facility] [address], [address] [place] [address] Scheduled Orders Name Type Priority Associated Diagnoses Orde r Schedule OUTSIDE LAB SCAN Lab Ordered: 03/18/2021 documented as of this encounter Visit Diagnoses Not on filedocumented in this encounter Care Teams Garage Mechanic Relationship Specialty Start Date End Date Ivanna Mahmood APRN-CNP [address] [place] [address] PCP - General 04/03/16 documented as of this encounter
--- OUTSIDE RECORDS SUMMARY | 2024-12-10 11:10 | XMS_ITS | Encounter Summary ---
Author Organization [facility] Address [address] [place] [address] Care Team Providers Care Factory Representative Name Role Phone Alfonso Blank MD Primary Care Provider [phone] Ivanna Mahmood NP Unavailable [phone] Encounter Details Date Type Department Care Team (Late st Contact Info) Description 07/11/2023 Orders Only [facility] [address] [place] [address] Ivanna Mahmood, MARIAJOSE [address] [place] [address] Social History Tobacco Use Types Packs/Day Years [...] Laterality Modality Radiographic Lilly ging Ivanna Mahmood TEST PILOT IMG XR PROCEDURES Final Result documented in this encounter Visit Diagnoses Not on filedocumented in this encounter Care Teams Factory Representative Relationship Specialty Start Date End Date Alfonso Blank MD PCP - General Family Medicine 06/21/23 Ivanna Mahmood NP [address] [place] [address] PCP - Deep CARDOZA 12/03/23 04/02/24 documented as of this encounter
--- OUTSIDE RECORDS SUMMARY | 2024-12-10 11:10 | XMS_ITS | Patient Health Record ---
Author Organization [facility] Address [address] [place] [address] Care Team Providers Care Director Of Catering Name Role Phone Dr. Vladimir Fisher Primary Care Provider Ronit Mara Unavailable [phone] Reason For Referral No Information Encounters Encounter Location Date Provider Diagnosis [facility] [address] [place] [address] 11/19/2024 Mara Wolof Necrosis of pulp K04 .1 ; Dental caries on pit and fissure surface penetrating into dentin K02.52 ; Encounter for dental examination and cleaning with abnormal findings Z01.21 ; Other dental procedure status Z98.818 ; Disturbances in tooth eruption K00.6 ; Acute gingivitis, plaque induced K05.00 ; Cracked tooth K03.81 ; Complete loss of teeth, unspecified cause, class I K08.101 and Partial loss of teeth, unspecified cause, class I K08.401 Assessments Encounter Date Diagnosis (ICD Code) Assessment Notes Treatment Notes Treatment Clinical Notes Section Notes 11/19/2024 Necrosis of pulp (ICD-10 - K04.1) 11/19/2024 Dental caries on pit and fissure surface penetrating into dentin (ICD-10 - K02.52) 11/19/2024 Encounter for dental examination and cleaning with abnormal findings (ICD-10 - Z01.21) 11/19/2024 Other dental procedure status (ICD-10 - Z98.818) 11/19/2024 Disturbances in tooth eruption (ICD-10 - K00.6) 11/19/2024 Acute gingivitis, plaque induced (ICD-10 - K05.00) 11/19/2024 Cracked tooth (ICD-10 - K03.81) 11/19/2024 Complete loss of teeth, unspecified cause, class I (ICD-10 - K08.101) 11/19/2024 Partial loss of teeth, unspecified cause, class I (ICD-10 - K08.401) Plan Of Treatment Next Appt Details Provider Name:Mara Cottrell, 03:00:00 PM, [address], [place], [address], Provider Name:Racheal Johnson, 04/10/2025 03:30:00 PM, [address], [place], [address], Insurance Providers Payer Name Payer Address Payer Phone Subscriber Number Group Number Insured Name Patient Relationship to Insured Coverage Start Date Coverage End Date [facility] [employer] [address] [address] Claims Unit [id number] SUSU CORONA Self - patient is the insured
--- NOTE | 2024-12-10 11:14 | XR_ITS ---
The [address] [address] Patient Name: SUSU CORONA MRN: [id number] date: 1955 Sex: F Assigned Patient Location: [facility] Current Patient Location: [facility] Accession/Order Number: [id number] Exam Date: 12/10/2024 11:25 Report Date: 12/10/2024 12:27 At the request of: JASVIR SHAVER NP Procedure: XR hip LT 2V w/ pelvis CLINICAL DATA: Back pain and pain at the left greater trochanter. LUMBAR SPINE-2 views COMPARISON: None AP and lateral views were obtained. There is osteopenia. There is potential slight levoscoliotic curvature. There are no acute compression fractures. There is minimal retrolisthesis of L4 and L5. These is no disproportionate disc space narrowing. Endplate spurring is noted. Lower lumbar facet hypertrophy is seen. There is minor sclerosis at the SI joints. No paraspinal soft tissue abnormalities are identified. XR/XR lumbar spine 2-3V IMPRESSION: OSTEOPENIA AND DEGENERATIVE CHANGES. LEFT HIP WITH AP PELVIS - 3 views COMPARISON: None available AP view of the pelvis as well as AP and frog-lateral views of the left hip were obtained. No fracture or dislocation is identified. The hip joint spaces are maintained. There is mild bilateral marginal spurring, greater on the right. There are enthesophytes at the iliac crests. Minor sclerosis is seen at the SI joints. No soft tissue abnormalities are present. IMPRESSION: MILD DEGENERATIVE CHANGES. NO ACUTE BONY FINDINGS. Impression dictated by: Gini Brown M.D. 12/10/2024 12:27 PM Dictation Location: [employer] Electronically authenticated by: [id number] Y Date: 12/10/2024 12:27
--- NOTE | 2024-12-10 11:14 | XR_ITS ---
The [address] [address] Patient Name: SUSU CORONA MRN: [id number] date: 1955 Sex: F Assigned Patient Location: [facility] Current Patient Location: [facility] Accession/Order Number: [id number] Exam Date: 12/10/2024 11:25 Report Date: 12/10/2024 12:27 At the request of: JASVIR SHAVER NP Procedure: XR hip LT 2V w/ pelvis CLINICAL DATA: Back pain and pain at the left greater trochanter. LUMBAR SPINE-2 views COMPARISON: None AP and lateral views were obtained. There is osteopenia. There is potential slight levoscoliotic curvature. There are no acute compression fractures. There is minimal retrolisthesis of L4 and L5. These is no disproportionate disc space narrowing. Endplate spurring is noted. Lower lumbar facet hypertrophy is seen. There is minor sclerosis at the SI joints. No paraspinal soft tissue abnormalities are identified. XR/XR hip LT 2V w/ pelvis IMPRESSION: OSTEOPENIA AND DEGENERATIVE CHANGES. LEFT HIP WITH AP PELVIS - 3 views COMPARISON: None available AP view of the pelvis as well as AP and frog-lateral views of the left hip were obtained. No fracture or dislocation is identified. The hip joint spaces are maintained. There is mild bilateral marginal spurring, greater on the right. There are enthesophytes at the iliac crests. Minor sclerosis is seen at the SI joints. No soft tissue abnormalities are present. IMPRESSION: MILD DEGENERATIVE CHANGES. NO ACUTE BONY FINDINGS. Impression dictated by: Gini Brown M.D. 12/10/2024 12:27 PM Dictation Location: [employer] Electronically authenticated by: [id number] Y Date: 12/10/2024 12:27
--- OUTSIDE RECORDS SUMMARY | 2024-12-10 11:25 | XMS_ITS | CCD ---
Author Organization [facility] CliniSyfl Care Team Providers Care Senior Python Developer Name Role Phone Kinjal Sandhu Primary Care [...] Care Unavailable Magda Carballo Primary Care Provider Timoteo, Ivanna Maya Unavailable Unavailable Unavailable RADHA HARRIS Primary Care Physician [phone] Rosie FARIAS Attending Unavailable AICHHOLZIVANNA Referring Unavailabl e NILRosie Zelaya Attending Unavailable NILRosie Zelaya Attending Unavailable McGuinn IIDavid Attending Unav ailable McGuinn II, David Mathias Referring Unav ailable Aichholz, MrsArsalan Trejo Primary Care Unavailab le AICHHOLZ, ENGINEERING CONSULTANT IVANNA Admitting Unavailable AICHHOLZ, ENGINEERING CONSULTANT IVANNA Primary Care Unavailable DR JOSE HICKS V Consulting Unavailable AICHHOLZ, ENGINEERING CONSULTANT IVANNA Attending Unavailable AICHHOLZ, ENGINEERING CONSULTANT IVANNA Consulting Unavailable JOSE LEE Consulting Unavailable AICHHOLZ, ENGINEERING CONSULTANT IVANNA Admitting Unavailable AICHHOLZ, ENGINEERING CONSULTANT IVANNA Primary Care Unavailable AICHHOLZ, ENGINEERING CONSULTANT IVANNA Consulting Unavailable AICHHOLZ, ENGINEERING CONSULTANT IVANNA Attending Unavailable AICHHOLZ, ENGINEERING CONSULTANT IVANNA Primary Care Unavailable JARRETT, DR VELEZ Admitting Unavailable NILL, DR VELEZ Consulting Unavailable NILL, DR VELEZ Attending Unavailable AICHHOLZ, ENGINEERING CONSULTANT IVANNA Primary Care Unavailable NILL, DR VELEZ Admitting Unavailable NILL, DR VELEZ Consulting Unavailable NILL, DR VELEZ Attending Unavailable DAVID TOPETE Consulting Unava ilable Timoteo CAR RECORD CLERK-ENGINEERING CONSULTANT, Ivanna Trejo Primary Care Provider Alfonso Blank MD Primary Care Provider Timoteo LAST PUTTER AWAY, Ivanna Unavailable PARI NORTON Attending Unavailable DAVID BERRIOS Referring Unavailable AICHHOLWaqar, IVANNA TREJO Primary Care Unavailable PARI NORTON Referring Unavailable AICHHOLWaqar, IVANNA TREJO Primary Care Unavailable PARI NORTON Referring Unavailable AICHUZAIR, IVANNA TREJO Primary Care Unavailable PARI NORTON Referring Unavailable AICHHOLWaqar, IVANNA TREJO Primary Care Unavailable PARI NORTON Referring Unavailable TIMOTEO, IVANNA TREJO Primary Care Unavailable TIMOTEO, IVANNA Attending Unavailable IVANNA MAHMOOD Attending Unavailable TIMOTEO, IVANNA Attending Unavailable Ivanna Mahmood Primary Care Provider Ivanna Mahmood Attending Provider [phone] Allergies Allergy Classification Reported Allergen(s) Allergy Type Date of Onset Reaction(s) Facility (1 source) No Known Medication Allergies; Translations: [No Known Medication Allergies] Propensity to adverse reactions (disorder) [facility] Repository Medications Current Medications Medication Drug Class(es) [...] Dihydropyridine Calcium Channel Pierre Start: 03-21-2019 End: 12-29-2024 take 1 tablet by mouth once daily Amlodipine 2.5 mg tablet Active 2.5 MG PO Daily December 05, 2024 12:00am Complies with drug therapy Arexvy 120 MCG/0.5ML reconstituted suspension (2 sources) Start: 07-14-2023 End: 04-09-2024 Arexvy 120 MCG/0.5ML reconstituted suspension 07/14/2023 04/09/2024 Discontinued (Therapy completed) aspirin 81 mg oral tablet (20 sources) Platelet Aggregation Inhibitor, Nonsteroidal Anti-inflammatory Drug Start: 12-05-2024 take 1 tablet by mouth once daily Aspirin 81 mg tablet Active 81 MG PO Daily December 05, 2024 12:00am Complies with drug therapy Start: 11-09-[address] once daily aspirin 81 mg Oral EC [...] Daily Active atorvastatin 10 mg oral tablet (19 sources) HMG-CoA Reductase Inhibitor Start: 04-10-2024 End: 04-24-2025 take 1 tablet by mouth once daily in the evening Atorvastatin 10 mg tablet Active 10 MG PO Every evening December 05, 2024 12:00am Complies with drug therapy Blood Glucose Monitoring Suppl (Accu-Chek Guide) w/Device kit (3 sources) Start: 11-18-2024 End: 11-18-2024 Blood Glucose Monitoring Suppl (Accu-Chek Guide) w/Device kit Indications: Type 2 diabetes mellitus without complication, without long-term current use of insulin (HCC) 1 kit Daily 1 kit 11/18/2024 11/18/2024 Discontinued (Reorder) Start: 11-18-2024 End: 11-18-2025 Blood Glucose Monitoring Sup pl (Accu-Chek Guide) w/Device kit Indications: Type 2 diabetes mellitus without complication, without long-term current use of insulin (HCC) 1 kit Daily 1 kit 11/18/2024 11/18/2025 Active cholecalciferol 0.05 mg oral capsule (20 sources) Vitamin D Start: 12-05-2024 take 1 capsule by mouth once daily Cholecalciferol (Vitamin D3) 50 mcg (2,000 unit) capsule Active 50 MCG PO Daily December 05, 2024 12:00am Complies with drug therapy Start: 12-25-20[address] once daily cholecalciferol (Vitamin D-3) 50 MCG (2000 UT) tablet Indications: Vitamin D deficiency TAKE 1 TABLET BY MOUTH DAILY 90 tablet 1 12/25/2023 Active 0.5 ml dulaglutide 3 mg/ml auto-injector (2 sources) GLP-1 Receptor Agonist Start: 03-21-2019 Dulaglutide (TRULICI TY) 1.5 MG/0.5ML SOPN Indications: Type 2 diabetes mellitus with complication, without long-term current use of insulin (HCC) Inject 1.5 mg into the skin once a week 12 pen 3 03/21/2019 Active Start: 01-29-2019 Dulaglutide (T RULICITY) 0.75 MG/0.5ML SOPN Indications: Type 2 diabetes mellitus with complication, without long-term current use of insulin (HCC) Inject 0.75 mg into the skin once a week 4 pen 3 01/29/2019 Active DULoxetine 30 mg delayed release oral capsule (20 sources) Serotonin and Norepinephrine Reuptake Inhibitor Start: 11-05-2021 End: 12-29-2024 take 1 capsule by mouth once daily Duloxetine 30 mg capsule,delayed release(DR/EC) Active 30 MG PO Daily December 05, 2024 12:00am Complies with drug therapy Start: 11-27-2018 take 1 capsule by mo [facility] once daily DULoxetine (CYMBALTA) 60 MG extended release capsule Indications: Positive depression screening , Dysthymia Take 1 capsule by mouth daily 90 capsule 1 11/27/2018 Active empagliflozin 10 mg oral tablet (20 sources) Sodium-Glucose Cotransporter 2 Inhibitor Start: 12-05-2024 take 1 tablet by mouth once daily Empagliflozin (Jardiance) 10 mg tablet Active 10 MG PO Daily December 05, 2024 12:00am Complies with drug therapy Start: 11-05-2021 End: 07-15-2024 take 1 tablet by mouth once daily empagliflozin (Jardiance) 10 MG Indications: Type 2 diabetes mellitus without complication, without long-term current use of insulin ([facility]) Take 1 tablet (10 mg) by mouth Daily 90 tablet 1 04/16/2024 Active gabapentin 300 mg oral capsule (20 sources) Anti-epileptic Agent Start: 11-05-2021 End: 01-27-2025 take 1 capsule by mouth three times daily Gabapentin 300 mg capsule Active 300 MG PO Three times daily December 05, 2024 12:00am Complies with drug therapy Start: 11-27-2018 End: 05-26-2019 take 3 capsules [...] tablet (20 sources) Sulfonylurea Start: 09-05-2023 End: 01-27-2025 take 1 tablet by mouth once daily Glipizide 5 mg tablet extended release 24hr Active 5 MG PO Daily December 05, 2024 12:00am Complies with drug therapy Start: 11-05-[address] [...] (20 sources) Thiazide Diuretic Start: 04-02-2024 End: 01-27-2025 take 1 tablet by mouth once daily Hydrochlorothiazide 25 mg tablet Active 25 MG PO Daily December 05, 2024 12:00am Complies with drug therapy Start: 12-07-2018 End: 03-04-2024 take 1 tablet by mouth in the morning hydroCHLOROthiazide (HYDRODiuril) 25 MG tablet Indications: Primary hypertension (CMS/HCC) Take 1 tablet (25 mg) by mouth in the morning. 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 Do not crush or chew. 90 tablet 3 04/09/2024 04/09/2025 Active Start: 09-05-2023 End: 09-28-2024 take 1 tablet by mouth once daily isosorbide mononitrate ER (Imdur) 30 MG 24 hr tablet Indications: 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 Take 1 tablet (30 mg) by mouth Daily 90 tablet 1 06/30/2024 Active Start: 03-21-[address] once daily in the morning isosorbide mononitrate 30 mg ER Tab 30 mg = 1 tab(s), Oral, qAM, Refills(s) 0 Start Date: 11/05/21 Status: Ordered lisinopril 5 mg oral tablet (20 sources) Angiotensin Converting Enzyme Inhibitor Start: 03-21-2019 End: 01-27-2025 take 1 tablet by mouth once daily Lisinopril 5 mg tablet Active 5 MG PO Daily December 05, 2024 12:00am Complies with drug therapy losartan potassium 50 mg oral tablet (1 source) Angiotensin 2 Receptor Pierre Start: 11-27-2018 take 1 tablet by mouth once daily losartan (COZAAR) 50 MG tablet Take 1 tablet by mouth daily 90 tablet 1 11/27/2018 Active methylPREDNISolone 4 mg oral tablet (1 source) Corticosteroid Start: 12-05-2024 take 1 tablet by mouth once at mealtime Methylprednisolone (Medrol (Faustino)) 4 mg tablets,dose pack Active 0 PO per package directions December 05, 2024 12:00am PO PER PKG DIR for 6 days, take with food, will cause rise in blood sugar Complies with drug therapy nitroglycerin 0.4 mg sublingual tablet (2 sources) Nitrate Vasodilator Start: 11-05-2021 nitroglycerin 0.4 mg sublingual Tab 0.4 mg = 1 tab(s), SubLingual, q5min, PRN for chest pain, Refills(s) 0 Start Date: 11/05/21 Status: Ordered Start: 03-13-2019 nitroGLYCERIN (NITROSTAT) 0.4 MG SL tablet up to max of 3 total doses. If no relief after 1 dose, call 911. 20 tablet 0 03/13/2019 Active polymyxin b 95904 unt/ml / trimethoprim 1 mg/ml ophthalmic solution (2 sources) Dihydrofolate Reductase Inhibitor Antibacterial, Polymyxin-class Antibacterial Start: 10-29-2024 End: 11-05-2024 take 1 drop(s) into the eye(s) every four hours trimethoprim-polymyxin b (Polytrim) ophthalmic solution Indications: Acute bacterial conjunctivitis of right eye Administer 1 drop into the right eye every 4 (four) hours for 7 days 10 mL 10/29/2024 11/05/2024 Active propranolol hydrochloride 40 mg oral tablet (20 sources) beta-Adrenergic Pierre Start: 09-05-2023 End: 01-27-2025 take 1 tablet by mouth twice daily Propranolol 40 mg tablet Active 40 MG PO Twice daily December 05, 2024 12:00am Complies with drug therapy Start: 12-07-[address] twice daily propranolol 40 mg Tab 40 mg = 1 tab(s), Oral, BID, Refills(s) 0 Start Date: 11/05/21 Status: Ordered take 2 tablets by mo [facility] once daily propranolol (Inderal) 40 mg tablet Take 2 tablets (80 mg) by mouth once daily. Active take [address] once daily Propranolol HCl - 40 MG [...] 1 03/28/2024 04/10/2024 Discontinued (Ineffective) Vitamin D3 1999 intl units oral Tab (1 source) Start: [...] On Mon04/22/24 at 1445, For 1 dose Blood Glucose Monitoring Sup pl (Accu-Chek Faye Plus) w/Device kit (4 sources) Start: 11-11-2024 End: 11-18-2024 [address] Monitoring Sup [address] (Accu-Chek Faye Plus) w/Device kit Indications: Type 2 diabetes mellitus without complication, without long-term current use of insulin (HCC) 1 kit Daily 1 kit 11/11/2024 11/18/2024 Discontinued (Cost of medication) Start: 11-11-2024 End: 11-11-2025 Blood Glucose Monitoring Sup pl (Accu-Chek Faye Plus) w/Device kit Indications: Type 2 diabetes mellitus without complication, without long-term current use of insulin (HCC) 1 kit Daily 1 kit 11/11/2024 11/11/2025 Active regadenoson (Lexiscan) injection 0.4 mg (1 source) [...] [Coronary atherosclerosis of unspecified type of vessel, re[place]sparks or graft] Onset: 12-10-2021 11-05-2021 Chronic Diabetes [...] including migraine (1 source) Migraine 11-05-2021 Chronic Inflammation; infection of eye (except that caused by tuberculosis or sexually transmitteddisease) (9 sources) Acute infectious conjunctivitis; Translations: [Unspecified acute conjunctivitis, right eye] Onset: 10-29-2024 10-29-2024 Episodic Mood disorders (4 sources) Dysthymia; Translations: [Depressive disorder] Onset: 10-31-2018 10-31-2018 Chronic Nutritional deficiencies (20 sources) Vitamin D deficiency; Translations: [Vitamin D deficiency, unspecified] Onset: 05-20-2022 11-05-2021 Chronic Osteoporosis (2 sources) Osteoporosis; Translations: [Age-related osteoporosis without current pathological fracture] Onset: 12-10-2021 11-05-2021 Chronic Other and unspecified benign neoplasm (2 sources) History of polyp of colon; Translations: [Personal history of colonic polyps] Onset: 11-09-2021 Episodic Other and unspecified benign neoplasm (1 source) Villous adenoma of rectum 11-08-2021 Episodic Other bone disease and musculoskeletal deformities (20 sources) Osteopenia; Translations: [Other specified disorders of bone density and structure, unspecified site] Onset: 01-29-2019 01-29-2019 Episodic Other connective tissue disease (2 sources) Trochanteric bursitis; Translations: [Trochanteric bursitis, left hip] 12-05-2024 Episodic Other gastrointestinal disorders (1 source) Irritable [...] [RESTLESS LEGS SYNDROME] Onset: 12-10-2021 Chronic Other nervous system disorders (20 sources) Tremor; Translations: [Tremor, unspecified] Onset: 06-05-2023 11-05-2021 Episodic Other nutritional; endocrine; and metabolic disorders (5 [...] Translations: [ASYMPTOMATIC MENOPAUSAL STATE] Onset: 05-20-2022 Episodic Spondylosis; intervertebral disc disorders; other back problems (20 sources) Lumbar radiculopathy; Translations: [Radiculopathy, lumbar region] Onset: 06-21-2023 06-21-2023 Episodic Unclassified (1 source) CONTACT W/AND (SUSP) EXPOS COVID-19; Translations: [CONTACT W/AND (SUSP) EXPOS COVID-19] Onset: 12-07-2021 Past or Other Problems Problem Classification Problem Date Documented Da te Episodic/Chronic Mood disorders (20 sources) Mood disorders Onset: 09-05-2023 Resolved: 10-29-2024 09-05-2023 Nonspecific chest pain (20 sources) Chest pain; Translations: [Chest pain, unspecified] Onset: 03-11-2019 03-13-2019 Episodic Other aftercare (1 source) Other terminal worker (current) drug therapy; Translations: [OTH LONG-TERM CURRENT DRUG THERAPY] Onset: 12-10-2021 Episodic Other aftercare (1 source) assisted (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; Translations: [LONG-TERM CURRENT USE OF ASPIRIN] Onset: 12-10-2021 Episodic Other and unspecified benign neoplasm (1 source) Personal history of colonic polyps; Translations: [PERSONAL HISTORY OF COLONIC POLYPS] Onset: 12-10-2021 Episodic Other gastrointestinal disorders (3 sources) Other fecal abnormalities; Translations: [OTHER FECAL ABNORMALITIES] Onset: 12-08-2021 Episodic Other gastrointestinal disorders (1 source) Change in bowel habit; Translations: [CHANGE IN BOWEL HABIT] Onset: 12-10-2021 Episodic Other non-traumatic joint disorders (20 sources) Hip pain; Translations: [Pain in left hip] Onset: 06-21-2023 06-21-2023 Episodic Other screening for suspected conditions (not mental disorders or infectious disease) (20 sources) Encounter for screening mammogram for malignant neoplasm of breast; Translations: [Patient encounter status] Onset: 02-17-2023 03-20-2024 Episodic Residual codes; unclassified (1 source) Postmenopausal state; Translations: [Post-menopausal] Episodic Residual codes; unclassified (8 sources) Never smoked any substance; Translations: [Other specified health status] Onset: 04-12-2023 04-12-2023 Episodic Unclassified (1 source) Never smoked tobacco; Translations: [Never a smoker] Unclassified (7 sources) Onset: 04-12-2023 Resolved: 04-24-2024 04-12-2023 Results Test Name Value Interpretation Reference Range Facility HbA1c (Bld) [Mass fraction]o n 10-29-2024 Interpretation and review of laboratory results Abnormal [facility] - Hematology and Cell countson 10-29-2024 HbA1c (Bld) [Mass fraction] 7.4 % [facility] MM TOMOSYNTHESIS SCREENING B Ion 08-27-2024 [place] [address] Mammography Report Signed Patient: NNEKA CORONA MR#: [id number] : 1955 Acct:[id number] Age/Sex: 69 / F ADM Date: 08/27/24 Loc: MAMMO Attending Dr: Ivanna Mahmood NP Ordering Physician: Ivanna Mahmood NP Results: Date of Service: 08/27/24 Follow Up: Procedure(s): MM tomosynthesis screening BI Accession Number(s): [id number] cc: Ivanna Mahmood NP Patient Name: NNEKA CORONA MR#: [id number] : 1955 Exam Date: 08/27/2024 Ordering Doctor: [...] AND RADIATION Family Cancers None LOCATION: [facility] BREAST COMPOSITION: The breasts are heterogeneously dense,which [...] Signed By: 08/27/24 1342 DD/ 1341 TD/TT: Receiving Coordinator: [facility] Radiology, Radiologlouann macias MD - 08/27/2024 [place] [address] Mammography Report Signed Patient: NNEKA CORONA MR#: [id number] : 1955 Acct:[id number] Age/Sex: 69 / F ADM Date: 08/27/24 Loc: MAMMO Attending Dr: Ivanna Mahmood NP Ordering Physician: Ivanna Mahmood NP Results: Date of Service: 08/27/24 Follow Up: Procedure(s): MM tomosynthesis screening BI Accession Number(s): [id number] cc: Ivanna Mahmood NP Patient Name: NNEKA CORONA MR#: [id number] : 1955 Exam Date: 08/27/2024 Ordering Doctor: [...] AND RADIATION Family Cancers None LOCATION: [facility] BREAST COMPOSITION: The breasts are heterogeneously dense,which [...] Signed By: 08/27/24 1342 DD/ 1341 TD/TT: Receiving Coordinator: [facility] Radiology Study observation (narrative) [facility] MM TOMOSYNTHESIS SCREENING B IOrdered By: Radiologist Radiology on 08-27-2024 [facility] [employer] Work Phone: YB Heart Perfusion W stress and W radionuclide Betzy 04-22-2024 Normal Lexiscan Myov iew cardiac perfusion stress test. No evidence of ischemia or myocardial infarction by perfusion imaging. Normal left ventricular systolic function, ejection fraction 70%. No previous study available for comparison. Signed by: Dennis Cheng 04/22/2024 4:44 PM Dictation workstation: [id number] [facility] MMODAL Interpreted By: Dennis Cheng and Giannuzzi Michael STUDY: MYOCARDIAL PERFUSION STRESS TEST WITH LEXISCAN Performing facility: [facility], [address] [place] [address], [address], [place] [id number] [facility] Provider: Pari Norton RN, ENGINEERING CONSULTANT PCP: Dr. Jabier Mahmood ENGINEERING CONSULTANT Supervising provider: Pari Norton RN, ENGINEERING CONSULTANT INDICATION: Chest Pain; CAD; HISTORY: Gender: F; Age: 68 y/o ; Height: HT 160 cm cm; Weight: WT 67.132 kg kg. High Cholesterol; CAD; Diabetes; HTN; Chest Pain; Denies smoking. Cardiac catheterization on 2019. PTCA on 2019. COMPARISON: No comparison. ACCESSION NUMBER(S): [id number] ORDERING CLINICIAN: PARI NORTON TECHNIQUE: ONE DAY [...] There were no evidence of attenuation artifact. [facility] MMODAL Dennis Cheng MD - 04/22/2024 Interpreted By: Dennis Cheng and Giannuzzi Michael STUDY: MYOCARDIAL PERFUSION STRESS TEST WITH LEXISCAN Performing facility: [facility], [address] [place] [address], [address], [address] Provider: Pari Norton RN, ENGINEERING CONSULTANT PCP: Dr. Jabier Mahmood ENGINEERING CONSULTANT Supervising provider: Pari Norton RN, ENGINEERING CONSULTANT INDICATION: Chest Pain; CAD; HISTORY: Gender: F; Age: 68 y/o ; Height: HT 160 cm cm; Weight: WT 67.132 kg kg. High Cholesterol; CAD; Diabetes; HTN; Chest Pain; Denies smoking. Cardiac catheterization on 2018. PTCA on 2019. COMPARISON: No comparison. ACCESSION NUMBER(S): [id number] ORDERING CLINICIAN: PARI NORTON TECHNIQUE: ONE DAY [...] Dennis Cheng 04/22/2024 4:44 PM Dictation workstation: [id number] [facility] Work Phone: Radiology Study observation (narrative) [facility] Work Phone: NM Heart Perfusion W stress and W radionuclide IVOrdered By: Dennis Cheng on 04-22-2024 [facility] Work Phone: NUCLEAR STRESS TESTon 2024 NUCLEAR STRESS TEST Interpreted By: Dennis Cheng and Giannuzzi Michael STUDY: MYOCARDIAL PERFUSION STRESS TEST WITH LEXISCAN Performing facility: [facility], [address] [place] [address], [address], [place] [address] [facility] Provider: Pari Norton RN, ENGINEERING CONSULTANT PCP: Dr. Jabier Mahmood ENGINEERING CONSULTANT Supervising provider: Pari Norton RN, ENGINEERING CONSULTANT INDICATION: Chest Pain; CAD; HISTORY: Gender: F; Age: 68 y/o ; Height: HT 160 cm cm; Weight: WT 67.132 kg kg. High Cholesterol; CAD; Diabetes; HTN; Chest Pain; Denies smoking. Cardiac catheterization on 2018. PTCA on 2019. COMPARISON: No comparison. ACCESSION NUMBER(S): [id number] ORDERING CLINICIAN: PARI NORTON TECHNIQUE: ONE DAY [...] Dennis Cheng 04/22/2024 4:44 PM Dictation workstation: [id number] [facility] HbA1c (Bld) [Mass fraction]o n 04-09-2024 Interpretation and review of laboratory results Abnormal [facility] - Hematology and Cell countson 04-09-2024 HbA1c (Bld) [Mass fraction] 7.30 % [facility] MLR HEMOGLOBIN A1Con 024 Glucose [Mass/Vol] 148 mg/dL [facility] HbA1c (Bld) [Mass fraction] 6.8 % High 4.5 - 6.2 % [facility] Comment on above: ADA RECOMMENDED LIMI T 4.0 - 6.0 ADA THERAPEUTIC TARGET < 7.0 ACTION SUGGESTED > 7.0 Interpretation and review of laboratory results Abnormal [facility] CBC AUTO DIFFon 05-16-2022 BASO # 0.1 103/ul Normal 0.0-0.1 [facility] Comment on above: Performed By: #### C BC ####[facility] [address] [place] [address]Dr. Virgil Curiel Basophils/100 WBC (Bld) 0.6 % Normal 0.2-2.0 [facility] Comment on above: Performed By: #### C BC ####[facility] [address] [place], [place] [address]Dr. Virgil Curiel EO # 0.2 103/ul Normal 0.0-0.7 [facility] Comment on above: Performed By: #### C BC ####[facility] [address] [place] [address]Dr. Virgil Curiel Eosinophils/100 WBC (Bld) 2.6 % Normal 0.9-7.0 [facility] Comment on above: Performed By: #### C BC ####[facility] [address] [place] [id number]. Virgil Curiel Erythrocyte distribution width (RBC) [Ratio] 13.1 % Normal 11.0-15.0 [facility] Comment on above: Performed By: #### C BC ####[facility] [address] [place] [address]Dr. Virgil Curiel Hematocrit (Bld) [Volume fraction] 45.9 % Normal 36.0-48.0 [facility] Comment on above: Performed By: #### C BC ####[facility] [address] [place], [place] [address]Dr. Virgil Curiel Hemoglobin (Bld) [Mass/Vol] 15.1 g/dL Normal 12.0-16.0 [facility] Comment on above: Performed By: #### C BC ####[facility] [address] [place] [id number]. Virgil Curiel IG # 0.02 10e3/ul Normal 0.00-0.03 [facility] Comment on above: Performed By: #### C BC ####[facility] [address] [place] [id number]. Virgil Curiel IG % 0.2 % Normal 0.0-0.5 [facility] Comment on above: Performed By: #### C BC ####[facility] [address] [place] [id number]. Virgil Curiel LYMPH # 2.6 103/ul Normal 1.2-3.8 [facility] Comment on above: Performed By: #### C BC ####[facility] [address] [place] [address]Dr. Virgil Curiel Lymphocytes/100 WBC (Bld) 31.6 % Normal 20.5-60.0 [facility] Comment on above: Performed By: #### C BC ####[facility] [address] [place], [place] [address]Dr. Ronitlupillo Curiel MANUAL DIFF REQ NO Normal [facility] Comment on above: Performed By: #### C BC ####[facility] [address] [address]Dr. Virgil Curiel MCH (RBC) [Entitic mass] 28.8 pg Normal 26.7-34.0 [facility] Comment on above: Performed By: #### C BC ####[facility] [address] [address]Dr. Virgil Curiel MCHC (RBC) [Mass/Vol] 32.9 g/dL Normal 29.9-35.2 [facility] Comment on above: Performed By: #### C BC ####[facility] [address] [place], [place] [address]Dr. Virgil Curiel MCV (RBC) [Entitic vol] 87.6 fL Normal 81.0-99.0 [facility] Comment on above: Performed By: #### C BC ####[facility] [address] [id number]. Virgil Curiel MONO # 1.0 103/ul Critically high 0.3-0.8 The [facility] Comment on above: Performed By: #### C BC ####[facility] [address] [place] [id number]. Virgil Curiel Monocytes/100 WBC (Bld) 12.2 % Critically high 1.7-12.0 [facility] Comment on above: Performed By: #### C BC ####[facility] [address] [id number]. Virgil Curiel NEUT # 4.4 103/ul Normal 1.4-6.5 [facility] Comment on above: Performed By: #### C BC ####[facility] [address] [place] [id number]. Virgil Curiel Neutrophils/100 WBC (Bld) 52.8 % Normal 43.0-75.0 [facility] Comment on above: Performed By: #### C BC ####[facility] [address] [id number]. Virgil Curiel Platelet mean volume (Bld) [Entitic vol] 9.4 fL Critically low 9.5-13.5 [facility] Comment on above: Performed By: #### C BC ####[facility] [address] [id number]. Virgil Curiel PLT 335 103/ul Normal 150-450 [facility] Comment on above: Performed By: #### C BC ####[facility] [address] [id number]. Virgil Curiel RBC 5.24 106/ul Normal 4.20-5.40 [facility] Comment on above: Performed By: #### C BC ####[facility] [address] [place] [id number]. Virgil Curiel WBC 8.4 103/ul Normal 4.0-11.0 [facility] Comment on above: Performed By: #### C BC ####[facility] [address] [address]Dr. Virgil Curiel GLYCOHEMOGLOBIN A1Con 2022 ADA RECOMMENDATION SEE BELOW Normal [facility] Comment on above: Result Comment: ADA RECOMMENDED LIMIT 4.0 - 6.0 ADA THERAPEUTIC TARGET < 7.0 ACTION SUGGESTED > 7.0 Performed By: #### A 1C #### [facility] [address] [address] [address] Virgil Curiel Glucose [Mass/Vol] 163 mg/dL Normal [facility] Comment on above: Performed By: #### A 1C #### [facility] [address] [address] [address] Virgil Curiel HbA1c (Bld) [Mass fraction] 7.3 % Critically high 4.5-6.2 [facility] Comment on above: Performed By: #### A 1C #### [facility] [address] [place] [address] Dr. Virgil Curiel LIPID PROFILEon 05-16-2022 CHOL-HDL RATIO NORM SEE BELOW Normal [facility] Comment on above: Result Comment: 3.3 - 4.4 LOW RISK 4.4 - 7.1 AVERAGE RISK 7.1 - 11.0 MODERATE RISK >11.0 HIGH RISK Performed By: #### C MP, LIPID #### [facility] [address] [place] [address] Dr. Virgil Curiel Cholesterol [Mass/Vol] 151 mg/dL Normal <=200 [facility] Comment on above: Performed By: #### C MP, LIPID #### [facility] [address] [address] [address] Virgil Curiel Cholesterol in HDL [Mass/Vol] 56 mg/dL Normal 40-60 [facility] Comment on above: Performed By: #### C MP, LIPID #### [facility] [address] [address] [address] Virgil Curiel Cholesterol in LDL [Mass/Vol] 74.0 mg/dL Normal [facility] Comment on above: Performed By: #### C MP, LIPID #### [facility] [address] [address] [address] Virgil Curiel Cholesterol.total/C holesterol in HDL [Mass ratio] 2.7 {ratio} Normal [facility] Comment on above: Performed By: #### C MP, LIPID #### [facility] [address] [address] [address] Virgil Curiel HDL NORMAL > or = 60 mg/dl - LO W CARDIOVASCULAR RISK <40 mg/dl - HIGH CARDIOVASCULAR RISK Normal [facility] Comment on above: Performed By: #### C MP, LIPID #### [facility] [address] [address] [address] Virgil Curiel LDL CALC NORMAL SEE BELOW Normal [facility] Comment on above: Result Comment: <100 mg/dl OPTIMAL 100 - 129 mg/dl NEAR OR ABOVE OPTIMAL 130 - 159 mg/dl BORDERLINE HIGH 160 - 189 mg/dl HIGH >190 mg/dl VERY HIGH Performed By: #### C MP, LIPID #### [facility] [address] [address] [address] Virgil Curiel Triglyceride [Mass/Vol] 105 mg/dL Normal <=150 [facility] Comment on above: Performed By: #### C MP, LIPID #### [facility] [address] [address] [address] Virgil Curiel VLDL CALC 21.0 mg/dL Normal [facility] Comment on above: Performed By: #### C MP, LIPID #### [facility] [address] [address] [address] Virgil Curiel MG MAMM SCREEN 3D CAM CADon 05-16-2022 MG MAMM SCREEN 3D CAM CAD Patient: NNEKA GARCIA Exam Date: 05/16/2022 : 1955 Gender:F Ordering : [employer] Admission #: [id number] Family : Order #: [id number] CLICK HERE TO VIEW EXAM RADIOLOGY REPORT [...] CHEMOTHERAPY AND RADIATION Family Cancers None LOCATION: [facility] BREAST COMPOSITION: Heterogeneously dense,which may obscure small [...] Hicks MD on 05/16/2022 at 09:01 Normal [facility] MICROALBUMIN, RAND URon 05-04 mALB <1.3 Normal <=30.0 [facility] Comment on above: Performed By: #### M ALBR ####[facility] [address] [address]Dr. Virgil Curiel PROF 14(COMP METB)on 023 Albumin [Mass/Vol] 4.0 g/dL Normal 3.4-5.0 [facility] Comment on above: Performed By: #### C MP, LIPID #### [facility] [address] [address] [address] Virgil Curiel Albumin/Globulin [Mass ratio] 1.0 {ratio} Normal [facility] Comment on above: Performed By: #### C MP, LIPID #### [facility] [address] [address] [address] Virgil Curiel ALP [Catalytic activity/Vol] 87 U/L Normal 46-116 [facility] Comment on above: Performed By: #### C MP, LIPID #### [facility] [address] [address] [address] Virgil Curiel ALT [Catalytic activity/Vol] 23 U/L Normal 14-59 [facility] Comment on above: Performed By: #### C MP, LIPID #### [facility] [address] [address] [address] Virgil Curiel Anion gap [Moles/Vol] 12.8 mmol/L Normal [facility] Comment on above: Performed By: #### C MP, LIPID #### [facility] [address] [place] [address] Dr. Virgil Curiel AST [Catalytic activity/Vol] 17 U/L Normal 15-37 [facility] Comment on above: Performed By: #### C MP, LIPID #### [facility] [address] [address] [address] Virgil Curiel Bilirubin [Mass/Vol] 0.7 mg/dL Normal 0.2-1.0 [facility] Comment on above: Performed By: #### C MP, LIPID #### [facility] [address] [place] [address] Dr. Virgil Curiel Calcium [Mass/Vol] 9.2 mg/dL Normal 8.5-10.1 [facility] Comment on above: Performed By: #### C MP, LIPID #### [facility] [address] [place] [address] Dr. Virgil Curiel Chloride [Moles/Vol] 101 mmol/L Normal 98-107 [facility] Comment on above: Performed By: #### C MP, LIPID #### [facility] [address] [place] [address] Dr. Virgil Curiel CO2 [Moles/Vol] 34.0 mmol/L Critically high 21.0-32.0 [facility] Comment on above: Performed By: #### C MP, LIPID #### [facility] [address] [place] [address] Dr. Virgil Curiel Creatinine [Mass/Vol] 0.68 mg/dL Normal 0.55-1.02 [facility] Comment on above: Performed By: #### C MP, LIPID #### [facility] [address] [place] [address] Dr. Virgil Curiel EGFR-AF [place] >60 Normal >=60 [facility] Comment on above: Performed By: #### C MP, LIPID #### [facility] [address] [place] [address] Dr. Virgil Curiel EGFR-NON AF [place] >60 Normal >=60 [facility] Comment on above: Performed By: #### C MP, LIPID #### [facility] [address] [place] [address] Dr. Virgil Curiel Globulin (S) [Mass/Vol] 3.9 g/dL Normal [facility] Comment on above: Performed By: #### C MP, LIPID #### [facility] [address] [place] [address] Dr. Virgil Curiel Glucose [Mass/Vol] 137 mg/dL Critically high 74-106 [facility] Comment on above: Performed By: #### C MP, LIPID #### [facility] [address] [place] [address] Dr. Virgil Curiel Potassium [Moles/Vol] 3.8 mmol/L Normal 3.5-5.1 [facility] Comment on above: Performed By: #### C MP, LIPID #### [facility] [address] [place] [address] Dr. Virgil Curiel Protein [Mass/Vol] 7.9 g/dL Normal 6.4-8.2 [facility] Comment on above: Performed By: #### C MP, LIPID #### [facility] [address] [place] [address] Dr. Virgil Curiel Sodium [Moles/Vol] 144 mmol/L Normal 136-145 [facility] Comment on above: Performed By: #### C MP, LIPID #### [facility] [address] [place] [address] Dr. Virgil Curiel Urea nitrogen [Mass/Vol] 14.0 mg/dL Normal 7.0-18.0 [facility] Comment on above: Performed By: #### C MP, LIPID #### [facility] [address] [place] [address] Dr. Virgil Curiel Urea nitrogen/Creatinine [Mass ratio] 20.6 mg/mg Normal [facility] Comment on above: Performed By: #### C MP, LIPID #### [facility] [address] [place] [address] Dr. Virgil Curiel UA RANDOM W/MICROSCOPICon BACTERIA NONE SEEN Normal NONE SEEN [facility] Comment on above: Performed By: #### U AMIC #### [facility] [address] [address] [address] Virgil Curiel Bilirubin Ql (U) Negative Normal NEGATIVE [facility] Comment on above: Performed By: #### U AMIC #### [facility] [address] [address] [address] Virgil Curiel CAST NONE SEEN Normal NONE SEEN [facility] Comment on above: Performed By: #### U AMIC #### [facility] [address] [address] [address] Virgil Curiel Clarity (U) CLEAR Normal CLEAR [facility] Comment on above: Performed By: #### U AMIC #### [facility] [address] [place] [address] Dr. Virgil Curiel Color (U) YELLOW Normal YELLOW [facility] Comment on above: Performed By: #### U AMIC #### [facility] [address] [address] [address] Virgil Curiel Crystals LM Nom (Urine sed) NONE SEEN Normal NONE SEEN [facility] Comment on above: Performed By: #### U AMIC #### [facility] [address] [address] [address] Virgil Curiel Epithelial cells LM Ql (Urine sed) NONE SEEN Normal NONE SEEN /RARE [facility] Comment on above: Performed By: #### U AMIC #### [facility] [address] [address] [address] Virgil Curiel Glucose Ql (U) 1000 mg/dl Abnormal NEGATIVE [facility] Comment on above: Performed By: #### U AMIC #### [facility] [address] [address] [address] Virgil Curiel Hemoglobin Ql (U) TRACE-INTACT Abnormal NEGATIVE [facility] Comment on above: Performed By: #### U AMIC #### [facility] [address] [place] [address] Dr. Virgil Curiel Ketones Ql (U) 15 mg/dl Abnormal NEGATIVE [facility] Comment on above: Performed By: #### U AMIC #### [facility] [address] [address] [address] Virgil Curiel LEUKOCYTES Negative Normal NEGATIVE [facility] Comment on above: Performed By: #### U AMIC #### [facility] [address] [address] [address] Virgil Curiel MUCOUS NONE SEEN Normal NONE SEEN [facility] Comment on above: Performed By: #### U AMIC #### [facility] [address] [address] [address] Virgil Curiel Nitrite Ql (U) Negative Normal NEGATIVE [facility] Comment on above: Performed By: #### U AMIC #### [facility] [address] [place] [address] Dr. Virgil Curiel pH (U) 5.5 [pH] Normal 5-9 [facility] Comment on above: Performed By: #### U AMIC #### [facility] [address] [place] [address] Dr. Virgil Curiel RBC 0-2 Normal 0-2 [facility] Comment on above: Performed By: #### U AMIC #### [facility] [address] [place] [address] Dr. Virgil Curiel SPEC GRAVITY 1.020 Normal 1.005-<=1.025 [facility] Comment on above: Performed By: #### U AMIC #### [facility] [address] [place] [address] Dr. Virgil Curiel UA PROTEIN Negative Normal NEGATIVE/ TRACE [facility] Comment on above: Performed By: #### U AMIC #### [facility] [address] [place] [address] Dr. Virgil Curiel Urobilinogen Qn (U) 1.0 {Jaden'U}/dL Normal 0.2 - 1. 0 [facility] Comment on above: Performed By: #### U AMIC #### [facility] [address] [place] [address] Dr. Virgil Curiel WBC NONE SEEN Normal NONE SEEN [facility] Comment on above: Performed By: #### U AMIC #### [facility] [address] [place] [address] Dr. Virgil Curiel VITAMIN D 25 OHon 05-16-2022 VIT D 25-OH 62.7 ng/mL Normal [facility] Comment on above: Performed By: #### V ITAD #### [facility] [address] [place] [address] Dr. Virgil Curiel VIT D RANGES SEE BELOW Normal [facility] Comment on above: Result Comment: <20 ng/mL Vit D deficient 20 - <30 ng/mL Vit D insufficient 30 - 100 ng/mL Vit D sufficient >100 ng/mL Potential Toxicity Performed By: #### V ITAD #### [facility] [address] [place] [address] Dr. Virgil Curiel XR DEXA BONE DENSITYon 05-16 XR DEXA BONE DENSITY DEXA Bone Density Study CLINICAL: Evaluate bone mineral density. Postmenopausal COMPARISON: 03/30/2020 FINDINGS: The bone density study was assessed by dual-energy x-ray absorptiometry with the [employer] scanner. The test results are expressed in [...] by: JOSE LEE Date: 2022-05-16 11:43 Normal [facility] Tobacco Screening.on 023 Adult depression screening assessment No [facility] y 250 DO Work Phone: Fall risk assessment a) No falls within the last year [facility] y 250 DO Work Phone: Tobacco use status CP b) No [facility] y 250 DO Work Phone: Outside Colonoscopyon 2021 Outside Colonoscopy [id number]#[id number]: 127 Normal [facility] Reminderson 12-09-2021 Reminders - From: Weider RN IMAGING, Christy N To: GSN - Clinical; Sent: 12/09/2021 13:09:21 EDT Show up: 11/07/2026 07:00:00 EDT Subject: colonoscopy recall Due Date/Time: 12/08/2026 07:00:00 EDT Reminder/Recall Patient is due for colonoscopy 12/08/2026 due to history of rectal tubulovillous adenoma. Normal [facility] POINT OF CARE GLUCOSEon Glucose [Mass/Vol] 163 mg/dL Critically high 74-106 T [facility] Comment on above: Performed By: #### P OCGLUC #### [facility] [address] [place] [address] Dr. Virgil Curiel Lab Reportson 12-07-2021 Lab Reports [id number]#[id number]: 127 Normal [facility] Covid-19 PCR (CVDTB)on SARS-CoV-2 (COVID-19) RNA MOISÉS+probe Ql (Unsp spec) Not detected Normal NOT DETECTED [facility] Comment on above: Result Comment: This test is not yet approved or cleared by the [place] FDA. When there are no FDA-approved or cleared tests available, and other criteria are met, FDA can make tests available under an emergency access mechanism called an Emergency Use Authorization (EUA). The EUA for this test is supported by the [place] of Health and Human Service's (HHS's) declaration [...] consistent with SARS-CoV-2. Performed By: #### C VDTBH #### [facility] [address] [place] [address] Dr. Virgil Curiel Pre-Certification Formon Pre-Certification Form [id number]#1.00C D:127 [facility] Consent for Procedure/Surger yon 11-11-2021 Consent for Procedure/Surgery [id number]#1.00CD: 127 Normal [facility] Ambulatory Visit Summaryon 0 11-09-2021 Ambulatory Visit [...] adenoma of rectum Vitamin D deficiency Normal [facility] Physician Referralon 022 Physician Referral [id number]#[id number]: 127 Normal [facility] GLYCOHEMOGLOBIN A1Con 2021 ADA RECOMMENDATION SEE BELOW Normal [facility] Comment on above: Result Comment: ADA RECOMMENDED LIMIT 4.0 - 6.0 ADA THERAPEUTIC TARGET < 7.0 ACTION SUGGESTED > 7.0 Performed By: #### A 1C #### [facility] [address] [place] [address] Dr. Virgil Curiel Glucose [Mass/Vol] 154 mg/dL Normal [facility] Comment on above: Performed By: #### A 1C #### [facility] [address] [place] [address] Dr. Virgil Curiel HbA1c (Bld) [Mass fraction] 7.0 % Critically high 4.5-6.2 [facility] Comment on above: Performed By: #### A 1C #### [facility] [address] [place] [address] Dr. Virgil Curiel PROF CHEM 8 (BAS METB)on Anion gap [Moles/Vol] 11.2 mmol/L Normal [facility] Comment on above: Performed By: #### B MP #### [facility] [address] [place] [address] Dr. Virgil Curiel Calcium [Mass/Vol] 9.1 mg/dL Normal 8.5-10.1 [facility] Comment on above: Performed By: #### B MP #### [facility] [address] [place] [address] Dr. Virgil Curiel Chloride [Moles/Vol] 100 mmol/L Normal 98-107 [facility] Comment on above: Performed By: #### B MP #### [facility] [address] [place] [address] Dr. Virgil Curiel CO2 [Moles/Vol] 32.6 mmol/L Critically high 21.0-32.0 [facility] Comment on above: Performed By: #### B MP #### [facility] [address] [place] [address] Dr. Virgil Curiel Creatinine [Mass/Vol] 0.73 mg/dL Normal 0.55-1.02 [facility] Comment on above: Performed By: #### B MP #### [facility] [address] [address] [address] Virgil Curiel EGFR-AF [place] >60 Normal >=60 [facility] Comment on above: Performed By: #### B MP #### [facility] [id number] Virgil Curiel EGFR-NON AF [place] >60 Normal >=60 [facility] Comment on above: Performed By: #### B MP #### [facility] [address] [address] [address] Virgil Curiel Glucose [Mass/Vol] 107 mg/dL Critically high 74-106 [facility] Comment on above: Performed By: #### B MP #### [facility] [address] [address] [address] Virgil Curiel Potassium [Moles/Vol] 3.8 mmol/L Normal 3.5-5.1 [facility] Comment on above: Performed By: #### B MP #### [facility] [address] [address] [address] Virgil Curiel Sodium [Moles/Vol] 140 mmol/L Normal 136-145 [facility] Comment on above: Performed By: #### B MP #### [facility] [address] [address] [address] Virgil Curiel Urea nitrogen [Mass/Vol] 17.0 mg/dL Normal 7.0-18.0 [facility] Comment on above: Performed By: #### B MP #### [facility] [address] [address] [address] Virgil Curiel Urea nitrogen/Creatinine [Mass ratio] 23.3 mg/mg Normal [facility] Comment on above: Performed By: #### B MP #### [facility] [address] [place], [place] [id number] Dr. Virgil Curiel Office Visit (Cardiology)on 04-05-2021 [...] Instructions By signing my name below, I, Deborah Harjinder DIAZ,Veenaibmary, attest that this documentation has been prepared [...] 1 TABLET DAILY. Vitamin D 50 MCG (1999 [place]) Oral TabletTake 1 tablet daily Allergies Medication [...] Rate56, R Radial Pulse QualityRegular, R Radial Omuerdux032, RUE, Sitting Bfjzrvbtn24, RUE, Sitting Height5 ft 3 in Vtpgfz244 lb 9.6 oz BMI Rsbjzoprpb69.86 kg/m2 BSA Calculated1.72 Tobacco Useb) No Fall [...] Apr 05 2021 11:45AM EST (Author) Normal [employer] Tobacco Screening.on 022 Fall risk assessment a) No falls within the last year [facility] y 250 DO Work Phone: Heart Rate Regular [facility] y 250 DO Work Phone: Tobacco use status [facility] b) No [facility] y 250 DO Work Phone: Basic Metabolic Panelon Anion gap [Moles/Vol] 12 mmol/L 9 - 17 mmol/L [facility] Work Phone: Bun/Cre Ratio 20 [facility] [employer] Work Phone: Calcium [Mass/Vol] 9.5 mg/dL 8.6 - 10. 4 mg/dL [facility] Work Phone: Chloride [Moles/Vol] 99 mmol/L 98 - 107 mmol/L [facility] Work Phone: CO2 [Moles/Vol] 30 mmol/L 20 - 31 mmol/L [facility] Work Phone: Creatinine [Mass/Vol] 0.71 mg/dL 0.5 - 0.9 mg/dL [facility] [employer] Browser Phone: GFR >60 >60 mL/min [facility] Work Phone: GFR Non- >60 >60 mL/min [facility] Work Phone: Glucose [Mass/Vol] 102 mg/dL High 70 - 99 mg/dL [facility] [place] Work Phone: Interpretation and review of laboratory results Abnormal [facility] Frequent Browser Phone: Potassium [Moles/Vol] 4.3 mmol/L 3.7 - 5.3 mmol/L [facility] [place] Work Phone: Sodium [Moles/Vol] 141 mmol/L 135 - 144 mmol/L [facility] [place] Work Phone: Urea nitrogen [Mass/Vol] 14 mg/dL 8 - 23 mg/dL [facility] [place] Work Phone: Basic Metabolic Profon 05-08 (cont.) Normal [facility] Comment on above: Result Comment: Aver age GFR for 60-69 years old: 85 mL/min/1.73sq m Chronic Kidney Disease: <60 mL/min/1.73sq m Kidney failure: <15 mL/min/1.73sq m eGFR calculated using average adult body mass. Additional eGFR calculator available at: http://www.Opsmatic.GutCheck/multiple_crcl_2012.htm Performed By: #### C BC, BMP, FE, LIPR, GLYHGB #### [facility] [address] [place], [place] [id number] [employer]: Sharif Sims MD Anion gap [Moles/Vol] 12 mmol/L Normal 9-17 [facility] Comment on above: Performed By: #### C BC, BMP, FE, LIPR, GLYHGB #### [facility] [address] [place] [address] [employer]: Sharif Sims MD BUN/CRE Ratio 20 Normal 9-20 [facility] Comment on above: Performed By: #### C BC, BMP, FE, LIPR, GLYHGB #### [facility] [address] [place], [place] [id number] [employer]: Sharif Sims MD Calcium [Mass/Vol] 9.5 mg/dL Normal 8.6-10.4 [facility] Comment on above: Performed By: #### C BC, BMP, FE, LIPR, GLYHGB #### [facility] [address] [place], [place] [id number] [employer]: Sharif Sims MD Chloride [Moles/Vol] 99 mmol/L Normal 98-107 [facility] Comment on above: Performed By: #### C BC, BMP, FE, LIPR, GLYHGB #### [facility] [address] [place] [address] [employer]: Sharif Sims MD CO2 [Moles/Vol] 30 mmol/L Normal 20-31 [facility] Comment on above: Performed By: #### C BC, BMP, FE, LIPR, GLYHGB #### [facility] [address] [place], [place] [id number] [employer]: Sharif Sims MD Creatinine [Mass/Vol] 0.71 mg/dL Normal 0.50-0.90 [facility] Comment on above: Performed By: #### C BC, BMP, FE, LIPR, GLYHGB #### [facility] [address] [place], [place] [id number] [employer]: Sharif Sims MD GFR, Amer >60 Normal >60 [facility] Comment on above: Performed By: #### C BC, BMP, FE, LIPR, GLYHGB #### [facility] [address] [place] [address] [employer]: Sharif Sims MD GFR,non Amer >60 Normal >60 [facility] Comment on above: Performed By: #### C BC, BMP, FE, LIPR, GLYHGB #### [facility] [address] [place], [place] [id number] [employer]: Sharif Sims MD Glucose [Mass/Vol] 102 mg/dL High 70-99 [facility] Comment on above: Performed By: #### C BC, BMP, FE, LIPR, GLYHGB #### [facility] [address] [place] [address] [employer]: Sharif Sims MD Potassium [Moles/Vol] 4.3 mmol/L Normal 3.7-5.3 [facility] Comment on above: Performed By: #### C BC, BMP, FE, LIPR, GLYHGB #### [facility] [address] [place] [address] [employer]: Sharif Sims MD Sodium [Moles/Vol] 141 mmol/L Normal 135-144 [facility] Comment on above: Performed By: #### C BC, BMP, FE, LIPR, GLYHGB #### [facility] [address] [place] [address] [employer]: Sharif Sims MD Staging: Normal [facility] Comment on above: Result Comment: Stag e 1: Some kidney damage normal GFR Stage 2: Mild kidney damage GFR 60-89 Stage 3: Moderate kidney damage GFR 30-59 Stage 4: Severe kidney damage GFR 15-29 Stage 5: Severe kidney damage GFR <15 ESRD - chronic treatment by dialysis or transplant Performed By: #### C BC, BMP, FE, LIPR, GLYHGB #### [facility] [address] [place] [address] [employer]: Sharif Sims MD Urea nitrogen [Mass/Vol] 14 mg/dL Normal 8-23 [facility] Comment on above: Performed By: #### C BC, BMP, FE, LIPR, GLYHGB #### [facility] [address] [place] [address] [employer]: Sharif Sims MD CBC Auto Differentialon Basophils (Bld) [#/Vol] 0.06 10*3/uL [facility] Phone: Basophils/100 WBC (Bld) 1 % 0 - 2 % [employer] Phone: Differential Type NOT REPORTED [facility] Phone: Eosinophils (Bld) [#/Vol] 1.09 10*3/uL High [facility] Phone: Eosinophils/100 WBC (Bld) 12 % High 1 - 4 % [facility] Phone: Erythrocyte distribution width (RBC) [Ratio] 12.9 % 11.8 - 14.4 % [employer] Phone: Hematocrit (Bld) [Volume fraction] 43.8 % 36.3 - 47.1 % [employer] Phone: Hemoglobin (Bld) [Mass/Vol] 13.8 g/dL 11.9 - 15.1 g/dL [employer] Phone: Immature granulocytes (Bld) [#/Vol] 0 % 0 [employer] Phone: Immature granulocytes (Bld) [#/Vol] 0.03 10*3/uL [employer] Phone: Interpretation and review of laboratory results Abnormal [employer] Phone: Lymphocytes (Bld) [#/Vol] 2.38 10*3/uL [employer] Phone: Lymphocytes/100 WBC (Bld) 26 % 24 - 43 % [employer] Phone: MCH (RBC) [Entitic mass] 29.2 pg 25.2 - 33.5 pg [employer] Phone: MCHC (RBC) [Mass/Vol] 31.5 g/dL 28.4 - 34.8 g/dL [employer] Phone: MCV (RBC) [Entitic vol] 92.6 fL 82.6 - 102.9 fL [employer] Phone: Monocytes (Bld) [#/Vol] 0.72 10*3/uL [employer] Phone: Monocytes/100 WBC (Bld) 8 % 3 - 12 % [employer] Phone: Platelet mean volume (Bld) [Entitic vol] 9.3 fL 8.1 - 13.5 fL [employer] Phone: Platelets (Bld) [#/Vol] NOT REPORTED [employer] Phone: Platelets (Bld) [#/Vol] 367 10*3/uL [employer] Phone: RBC (Bld) [#/Vol] 4.73 10*6/uL 3.95 - 5.1 1 m/uL [employer] Phone: RBC morphology finding Nom (Bld) NOT REPORTED [employer] Phone: Segmented neutrophils/100 WBC (Bld) 53 % 36 - 65 % [facility] [place] Work Phone: Segs Absolute 4.85 [facility] [facility] Work Phone: WBC (Bld) [#/Vol] 9.1 10*3/uL [facility] Work Phone: WBC (Bld) [#/Vol] 0.0 10*3/uL 0.0 per 10 0 WBC [facility] Work Phone: WBC Morphology NOT REPORTED [facility] Work Phone: CBC with Diffon 05-08-2019 Abs. Basophil 0.06 k/uL Normal 0.00-0.20 [facility] Comment on above: Performed By: #### C BC, BMP, FE, LIPR, GLYHGB #### [facility] [address] [place] [address] [place] [id number] [employer]: Sharif Sims MD Abs.Imm.Granulocyte 0.03 k/uL Normal 0.00-0.30 [facility] Comment on above: Performed By: #### C BC, BMP, FE, LIPR, GLYHGB #### [address] [place] [phone] [employer]: Sharif Sims MD Abs.Neutrophil (Seg) 4.85 k/uL Normal 1.50-8.10 [facility] Comment on above: Performed By: #### C BC, BMP, FE, LIPR, GLYHGB #### [facility] [address] [place], [place] [id number] [employer]: Sharif Sims MD Basophils/100 WBC (Bld) 1 % Normal 0-2 [facility] Comment on above: Performed By: #### C BC, BMP, FE, LIPR, GLYHGB #### [facility] [address] [place] [id number] [employer]: Sharif Sims MD Eosinophils (Bld) [#/Vol] 1.09 10*3/uL High 0.00-0.44 [facility] Comment on above: Performed By: #### C BC, BMP, FE, LIPR, GLYHGB #### [facility] [address] [place], [place] [address] [employer]: Sharif Sims MD Eosinophils/100 WBC (Bld) 12 % High 1-4 [facility] Comment on above: Performed By: #### C BC, BMP, FE, LIPR, GLYHGB #### [facility] [address] [place], [place] [id number] [employer]: Sharif Sims MD Erythrocyte distribution width (RBC) [Ratio] 12.9 % Normal 11.8-14.4 [facility] Comment on above: Performed By: #### C BC, BMP, FE, LIPR, GLYHGB #### [address] [place] [address] [employer]: Sharif Sims MD Hematocrit (Bld) [Volume fraction] 43.8 % Normal 36.3-47.1 [facility] Comment on above: Performed By: #### C BC, BMP, FE, LIPR, GLYHGB #### [address] [place] [phone] [employer]: Sharif Sims MD Hemoglobin (Bld) [Mass/Vol] 13.8 g/dL Normal 11.9-15.1 [facility] Comment on above: Performed By: #### C BC, BMP, FE, LIPR, GLYHGB #### [facility] [address] [place] [phone] [employer]: Sharif Sims MD Immature granulocytes (Bld) [#/Vol] 0 % Normal 0 [facility] Comment on above: Performed By: #### C BC, BMP, FE, LIPR, GLYHGB #### [facility] [address] [place] [facility]83 [employer]: Sharif Sims MD Lymphocytes (Bld) [#/Vol] 2.38 10*3/uL Normal 1.10-3.70 [facility] Comment on above: Performed By: #### C BC, BMP, FE, LIPR, GLYHGB #### [facility] [address] [place] [facility]83 [employer]: Sharif Sims MD Lymphocytes/100 WBC (Bld) 26 % Normal 24-43 [facility] Comment on above: Performed By: #### C BC, BMP, FE, LIPR, GLYHGB #### [facility] [address] [place] [phone] [employer]: Sharif Sims MD MCH (RBC) [Entitic mass] 29.2 pg Normal 25.2-33.5 [facility] Comment on above: Performed By: #### C BC, BMP, FE, LIPR, GLYHGB #### [facility] [address] [place] [phone] [employer]: Sharif Sims MD MCHC (RBC) [Mass/Vol] 31.5 g/dL Normal 28.4-34.8 [facility] Comment on above: Performed By: #### C BC, BMP, FE, LIPR, GLYHGB #### [facility] [address] [place], [facility]35 ( [employer]: Sharif Sims MD MCV (RBC) [Entitic vol] 92.6 fL Normal 82.6-102.9 [facility] Comment on above: Performed By: #### C BC, BMP, FE, LIPR, GLYHGB #### [facility] [address] [place] [address] [employer]: Sharif Sims MD Monocytes (Bld) [#/Vol] 0.72 10*3/uL Normal 0.10-1.20 [facility] Comment on above: Performed By: #### C BC, BMP, FE, LIPR, GLYHGB #### [facility] [address] [place], [place] [address] [employer]: Sharif Sims MD Monocytes/100 WBC (Bld) 8 % Normal 3-12 [facility] Comment on above: Performed By: #### C BC, BMP, FE, LIPR, GLYHGB #### [facility] [address] [place], [facility]83 [employer]: Sharif Sims MD Neutrophil (Seg) 53 % Normal 36-65 [facility] Comment on above: Performed By: #### C BC, BMP, FE, LIPR, GLYHGB #### [facility] [address] [place], [facility]83 [employer]: Sharif Sims MD NRBC Automated 0.0 per 100 WBC Normal 0.0 [facility] Comment on above: Performed By: #### C BC, BMP, FE, LIPR, GLYHGB #### [facility] [address] [place], [facility]83 [employer]: Sharif Sims MD Platelet mean volume (Bld) [Entitic vol] 9.3 fL Normal 8.1-13.5 [facility] Comment on above: Performed By: #### C BC, BMP, FE, LIPR, GLYHGB #### [facility] [address] [place], [facility]83 [employer]: Sharif Sims MD Platelets (Bld) [#/Vol] 367 10*3/uL Normal 138-453 [facility] Comment on above: Performed By: #### C BC, BMP, FE, LIPR, GLYHGB #### [facility] [address] [place] [address] [employer]: Sharif Sims MD RBC (Bld) [#/Vol] 4.73 10*6/uL Normal 3.95-5.11 [facility] Comment on above: Performed By: #### C BC, BMP, FE, LIPR, GLYHGB #### [facility] [address] [place], [place] [id number] [employer]: Sharif Sims MD WBC (Bld) [#/Vol] 9.1 10*3/uL Normal 3.5-11.3 [facility] Comment on above: Performed By: #### C BC, BMP, FE, LIPR, GLYHGB #### [facility] [address] [place], [place] [phone] [employer]: Sharif Smis MD Auto Diff Performed NOT REPORTED Normal [facility] Comment on above: Performed By: #### C BC, BMP, FE, LIPR, GLYHGB #### [address] [place], [place] [address] [employer]: Sharif Sims MD Platelets (Bld) [#/Vol] NOT REPORTED Normal [facility] Comment on above: Performed By: #### C BC, BMP, FE, LIPR, GLYHGB #### [address] [place], [place] [phone] [employer]: Sharif Sims MD RBC morphology finding Nom (Bld) NOT REPORTED Normal [facility] Comment on above: Performed By: #### C BC, BMP, FE, LIPR, GLYHGB #### [address] [place], [place] [address]83 [employer]: Sharif Sims MD WBC Morphology NOT REPORTED Normal [facility] Comment on above: Performed By: #### C BC, BMP, FE, LIPR, GLYHGB #### [facility] [address] [place], [place] [address]83 [employer]: Sharif Sims MD Hemoglobin A1Con 05-08-2019 HbA1c (Bld) [Mass fraction] 6.5 % High 4.8-5.9 [facility] Comment on above: Performed By: #### C BC, BMP, FE, LIPR, GLYHGB #### [facility] [address] [place] [address] [employer]: Sharif Sims MD HbA1c (Bld) [Mass fraction] 140 mg/dL Normal [facility] Comment on above: Result Comment: The ADA and AACC recommend providing the estimated average glucose result to permit better patient understanding of their HBA1c result. Performed By: #### C BC, BMP, FE, LIPR, GLYHGB #### [facility] [address] [place] [address] [employer]: Sharif Sims MD Glucose [Mass/Vol] 140 mg/dL [facility] Phone: Comment on above: The ADA and AACC rec ommend providing the estimated average glucose result to permit better patient understanding of their HBA1c result. HbA1c (Bld) [Mass fraction] 6.5 % High 4.8 - 5.9 % [employer] Phone: Interpretation and review of laboratory results Abnormal [employer] Phone: Lipid Panelon 05-08-2019 Cholesterol [Mass/Vol] 133 mg/dL <200 [employer] Phone: Comment on above: Cholesterol Guidelines: <200 Desirable 200-240 Borderline >240 Undesirable Cholesterol in HDL [Mass/Vol] 52 mg/dL >40 [employer] Phone: Comment on above: HDL Guidelines: <40 Undesirable 40-59 Borderline >59 Desirable Cholesterol in LDL [Mass/Vol] 55 mg/dL 0 - 130 mg/dL [employer] Phone: Comment on above: LDL Guidelines: <100 Desirable 100-129 Near to/above Desirable 130-159 Borderline >159 Undesirable Direct (measured) LDL and calculated LDL are not interchangeable tests. Cholesterol in VLDL [Mass/Vol] NOT REPORTED 1 - 30 mg/dL [employer] Phone: Cholesterol.total/C holesterol in HDL [Mass ratio] 2.6 {ratio} <5 [facility] Work Phone: Triglyceride [Mass/Vol] 131 mg/dL <150 [facility] Work Phone: Comment on above: Triglyceride Guidelines: <150 Desirable 150-199 Borderline 200-499 High >499 Very high Based on AHA Guidelines for fasting triglyceride, January 2012. Lipid Profileon 05-08-2019 Cholesterol [Mass/Vol] 133 mg/dL Normal <200 [facility] Comment on above: Result Comment: Cholesterol Guidelines: <200 Desirable 200-240 Borderline >240 Undesirable Performed By: #### C BC, BMP, FE, LIPR, GLYHGB #### [facility] [address] [place] [address] [employer]: Sharif Sims MD Cholesterol in HDL [Mass/Vol] 52 mg/dL Normal >40 [facility] Comment on above: Result Comment: HDL Guidelines: <40 Undesirable 40-59 Borderline >59 Desirable Performed By: #### C BC, BMP, FE, LIPR, GLYHGB #### [facility] [address] [place] [address] [employer]: Sharif Sims MD Cholesterol in LDL [Mass/Vol] 55 mg/dL Normal 0-130 [facility] Comment on above: Result Comment: LDL Guidelines: <100 Desirable 100-129 Near to/above Desirable 130-159 Borderline >159 Undesirable Direct (measured) LDL and calculated LDL are not interchangeable tests. Performed By: #### C BC, BMP, FE, LIPR, GLYHGB #### [facility] [address] [place] [address] [employer]: Sharif Sims MD Cholesterol.total/C holesterol in HDL [Mass ratio] 2.6 {ratio} Normal <5 [facility] Comment on above: Performed By: #### C BC, BMP, FE, LIPR, GLYHGB #### [facility] [address] [place] [address] [employer]: Sharif Sims MD Triglyceride [Mass/Vol] 131 mg/dL Normal <150 [facility] Comment on above: Result Comment: Triglyceride Guidelines: <150 Desirable 150-199 Borderline 200-499 High >499 Very high Based on AHA Guidelines for fasting triglyceride, January 2012. Performed By: #### C BC, BMP, FE, LIPR, GLYHGB #### [facility] [address] [place] [address] [employer]: Sharif Sims MD Cholesterol in VLDL [Mass/Vol] NOT REPORTED Normal 05-02 [facility] Comment on above: Performed By: #### C BC, BMP, FE, LIPR, GLYHGB #### [facility] [address] [place] [address] [employer]: Sharif Sims MD Metabolic Panelon 05-08-2019 GFR/1.73 sq M predicted among non-blacks MDRD (S/P/Bld) [Vol rate/Area] [facility] Work Phone: Comment on above: Stage 1: [...] body mass. Additional eGFR calculator available at: http://www.Opsmatic.GutCheck/multiple_crcl_2012.htm Microalb.,Random Uron 2019 Creatinine [Mass/Vol] 189.8 mg/dL Normal 28.0-217.0 [facility] Comment on above: Performed By: #### C BC, BMP, FE, LIPR, GLYHGB #### [facility] [address] [place] [address] [employer]: Sharif Sims MD Microalb/Creat Ratio CANNOT BE CALCULATED Normal <25 [facility] Comment on above: Performed By: #### C BC, BMP, FE, LIPR, GLYHGB #### [address] [place] [address] [employer]: Sharif Sims MD Microalbumin conc. <12 Normal <21 [facility] Comment on above: Performed By: #### C BC, BMP, FE, LIPR, GLYHGB #### [facility] [address] [place] [address] [place] [address] [employer]: Sharif Sims MD Microalbumin, Uron 0 Albumin/Creatinine DL <= 20 mg/L (24H U) [Mass ratio] <12 <21 mg/L [facility] Phone: Albumin/Creatinine DL <= 20 mg/L (U) [Ratio] CANNOT BE CALCULATED <25 mcg/mg creat [facility] Phone: Creatinine [Mass/Vol] 189.8 mg/dL 28 - 217 mg/dL [facility] Phone: CARDIAC STRESS TESTon 2018 CARDIAC STRESS TEST [address] [id number] CARDIAC STRESS TEST PATIENT NAME: NNEKA GARCIA : 1955 MED REC NO: [id number] ROOM: 0318 ACCOUNT NO: [id number] ADMIT DATE: 03/11/2019 PROVIDER: Richie Multani CARDIOVASCULAR DIAGNOSTIC DEPARTMENT DATE OF STUDY: 03/12/2019 ORDERING PROVIDER: Mary Watson MD PRIMARY CARE PROVIDER: Magda Carballo, ENGINEERING CONSULTANT INTERPRETING PHYSICIAN: Richie Multani MD EXERCISE MYOCARDIAL [...] being on a beta pierre. RICHIE MULTANI AXEL/MARLIN_KT Doc#: Unknown CC: Mary Watson Shawn M. CAR RECORD CLERK-ENGINEERING CONSULTANT Normal [facility] CBCon 03-12-2019 Erythrocyte distribution width (RBC) [Ratio] 13.5 % Normal 11.8-14.4 [facility] Comment on above: Performed By: #### C BC, BMP, FE, LIPR, GLYHGB #### [facility] [address] [place] [address] [employer]: Sharif Sims MD Hematocrit (Bld) [Volume fraction] 39.3 % Normal 36.3-47.1 [facility] Comment on above: Performed By: #### C BC, BMP, FE, LIPR, GLYHGB #### [facility] [address] [place] [address] [employer]: Sharif Sims MD Hemoglobin (Bld) [Mass/Vol] 12.3 g/dL Normal 11.9-15.1 [facility] Comment on above: Performed By: #### C BC, BMP, FE, LIPR, GLYHGB #### [facility] [address] [place], [facility]83 [employer]: Sharif Sims MD MCH (RBC) [Entitic mass] 28.6 pg Normal 25.2-33.5 [facility] Comment on above: Performed By: #### C BC, BMP, FE, LIPR, GLYHGB #### [facility] [address] [place] [address] [employer]: Sharif Sims MD MCHC (RBC) [Mass/Vol] 31.3 g/dL Normal 28.4-34.8 [facility] Comment on above: Performed By: #### C BC, BMP, FE, LIPR, GLYHGB #### [facility] [address] [place], [place] [address] [employer]: Sharif Sims MD MCV (RBC) [Entitic vol] 91.4 fL Normal 82.6-102.9 [facility] Comment on above: Performed By: #### C BC, BMP, FE, LIPR, GLYHGB #### [facility] [address] [place] [id number] [employer]: Sharif Sims MD NRBC Automated 0.0 per 100 WBC Normal 0.0 [facility] Comment on above: Performed By: #### C BC, BMP, FE, LIPR, GLYHGB #### [address] [place] [phone] [employer]: Sharif Sims MD Platelet mean volume (Bld) [Entitic vol] 9.1 fL Normal 8.1-13.5 [facility] Comment on above: Performed By: #### C BC, BMP, FE, LIPR, GLYHGB #### [address] [place], [facility]83 [employer]: Sharif Sims MD Platelets (Bld) [#/Vol] 344 10*3/uL Normal 138-453 [facility] Comment on above: Performed By: #### C BC, BMP, FE, LIPR, GLYHGB #### [address] [place], [facility]83 [employer]: Sharif Sims MD RBC (Bld) [#/Vol] 4.30 10*6/uL Normal 3.95-5.11 [facility] Comment on above: Performed By: #### C BC, BMP, FE, LIPR, GLYHGB #### [address] [place] [address] [employer]: Sharif Sims MD WBC (Bld) [#/Vol] 6.9 10*3/uL Normal 3.5-11.3 [facility] Comment on above: Performed By: #### C BC, BMP, FE, LIPR, GLYHGB #### [facility] [address] [place] [address] [employer]: Sharif Sims MD Lipid Profileon 03-12-2019 Cholesterol [Mass/Vol] 134 mg/dL Normal <200 [facility] Comment on above: Result Comment: Cholesterol Guidelines: <200 Desirable 200-240 Borderline >240 Undesirable Performed By: #### C BC, BMP, FE, LIPR, GLYHGB #### [facility] [address] [place] [address] [employer]: Sharif Sims MD Cholesterol in HDL [Mass/Vol] 41 mg/dL Normal >40 [facility] Comment on above: Result Comment: HDL Guidelines: <40 Undesirable 40-59 Borderline >59 Desirable Performed By: #### C BC, BMP, FE, LIPR, GLYHGB #### [facility] [address] [place] [address] [employer]: Sharif Sims MD Cholesterol in LDL [Mass/Vol] 59 mg/dL Normal 0-130 [facility] Comment on above: Result Comment: LDL Guidelines: <100 Desirable 100-129 Near to/above Desirable 130-159 Borderline >159 Undesirable Direct (measured) LDL and calculated LDL are not interchangeable tests. Performed By: #### C BC, BMP, FE, LIPR, GLYHGB #### [facility] [address] [place], [place] [id number] [employer]: Sharif Sims MD Cholesterol.total/C holesterol in HDL [Mass ratio] 3.3 {ratio} Normal <5 [facility] Comment on above: Performed By: #### C BC, BMP, FE, LIPR, GLYHGB #### [facility] [address] [place] [address] [employer]: Sharif Sims MD Triglyceride [Mass/Vol] 172 mg/dL High <150 [facility] Comment on above: Result Comment: Triglyceride Guidelines: <150 Desirable 150-199 Borderline 200-499 High >499 Very high Based on AHA Guidelines for fasting triglyceride, January 2012. Performed By: #### C BC, BMP, FE, LIPR, GLYHGB #### [facility] [address] [place] [address] [employer]: Sharif Sims MD Cholesterol in VLDL [Mass/Vol] NOT REPORTED Normal -30 [facility] Comment on above: Performed By: #### C BC, BMP, FE, LIPR, GLYHGB #### [facility] [address] [place] [address] [employer]: Sharif Sims MD Troponinon 03-12-2019 Troponin I.cardiac [Mass/Vol] Normal [facility] Comment on above: Result Comment: Refe [...] C BC, BMP, FE, LIPR, GLYHGB #### [facility] [address] [place] [address] [employer]: Sharif Sims MD Troponin I.cardiac [Mass/Vol] ng/mL Normal <0.03 [facility] Comment on above: Result Comment: Trop onin T results cannot be compared to Troponin-I results. Performed By: #### C BC, BMP, FE, LIPR, GLYHGB #### [facility] [address] [place] [address] [employer]: Sharif Sims MD Troponin I.cardiac [Mass/Vol] NOT REPORTED Normal 0-14 [facility] Comment on above: Performed By: #### C BC, BMP, FE, LIPR, GLYHGB #### [facility] [address] [place] [address] [employer]: Sharif Sims MD APTTon 03-11-2019 aPTT Coag (Bld) [Time] 20.4 s Low 23.2-34.4 [facility] Comment on above: Performed By: #### C BC, BMP, FE, LIPR, GLYHGB #### [facility] [address] [place] [address] [employer]: Sharif Sims MD Basic Metabolic Profon 03-11 (cont.) Normal [facility] Comment on above: Result Comment: Aver age GFR for 60-69 years old: 85 mL/min/1.73sq m Chronic Kidney Disease: <60 mL/min/1.73sq m Kidney failure: <15 mL/min/1.73sq m eGFR calculated using average adult body mass. Additional eGFR calculator available at: http://[email or web address]/multiple_crcl_2012.htm Performed By: #### C BC, BMP, FE, LIPR, GLYHGB #### [facility] [address] [place] [address] [employer]: Sharif Sims MD Anion gap [Moles/Vol] 13 mmol/L Normal - [facility] Comment on above: Performed By: #### C BC, BMP, FE, LIPR, GLYHGB #### [facility] [address] [place] [address] [employer]: Sharif Sims MD BUN/CRE Ratio 22 High - [facility] Comment on above: Performed By: #### C BC, BMP, FE, LIPR, GLYHGB #### [facility] [address] [place] [address] [employer]: Sharif Sims MD Calcium [Mass/Vol] 9.1 mg/dL Normal 8.6-10.4 [facility] Comment on above: Performed By: #### C BC, BMP, FE, LIPR, GLYHGB #### [facility] [address] [place] [address] [employer]: Sharif Sims MD Chloride [Moles/Vol] 97 mmol/L Low 98-107 [facility] Comment on above: Performed By: #### C BC, BMP, FE, LIPR, GLYHGB #### [facility] [address] [place] [address] [employer]: Sharif Sims MD CO2 [Moles/Vol] 30 mmol/L Normal 20-31 [facility] Comment on above: Performed By: #### C BC, BMP, FE, LIPR, GLYHGB #### [facility] [address] [place] [address] [employer]: Sharif Sims MD Creatinine [Mass/Vol] 0.60 mg/dL Normal 0.50-0.90 [facility] Comment on above: Performed By: #### C BC, BMP, FE, LIPR, GLYHGB #### [facility] [address] [place] [address] [employer]: Sharif Sims MD GFR, Amer >60 Normal >60 [facility] Comment on above: Performed By: #### C BC, BMP, FE, LIPR, GLYHGB #### [facility] [address] [place] [address] [employer]: Sharif Sims MD GFR,non Amer >60 Normal >60 [facility] Comment on above: Performed By: #### C BC, BMP, FE, LIPR, GLYHGB #### [facility] [address] [place] [address] [employer]: Sharif Sims MD Glucose [Mass/Vol] 79 mg/dL Normal 70-99 [facility] Comment on above: Performed By: #### C BC, BMP, FE, LIPR, GLYHGB #### [facility] [address] [place] [address] [employer]: Sharif Sims MD Potassium [Moles/Vol] 3.6 mmol/L Low 3.7-5.3 [facility] Comment on above: Performed By: #### C BC, BMP, FE, LIPR, GLYHGB #### [facility] [address] [place] [address] [employer]: Sharif Sims MD Sodium [Moles/Vol] 140 mmol/L Normal 135-144 [facility] Comment on above: Performed By: #### C BC, BMP, FE, LIPR, GLYHGB #### [address] [place] [address] [employer]: Sharif Sims MD Staging: Normal [facility] Comment on above: Result Comment: Stag e 1: Some kidney damage normal GFR Stage 2: Mild kidney damage GFR 60-89 Stage 3: Moderate kidney damage GFR 30-59 Stage 4: Severe kidney damage GFR 15-29 Stage 5: Severe kidney damage GFR <15 ESRD - chronic treatment by dialysis or transplant Performed By: #### C BC, BMP, FE, LIPR, GLYHGB #### [address] [place] [address] [employer]: Sharif Sims MD Urea nitrogen [Mass/Vol] 13 mg/dL Normal 8-23 [facility] Comment on above: Performed By: #### C BC, BMP, FE, LIPR, GLYHGB #### [address] [place] [address] [employer]: Sharif Sims MD CBC with Diffon 03-11-2019 Abs. Basophil 0.04 k/uL Normal 0.00-0.20 [facility] Comment on above: Performed By: #### C DP, BMP, TROPI #### [facility] [address] [place], [facility]83 [employer]: Sharif Sims MD Abs.Imm.Granulocyte <0.03 Normal 0.00-0.30 [facility] Comment on above: Performed By: #### C DP, BMP, TROPI #### [facility] [address] [place] [address] [employer]: Sharif Sims MD Abs.Neutrophil (Seg) 4.69 k/uL Normal 1.50-8.10 [facility] Comment on above: Performed By: #### C DP, BMP, TROPI #### [address] [place] [address] [employer]: Sharif Sims MD Basophils/100 WBC (Bld) 0 % Normal 0-2 [facility] Comment on above: Performed By: #### C DP, BMP, TROPI #### [address] [place], [place] [address] [employer]: Sharif Sims MD Eosinophils (Bld) [#/Vol] 0.43 10*3/uL Normal 0.00-0.44 [facility] Comment on above: Performed By: #### C DP, BMP, TROPI #### [address] [place] [address] [employer]: Sharif Sims MD Eosinophils/100 WBC (Bld) 5 % High 1-4 [facility] Comment on above: Performed By: #### C DP, BMP, TROPI #### [address] [place], [facility]83 [employer]: Sharif Sims MD Erythrocyte distribution width (RBC) [Ratio] 13.2 % Normal 11.8-14.4 [facility] Comment on above: Performed By: #### C DP, BMP, TROPI #### [address] [place], [facility]83 [employer]: Sharif Sims MD Hematocrit (Bld) [Volume fraction] 41.1 % Normal 36.3-47.1 [facility] Comment on above: Performed By: #### C DP, BMP, TROPI #### [facility] [address] [place], [place] [id number] [employer]: Sharif Sims MD Hemoglobin (Bld) [Mass/Vol] 13.5 g/dL Normal 11.9-15.1 [facility] Comment on above: Performed By: #### C DP, BMP, TROPI #### [facility] [address] [place], [place] [id number] [employer]: Sharif Sims MD Immature granulocytes (Bld) [#/Vol] 0 % Normal 0 [facility] Comment on above: Performed By: #### C DP, BMP, TROPI #### [facility] [address] [place], [facility]83 [employer]: Sharif Sims MD Lymphocytes (Bld) [#/Vol] 2.68 10*3/uL Normal 1.10-3.70 [facility] Comment on above: Performed By: #### C DP, BMP, TROPI #### [facility] [address] [place], [place] [address] [employer]: Sharif Sims MD Lymphocytes/100 WBC (Bld) 30 % Normal 24-43 [facility] Comment on above: Performed By: #### C DP, BMP, TROPI #### [facility] [address] [place], [place] [address] [employer]: Sharif Sims MD MCH (RBC) [Entitic mass] 29.1 pg Normal 25.2-33.5 [facility] Comment on above: Performed By: #### C DP, BMP, TROPI #### [facility] [address] [place], [place] [address] [employer]: Sharif Sims MD MCHC (RBC) [Mass/Vol] 32.8 g/dL Normal 28.4-34.8 [facility] Comment on above: Performed By: #### C SRINIVAS GARCIA, TROPI #### [facility] [address] [place], [place] [id number] [employer]: Sharif Sims MD MCV (RBC) [Entitic vol] 88.6 fL Normal 82.6-102.9 [facility] Comment on above: Performed By: #### C RADHA BMP, TROPI #### [facility] [address] [place] [address] [employer]: Sharif Sims MD Monocytes (Bld) [#/Vol] 1.03 10*3/uL Normal 0.10-1.20 [facility] Comment on above: Performed By: #### C RADHA BMP, TROPI #### [facility] [address] [place], [place] [address] [employer]: Sharif Sims MD Monocytes/100 WBC (Bld) 12 % Normal 3-12 [facility] Comment on above: Performed By: #### C SRINIVAS GARCIA, TROPI #### [facility] [address] [place] [address] [employer]: Sharif Sims MD Neutrophil (Seg) 53 % Normal 36-65 [facility] Comment on above: Performed By: #### C RADHA BMP, TROPI #### [facility] [address] [place], [facility]83 [employer]: Sharif Sims MD NRBC Automated 0.0 per 100 WBC Normal 0.0 [facility] Comment on above: Performed By: #### C RADHA BMP, TROPI #### [facility] [address] [place], [place] [address] [employer]: Sharif Sims MD Platelet mean volume (Bld) [Entitic vol] 9.1 fL Normal 8.1-13.5 [facility] Comment on above: Performed By: #### C DP, BMP, TROPI #### [facility] [address] [place], [place] [address] [employer]: Sharif Sims MD Platelets (Bld) [#/Vol] 380 10*3/uL Normal 138-453 [facility] Comment on above: Performed By: #### C DP, BMP, TROPI #### [facility] [address] [place], [facility]83 [employer]: Sharif Sims MD RBC (Bld) [#/Vol] 4.64 10*6/uL Normal 3.95-5.11 [facility] Comment on above: Performed By: #### C DP, BMP, TROPI #### [address] [place] [address] [employer]: Sharif Sims MD WBC (Bld) [#/Vol] 8.9 10*3/uL Normal 3.5-11.3 [facility] Comment on above: Performed By: #### C DP, BMP, TROPI #### [address] [place] [address] [employer]: Sharif Sims MD Auto Diff Performed NOT REPORTED Normal [facility] Comment on above: Performed By: #### C DP, BMP, TROPI #### [facility] [address] [place], [place] [address] [employer]: Sharif Sims MD Platelets (Bld) [#/Vol] NOT REPORTED Normal [facility] Comment on above: Performed By: #### C DP, BMP, TROPI #### [address] [place] [id number] [employer]: Sharif Sims MD RBC morphology finding Nom (d) NOT REPORTED Normal [facility] Comment on above: Performed By: #### C DP, BMP, TROPI #### [facility] [address] [place] [address] [employer]: Sharif Sims MD WBC Morphology NOT REPORTED Normal [facility] Comment on above: Performed By: #### C DP, BMP, TROPI #### [facility] [address] [place], [place] [id number] [employer]: Sharif Sims MD CTA CHEST W WO [...] Cedric Shannon MD 03/11/19 Final result Normal [facility] PTon 03-11-2019 INR Coag (PPP) [Relative time] 1.0 {INR} Normal 0.9-1.2 [facility] Comment on above: Performed By: #### C BC, BMP, FE, LIPR, GLYHGB #### [facility] [address] [place] [address] [employer]: Sharif Sims MD PT Coag (PPP) [Time] 10.0 s Normal 9.7-12.2 [facility] Comment on above: Performed By: #### C BC, BMP, FE, LIPR, GLYHGB #### [facility] [address] [place] [id number] [employer]: Sharif Sims MD Troponinon 03-11-2019 Troponin I.cardiac [Mass/Vol] Normal [facility] Comment on above: Result Comment: Refe [...] C BC, BMP, FE, LIPR, GLYHGB #### [facility] [address] [place] [id number] [employer]: Sharif Sims MD Troponin I.cardiac [Mass/Vol] ng/mL Normal <0.03 [facility] Comment on above: Result Comment: Trop onin T results cannot be compared to Troponin-I results. Performed By: #### C BC, BMP, FE, LIPR, GLYHGB #### [facility] [address] [place] [id number] [employer]: Sharif Sims MD Troponin I.cardiac [Mass/Vol] NOT REPORTED Normal 0-14 [facility] Comment on above: Performed By: #### C BC, BMP, FE, LIPR, GLYHGB #### [facility] [address] [place] [address] [employer]: Sharif Sims MD Troponin I.cardiac [Mass/Vol] Normal [facility] Comment on above: Result Comment: Refe [...] C BC, BMP, FE, LIPR, GLYHGB #### [facility] [address] [place], [place] [id number] [employer]: Sharif Sims MD Troponin I.cardiac [Mass/Vol] ng/mL Normal <0.03 [facility] Comment on above: Result Comment: Trop onin T results cannot be compared to Troponin-I results. Performed By: #### C BC, BMP, FE, LIPR, GLYHGB #### [facility] [address] [place], [place] [address] [employer]: Sharif Sims MD Troponin I.cardiac [Mass/Vol] NOT REPORTED Normal 0-14 [facility] Comment on above: Performed By: #### C BC, BMP, FE, LIPR, GLYHGB #### [facility] [address] [place] [address] [employer]: Sharif Sims MD Troponin I.cardiac [Mass/Vol] ng/mL Normal <0.03 [facility] Comment on above: Result Comment: Trop onin T results cannot be compared to Troponin-I results. Performed By: #### C BC, BMP, FE, LIPR, GLYHGB #### [facility] [address] [place] [address] [employer]: Sharif Sims MD Troponin I.cardiac [Mass/Vol] Normal [facility] Comment on above: Result Comment: Refe [...] C BC, BMP, FE, LIPR, GLYHGB #### [facility] [address] [place] [address] [employer]: Sharif Sims MD Troponin I.cardiac [Mass/Vol] NOT REPORTED Normal 0-14 [facility] Comment on above: Performed By: #### C BC, BMP, FE, LIPR, GLYHGB #### [facility] [address] [place] [address] [employer]: Sharif Sims MD XR CHEST PORTABLEon 03-11-20 XR CHEST PORTABLE EXAMINATION: ONE XRAY VIEW [...] Reji Oleary MD 03/11/19 Final result Normal [facility] DEXA BONE DENSITY AXIAL SKEL ETONon 02-20-2019 DEXA BONE DENSITY AXIAL SKELETON EXAMINATION: BONE DENSITOMETRY 02/20/2019 1:55 pm TECHNIQUE: A bone density dual x-ray absorptiometry (DEXA) scan was performed of the lumbar spine and left hip on a [employer] system. COMPARISON: None. HISTORY: ORDERING SYSTEM PROVIDED [...] Primitivo Ordaz MD 02/20/19 Final result Normal [facility] Osteopenia by WHO criteria. Fracture risk is moderate. Treatment is advised. [facility] EXAMINATION: BONE DENSITOMETRY 02/20/2019 1:55 pm TECHNIQUE: A bone density dual x-ray absorptiometry (DEXA) scan was performed of the lumbar spine and left hip on a [employer] system. COMPARISON: None. HISTORY: ORDERING SYSTEM PROVIDED [...] within the osteopenia range by WHO criteria. [facility] [place] Genaro, Virgie Incoming Radiant Results From Network18/PAKs - 02/20/2019 2:06 PM EST EXAMINATION: BONE DENSITOMETRY 02/20/2019 1:55 pm TECHNIQUE: A bone density dual x-ray absorptiometry (DEXA) scan was performed of the lumbar spine and left hip on a [employer] system. COMPARISON: None. HISTORY: ORDERING SYSTEM PROVIDED [...] Fracture risk is moderate. Treatment is advised. [facility]- [place], [place] DEANNE DIGITAL SCREEN W OR [...] to the patient regarding the results. The [employer] recommends annual mammograms for women 40 years and older. Interpreted by: Rosie Smith MD Signed by: Rosie Smith MD 12/26/18 Final result Normal [facility] Basic Metabolic Profon 07-30 (cont.) Normal [facility] Comment on above: Result Comment: Aver age GFR for 60-69 years old: 85 mL/min/1.73sq m Chronic Kidney Disease: <60 mL/min/1.73sq m Kidney failure: <15 mL/min/1.73sq m eGFR calculated using average adult body mass. Additional eGFR calculator available at: http://[email or web address]/multiple_crcl_2012.htm Performed By: #### C BC, BMP, FE, LIPR, GLYHGB #### [facility] [address] [place] [address] [employer]: Sharif iSms MD Anion gap [Moles/Vol] 12 mmol/L Normal 9-17 [facility] Comment on above: Performed By: #### C BC, BMP, FE, LIPR, GLYHGB #### [facility] [address] [place] [address] [employer]: Sharif Sims MD BUN/CRE Ratio 20 Normal 9-20 [facility] Comment on above: Performed By: #### C BC, BMP, FE, LIPR, GLYHGB #### [facility] [address] [place] [address] [employer]: Sharif Sims MD Calcium [Mass/Vol] 9.3 mg/dL Normal 8.6-10.4 [facility] Comment on above: Performed By: #### C BC, BMP, FE, LIPR, GLYHGB #### [address] [place] [address] [employer]: Sharif Sims MD Chloride [Moles/Vol] 93 mmol/L Low 98-107 [facility] Comment on above: Performed By: #### C BC, BMP, FE, LIPR, GLYHGB #### [facility] [address] [place] [address] [employer]: Sharif Sims MD CO2 [Moles/Vol] 32 mmol/L High 20-31 [facility] Comment on above: Performed By: #### C BC, BMP, FE, LIPR, GLYHGB #### [facility] [address] [place] [address] [employer]: Sharif Sims MD Creatinine [Mass/Vol] 0.64 mg/dL Normal 0.50-0.90 [facility] Comment on above: Performed By: #### C BC, BMP, FE, LIPR, GLYHGB #### [facility] [address] [place] [address] [employer]: Sharif Sims MD GFR, Amer >60 Normal >60 [facility] Comment on above: Performed By: #### C BC, BMP, FE, LIPR, GLYHGB #### [facility] [address] [place] [address] [employer]: Sharif Sims MD GFR,non Amer >60 Normal >60 [facility] Comment on above: Performed By: #### C BC, BMP, FE, LIPR, GLYHGB #### [address] [place] [address] [employer]: Sharif Sims MD Glucose [Mass/Vol] 166 mg/dL High 70-99 [facility] Comment on above: Performed By: #### C BC, BMP, FE, LIPR, GLYHGB #### [address] [place] [address] [employer]: Sharif Sims MD Potassium [Moles/Vol] 3.8 mmol/L Normal 3.7-5.3 [facility] Comment on above: Performed By: #### C BC, BMP, FE, LIPR, GLYHGB #### [address] [place] [address] [employer]: Sharif Sims MD Sodium [Moles/Vol] 137 mmol/L Normal 135-144 [facility] Comment on above: Performed By: #### C BC, BMP, FE, LIPR, GLYHGB #### [facility] [address] [place] [address] [place] [address] [employer]: Sharif Sims MD Staging: Normal [facility] Comment on above: Result Comment: Stag e 1: Some kidney damage normal GFR Stage 2: Mild kidney damage GFR 60-89 Stage 3: Moderate kidney damage GFR 30-59 Stage 4: Severe kidney damage GFR 15-29 Stage 5: Severe kidney damage GFR <15 ESRD - chronic treatment by dialysis or transplant Performed By: #### C BC, BMP, FE, LIPR, GLYHGB #### [facility] [address] [place] [address] [employer]: Sharif Sims MD Urea nitrogen [Mass/Vol] 13 mg/dL Normal 8-23 [facility] Comment on above: Performed By: #### C BC, BMP, FE, LIPR, GLYHGB #### [address] [place] [address] [employer]: Sharif Sims MD CBCon 07-30-2018 Erythrocyte distribution width (RBC) [Ratio] 12.9 % Normal 11.8-14.4 [facility] Comment on above: Performed By: #### C BC, BMP, FE, LIPR, GLYHGB #### [address] [place] [address] [employer]: Sharif Sims MD Hematocrit (Bld) [Volume fraction] 45.9 % Normal 36.3-47.1 [facility] Comment on above: Performed By: #### C BC, BMP, FE, LIPR, GLYHGB #### [address] [place] [address] [employer]: Sharif Sims MD Hemoglobin (Bld) [Mass/Vol] 14.4 g/dL Normal 11.9-15.1 [facility] Comment on above: Performed By: #### C BC, BMP, FE, LIPR, GLYHGB #### [address] [place] [address] [employer]: Sharif Sims MD MCH (RBC) [Entitic mass] 28.7 pg Normal 25.2-33.5 [facility] Comment on above: Performed By: #### C BC, BMP, FE, LIPR, GLYHGB #### [facility] [address] [place] [address] [employer]: Sharif Sims MD MCHC (RBC) [Mass/Vol] 31.4 g/dL Normal 28.4-34.8 [facility] Comment on above: Performed By: #### C BC, BMP, FE, LIPR, GLYHGB #### [facility] [address] [place] [address] [employer]: Sharif Sims MD MCV (RBC) [Entitic vol] 91.6 fL Normal 82.6-102.9 [facility] Comment on above: Performed By: #### C BC, BMP, FE, LIPR, GLYHGB #### [facility] [address] [place] [address] [employer]: Sharif Sims MD NRBC Automated 0.0 per 100 WBC Normal 0.0 [facility] Comment on above: Performed By: #### C BC, BMP, FE, LIPR, GLYHGB #### [facility] [address] [place] [address] [employer]: Sharif Sims MD Platelet mean volume (Bld) [Entitic vol] 9.8 fL Normal 8.1-13.5 [facility] Comment on above: Performed By: #### C BC, BMP, FE, LIPR, GLYHGB #### [facility] [address] [place] [address] [employer]: Sharif Sims MD Platelets (Bld) [#/Vol] 321 10*3/uL Normal 138-453 [facility] Comment on above: Performed By: #### C BC, BMP, FE, LIPR, GLYHGB #### [facility] [address] [place], [place] [id number] [employer]: Sharif Sims MD RBC (Bld) [#/Vol] 5.01 10*6/uL Normal 3.95-5.11 [facility] Comment on above: Performed By: #### C BC, BMP, FE, LIPR, GLYHGB #### [facility] [address] [place], [place] [address] [employer]: Sharif Sims MD WBC (Bld) [#/Vol] 8.0 10*3/uL Normal 3.5-11.3 [facility] Comment on above: Performed By: #### C BC, BMP, FE, LIPR, GLYHGB #### [facility] [address] [place] [address] [employer]: Sharif Sims MD Hemoglobin A1Con 07-30-2018 HbA1c (Bld) [Mass fraction] 8.1 % High 4.8-5.9 [facility] Comment on above: Performed By: #### C BC, BMP, FE, LIPR, GLYHGB #### [facility] [address] [place] [address] [employer]: Sharif Sims MD HbA1c (Bld) [Mass fraction] 186 mg/dL Normal [facility] Comment on above: Result Comment: The ADA and AACC recommend providing the estimated average glucose result to permit better patient understanding of their HBA1c result. Performed By: #### C BC, BMP, FE, LIPR, GLYHGB #### [facility] [address] [place] [address] Natural [employer] Trader: Sharif Sims MD Ironon 07-30-2018 Iron [Mass/Vol] 127 ug/dL Normal 37-145 [facility] Comment on above: Performed By: #### C BC, BMP, FE, LIPR, GLYHGB #### [facility] [address] [place] [address] [employer] Trader: Sharif Sims MD Lipid Profileon 07-30-2018 Cholesterol [Mass/Vol] 164 mg/dL Normal <200 [facility] Comment on above: Result Comment: Cholesterol Guidelines: <200 Desirable 200-240 Borderline >240 Undesirable Performed By: #### C BC, BMP, FE, LIPR, GLYHGB #### [facility] [address] [place] [address] [employer] Trader: Sharif Sims MD Cholesterol in HDL [Mass/Vol] 60 mg/dL Normal >40 [facility] Comment on above: Result Comment: HDL Guidelines: <40 Undesirable 40-59 Borderline >59 Desirable Performed By: #### C BC, BMP, FE, LIPR, GLYHGB #### [facility] [address] [place] [address] [employer] Trader: Sharif Sims MD Cholesterol in LDL [Mass/Vol] 79 mg/dL Normal 0-130 [facility] Comment on above: Result Comment: LDL Guidelines: <100 Desirable 100-129 Near to/above Desirable 130-159 Borderline >159 Undesirable Direct (measured) LDL and calculated LDL are not interchangeable tests. Performed By: #### C BC, BMP, FE, LIPR, GLYHGB #### [facility] [address] [place] [address] [employer] Trader: Sharif Sims MD Cholesterol.total/C holesterol in HDL [Mass ratio] 2.7 {ratio} Normal <5 [facility] Comment on above: Performed By: #### C BC, BMP, FE, LIPR, GLYHGB #### [facility] [address] [place] [address] [employer] Trader: Sharif Sims MD Triglyceride [Mass/Vol] 123 mg/dL Normal <150 [facility] Comment on above: Result Comment: Triglyceride Guidelines: <150 Desirable 150-199 Borderline 200-499 High >499 Very high Based on AHA Guidelines for fasting triglyceride, January 2012. Performed By: #### C BC, BMP, FE, LIPR, GLYHGB #### [facility] [address] [place], [place] [id number] [employer] Trader: Sharif Sims MD Cholesterol in VLDL [Mass/Vol] NOT REPORTED Normal 05-02 [facility] Comment on above: Performed By: #### C BC, BMP, FE, LIPR, GLYHGB #### [facility] [address] [place], [place] [id number] Natural Gas Trader: Sharif Sims MD Microalb.,Random Uron 2018 Creatinine [Mass/Vol] 122.9 mg/dL Normal 28.0-217.0 [facility] Comment on above: Performed By: #### U RNMAB #### [facility] [address] [place], [place] [id number] [employer] Gas Trader: Sharif Sims MD Microalb/Creat Ratio CANNOT BE CALCULATED Normal <25 [facility] Comment on above: Performed By: #### U RNMAB #### [facility] [address] [place], [place] [id number] Natural Gas Trader: Sharif Sims MD Microalbumin conc. <12 Normal <21 [facility] Comment on above: Performed By: #### U RNMAB #### [facility] [address] [place], [place] [id number] Natural Gas Trader: Sharif Sims MD TSH w/reflex to FT4on 2018 TSH Qn 1.02 m[IU]/L Normal 0.30-5.00 [facility] Comment on above: Performed By: #### T SHX #### [facility] [address] [place] [address] [employer] Trader: Sharif Sims MD Vital Signs Date Time Vital Sign Value Performing Clinician Facility 12-05-2024 16:10-0400 Body height 155.5 cm Ivanna Mahmood Work Phone: [facility] 12-05-2024 16:10-0400 Body mass index (BMI) [Ratio] 27.3 kg/m2 Ivanna Aichholz Work Phone: [facility] 12-05-2024 16:10-0400 Body temperature 98.1 [degF] Ivanna Aichholz Work Phone: [facility] 12-05-2024 16:10-0400 Body weight 66.22 kg Ivanna Aichholz Work Phone: [facility] 12-05-2024 16:10-0400 Diastolic blood pressure 76 mm[Hg] Ivanna Aichholz Work Phone: [facility] 12-05-2024 16:10-0400 Heart rate 63 /min Ivanna Aichholz Work Phone: [facility] 12-05-2024 16:10-0400 Respiratory rate 20 /min Ivanna Aichholz Work Phone: [facility] 12-05-2024 16:10-0400 SaO2% (BldA) [Mass fraction] 95 % Ivanna Aichholz Work Phone: [facility] 12-05-2024 16:10-0400 Systolic blood pressure 126 mm[Hg] Ivanna Aichholz Work Phone: [facility] 10-29-2024 10:05-0400 Body mass index (BMI) [Ratio] 25.97 kg/m2 Ivanna Aichholz [employer] Work Phone: [facility] 10-29-2024 10:05-0400 Body temperature 98.71 [degF] Ivanna Aichholz [employer] Work Phone: [facility] 10-29-2024 10:05-0400 Body weight 66.5 kg Ivanna Aichholz [employer] Work Phone: [facility] 10-29-2024 10:05-0400 Diastolic blood pressure 76 mm[Hg] Ivanna Aichholz [employer] Work Phone: [facility] 10-29-2024 10:05-0400 Heart rate 56 /min Ivanna Timoteo [employer] Work Phone: [facility] 10-29-2024 10:05-0400 Respiratory rate 18 /min Ivanna Timoteo [employer] Work Phone: [facility] 10-29-2024 10:05-0400 SaO2% (BldA) [Mass fraction] 98 % Ivanna Timoteo [employer] Work Phone: [facility] 10-29-2024 10:05-0400 Systolic blood pressure 118 mm[Hg] Ivanna Timoteo [employer] Work Phone: [facility] 04-24-2024 13:18-0500 Body height 160 cm Pari Norton CAR RECORD CLERK-ENGINEERING CONSULTANT Work Phone: [facility] 04-24-2024 13:18-0500 Body mass index (BMI) [Ratio] 26.22 kg/m2 Pari Norton CAR RECORD CLERK-ENGINEERING CONSULTANT Work Phone: [facility] 04-24-2024 13:18-0500 Body weight 67.13 kg Pari Norton CAR RECORD CLERK-ENGINEERING CONSULTANT Work Phone: [facility] 04-24-2024 13:18-0500 Diastolic blood pressure 68 mm[Hg] Prai Norton CAR RECORD CLERK-ENGINEERING CONSULTANT Work Phone: [facility] 04-24-2024 13:18-0500 Heart rate 60 /min Pari Norton CAR RECORD CLERK-ENGINEERING CONSULTANT Work Phone: [facility] 04-24-2024 13:18-0500 Systolic blood pressure 100 mm[Hg] Pari Norton CAR RECORD CLERK-ENGINEERING CONSULTANT Work Phone: [facility] 04-09-2024 13:06-0500 Body height 160 cm Ivanna Timoteo [employer] Work Phone: [facility] 04-09-2024 13:06-0500 Body mass index (BMI) [Ratio] 26.29 kg/m2 Ivanna Jaredholz [employer] Work Phone: [facility] 04-09-2024 13:06-0500 Body temperature 98.1 [degF] Ivanna Crooksz [employer] Work Phone: [facility] 04-09-2024 13:06-0500 Body weight 67.31 kg Ivannamicheal Crooksz [employer] Work Phone: [facility] 04-09-2024 13:06-0500 Diastolic blood pressure 80 mm[Hg] Ivanna Jaredholz [employer] Work Phone: [facility] 04-09-2024 13:06-0500 Heart rate 56 /min Ivanna Jaredholz [employer] Work Phone: [facility] 04-09-2024 13:06-0500 Respiratory rate 18 /min Ivanna Colemanholz [employer] Work Phone: [facility] 04-09-2024 13:06-0500 SaO2% (BldA) [Mass fraction] 96 % Ivanna Crooksz [employer] Work Phone: [facility] 04-09-2024 13:06-0500 Systolic blood pressure 110 mm[Hg] Ivanna Jaredholz [employer] Work Phone: [facility] 12-28-2023 10:41-0400 Body height 160 cm Ivanna Colemanseverinoz [employer] Work Phone: [facility] 12-28-2023 10:41-0400 Body mass index (BMI) [Ratio] 26.18 kg/m2 Ivannamicheal Colemanholz [employer] Work Phone: [facility] 12-28-2023 10:41-0400 Body temperature 98.29 [degF] Ivanna Jaredholz [employer] Work Phone: [facility] 12-28-2023 10:41-0400 Body weight 67.04 kg Ivanna Jaredholz [employer] Work Phone: [facility] 12-28-2023 10:41-0400 Diastolic blood pressure 78 mm[Hg] Ivanna Valeriyz [employer] Work Phone: [facility] 12-28-2023 10:41-0400 Heart rate 59 /min Ivanna Timoteo [employer] Work Phone: [facility] 12-28-2023 10:41-0400 Respiratory rate 19 /min Ivanna Timoteo [employer] Work Phone: [facility] 12-28-2023 10:41-0400 SaO2% (BldA) [Mass fraction] 96 % Ivanna Timoteo [employer] Work Phone: [facility] 12-28-2023 10:41-0400 Systolic blood pressure 120 mm[Hg] Ivanna Timoteo [employer] Work Phone: [facility] 04-12-2023 12:47-0500 Body height 160 cm David Berrios MD Work Phone: [facility] 04-12-2023 12:47-0500 Body mass index (BMI) [Ratio] 26.22 kg/m2 David Berrios MD Work Phone: [facility] 04-12-2023 12:47-0500 Body weight 67.13 kg David Berrios MD Work Phone: [facility] 04-12-2023 12:47-0500 Diastolic blood pressure 58 mm[Hg] David Berrios MD Work Phone: [facility] 04-12-2023 12:47-0500 Heart rate 52 /min David Berrios MD Work Phone: [facility] 04-12-2023 12:47-0500 Systolic blood pressure 98 mm[Hg] David Berrios MD Work Phone: [facility] 04-12-2022 10:46-0500 Body height 160.02 cm Ivanna Mahmood Work Phone: [facility] 250 DO Work Phone: 04-12-2022 10:46-0500 Body mass index (BMI) [Ratio] 26.39 kg/m2 Ivanna Colemanholwaqar Work Phone: [facility] 250 DO Work Phone: 04-12-2022 10:46-0500 Body surface area Derived from formula 1.71 m2 Ivanna Colemanholz Work Phone: [facility] 250 DO Work Phone: 04-12-2022 10:46-0500 Body weight 67.59 kg Ivanna Colemanholz Work Phone: [facility] 250 DO Work Phone: 04-12-2022 10:46-0500 Diastolic blood pressure 76 mm[Hg] Ivanna Colemanholwaqar Work Phone: [facility] 250 DO Work Phone: 04-12-2022 10:46-0500 Heart rate 62 /min Ivanna Colemanholwaqar Work Phone: [facility] 250 DO Work Phone: 04-12-2022 10:46-0500 Systolic blood pressure 110 mm[Hg] Ivanna Colemanholwaqar Work Phone: [facility] 250 DO Work Phone: 11-09-2021 13:23-0400 Blood Pressure Location Rosie NILL [facility] 11-09-2021 13:23-0400 Diastolic blood pressure 60 mm[Hg] Rosie NILL [facility] 11-09-2021 13:23-0400 Heart rate 60 /min Rosie CHOWDHURYL [facility] [place] 11-09-2021 13:23-0400 Respiratory rate 16 /min Rosie CHOWDHURYL [facility] [place] 11-09-2021 13:23-0400 Systolic blood pressure 106 mm[Hg] Rosie CHOWDHURYL [facility] [place] 04-05-2021 10:10-0500 Body height 160.02 cm Ivanna Trejo Aichholz Work Phone: [facility] 250 DO Work Phone: 04-05-2021 10:10-0500 Body mass index (BMI) [Ratio] 26.86 kg/m2 Ivanna Trejo Aichholz Work Phone: [facility] 250 DO Work Phone: 04-05-2021 10:10-0500 Body surface area Derived from formula 1.72 m2 Ivanna Trejo Aichholz Work Phone: [facility] 250 DO Work Phone: 04-05-2021 10:10-0500 Body weight 68.77 kg Ivanna Trejo Aichholz Work Phone: [facility] 250 DO Work Phone: 04-05-2021 10:10-0500 Diastolic blood pressure 80 mm[Hg] Ivanna Trejo Aichholz Work Phone: [facility] 250 DO Work Phone: 04-05-2021 10:10-0500 Heart rate 56 /min Ivanna Maya Aichholz Work Phone: [facility] 250 DO Work Phone: 04-05-2021 10:10-0500 Systolic blood pressure 110 mm[Hg] Ivanna Maya Aichholz Work Phone: -[facility] 250 DO Work Phone: Encounters Encounter Date Encounter Type Care Provider Facility Start: 12-05-2024 End: 12-05-2024 ambulatory Ivanna Mahmood Work Phone: [facility] Work Phone: Start: 12-05-2024 End: 12-05-2024 Patient encounter procedure Ivanna Mahmood [employer]-[facility] Work Phone: Start: 11-18-2024 End: 11-18-2024 Refill Ivannamicheal Mahmood [employer] Work Phone: [facility] Comment on above: Type 2 diabetes montserrat itus without complication, without long- term current use of insulin (HCC) (Primary Dx) Type 2 diabetes montserrat itus without complication, without long-term current use of insulin (HCC) Start: 11-11-2024 End: 11-11-2024 Refill Ivannamicheal Mahmood [employer] Work Phone: [facility] Comment on above: Type 2 diabetes montserrat itus without complication, without long- term current use of insulin (HCC) (Primary Dx) Start: 10-29-2024 End: 10-29-2024 Bamboo flowsheet Ivanna Mahmood [employer] Work Phone: [facility] Start: 10-29-2024 End: 10-29-2024 Bamboo flowsheet Ivanna Mahmood [employer] Work Phone: [facility] Start: 10-29-2024 End: 10-29-2024 Patient encounter procedure Ivanna Mahmood [employer] Work Phone: [facility] Comment on above: Encounter for subseq uent annual wellness visit (AWV) in Medicare patient (Primary Dx); Restless leg syndrome; Primary hypertension ; 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 ; Type 2 diabetes mellitus without complication, without long-term current use of insulin (HCC); Mixed hyperlipidemia ; Anxiety; Tremors of nervous system; Acute bacterial conjunctivitis of right eye Start: 10-29-2024 End: 10-29-2024 ambulatory IVANNA AICHHOLZ Not Available Start: 10-28-2024 End: 12-03-2024 Telephone encounter Ivanna Aichholz [employer] Work Phone: [facility] Comment on above: Medication Question Start: 09-30-2024 End: 09-30-2024 Refill Ivanna Aichholz [employer] Work Phone: [facility] Comment on above: Primary hypertension ; Anxiety Start: 08-27-2024 End: 08-27-2024 Clinisync Result Encounter Ivanna Aichholz [employer] Work Phone: [facility] External Department Unsolicited Start: 08-27-2024 End: 08-27-2024 Clinisync Result Encounter Ivanna Aichholz [employer] Work Phone: [facility] External Department Unsolicited Start: 07-22-2024 End: 07-22-2024 Refill Ivanna Aichholz [employer] Work Phone: [facility] Comment on above: Mixed hyperlipidemia (CMS/HCC); 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 (CMS/HCC); Primary hypertension (CMS/HCC) Start: 07-01-2024 End: 07-01-2024 Refill Ivanna Aichholz [employer] Work Phone: [facility] Comment on above: Primary hypertension (CMS/HCC) Start: 06-30-2024 End: 06-30-2024 Refill Ivanna Aichholz [employer] Work Phone: [facility] Comment on above: 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re[place]-sparks coronary artery of [place] heart with angina pectoris (CMS/HCC) Start: 04-24-2024 End: 04-24-2024 Office outpatient visit 15 minutes Pari Norton CAR RECORD CLERK-ENGINEERING CONSULTANT Work Phone: [facility] Comment on above: Mixed hyperlipidemia (Primary Dx); Coronary artery disease involving re[place]-sp[place] coronary artery of [place] heart without angina pectoris; Benign essential hypertension; Diabetes mellitus of other type without complication, unspecified 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 insulin use (Multi); BMI 26.0-26.9,adult Start: 04-24-2024 End: 04-24-2024 ambulatory [facility] Start: 04-22-2024 End: 04-22-2024 Subsequent hospital visit by physician Filomena Neil [facility] Comment on above: Chest pain, unspecif ied type; Coronary artery disease involving re[place]sp[place] heart with other form of angina pectoris, unspecified vessel or lesion type Start: 04-22-2024 End: 04-22-2024 ambulatory [facility] Start: 04-16-2024 End: 04-16-2024 Refill Ivanna Aichholz [employer] AWAY Work Phone: [facility] Comment on above: Type 2 diabetes montserrat itus without complication, without long- term current use of insulin (CMS/HCC) (Primary Dx) Start: 04-10-2024 End: 04-10-2024 Refill Ivanna Aichholz [employer] Work Phone: [facility] Comment on above: Mixed hyperlipidemia (CMS/HCC) (Primary Dx); 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 (CMS/HCC) Start: 04-09-2024 End: 04-09-2024 Bamboo flowsheet Ivanna Aichholz [employer]AY Work Phone: [facility] Start: 04-09-2024 End: 04-09-2024 Bamboo flowsheet Ivanna Aichholz [employer] Work Phone: [facility] Start: 04-09-2024 End: 04-09-2024 ambulatory IVANNA AICHHOLZ Not Available Start: 04-09-2024 End: 04-09-2024 Office outpatient visit 25 minutes Ivanna Aichholz [employer] Work Phone: [facility] Comment on above: 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re[place]-sparks coronary artery of [place] heart with angina pectoris (CMS/HCC) (Primary Dx); Type 2 diabetes mellitus without complication, without long-term current use of insulin (CMS/HCC); Restless leg syndrome; Primary hypertension (CMS/HCC); Mixed hyperlipidemia (CMS/HCC); Tremors of nervous system; Anxiety Start: 03-28-2024 End: 03-28-2024 Refill Ivanna Aichholz [employer] Work Phone: [facility] Comment on above: Anxiety; Primary hypertension (CMS/HCC); Mixed hyperlipidemia (CMS/HCC) Start: 02-17-2024 End: 02-17-2024 Refill Ivanna Aichholz [employer] Work Phone: [facility] Comment on above: Primary hypertension (CMS/HCC) Start: 01-02-2024 End: 01-02-2024 Refill Ivanna Aichholz [employer] Work Phone: [facility] Comment on above: Tremors of nervous s ystem Start: 12-28-2023 End: 12-28-2023 Bamboo flowsheet Ivanna Aichholz [employer] Work Phone: [facility] Start: 12-28-2023 End: 12-28-2023 Bamboo flowsheet Ivanna Aichholz [employer] Work Phone: [facility] Start: 12-28-2023 End: 12-28-2023 Office outpatient visit 25 minutes Ivanna Aichholz [employer] Work Phone: [facility] Comment on above: 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[place]-sp[place] coronary artery of [place] heart with angina pectoris ([facility]/HCC) (Primary Dx); Primary hypertension (CMS/HCC); Type 2 diabetes mellitus without complication, without long-term current use of insulin (CMS/HCC); Anxiety; Mixed hyperlipidemia (CMS/HCC); Tremors of nervous system Start: 12-28-2023 End: 12-28-2023 ambulatory IVANNA AICHHOLZ Not Available Start: 12-26-2023 End: 12-26-2023 Clinisync Result Encounter Ivanna Aichholz [employer] Work Phone: [facility] External Department Unsolicited Start: 12-26-2023 End: 12-26-2023 Clinisync Result Encounter Ivanna Mahmood [employer] Work Phone: [facility] External Department Unsolicited Start: 12-25-2023 End: 12-25-2023 Refill Ivanna Mahmood [employer] Work Phone: [facility] Comment on above: Vitamin D deficiency Start: 12-05-2023 End: 12-05-2023 Refill Ivanna Mahmood [employer] Work Phone: [facility] Comment on above: Primary hypertension (CMS/HCC); Anxiety Start: 09-05-2023 Patient encounter procedure Ivanna Colemanuzair [employer] Work Phone: [facility] Start: 04-12-2023 End: 04-12-2023 Office outpatient visit 25 minutes David Berrios MD Work Phone: [facility] Comment on above: 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[place]-sp[place] coronary artery of [place] heart without angina pectoris (Primary Dx); Benign essential hypertension; Mixed hyperlipidemia; Diabetes mellitus of other type without complication, unspecified whether chcf insulin use (CMS/HCC); Never smoked any substance Start: 05-16-2022 End: 05-17-2022 ambulatory BROWN HUANGA PHILHaileyUZAIR Facility:[facility] Start: 04-12-2022 ambulatory David Berriso II Facility: Start: 04-12-2022 Office outpatient vi sit 25 minutes Ivanna Mahmood Work Phone: [facility] 250 DO Work Phone: Start: 12-08-2021 End: 12-09-2021 ambulatory Rosie FARIAS Facility:[id number] Start: 12-07-2021 Encounter for preprocedural laboratory examination DR ROSIE FARIAS [facility] Start: 12-04-2021 End: 12-05-2021 ambulatory BROWN MAHMOOD Facility:[facility] Start: 12-04-2021 End: 12-05-2021 Encounter for preprocedural laboratory examination BROWN MAHMOOD Facility:[facility] Start: 11-09-2021 End: 11-10-2021 ambulatory Rosie R NILL Facility:[facility] Start: 11-09-2021 End: 11-09-2021 Patient encounter procedure Rosie R NILL [facility] Start: 10-08-2021 ambulatory Rosie R NILL Facility :[facility] Start: 10-07-2021 End: 10-08-2021 ambulatory ENGINEERING CONSULTANT IVANNA TIMOTEO Facility: Start: 04-05-2021 Office outpatient vi sit 25 minutes Ivanna Mahmood Work Phone: [facility] 250 DO Work Phone: Start: 05-08-2019 End: 05-09-2019 Patient encounter procedure [facility] Start: 05-08-2019 End: 05-08-2019 Subsequent hospital visit by physician Kinjal [facility] Comment on above: Type 2 diabetes montserrat itus with complication, without long-term current use of insulin (HCC); Essential hypertension; Dyslipidemia Start: 03-11-2019 End: 03-13-2019 Evaluation and management of inpatient [facility] Start: 02-20-2019 End: 02-23-2019 Patient encounter procedure [facility] Start: 02-20-2019 End: 02-22-2019 Subsequent hospital visit by physician Melissa Araiza [facility] Comment on above: Post-menopausal; Osteopenia, unspecified location Start: 12-25-2018 End: 12-28-2018 Patient encounter procedure [facility] Start: 07-30-2018 End: 07-31-2018 Patient encounter procedure [facility] Procedures Date Procedure Procedure Detail Performing Clinician Start: 10-29-2024 Hemoglobin glycosylated a1c Ivanna Mahmood [employer] Work Phone: Start: 08-27-2024 MM TOMOSYNTHESIS SCR EENING BI Ivanna Mahmood [employer] Work Phone: Start: 08-27-2024 Mammography Ivanna herrmann [employer] AW[employer] Work Phone: Start: 04-22-2024 Cv strs tst xers&/or rx cont ecg trcg only Pari Norton CAR RECORD CLERK-ENGINEERING CONSULTANT Work Phone: Start: 04-09-2024 Hemoglobin glycosylated a1c Ivanna Mahmood [employer] Work Phone: Start: 12-26-2023 MLR HEMOGLOBIN A1C Ivanna Mahmood [employer] Work Phone: Start: 07-07-2023 Mammography Ivanna herrmnan [employer] AW[employer] Work Phone: Start: 12-08-2021 Colonoscopy Ivanna herrmann [employer] Work Phone: Start: 05-08-2019 Urine albumin quantitative MAGDA CARBALLO Start: 05-08-2019 Basic metabolic pane l calcium total MAGDA CARBALLO Start: 05-08-2019 Blood count complete auto&auto difrntl wbc MAGDA CARBALLO Start: 05-08-2019 Hemoglobin glycosylated a1c MAGDA CARBALLO Start: 05-08-2019 Lipid panel MAGDA ROWET S Start: 05-08-2019 Urine albumin quantitative Magda Carballo Work Phone: Start: 05-08-2019 Basic metabolic pane l calcium total Magda Carballo Work Phone: Start: 05-08-2019 Blood count complete auto&auto difrntl wbc Magda Carballo Work Phone: Start: 05-08-2019 Hemoglobin glycosylated a1c Magda Carballo Work Phone: Start: 05-08-2019 Lipid panel [facility] Work Phone: Start: 03-13-2019 Myocardial spect mul tiple studies MAGDA CARBALLO Start: 03-13-2019 DISCHARGE PATIENT MAGDA CARBALLO Start: 03-13-2019 AMBULATE PATIENT MAGDA CARBALLO Start: 03-13-2019 DIET GENERAL MAGDA ROWET S Start: 03-13-2019 INITIATE OXYGEN THER APY PROTOCOL MAGDA CARBALLO Start: 03-13-2019 NEURO/VASCULAR CHECKS S MARLEY HARIS Start: 03-13-2019 NOTIFY PHYSICIAN (SPECIFY) MAGDA CARBALLO Start: 03-13-2019 NURSING COMMUNICATION Eric CARBALLO Start: 03-13-2019 PUNCTURE SITE CARE HERNDON N JAETS Start: 03-13-2019 TOBACCO CESSATION EDUCATION MAGDA JAETS Start: 03-13-2019 FULL CODE MAGDA JAET S Start: 03-13-2019 TELEMETRY MONITORING MORIS WATTSJake JAETS Start: 03-13-2019 VITAL SIGNS MAGDAMARLENY ROWET S Start: 03-13-2019 TRANSFER PATIENT MAGDA DEATS Start: 03-13-2019 ENTRY PROCESSOR REPORT MAGDA D JALEESA Start: 03-13-2019 NOTIFY PHYSICIAN (SPECIFY) MAGDA ROWETS Start: 03-13-2019 NURSING COMMUNICATION Eric MARLEYJake CARBALLO Start: 03-13-2019 PULSE OXIMETRY SPOT CHECK MAGDA DEATS Start: 03-13-2019 TELEMETRY MONITORING MORIS WATTSJake HARIS Start: 03-13-2019 VITAL SIGNS MAGDAMARLENY ROWET S Start: 03-13-2019 DIAGNOSIS FOR PROCEDURE MAGDA DEATS Start: 03-13-2019 R & l hrt cath w/njx l ventriculog img s&i MAGDA DEATS Start: 03-13-2019 TREATMENT CONSENT MAGDA DEATS Start: 03-13-2019 VERIFY INFORMED CONSENT MAGDA DEATS Start: 03-13-2019 Glucose quantitative blood xcpt reagent strip MAGDA DEATS Start: 03-13-2019 INITIATE OXYGEN THER APY PROTOCOL MAGDA DEATS Start: 03-13-2019 INTAKE AND OUTPUT MAGDA DEATS Start: 03-12-2019 Echo tthrc r-t 2d w/ wom-mode compl spec&colr d MAGDA DEATS Start: 03-12-2019 Ecg routine ecg w/le ast 12 lds w/i&r MAGDA DEATS Start: 03-12-2019 EKG REPORT MAGDAMARLENY ROWET S Start: 03-12-2019 INITIATE OXYGEN THER APY PROTOCOL MAGDA DEATS Start: 03-12-2019 Blood count complete automated MAGDA DEATS Start: 03-12-2019 Lipid panel MAGDA DEAT S Start: 03-12-2019 DAILY WEIGHTS MAGDA JAE TS Start: 03-12-2019 INTAKE AND OUTPUT MAGDA DEATS Start: 03-12-2019 Assay of troponin quantitative MAGDA DEATS Start: 03-11-2019 Assay of troponin quantitative MAGDA DEATS Start: 03-11-2019 IP CONSULT TO SPIRIT [employer] SERVICES MAGDA DEATS Start: 03-11-2019 IP CONSULT [...] PROPHYLAXIS MAGDA DEATS Start: 03-11-2019 TELEMETRY MONITORING AWN DEATS Start: 03-11-2019 TOBACCO CESSATION EDUCATION [...] DEAT S Start: 03-11-2019 INSERT PERIPHERAL IV AWN DEATS Start: 03-11-2019 TELEMETRY MONITORING SH AWN DEATS Start: 03-11-2019 VITAL SIGNS MAGDA DEAT S Start: 02-20-2019 Dxa bone density teresa dy 1/> sites axial fabian ROWETS Start: 02-20-2019 Dxa bone density teresa dy 1/> sites axial fabian Carballo Work Phone: Start: 12-25-2018 Screening mammograph y [...] MD Work Phone: Start: 02-25-2013 Colonoscopy Rosie NI LL Start: 02-28-2007 Colonoscopy Rosie NI LL Start: 06-26-2006 Sigmoidoscopy Rosie Joseph ILL Start: 04-27-2006 Destruction of lesio n of rectum by fulguration Rosie FARIAS Start: 04-24-2006 Sigmoidoscopy Rosie CROSS Cardiac catheterization Marlo ael NILL Diagnostic laparoscopy [place] NILL Ligation of fallopian tube L ave Mahmood Work Phone: Ligation of fallopian tube M liat CHOWDHURYL Operation on colon Ivanna hubbard Work Phone: Tonsillectomy Ivanna salazar Work Phone: Tonsillectomy Rosie FARIAS Total colonoscopy Ivanna silva Work Phone: Plan of Treatment Date Care Activity Detail Author Start: 07-13-2033 DTaP/Tdap/Td Vaccines (2 - Td or Tdap) DTaP/Tdap/Td Vaccines (2 - Td or Tdap) [facility] Start: 12-09-2031 Screening for malignant neoplasm of colon [facility] Start: 11-15-2025 Glaucoma screening Diabetes: Retinopathy Screening [facility] Start: 11-05-2025 End: 11-05-2025 Patient encounter procedure [facility] Start: 10-29-2025 Medicare Annual Wellness (AWV) Medicare Annual Wellness (AWV) [facility] Start: 08-27-2025 Screening for malignant neoplasm of breast Mammogram [facility] Start: 04-28-2025 End: 04-28-2025 Patient encounter procedure 04/28/2025 2:30 PM EST Office Visit [facility] [address] [place] [address] Pari Norton, CAR RECORD CLERK-ENGINEERING CONSULTANT [address] [facility] [address] [place] [address] [facility] Start: 01-29-2025 Hemoglobin A1c measurement Diabetes: Hemoglobin A1C [facility] Start: 01-29-2025 End: 01-29-2025 Patient encounter procedure [facility] Start: 12-02-2024 Influenza vaccination Influenza Vaccine (#1) [facility] Start: 11-15-2024 Glaucoma screening Diabetes: Retinopathy Screening [facility] Start: 11-04-2024 End: 11-04-2024 Patient encounter procedure 11/04/2024 9:00 AM EDT [facility] [address] [place] [phone] Ivanna Mahmood NP [address] [place] [phone] [facility] Start: 10-29-2024 End: 10-29-2025 CBC W Auto Differential panel - Blood CBC and differential Lab Routine 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 Expected: 10/29/2024 (Approximate), Expires: 10/29/2025 [facility] Work Phone: Comment on above: Expected: 10/29/2024 (Approximate), Expi res: 10/29/2025 Start: 10-29-2024 End: 10-29-2025 Comprehensive metabolic 2000 panel - Serum or Plasma Comprehensive metabolic panel Lab Routine Primary hypertension 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 Type 2 diabetes mellitus without complication, without long-term current use of insulin (HCC) Mixed hyperlipidemia Expected: 10/29/2024 (Approximate), Expires: 10/29/2025 [facility] Comment on above: Expected: 10/29/2024 (Approximate), Expi res: 10/29/2025 Start: 10-29-2024 End: 10-29-2025 Lipid 1996 panel - Serum or Plasma Lipid panel Lab Routine 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 Mixed hyperlipidemia Expected: 10/29/2024 (Approximate), Expires: 10/29/2025 [facility] Comment on above: Expected: 10/29/2024 (Approximate), Expi res: 10/29/2025 Start: 10-29-2024 End: 10-29-2025 Microalbumin/Creatinine panel in random Urine Microalbumin / creatinine, urine ratio Lab Routine Primary hypertension Type 2 diabetes mellitus without complication, without long-term current use of insulin (HCC) Expected: 10/29/2024 (Approximate), Expires: 10/29/2025 [facility] Comment on above: Expected: 10/29/2024 (Approximate), Expi res: 10/29/2025 Start: 10-29-2024 End: 10-29-2025 Thyrotropin [Units/volume] in Serum or Plasma TSH Lab Routine Anxiety Expected: 10/29/2024 (Approximate), Expires: 10/29/2025 [facility] Comment on above: Expected: 10/29/2024 (Approximate), Expi res: 10/29/2025 Start: 10-29-2024 End: 10-29-2025 Urinalysis complete panel - Urine Urinalysis with reflex microscopic (clean catch) Lab Routine Primary hypertension Type 2 diabetes mellitus without complication, without long-term current use of insulin (HCC) Expected: 10/29/2024 (Approximate), Expires: 10/29/2025 [facility] Comment on above: Expected: 10/29/2024 (Approximate), Expi res: 10/29/2025 Start: 10-29-2024 End: 10-29-2024 Patient encounter procedure 10/29/2024 10:00 AM EDT Office Visit [facility] [address] [place] [address] Ivanna Mahmood NP [address] [place] [phone] Restless leg syndrome (Primary Dx); Primary hypertension ; 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 ; Type 2 diabetes mellitus without complication, without long-term current use of insulin (HCC); Mixed hyperlipidemia ; Encounter for subsequent annual wellness visit (AWV) in Medicare patient; Anxiety [facility] Comment on above: Restless leg syndrome (Primary Dx); Primary hypertension ; 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 ; Type 2 diabetes mellitus without complication, without long-term current use of insulin (HCC); Mixed hyperlipidemia ; Encounter for subsequent annual wellness visit (AWV) in Medicare patient; Anxiety Start: 09-04-2024 Medicare Annual Wellness (AWV) Medicare Annual Wellness (AWV) [facility] Start: 07-08-2024 Hemoglobin A1c measurement Diabetes: Hemoglobin A1C [facility] Start: 07-06-2024 Screening for malignant neoplasm of breast Mammogram [facility] Start: 06-22-2024 Urine screening for protein Diabetes: Urine Protein Screening [facility] Start: 06-08-2024 End: 04-10-2025 Alanine aminotransferase [Enzymatic activity/volume] in Serum or Plasma ALT Lab Routine Mixed hyperlipidemia (CMS/HCC) Expected: 06/08/2024 (Approximate), Expires: 04/10/2025 [facility] Comment on above: Expected: 06/08/2024 (Approximate), Expi res: 04/10/2025 Start: 06-08-2024 End: 04-10-2025 Aspartate aminotransferase [Enzymatic activity/volume] in Serum or Plasma AST Lab Routine Mixed hyperlipidemia (CMS/HCC) Expected: 06/08/2024 (Approximate), Expires: 04/10/2025 [facility] Comment on above: Expected: 06/08/2024 (Approximate), Expi res: 04/10/2025 Start: 06-08-2024 End: 04-10-2025 Lipid 1996 panel - Serum or Plasma Lipid panel Lab Routine Mixed hyperlipidemia (CMS/HCC) Expected: 06/08/2024 (Approximate), Expires: 04/10/2025 [facility] Work Phone: Comment on above: Expected: 06/08/2024 (Approximate), Expi res: 04/10/2025 Start: 05-08-2024 End: 05-08-2024 Patient encounter procedure 05/08/2024 1:20 PM EST Office Visit [facility] [address] [place] [address] Ivanna Mahmood, LAST [employer]TER AWAY [address] [place] [phone] [facility] Start: 04-24-2024 End: 04-24-2024 Patient encounter procedure [facility] Start: 03-26-2024 Hemoglobin A1c measurement Diabetes: Hemoglobin A1C [facility] Start: 03-25-2024 End: 03-25-2024 Patient encounter procedure 03/25/2024 9:40 AM EST Office Visit [facility] [address] [place] [address] Ivanna Mahmood, LA[employer] AW[employer] [address] [place] [phone] [facility] Start: 02-22-2024 Influenza vaccination Influenza Vaccine (#1) [facility] Comment on above: Postponed from 12/03/2023 (Patient Does Not Have Time) Start: 12-28-2023 End: 12-28-2023 Patient encounter procedure 12/28/2023 10:50 AM EDT Office Visit [facility] [address] [place] [address] Ivanna Mahmood NP [address] [place] [address] Arrived [facility] Comment on above: Arrived Start: 12-03-2023 COVID-19 Vaccine () COVID-19 Vaccine ( season) [facility] Start: 12-03-2023 Influenza vaccination Influenza Vaccine (#1) [facility] Start: 04-12-2023 FUV, Provider: David Berrios, Status: Pen, Time: 1:00 PM FUV, Provider: David Berrios, Status: Pen, Time: 1:00 PM [facility] 250 DO Work Phone: Start: 04-11-2023 COVID-19 Vaccine (3 - Moderna series) COVID-19 Vaccine (3 - Moderna series) [facility] Start: 04-11-2023 Zoster Vaccines (2 of 2) Zoster Vaccines (2 of 2) [facility] Start: 02-25-2023 Screening for malignant neoplasm of colon [facility] Start: 04-12-2022 FUV, Provider: Davdi Berrios, Status: Pen, Time: 10:30 AM FUV, Provider: David Berrios, Status: Pen, Time: 10:30 AM [facility] [employer] 250 DO Work Phone: Start: 12-25-2020 Breast cancer screen Breast cancer screen [place], [place] Start: 03-12-2020 Lipid screen Lipid screen [email or web address] Phone: Start: 03-11-2020 Creatinine monitoring Creatinine monitoring [email or web address] Phone: Start: 03-11-2020 Potassium monitoring Potassium monitoring [facility] Phone: Start: 01-30-2020 [object Object] Diabetic foot exam [place], [place] Start: 01-30-2020 A1C test (Diabetic or Prediabetic) A1C test (Diabetic or Prediabetic) [place] Start: 01-30-2020 Colon Cancer Screen FIT/FOBT Colon Cancer Screen FIT/FOBT [place] Start: 11-06-2019 End: 11-06-2019 Office Visit 11/06/2019 Office Visit Cardiology Siddharth Garrison MD [address] [place] [address] [place] [address] [facility] Start: 10-26-2019 Diabetic retinal exam Diabetic retinal exam [place], [place] Comment on above: Postponed from 1964 (Patient Refus ed) Start: 08-06-2019 Hemoglobin A1c measurement Diabetes: Hemoglobin A1C [facility] Start: 07-31-2019 Creatinine monitoring Creatinine monitoring [place], [place] Start: 07-31-2019 Diabetic microalbuminuria test Diabetic microalbuminuria test [place] Start: 07-31-2019 Lipid screen Lipid screen [place] Start: 07-31-2019 Potassium monitoring Potassium monitoring [place] Start: 07-27-2019 Cervical cancer screen Cervical cancer screen [place], [place] Comment on above: Postponed from 07/18/1975 (Patient Refus ed) Start: 07-27-2019 DTaP/Tdap/Td vaccine (1 - Tdap) DTaP/Tdap/Td vaccine (1 - Tdap) [place] Comment on above: Postponed from 1965 (Patient Refus ed) Start: 07-27-2019 Hepatitis C screen Hepatitis C screen [place] Comment on above: Postponed from 1954 (Patient Refus ed) Start: 07-27-2019 HIV screen HIV screen [place] Comment on above: Postponed from 1969 (Patient Refus ed) Start: 07-27-2019 Shingles Vaccine (1 of 2) Shingles Vaccine (1 of 2) [place], [place] Comment on above: Postponed from 2004 (Patient Refus ed) Start: 06-20-2019 End: 06-20-2019 Office Visit 06/20/2019 Office Visit Primary Care LuKinjal, CAR RECORD CLERK - ENGINEERING CONSULTANT [address] [place] [address] [phone] [facility] Start: 05-01-2019 End: 05-01-2019 Office Visit 05/01/2019 Office Visit Primary Care Kinjal Sandhu APRN - ENGINEERING CONSULTANT [address] [place] [address] [phone] [facility] Start: 06-27-2011 Screening for malignant neoplasm of colon Sigmoidoscopy [facility] Start: 1994 Screening for malignant neoplasm of breast Mammogram [facility] Start: 1976 DTaP/Tdap/Td Vaccines (1 - Tdap) DTaP/Tdap/Td Vaccines (1 - Tdap) [facility] Start: 1973 Hepatitis B vaccine (1 of 3 - Risk 3-dose series) Hepatitis B vaccine (1 of 3 - Risk 3-dose series) [facility] Work Phone: Start: 1973 Urine screening for protein Diabetes: Urine Protein Screening [facility] Start: 1972 Hepatitis C screening Hepatitis C Screening [facility] Start: 1964 Diabetic foot examination Diabetes: Foot Exam [facility] Start: 1964 Glaucoma screening Diabetes: Retinopathy Screening [facility] Start: 1954 Creatinine measurement Creatinine Level [facility] Start: 1954 Echocardiography Echocardiogram [facility] Start: 1954 Hemoglobin A1c measurement Diabetes: Hemoglobin A1C [facility] Start: 1954 Lipid panel Lipid Panel [facility] Start: 1954 Medicare Annual Wellness Visit Medicare Annual Wellness Visit (AWV) [facility] Start: 1954 Potassium measurement Potassium Level [facility] Start: 1954 Screening for malignant neoplasm of colon [facility] Start: 1954 Screening for osteoporosis Bone Density Scan [facility] Start: 1954 Urine screening for protein Diabetes: Urine Protein Screening [facility] XR Hip - left 2 Views [facility] XR Lumbar spine 2 or 3 Views [facility] Immunizations Immunization Date Immunization Notes Care Provider Melody copeland 01-29-2024 influenza virus vacc ine, unspecified formulation Ivanna Mahmood [employer] AW[employer] Work Phone: [facility] 01-29-2024 influenza, high dose seasonal, preservative-free Ivanna Timoteo [employer] Work Phone: [facility] 01-29-2024 Fluzone High-Dose 0. 5 ML suspension prefilled syringe Ivannamicheal Mahmood [employer] Work Phone: [facility] 01-16-2024 pneumococcal polysaccharide vaccine, 23 valent Pari Norton CAR RECORD CLERK-ENGINEERING CONSULTANT Work Phone: [facility] Work Phone: 01-09-2024 influenza, seasonal, injectable Pari Norton CAR RECORD CLERK-ENGINEERING CONSULTANT Work Phone: [facility] Work Phone: 01-08-2024 varicella virus vaccine Duke Norton CAR RECORD CLERK-ENGINEERING CONSULTANT Work Phone: [facility] Work Phone: 07-14-2023 diphtheria, tetanus toxoids and acellular pertussis vaccine, unspecified formulation Ivanna Mahmood [employer] Work Phone: [facility] 07-14-2023 RSV, recombinant, protein subunit RSVpreF, adjuvant reconstitu, 120mcg/0.5mL, PF (Arexvy) Ivanna Timoteo [employer] Work Phone: [facility] 07-14-2023 tetanus toxoid, redu martínez diphtheria toxoid, and acellular pertussis vaccine, adsorbed Ivanna Valeriyz [employer] AWAY Work Phone: [facility] 05-15-2023 zoster vaccine recombinant Ivanna Timoteo [employer] Work Phone: [facility] 05-15-2023 Shingrix 50 MCG/0.5M L vaccine Ivanna Timoteo [employer] Work Phone: [facility] 02-14-2023 zoster vaccine recombinant Ivanna Valeriyz [employer] Work Phone: [facility] 01-29-2023 Influenza, High-dose Seasonal, Quadrivalent, Preservative Free Ivanna Jaredholz [employer] Work Phone: [facility] 01-29-2023 Pneumococcal Conjuga te PCV 20 Ivanna Valeriyz [employer] AW[employer] Work Phone: [facility] 01-29-2023 influenza virus vacc ine, unspecified formulation Ivanna Timoteo [employer] AWAY Work Phone: [facility] 01-12-2022 Fluzone High-Dose Quadrivalent 0.7 ML Intramuscular Suspension Prefilled Syringe Ivanna Maya Colemanholz Work Phone: [place] [address] DO Work Phone: 01-12-2022 influenza, injectabl e, quadrivalent, preservative free David Berrios MD Work Phone: [facility] Work Phone: 08-05-2020 Moderna COVID-19 Vac cine 100 MCG/0.5ML Intramuscular Suspension Ivanna Maya Philhholz Work Phone: [facility] 250 DO Work Phone: 07-08-2020 Moderna COVID-19 Vac cine 100 MCG/0.5ML Intramuscular Suspension Ivanna Maya Philhholz Work Phone: [facility] 250 DO Work Phone: 02-02-2020 influenza, seasonal, injectable Ivanna Maya Aichholz Work Phone: [facility] 250 DO Work Phone: 01-29-2019 influenza, injectabl e, quadrivalent, preservative free [facility] 12-02-2018 influenza, seasonal, injectable Ivanna Maya Mahmood Work Phone: [facility] 10-25-2018 pneumococcal polysaccharide vaccine, 23 valent Mth Rm [facility] 04-03-2018 pneumococcal polysaccharide vaccine, 23 valent Ivanna Maya Mahmood Work Phone: [facility] Payers Date Payer Category Payer Managed Care (Private) [facility] [id number] 2024 Private Health Insurance [id number] 2021 Medicare [id number] 2021 Medicare (Managed Care) 1.2. [id number] 2018 Unknown [id number]. [id number] 2018 Unknown [id number] 1959 Unknown [id number] 1954 Unknown [id number] 2.16.840.1.579813.3.579.2. 173 1954 Unknown [id number] 2.16.840.1.988701.3.579.2. 173 1954 Unknown [id number] 2.16.840.1.141409.3.579.2. 173 1954 Unknown [id number] 2.16.840.1.210079.3.579.2. 173 1954 Unknown [id number] 2.16.840.1.801705.3.579.2. 173 1954 Unknown [id number] 2.16.840.1.991332.3.579.2. 727 1954 Unknown [id number] 2.16.840.1.764055.3.579.2. 727 1954 Unknown [id number] 2.16.840.1.507699.3.579.2. 727 1954 Unknown [id number] 2.16.840.1.287627.3.579.2. 356 1954 Unknown [id number] 2.16.840.1.029059.3.579.2. 593 1954 Unknown [id number] 2.16.840.1.855122.3.579.2. 593 1954 Unknown [id number] 2.16.840.1.444812.3.579.2. 593 1954 Unknown [id number] 2.16.840.1.369577.3.579.2. 593 1954 Unknown [id number] 2.16.840.1.825956.3.579.2. 1244 1954 Unknown [id number] 2.16.840.1.445979.3.579.2. 124 1954 Unknown [id number] 2.16.840.1.030439.3.579.2. 1246 1954 Unknown [id number] 2.16.840.1.507184.3.579.2. 1246 1954 Unknown [id number] 2.16.840.1.576552.3.579.2. 1246 1954 Unknown [id number] 2.16.840.1.398130.3.579.2. 1246 1954 Unknown [id number] 2.16.840.1.447758.3.579.2. 1259 1954 Unknown [id number] 2.16.840.1.171230.3.579.2. 1259 1954 Unknown [id number] 2.16.840.1.030265.3.579.2. 1259 Medicare Medicare [id number] Private Health Insurance [facility] [id number] Unknown ANTHEM MEDICARE ADV Social History Date Type Detail Facility Start: 05-08-2019 End: 06-21-2023 Tobacco smoking status NHIS Never smoker [place] Start: 05-08-2019 End: 04-09-2024 Alcohol intake Lifetime non-drinker (finding) [place] Start: 07-26-2018 History SDOH Alcohol Frequency 1 [place] Start: 1955 Sex Assigned At Not on file [place] Start: 04-12-2023 End: 10-29-2024 Never a smoker Never a smoker [facility] 250 DO Work Phone: Comment on above: 2 CUPS A DAY; Tobacco smoking status Never [facility] [place] Start: 04-12-2023 End: 10-29-2024 Sex Assigned At Female [facility] Start: 04-12-2023 End: 06-21-2023 Tobacco use and exposure Smokeless tobacco non-user [facility] Work Phone: Start: 04-02-2023 End: 04-24-2024 Exposure to SARS-CoV-2 (event) Not sure [facility] Start: 06-21-2023 Alcohol Comment caffine: 2-6 c ups of coffee/tea daily [facility] Tobacco smoking stat us NHIS Unknown if ever smoked [facility] Work Phone: Sex Female (finding) [facility] Start: 1955 Sex Assigned At Female [facility] Medical Equipment Procedure Code Equipment Code Equipment Origin al Text Equipment Identifier Dates [id number] Start: 11-11-2024 End: 02-19-2025 1 each Daily [id number] Start: 11-11-2024 End: 02-19-2025 Check blood suga r one a day [id number] Start: 11-18-2024 End: 11-18-2025 Check blood suga r one a day [id number] Start: 11-18-2024 End: 11-18-2025 1 each Daily [id number] Start: 11-18-2024 End: 02-26-2025 Functional Status Date Assessment Result Facility 10-29-2024 Patient Health [facility] ionnaire 2 item (PHQ-2) [Reported] [facility] 11-09-2021 Functional Status N/A General Pang jessasalo Morley [facility] Clinical Notes 11-09-2021 to 11-11-2024 Telephone Encounter - Ashley Mars MA - 11/11/2024 4:41 PM EDTTelephone Encounter - Anh Garcialo - 11/11/2024 12:58 PM EDTTelephone Encounter - Latanya Ej - 10/28/2024 9:44 AM EDT Note Date & Type Note Facility 11-11-2024 Miscellaneous Notes Text Mrb Engineer Hi, this is an Dee Dee from [facility], and I am calling because Ivanna WEST sent over a prescription for a meter and test strips for Nneka, why last name is spelled W H A L Y date of is 89 of 54, and I am calling because all we received was a meter and test Strips and not a script for let. So I was just calling to see if you guys can send that over for a for that so we can fill that for her. Um, if [place] [phone]. Thank you Patient left a voicemail stating that she thought you were calling in an Accu check device so she can check her blood sugar levels. She said the pharmacy does not have that. CATHERINE Nneka scheduled an appointment to see you on November 04, at 9:00 AM. She has an eye infection and wanted to know if you would call a prescription in for her. [phone] documented in this encounter [facility] 11-11-2024 Telephone encounter Note Text Mrb Engineer Hi, this is an Dee Dee from [employer] [facility], and I am calling because Ivanna WEST sent over a prescription for a meter and test strips for Nneka, why last name is spelled W H A L Y date of is [phone] of [phone], and I am calling because all we received was a meter and test Strips and not a script for let. So I was just calling to see if you guys can send that over for a for that so we can fill that for her. Um, if you [place] [phone]. Thank you [facility] 11-11-2024 Telephone encounter Note Patient left a voicemail stating that she thought you were calling in an Accu check device so she can check her blood sugar levels. She said the pharmacy does not have that. CATHERINE [facility] 10-29-2024 History of Presen t illness Narrative Associated Problem(s): Acute bacterial conjunctivitis of right eye Warm compress to effected eye Cleanse eye with 1:1 ration of JJ baby shampoo and water Atb drops, in 2 days if not better call your eye doctor Right eye-started 3-4 days ago pt has tried putting otc drops in however not helping. Pt states her eye is crusted closed in the mornings. Pt states the eye is watering constantly and is painful. No issues with visions. No difference in headaches. Pt is needing either contour or acutecheck prescriptions for the diabetic supplies for her insurance to cover Images from the original note were not included. Nneka Corona is a 69 y.o. female presents with chief complaint of Medicare Annual Wellness Visit Initial and Eye Problem HPI: Diet:variety Activity:walking Mental Health Concerns:no Falls in the last year: yes, fell was walking in the dark Still driving: driving Do you pay your bills: yes Any hearing problems: no Any Vision problems: normally no, last eye exam: few months ago Any Hospitalizations in the last year: no Specialist: eye doctor, cardiology Pari Norton HCPOA/Living Will: yes Concerns: right eye Eye Problem The right eye is affected. This is a new problem. The current episode started in the past 7 days. The problem occurs constantly. The problem has been gradually worsening. There was no injury mechanism. The pain is at a severity of 1/10. The pain is mild. There is No known exposure to pink eye. She Wears contacts. Associated symptoms include an eye discharge, a foreign body sensation and itching. Pertinent negatives include no blurred vision, double vision, eye redness, fever, nausea, photophobia, recent URI, vomiting or weakness. She has tried eye drops (both regular and allergy eye drops no help) for the symptoms. The treatment provided no relief. Diabetes She has type 2 diabetes mellitus. Her disease course has been stable. Pertinent negatives for hypoglycemia include no dizziness, headaches, nervousness/anxiousness, seizures or tremors. (Occ more if really active, very infreq) Associated symptoms include polydipsia and polyuria. Pertinent negatives for diabetes include no blurred vision, no chest pain, no foot paresthesias, no polyphagia and no weakness. There are no hypoglycemic complications. Symptoms are stable. Diabetic complications include heart disease. Pertinent negatives for diabetic complications include no nephropathy. Risk factors for coronary artery disease include diabetes mellitus, dyslipidemia and hypertension. Current diabetic treatment includes oral agent (triple therapy). She is compliant with treatment all of the time. She is following a generally healthy diet. Her overall blood glucose range is 110-130 mg/dl. An ROBERTA inhibitor/angiotensin II receptor pierre is being taken. She does not see a line rider.Eye exam is current. SUBJECTIVE: MEDICATIONS: Current Outpatient Medications Medication Instructions amLODIPine (NORVASC) 2.5 mg, Oral, Daily ASPIRIN 81 PO 81 mg, Daily atorvastatin (LIPITOR) 10 mg, Oral, Nightly cholecalciferol (Vitamin D-3) 50 MCG (1999) tablet Oral, Daily DULoxetine (CYMBALTA) 30 mg, Oral, Daily empagliflozin (JARDIANCE) 10 mg, Oral, Daily gabapentin (NEURONTIN) 300 mg, Oral, 3 times daily glipiZIDE XL (GLUCOTROL XL) 5 mg, Oral, Daily hydroCHLOROthiazide (HYDRODIURIL) 25 mg, Oral, Every morning isosorbide mononitrate ER (IMDUR) 30 mg, Oral, Daily lisinopril 5 mg, Oral, Every morning propranolol (INDERAL) 40 mg, Oral, 2 times daily ALLERGIES: No Known Allergies REVIEW OF SYMPTOMS: Review of Systems Constitutional: Negative for appetite change, chills and fever. HENT: Negative for congestion, ear pain and sore throat. Eyes: Positive for discharge and itching. Negative for blurred vision, double vision, photophobia, pain, redness and visual disturbance. Respiratory: Negative for [...] wound. Neurological: Negative for dizziness, tremors, seizures, syncope, weakness and headaches. Psychiatric/Behavioral: Negative for behavioral problems, self-injury and suicidal ideas. The patient is not nervous/anxious. Hematological: Does not bruise/bleed easily. Endocrine: Positive for polydipsia and polyuria. Negative for polyphagia. Allergic/Immunologic: Negative for environmental allergies and food allergies. 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) 03/06/2023 No past surgical history on file. family history is not on file. OBJECTIVE: Visit Vitals BP 118/76 (BP Location: Left arm, Patient Position: Sitting, BP Cuff Size: Adult long) Pulse 56 Temp 98.7 F (Temporal) Resp 18 Wt 146 lb 9.6 oz SpO2 98% BMI 25.97 kg/m Smoking Status Never BSA 1.72 m Physical Exam Vitals and nursing note reviewed. Constitutional: General: She is not in acute distress. Appearance: Normal appearance. HENT: Head: Normocephalic and atraumatic. Right Ear: Tympanic membrane, ear canal and external ear normal. Left Ear: Tympanic membrane, ear canal and external ear normal. Nose: Nose normal. No congestion or rhinorrhea. Mouth/Throat: Mouth: Mucous membranes are moist. Pharynx: No oropharyngeal exudate or posterior oropharyngeal erythema. Eyes: General: Right eye: Discharge (yellowish/green,) present. Extraocular Movements: Extraocular movements intact. Pupils: Pupils are equal, round, and reactive to light. Comments: Right conjunctiva sl injected Cardiovascular: Rate and Rhythm: Normal rate and regular rhythm. Pulses: Normal pulses. Heart sounds: Normal heart sounds. No murmur heard. Pulmonary: Effort: Pulmonary effort is normal. Breath sounds: Normal breath sounds. No wheezing or rhonchi. Abdominal: General: Bowel sounds are normal. There [...] List Items Addressed This Visit Primary hypertension Please check blood pressure daily and record DASH diet Limit caffeine Take medication as directed Contact office if chest pain, pressure, dizziness, shortness of breath, swelling legs Recommend slow position changes Current meds: amlodipine, asa, hydrochlorothiazide, lisinopril, propranolol Relevant Medications hydroCHLOROthiazide (HYDRODiuril) 25 MG tablet lisinopril 5 MG tablet Other Relevant Orders Comprehensive metabolic panel Urinalysis with reflex microscopic (clean catch) Microalbumin / creatinine, urine ratio Type 2 diabetes mellitus without complication, without long-term current use of insulin (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 NO is [employer] Cont ASA 81mg and imdur and statin Relevant Medications atorvastatin (Lipitor) 10 MG tablet Other Relevant Orders CBC and differential Comprehensive metabolic panel Lipid panel Hyperlipidemia On statin therapy Check labs yearly and prn dose changes Relevant Medications atorvastatin (Lipitor) 10 MG tablet Other Relevant Orders Comprehensive metabolic panel Lipid panel Restless leg syndrome - Primary Takes julianne Relevant Medications gabapentin (Neurontin) 300 MG capsule Anxiety Currently taking duloxetine Relevant Orders TSH Tremors of nervous system Relevant Medications propranolol (Inderal) 40 MG tablet Encounter for subsequent annual wellness visit (AWV) in Medicare patient Reviewed Ht/Wt/BMI Recommend eye exam yearly Recommend dental exams twice a year Balance work/leisure activities Exercises is recommended most days of the week (appropriate as chronic conditions allow) Follow up yearly and prn Acute bacterial conjunctivitis of right eye Warm compress to effected eye Cleanse eye with 1:1 ration of JJ baby shampoo and water Atb drops, in 2 days if not better call your eye doctor Relevant Medications trimethoprim-polymyxin b (Polytrim) ophthalmic solution Associated Problem(s): Anxiety Currently taking duloxetine Associated Problem(s): Encounter for subsequent annual wellness visit (AWV) in Medicare patient Reviewed Ht/Wt/BMI Recommend eye exam yearly Recommend dental exams twice a year Balance work/leisure activities Exercises is recommended most days of the week (appropriate as chronic conditions allow) Follow up yearly and prn Associated Problem(s): Hyperlipidemia On statin therapy Check labs yearly and prn dose changes Associated Problem(s): Type 2 diabetes mellitus without complication, without long-term current use of insulin (HCC) Check blood sugars daily, notify if <70 [...] and glipizide A1c 7.4% 10/29/24, 7.3% 04/09/24 Associated Problem(s): 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 10-29-2024 Instructions Ivanna Mahmood NP - 10/29/2024 10:00 AM EDT Atb drops to right eye every 4 hours for 7 days, if not better in the next 2 days call your eye doctor You can use a capful of baby shampoo and capful of water to clean eye Also add over the count claritin allergy medication once a day while doing eye drops documented in this encounter [facility] 10-28-2024 Telephone encounter Note Nneka scheduled an appointment to see you on November 04, at 9:00 AM. She has an eye infection and wanted to know if you would call a prescription in for her. [phone] [facility] 09-30-2024 Telephone encounter Note Missed her last appt, needs an appt, make it an AWV LA [facility] 09-30-2024 Miscellaneous Notes Missed her last appt, needs an appt, make it an AWV LA documented in this encounter [facility] 04-24-2024 Evaluation + Plan note Associated Problem(s): BMI 26.0-26.9,adult Reviewed the merits of healthy lifestyle choices on overall cardiovascular health. [facility] Work Phone: 04-24-2024 Evaluation + Plan note Associated Problem(s): Diabetes mellitus (Multi) On ROBERTA/statin Unknown hemoglobin A1c [facility] Work Phone: 04-24-2024 Miscellaneous Notes Associated Problem(s): [...] CAD (coronary artery disease) Mar 2019 @ [facility] heart cath: . Very small [...] without recurrent symptoms documented in this encounter [facility] Work Phone: 04-24-2024 Evaluation + Plan note Associated Problem(s): Hyperlipidemia Reports she was recently changed from simvastatin over to atorvastatin and we will plan on getting labs I believe in 2 months. [facility] Work Phone: 04-24-2024 Evaluation + Plan note Associated Problem(s): Benign essential hypertension Mild asymptomatic hypotension noted in the office today. [facility] Work Phone: 04-24-2024 History of Presen t [...] CAD (coronary artery disease) Mar 2019 @ [facility] heart cath: . Very small [...] contact the office if new symptoms arise. [facility] annual Discussed the dynamic nature of coronary artery disease and the importance of seeking medical attention if new symptoms arise. Pari Norton MSN, CAR RECORD CLERK-ENGINEERING CONSULTANT, PMHNP-[facility] [place], [place] Please excuse any errors in grammar or translation related to this dictation. Voice recognition software was utilized to prepare this document. documented in this encounter [facility] Work Phone: 04-24-2024 Instructions JESS Malloy - [...] contact the office if new symptoms arise. [facility] annual Discussed the dynamic nature of coronary artery disease and the importance of seeking medical attention if new symptoms arise. documented in this encounter [facility] Work Phone: 04-24-2024 Evaluation + Plan note Associated Problem(s): CAD (coronary artery disease) Mar 2019 @ [facility] heart cath: . Very small [...] greater than 4 METS without recurrent symptoms [facility] Work Phone: 04-09-2024 History of Presen t [...] being taken. She does not see a line rider.Eye exam is current. Hypertension This is a [...] no compliance problems. Hypertensive end-organ damage includes CAD/OK. 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) 03/20/2023 Primary hypertension ([facility]) 03/06/2023 Type 2 diabetes mellitus without complication, without long-term current use of insulin ([facility]) 03/06/2023 History reviewed. No pertinent surgical history. [...] List Items Addressed This Visit Primary hypertension ([facility]) Please check blood pressure daily and record DASH diet Limit caffeine Take medication as directed Contact office if chest pain, pressure, dizziness, shortness of breath, swelling legs Recommend slow position changes Current meds: amlodipine, asa, hydrochlorothiazide, lisinopril, propranolol Relevant Medications hydroCHLOROthiazide (HYDRODiuril) 25 MG tablet Type 2 diabetes mellitus without complication, without long-term current use of insulin (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) On statin therapy Check labs yearly and prn dose changes Associated Problem(s): Type 2 diabetes mellitus without complication, without long-term current use of insulin (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 I did confirm that they had her working number continue tight blood pressure/blood sugar control Cont ASA 81mg and imdur and statin Associated Problem(s): Restless leg syndrome Takes julianne documented in this encounter [facility] 04-09-2024 Instructions Ivanna Mahmood NP - 04/09/2024 1:00 PM EST I called [facility] ([phone]), spoke with Nurse Krupa, she will contact the [facility] to see if a stress test or ECHO of your heart is to be done prior to appt on 04/24/24 If worsening chest pain, go to ER. Avoid strenuous activity as well documented in this encounter 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 mikayla Corona is a 68 y.o. female presents [...] 140-180 mg/dl. An ROBERTA inhibitor/angiotensin II receptor iperre is being taken. She does not see a line rider.Eye exam is current. Hypertension This is a [...] no compliance problems. Hypertensive end-organ damage includes CAD/OK. Anxiety Presents for follow-up visit. 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) 03/06/2023 History reviewed. No pertinent surgical history. [...] complication, without long-term current use of insulin (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 04-12-2023 History of Presen t illness Narrative [...] angiogram that was performed in 2019 in [facility]. Nonetheless the patient gives a good [...] Rfl: Assessment/Plan 1. Coronary artery disease involving reno-sparks coronary artery of reno-sparks heart without angina pectoris No anginal symptomatology [...] other type without complication, unspecified 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 insulin use ([facility]) Managed by other providers. She claims good control. 5. Never smoked any substance As above Scribe Attestation By signing my name below, Deborah Sorto Wolf Ahumada LPN , Scribe attest that this documentation has been prepared under the direction and in the presence of David Berrios MD. documented in this encounter [facility] Work Phone: 04-12-2023 Instructions Deborah Bowens LPN [...] of your visit. documented in this encounter [facility] Work Phone: 12-08-2021 Note OPERATIVE NOTE OPERATION [...] good condition. CC: Ivanna Mahmood, BROWN [facility] 11-09-2021 Note Chief Complaint consultation for [...] 0.4 mg= 1 (more content not included)... [facility] Comment on above: Result Comment: Elec tronically Signed By: JARRETT MARTINEZ, Rosie Parr\Date and Time Signed: 11/09/21 13:54 EDT Evaluation + Plan note No data available for this section General Surgery [place] Evaluation note Diagnosis Coronary artery disease involving reno-sparks coronary artery of reno-sparks heart without angina pectoris- Primary Benign essential hypertension Essential hypertension, benign Mixed hyperlipidemia Diabetes mellitus of other type without complication, unspecified whether [facility] insulin use (CMS/HCC) Never smoked any substance documented in this encounter [facility] Work Phone: Evaluation note* Diagnosis Tremors of nervous system [facility] Diagnosis Left hip pain- Primary Pain in joint, pelvic region and thigh 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 (CMS/HCC) Primary hypertension [...] of insulin (CMS/HCC) 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 (CMS/HCC) Mixed hyperlipidemia (CMS/HCC) Mixed hyperlipidemia Vitamin D deficiency 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) Vitamin D deficiency Mixed hyperlipidemia ([facility]/HCC) Mixed hyperlipidemia Encounter for screening mammogram for malignant neoplasm of breast Lumbar back pain with radiculopathy affecting left lower extremity Encounter for subsequent annual wellness visit (AWV) in Medicare patient- Primary Primary hypertension ([facility]/HCC) Unspecified essential hypertension Anxiety Anxiety state, unspecified Restless leg syndrome Restless legs syndrome (RLS) Tremors of nervous system Type 2 diabetes mellitus without complication, without long-term current use of insulin (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) Unspecified essential hypertension Type 2 diabetes mellitus without complication, without long-term current use of insulin ([facility]) Anxiety Anxiety state, unspecified Mixed hyperlipidemia ([facility]/HCC) Mixed hyperlipidemia Tremors of nervous system Anxiety Anxiety state, unspecified Primary hypertension ([facility]/HCC) Unspecified essential hypertension Mixed hyperlipidemia ([facility]) Mixed hyperlipidemia documented in this encounter [facility]* Diagnosis Left hip pain- Primary Pain in joint, pelvic region and thigh 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) Vitamin D deficiency Mixed hyperlipidemia (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 (CMS/HCC) Mixed hyperlipidemia (CMS/HCC) Mixed hyperlipidemia Vitamin D deficiency 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 (CMS/HCC)- Primary Primary hypertension (CMS/HCC) Unspecified essential hypertension Type 2 diabetes mellitus without complication, without long-term current use of insulin (CMS/HCC) Anxiety Anxiety state, unspecified Mixed hyperlipidemia (CMS/HCC) Mixed hyperlipidemia Tremors of nervous system 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 (CMS/HCC)- Primary Type [...] region and thigh 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 (CMS/HCC) Primary hypertension [...] of insulin (CMS/HCC) 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 (CMS/HCC) Mixed hyperlipidemia (CMS/HCC) Mixed hyperlipidemia Vitamin D deficiency 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 (CMS/HCC)- Primary Primary hypertension (CMS/HCC) Unspecified essential hypertension Type 2 diabetes mellitus without complication, without long-term current use of insulin (CMS/HCC) Anxiety Anxiety state, unspecified Mixed hyperlipidemia (CMS/HCC) Mixed hyperlipidemia Tremors of nervous system 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 (CMS/HCC)- Primary Type 2 diabetes mellitus without complication, without long-term current use of insulin (CMS/HCC) Restless leg syndrome Restless legs syndrome (RLS) Primary hypertension (CMS/HCC) Unspecified essential hypertension Mixed hyperlipidemia (CMS/HCC) Mixed hyperlipidemia Tremors of nervous system Anxiety Anxiety state, unspecified Mixed hyperlipidemia (CMS/HCC)- Primary Mixed hyperlipidemia 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 (CMS/HCC) documented in this encounter [facility]Evaluation [facility]* Diagnosis Left hip pain- Primary Pain in joint, pelvic region and thigh 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 (CMS/HCC) Primary hypertension [...] of insulin (CMS/HCC) 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 (CMS/HCC) Mixed hyperlipidemia (CMS/HCC) Mixed hyperlipidemia Vitamin D deficiency 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 (CMS/HCC)- Primary Primary hypertension (CMS/HCC) Unspecified essential hypertension Type 2 diabetes mellitus without complication, without long-term current use of insulin (CMS/HCC) Anxiety Anxiety state, unspecified Mixed hyperlipidemia (CMS/HCC) Mixed hyperlipidemia Tremors of nervous system 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 (CMS/HCC)- Primary Type 2 diabetes mellitus without complication, without long-term current use of insulin (CMS/HCC) Restless leg syndrome Restless legs syndrome (RLS) Primary hypertension (CMS/HCC) Unspecified essential hypertension Mixed hyperlipidemia (CMS/HCC) Mixed hyperlipidemia Tremors of nervous system Anxiety Anxiety state, unspecified Type 2 diabetes mellitus without complication, without long-term current use of insulin (CMS/HCC)- Primary documented in this encounter [facility] HealthcareEvaluation note* Diagnosis Chest pain, unspecified type Coronary artery disease involving [place] heart with other form of angina pectoris, unspecified vessel or lesion type documented in this encounter [facility] Work Phone: Evaluation note* Diagnosis Mixed hyperlipidemia- Primary Coronary artery disease involving [place] coronary artery of [place] heart without angina pectoris Benign essential hypertension Essential hypertension, benign Diabetes mellitus of other type without complication, unspecified 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 insulin 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 (Multi) BMI 26.0-26.9,adult documented in this encounter [facility] Work Phone: Evaluation note* Diagnosis Left hip pain- Primary Pain in joint, pelvic region and thigh 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 (CMS/HCC) Primary hypertension (CMS/HCC) Unspecified essential hypertension Type 2 diabetes mellitus without complication, without long-term current use of insulin Vitamin D deficiency Mixed hyperlipidemia (CMS/HCC) Mixed [...] complication, without long-term current use of insulin 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 (CMS/HCC) Mixed hyperlipidemia (CMS/HCC) Mixed hyperlipidemia Vitamin D deficiency 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 (CMS/HCC)- Primary Primary hypertension (CMS/HCC) Unspecified essential hypertension Type 2 diabetes mellitus without complication, without long-term current use of insulin Anxiety Anxiety state, unspecified Mixed hyperlipidemia (CMS/HCC) Mixed hyperlipidemia Tremors of nervous system 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 (CMS/HCC)- Primary Type 2 diabetes mellitus without complication, without long-term current use of insulin Restless leg syndrome Restless legs syndrome (RLS) Primary hypertension (CMS/HCC) Unspecified essential hypertension Mixed hyperlipidemia (CMS/HCC) Mixed hyperlipidemia Tremors of nervous system Anxiety Anxiety state, unspecified 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 (CMS/HCC) documented in this encounter [facility]* Diagnosis Left hip pain- Primary Pain in joint, pelvic region and thigh 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 (CMS/HCC) Primary hypertension (CMS/HCC) Unspecified essential hypertension Type 2 diabetes mellitus without complication, without long-term current use of insulin Vitamin D deficiency Mixed hyperlipidemia (CMS/HCC) Mixed [...] complication, without long-term current use of insulin 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 (CMS/HCC) Mixed hyperlipidemia (CMS/HCC) Mixed hyperlipidemia Vitamin D deficiency 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 (CMS/HCC)- Primary Primary hypertension (CMS/HCC) Unspecified essential hypertension Type 2 diabetes mellitus without complication, without long-term current use of insulin Anxiety Anxiety state, unspecified Mixed hyperlipidemia (CMS/HCC) Mixed hyperlipidemia Tremors of nervous system 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 (CMS/HCC)- Primary Type 2 diabetes mellitus without complication, without long-term current use of insulin Restless leg syndrome Restless legs syndrome (RLS) Primary hypertension (CMS/HCC) Unspecified essential hypertension Mixed hyperlipidemia (CMS/HCC) Mixed hyperlipidemia Tremors of nervous system Anxiety Anxiety state, unspecified Primary hypertension (CMS/HCC) Unspecified essential hypertension documented in this encounter [facility]* Diagnosis Left hip pain- Primary Pain in joint, pelvic region and thigh 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 (CMS/HCC) Primary hypertension (CMS/HCC) Unspecified essential hypertension Type 2 diabetes mellitus without complication, without long-term current use of insulin Vitamin D deficiency Mixed hyperlipidemia (CMS/HCC) Mixed [...] complication, without long-term current use of insulin 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 (CMS/HCC) Mixed hyperlipidemia (CMS/HCC) Mixed hyperlipidemia Vitamin D deficiency 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 (CMS/HCC)- Primary Primary hypertension (CMS/HCC) Unspecified essential hypertension Type 2 diabetes mellitus without complication, without long-term current use of insulin Anxiety Anxiety state, unspecified Mixed hyperlipidemia (CMS/HCC) Mixed hyperlipidemia Tremors of nervous system 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 (CMS/HCC)- Primary Type 2 diabetes mellitus without complication, without long-term current use of insulin Restless leg syndrome Restless legs syndrome (RLS) Primary hypertension (CMS/HCC) Unspecified essential hypertension Mixed hyperlipidemia (CMS/HCC) Mixed hyperlipidemia Tremors of nervous system Anxiety Anxiety state, unspecified Mixed hyperlipidemia (CMS/HCC) Mixed hyperlipidemia 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 (CMS/HCC) Primary hypertension (CMS/HCC) Unspecified essential hypertension documented in this encounter [facility]* Diagnosis Left hip pain- Primary Pain in joint, pelvic region and thigh 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 Primary hypertension Unspecified essential hypertension Type 2 diabetes mellitus without complication, without long-term current use of insulin (HCC) Vitamin D deficiency Mixed hyperlipidemia Mixed hyperlipidemia Encounter for screening mammogram for malignant neoplasm of breast Lumbar back pain with radiculopathy affecting left lower extremity Encounter for subsequent annual wellness visit (AWV) in Medicare patient- Primary Primary hypertension Unspecified essential hypertension Anxiety Anxiety state, unspecified Restless leg syndrome Restless legs syndrome (RLS) Tremors of nervous system Type 2 diabetes mellitus without complication, without long-term current use of insulin (HCC) 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 Mixed hyperlipidemia Mixed hyperlipidemia Vitamin D deficiency 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- Primary Primary hypertension Unspecified essential hypertension Type 2 diabetes mellitus without complication, without long-term current use of insulin (HCC) Anxiety Anxiety state, unspecified Mixed hyperlipidemia Mixed hyperlipidemia Tremors of nervous system 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- Primary Type 2 diabetes mellitus without complication, without long-term current use of insulin (HCC) Restless leg syndrome Restless legs syndrome (RLS) Primary hypertension Unspecified essential hypertension Mixed hyperlipidemia Mixed hyperlipidemia Tremors of nervous system Anxiety Anxiety state, unspecified Primary hypertension Unspecified essential hypertension Anxiety Anxiety state, unspecified documented in this encounter [facility]* Diagnosis Left hip pain- Primary Pain in joint, pelvic region and thigh 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 Primary hypertension Unspecified essential hypertension Type 2 diabetes mellitus without complication, without long-term current use of insulin (HCC) Vitamin D deficiency Mixed hyperlipidemia Mixed hyperlipidemia Encounter for screening mammogram for malignant neoplasm of breast Lumbar back pain with radiculopathy affecting left lower extremity Encounter for subsequent annual wellness visit (AWV) in Medicare patient- Primary Primary hypertension Unspecified essential hypertension Anxiety Anxiety state, unspecified Restless leg syndrome Restless legs syndrome (RLS) Tremors of nervous system Type 2 diabetes mellitus without complication, without long-term current use of insulin (HCC) 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 Mixed hyperlipidemia Mixed hyperlipidemia Vitamin D deficiency 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- Primary Primary hypertension Unspecified essential hypertension Type 2 diabetes mellitus without complication, without long-term current use of insulin (HCC) Anxiety Anxiety state, unspecified Mixed hyperlipidemia Mixed hyperlipidemia Tremors of nervous system 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- Primary Type 2 diabetes mellitus without complication, without long-term current use of insulin (HCC) Restless leg syndrome Restless legs syndrome (RLS) Primary hypertension Unspecified essential hypertension Mixed hyperlipidemia Mixed hyperlipidemia Tremors of nervous system Anxiety Anxiety state, unspecified Encounter for subsequent annual wellness visit (AWV) in Medicare patient- Primary Restless leg syndrome Restless legs syndrome (RLS) Primary hypertension Unspecified essential hypertension 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 Type 2 diabetes mellitus without complication, without long-term current use of insulin (HCC) Mixed hyperlipidemia Mixed hyperlipidemia Anxiety Anxiety state, unspecified Tremors of nervous system Acute bacterial conjunctivitis of right eye documented in this encounter [facility]* Diagnosis Left hip pain- Primary Pain in joint, pelvic region and thigh 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 Primary hypertension Unspecified essential hypertension Type 2 diabetes mellitus without complication, without long-term current use of insulin (HCC) Vitamin D deficiency Mixed hyperlipidemia Mixed hyperlipidemia Encounter for screening mammogram for malignant neoplasm of breast Lumbar back pain with radiculopathy affecting left lower extremity Encounter for subsequent annual wellness visit (AWV) in Medicare patient- Primary Primary hypertension Unspecified essential hypertension Anxiety Anxiety state, unspecified Restless leg syndrome Restless legs syndrome (RLS) Tremors of nervous system Type 2 diabetes mellitus without complication, without long-term current use of insulin (HCC) 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 Mixed hyperlipidemia Mixed hyperlipidemia Vitamin D deficiency 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- Primary Primary hypertension Unspecified essential hypertension Type 2 diabetes mellitus without complication, without long-term current use of insulin (HCC) Anxiety Anxiety state, unspecified Mixed hyperlipidemia Mixed hyperlipidemia Tremors of nervous system 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- Primary Type 2 diabetes mellitus without complication, without long-term current use of insulin (HCC) Restless leg syndrome Restless legs syndrome (RLS) Primary hypertension Unspecified essential hypertension Mixed hyperlipidemia Mixed hyperlipidemia Tremors of nervous system Anxiety Anxiety state, unspecified Encounter for subsequent annual wellness visit (AWV) in Medicare patient- Primary Restless leg syndrome Restless legs syndrome (RLS) Primary hypertension Unspecified essential hypertension 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 Type 2 diabetes mellitus without complication, without long-term current use of insulin (HCC) Mixed hyperlipidemia Mixed hyperlipidemia Anxiety Anxiety state, unspecified Tremors of nervous system Acute bacterial conjunctivitis of right eye Type 2 diabetes mellitus without complication, without long-term current use of insulin (HCC)- Primary documented in this encounter [facility] HealthcareEvaluation note* Diagnosis Left hip pain- Primary Pain in joint, pelvic region and thigh 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 Primary hypertension Unspecified essential hypertension Type 2 diabetes mellitus without complication, without long-term current use of insulin (HCC) Vitamin D deficiency Mixed hyperlipidemia Mixed hyperlipidemia Encounter for screening mammogram for malignant neoplasm of breast Lumbar back pain with radiculopathy affecting left lower extremity Encounter for subsequent annual wellness visit (AWV) in Medicare patient- Primary Primary hypertension Unspecified essential hypertension Anxiety Anxiety state, unspecified Restless leg syndrome Restless legs syndrome (RLS) Tremors of nervous system Type 2 diabetes mellitus without complication, without long-term current use of insulin (HCC) 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 Mixed hyperlipidemia Mixed hyperlipidemia Vitamin D deficiency 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- Primary Primary hypertension Unspecified essential hypertension Type 2 diabetes mellitus without complication, without long-term current use of insulin (HCC) Anxiety Anxiety state, unspecified Mixed hyperlipidemia Mixed hyperlipidemia Tremors of nervous system 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- Primary Type 2 diabetes mellitus without complication, without long-term current use of insulin (HCC) Restless leg syndrome Restless legs syndrome (RLS) Primary hypertension Unspecified essential hypertension Mixed hyperlipidemia Mixed hyperlipidemia Tremors of nervous system Anxiety Anxiety state, unspecified Encounter for subsequent annual wellness visit (AWV) in Medicare patient- Primary Restless leg syndrome Restless legs syndrome (RLS) Primary hypertension Unspecified essential hypertension 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 Type 2 diabetes mellitus without complication, without long-term current use of insulin (HCC) Mixed hyperlipidemia Mixed hyperlipidemia Anxiety Anxiety state, unspecified Tremors of nervous system Acute bacterial conjunctivitis of right eye Type 2 diabetes mellitus without complication, without long-term current use of insulin (HCC)- Primary documented in this encounter [facility]* Diagnosis Left hip pain- Primary Pain in joint, pelvic region and thigh 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 Primary hypertension Unspecified essential hypertension Type 2 diabetes mellitus without complication, without long-term current use of insulin (HCC) Vitamin D deficiency Mixed hyperlipidemia Mixed hyperlipidemia Encounter for screening mammogram for malignant neoplasm of breast Lumbar back pain with radiculopathy affecting left lower extremity Encounter for subsequent annual wellness visit (AWV) in Medicare patient- Primary Primary hypertension Unspecified essential hypertension Anxiety Anxiety state, unspecified Restless leg syndrome Restless legs syndrome (RLS) Tremors of nervous system Type 2 diabetes mellitus without complication, without long-term current use of insulin (HCC) 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 Mixed hyperlipidemia Mixed hyperlipidemia Vitamin D deficiency 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- Primary Primary hypertension Unspecified essential hypertension Type 2 diabetes mellitus without complication, without long-term current use of insulin (HCC) Anxiety Anxiety state, unspecified Mixed hyperlipidemia Mixed hyperlipidemia Tremors of nervous system 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- Primary Type 2 diabetes mellitus without complication, without long-term current use of insulin (HCC) Restless leg syndrome Restless legs syndrome (RLS) Primary hypertension Unspecified essential hypertension Mixed hyperlipidemia Mixed hyperlipidemia Tremors of nervous system Anxiety Anxiety state, unspecified Encounter for subsequent annual wellness visit (AWV) in Medicare patient- Primary Restless leg syndrome Restless legs syndrome (RLS) Primary hypertension Unspecified essential hypertension 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 Type 2 diabetes mellitus without complication, without long-term current use of insulin (HCC) Mixed hyperlipidemia Mixed hyperlipidemia Anxiety Anxiety state, unspecified Tremors of nervous system Acute bacterial conjunctivitis of right eye Type 2 diabetes mellitus without complication, without long-term current use of insulin (HCC)- Primary documented in this encounter [facility]* Diagnosis Left hip pain- Primary Pain in joint, pelvic region and thigh 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 Primary hypertension Unspecified essential hypertension Type 2 diabetes mellitus without complication, without long-term current use of insulin (HCC) Vitamin D deficiency Mixed hyperlipidemia Mixed hyperlipidemia Encounter for screening mammogram for malignant neoplasm of breast Lumbar back pain with radiculopathy affecting left lower extremity Encounter for subsequent annual wellness visit (AWV) in Medicare patient- Primary Primary hypertension Unspecified essential hypertension Anxiety Anxiety state, unspecified Restless leg syndrome Restless legs syndrome (RLS) Tremors of nervous system Type 2 diabetes mellitus without complication, without long-term current use of insulin (HCC) 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 Mixed hyperlipidemia Mixed hyperlipidemia Vitamin D deficiency 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- Primary Primary hypertension Unspecified essential hypertension Type 2 diabetes mellitus without complication, without long-term current use of insulin (HCC) Anxiety Anxiety state, unspecified Mixed hyperlipidemia Mixed hyperlipidemia Tremors of nervous system 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- Primary Type 2 diabetes mellitus without complication, without long-term current use of insulin (HCC) Restless leg syndrome Restless legs syndrome (RLS) Primary hypertension Unspecified essential hypertension Mixed hyperlipidemia Mixed hyperlipidemia Tremors of nervous system Anxiety Anxiety state, unspecified Encounter for subsequent annual wellness visit (AWV) in Medicare patient- Primary Restless leg syndrome Restless legs syndrome (RLS) Primary hypertension Unspecified essential hypertension 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 Type 2 diabetes mellitus without complication, without long-term current use of insulin (HCC) Mixed hyperlipidemia Mixed hyperlipidemia Anxiety Anxiety state, unspecified Tremors of nervous system Acute bacterial conjunctivitis of right eye Type 2 diabetes mellitus without complication, without long-term current use of insulin (HCC) documented in this encounter [facility] Diagnosis Onset Date Resolution Status Admit Date Greater trochanteric bursiti s of left hip acute December 05 025 3:58pm [facility] Work Phone: History of Present illness NarrativePatient returns in follow-up of problems as noted. She doing well. She is active with no angina CHFarrhythmia or neurologic symptomatology. Cardiac risk factors and their management are reviewed including that of diabetes hypertension and hyperlipidemia and her control and treatment appears to be excellent. Because of this we recommend no change. We did advocate a modest diet and weight loss but otherwise she is doing well and consequently we suggest continued pharmacologic therapy as is and [facility] Work Phone: History of Present illness NarrativePatient returns in follow-up of problems as noted. In the interim she is done well. Control risk factors including diabetes hypertension and hyperlipidemia is reviewed and felt to be adequate and appropriate. We reviewed in detail the old and/or outside records from [facility]. She appeared to have coronary spasm but no occlusive disease and because of this the likelihood of a coronary event in the near future appears very low. 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 Benign essential hypertension Procedures Follow Up In Cardiology David Berrios MD [address], [address] [address] David Berrios MD [address], [address] [address] Referral ID Status Reason Start Date Expiration Date V isits Requested Visits Authorized [id number] Authorized 04/12/2023 04/11/2024 1 1 [facility] Work Phone: Reason for referral (narrative)No reason for referral information availableBarney [facility] Work Phone: Reason for visit Narrative* Cardiac Stress Testing (Routine) - Authorized Specialty Diagnoses / Procedures Referred By Contac t Referred To Contact Radiology Diagnoses Chest pain, unspecified type Coronary artery disease involving [place] heart with other form of angina pectoris, unspecified vessel or lesion type Procedures Nuclear Stress Test CHG MYOCARDIAL SPECT MULTIPLE STUDIES Pari Norton, CAR RECORD CLERK-ENGINEERING CONSULTANT [facility] [address], [address] [address] Phone: tel: fax: Referral ID Status Reason Start Date Expiration Date V isits Requested Visits Authorized [id number] Authorized 04/09/2024 04/09/2025 5 5 [facility] Work Phone: Reason for visit Narrative* Cardiac Stress Testing (Routine) - Authorized Specialty Diagnoses / Procedures Referred By Contac t Referred To Contact Radiology Diagnoses Chest pain, unspecified type Coronary artery disease involving [place] heart with other form of angina pectoris, unspecified vessel or lesion type Procedures Nuclear Stress Test CHG MYOCARDIAL SPECT MULTIPLE STUDIES Pari Norton, CAR RECORD CLERK-ENGINEERING CONSULTANT [facility] [facility] [address], [address] [address] Phone: tel: fax: Referral ID Status Reason Start Date Expiration Date V isits Requested Visits Authorized [id number] Authorized 04/09/2024 04/09/[address] [place] [address] Work Phone: Assessments Diagnosis Type 2 diabetes mellitus with complication, without long-term current use of insulin (HCC) Essential hypertension Unspecified essential hypertension Dyslipidemia Other and unspecified hyperlipidemia Diagnosis Post-menopausal Asymptomatic postmenopausal status (age-related) (natural) Osteopenia, unspecified location Advance Directives Documents on File Type Date Recorded Patient Spectral Scientist Expl anation Advance Directives and Living Will Power of Cabin Supervisor Latest Code Status on File Code Status Date Activated Date Inactivated Comments Full Code 03/13/2019 10:08 AM 03/13/2019 4:32 PM Full Code 03/13/2019 8:12 AM 03/13/2019 10:08 AM Full Code 03/11/2019 6:58 PM 03/13/2019 8:12 AM Documents on File Type Date Recorded Patient Spectral Scientist Expl anation Advance Directives and Living Will Power of Cabin Supervisor Advance Directive Response Recorded Date/ Time Advance Directives No December 2:02pm Summary Purpose Family History Unknown Family Member Name Dates Details Heart problem: Mother, Fathe r Status:Active Family history of diabetes m ellitus: Brother(V18.0, Z83.3) Status:Active Unknown Family Member Name Dates Details Heart problem: Mother, Fathe r Status:Active Family history of diabetes m ellitus: Brother(V18.0, Z83.3) Status:Active Chief Complaint NNEKA GARCIA is being seen for an annual follow-up of.NNEKA GARCIA is being seen for an annual follow-up of. Chief Complaint and Reason for Visit Chief Complaint Admit Date hip pain December 05, 2024 3:58pm Reason for Visit Admit Date Greater trochanteric bursitis of left hi p December 05, 2024 3:58pm Additional Source Comments INFORMATION SOURCE (unrecogn ized section and content) DATE CREATED AUTHOR 05/09/2019 [facility] DATE CREATED AUTHOR AUTHOR'S ORGANIZ ATION 04/05/2021 [employer] DATE CREATED AUTHOR AUTHOR'S ORGANIZ ATION 01/01/2022 [facility] DATE CREATED AUTHOR AUTHOR'S ORGANIZ ATION 04/12/2022 [facility] DATE CREATED AUTHOR AUTHOR'S ORGANIZ ATION 05/21/2022 [facility] DATE CREATED AUTHOR AUTHOR'S ORGANIZ ATION 04/24/2024 [facility] DATE CREATED AUTHOR AUTHOR'S ORGANIZ ATION 04/26/2024 [facility] DATE CREATED AUTHOR AUTHOR'S ORGANIZ ATION 10/30/2024 [facility] EPIC Reason for Visit (unrecogniz ed section and content) Status Reason Specialty Diagnoses / Procedures Referre d By Contact Referred To Contact Open Radiology Diagnoses Post-menopausal Osteopenia, unspecified location Procedures DEXA BONE DENSITY AXIAL SKELETON DEXA BONE DENSITY 2 SITES HC DEXA AXIAL SKELETON Magda Carballo CAR RECORD CLERK - ENGINEERING CONSULTANT [address] [place] [address] Reason Comments Follow-up 1y Reason Comments Med Refill Reason Comments Diabetes Reason Comments Results mpl Specialty Diagnoses / Procedures Referred By Contac t Referred To Contact Cardiology Diagnoses Coronary artery disease involving [place] coronary artery of [place] heart without angina pectoris Benign essential hypertension Procedures Follow Up In Cardiology David Berrios MD McGuinn, William P, MD Retired From Practice Referral ID Status Reason Start Date Expiration Date V isits Requested Visits Authorized [id number] Authorized 04/12/2023 04/11/2024 1 1 Reason Onset Date Comments Med Refill 07/01/2024 Reason Comments Medicare Annual Wellness Visit Initial Eye Problem Reason Onset Date Comments Medication Question 10/28/2024 Care Team (unrecognized sect ion and content) Senior Python Developer Relationship Specialty Start Date End Date Ivanna Mahmood CAR RECORD CLERK-ENGINEERING CONSULTANT [address] [place] [address] PCP - General 04/03/16 Senior Python Developer Relationship Specialty Start Date End Date Alfonso Blank MD [address] [place] [address] PCP - General Family Medicine 06/21/23 Senior Python Developer Relationship Specialty Start Date End Date Alfonso Blank MD [address] [place] [address] PCP - General Family Medicine 06/21/23 Ivanna Mahmood NP [address] [place] [address] PCP - Deep CARDOZA 12/03/23 Senior Python Developer Relationship Specialty Start Date End Date Alfonso Blank MD [address] [place] [address] PCP - General Family Medicine 06/21/23 Senior Python Developer Relationship Specialty Start Date End Date Alfonso Blank MD [address] [place] [address] PCP - General Family Medicine 06/21/23 Senior Python Developer Relationship Specialty Start Date End Date Alfonso Blank MD [address] [place] [address] PCP - General Family Medicine 06/21/23 Senior Python Developer Relationship Specialty Start Date End Date Alfonso Blank MD [address] [place] [address] PCP - General Family Medicine 06/21/23 Senior Python Developer Relationship Specialty Start Date End Date Alfonso Blank MD [address] [place] [address] PCP - General Family Medicine 06/21/23 Senior Python Developer Relationship Specialty Start Date End Date Alfonso Blank MD [address] [place] [address] PCP - General Family Medicine 06/21/23 Ivanna Mahmood NP [address] [place] [address] PCP Cruz Adame MA 12/03/23 Senior Python Developer Relationship Specialty Start Date End Date Alfonso Blank MD [address] [place] [address] PCP - General Family Medicine 06/21/23 Ivanna Mahmood NP [address] [place] [address] PCP - Deep CARDOZA 12/03/23 Senior Python Developer Relationship Specialty Start Date End Date Alfonso Blank MD [address] [place] [address] PCP - General Family Medicine 06/21/23 Ivanna Mahmood NP [address] [place] [address] PCP - Deep CARDOZA 12/03/23 Senior Python Developer Relationship Specialty Start Date End Date Alfonso Blank MD [address] [place] [address] PCP - General Family Medicine 06/21/23 Ivanna Mahmood NP [address] [place] [address] PCP Cruz Adame MA 12/03/23 Senior Python Developer Relationship Specialty Start Date End Date Alfonso Blank MD [address] [place] [address] PCP - General Family Medicine 06/21/23 Ivanna Mahmood NP [address] [place] [address] PCP Cruz Adame MA 12/03/23 Senior Python Developer Relationship Specialty Start Date End Date Ivanna Mahmood [facility] [address] [place] [facility] [place] [address] PCP - General 04/03/16 Senior Python Developer Relationship Specialty Start Date End Date Ivanna Mahmood [facility] [address] [place] [facility] [place] [address] PCP - General 04/03/16 Senior Python Developer Relationship Specialty Start Date End Date Ivanna Mahmood [facility] [address] [place] [facility] [place] [address] PCP - General 04/03/16 Senior Python Developer Relationship Specialty Start Date End Date Ivanna Mahmood [facility] [address] [place] [facility] [place] [address] PCP - General 04/03/16 Senior Python Developer Relationship Specialty Start Date End Date Ivanna Mahmood [facility] [address] [place] [facility] [place] [address] PCP - General 04/03/16 Senior Python Developer Relationship Specialty Start Date End Date Alfonso Blank MD [address] [place] [address] PCP - General Family Medicine 06/21/23 Senior Python Developer Relationship Specialty Start Date End Date Alfonso Blank MD [address] [place] [address] PCP - General Family Medicine 06/21/23 Senior Python Developer Relationship Specialty Start Date End Date Alfonso Blank MD [address] [place] [address] PCP - General Family Medicine 06/21/23 Senior Python Developer Relationship Specialty Start Date End Date Alfonso Blank MD [address] [place] [address] PCP - General Family Medicine 06/21/23 Senior Python Developer Relationship Specialty Start Date End Date Alfonso Blank MD [address] [place] [address] PCP - General Family Medicine 06/21/23 Senior Python Developer Relationship Specialty Start Date End Date Alfonso Blank MD [address] [place] [address] PCP - General Family Medicine 06/21/23 Senior Python Developer Relationship Specialty Start Date End Date Alfonso Blank MD [address] [place] [place] [address] PCP - General Family Medicine 06/21/23 Senior Python Developer Relationship Specialty Start Date End Date Alfonso Blank MD [address] [place] [address] PCP - General Family Medicine 06/21/23 Senior Python Developer Relationship Specialty Start Date End Date Alfonso Blank MD [address] [place] [address] PCP - General Family Medicine 06/21/23 Senior Python Developer Relationship Specialty Start Date End Date Alfonso Blank MD [address] [place] [address] PCP - General Family Medicine 06/21/23 Senior Python Developer Relationship Specialty Start Date End Date Alfonso Blank MD [address] [place] [address] PCP - General Family Medicine 06/21/23 Team Status: Active Member Role Status Dates Ivanna Mahmood Primary Care Provider Active Team Status: Inactive Member Role Status Dates Ivanna Mahmood Primary Care Provider Active Sta rt: December 05, 2024 End: December 05, 2024 Ivanna Mahmood Attending Provider Active Start: December 05, 2024 End: December 05, 2024 Goals (unrecognized section and content) Goals may be documented in a n alternate section FOR RECORDS PERTAINING TO PATIENTS WHO ARE [...] BE BASED ON THE PRIMARY CLINICAL RECORDS. [facility] [employer] [facility]. provides no warranty or guarantee of the accuracy or completeness of information in this document.
== END 2024-12-10 11:07 | disposition home or self-care (01) ==
LOC: RAD 11:08
PROVIDERS: PCP Nurse Practitioner; Visit Provider Nurse Practitioner
DX: M70.62 Trochanteric bursitis, left hip (principal); M54.50 Low back pain, unspecified; M85.88 Other specified disorders of bone density and structure, other site; M51.369 Other intervertebral disc degeneration, lumbar region without mention of lumbar back pain or lower extremity pain
CPT/HCPCS: 72100; 73502

== ENCOUNTER 2025-01-23 09:30 | Outpatient (OUT) | payer MEDICARE, SELFPAY ==
--- OUTSIDE RECORDS SUMMARY | 2025-01-23 09:39 | XMS_ITS | Encounter Summary ---
Author Organization [facility] Address [address] [place] [address] Phone Care Team Providers Care Configurator Name Role Phone Ivanna Mahmood SEWER BUILDER-PROGRAMMER OPERATOR NUMERICAL CONTROL Primary Care Provider Encounter Details DateTypeDepartmentCare Team (Latest Contact Info)Pjlyfapauvi07/[birth year]/1955Scanned Document [facility] [address] [place] [phone] Scanning, Generic Provider Social History Tobacco UseTypesPacks/DayYears UsedDateSmoking Tobacco: Never Assessed CommentsUnknownSex and Gender InformationValueDate RecordedSex Assigned at Not on fileLegal PffEnmyeh50/25/2022 8:27 PM ESTGender IdentityNot on fileSexual OrientationNot on filedocumented as of this encounter Plan of Treatment DateTypeDepartmentCare Team (Latest Contact Info)Hnncbdqtnbg11/26/2026 2:30 PM ESTOffice Visit [facility] [address] [facility] [address] [place] [address] Yaneth Norton APRN-PROGRAMMER OPERATOR NUMERICAL CONTROL [address] [facility] [address], [address] [place] [address] documented as of this encounter Visit Diagnoses Not on filedocumented in this encounter Care Teams Team MemberRelationshipSpecialtyStart DateEnd Date Ivanna Mahmood APRN-PROGRAMMER OPERATOR NUMERICAL CONTROL [address] [place] [address] [facility] - General04/03/16documented as of this encounter
--- OUTSIDE RECORDS SUMMARY | 2025-01-23 09:40 | XMS_ITS | Clinical Summary ---
Author Organization [facility] Healthcare Address [address] [place] [address] Care Team Providers Care Hydrology Professor Name Role Phone Alfonso Blank MD Primary Care Provider [phone] Allergies No known active allergies Medications MedicationSigDispense QuantityRefillsLast FilledStart DateEnd DateStatus cholecalciferol (Vitamin D-3) 50 MCG (1999) tablet Indications:Vitamin D deficiencyTAKE 1 TABLET BY MOUTH DAILY 90 tablet 4Active ASPIRIN 81 PO Take 81 mg by mouth DailyActive empagliflozin (Jardiance) 10 MG Indications:Type 2 diabetes mellitus without complication, without long-term current use of insulin (HCC)Take 1 tablet (10 mg) by mouth Daily 90 tablet 5Active isosorbide mononitrate ER (Imdur) 30 MG 24 hr tablet Indications: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Take 1 tablet (30 mg) by mouth Daily 90 tablet 5Active amLODIPine (Norvasc) 2.5 MG tablet Indications:Primary hypertensionTake 1 tablet (2.5 mg) by mouth Daily 90 tablet 5Active DULoxetine (Cymbalta) [address] capsule Indications:AnxietyTake 1 capsule (30 mg) by mouth Daily 90 capsule 5Active atorvastatin (Lipitor) 10 MG tablet Indications: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 270 capsule /tive glipiZIDE XL (Glucotrol XL) 5 MG 24 hr tablet Indications:Type 2 diabetes mellitus without complication, without long-term current use of insulin ([facility])Take 1 tablet (5 mg) by mouth Daily 90 tablet tive hydroCHLOROthiazide (HYDRODiuril) 25 MG tablet Indications:Primary hypertensionTake 1 tablet (25 mg) by mouth in the morning. 90 tablet tive lisinopril 5 MG tablet Indications:Primary hypertensionTake 1 tablet (5 mg) by mouth in the morning. 90 tablet tive propranolol (Inderal) 40 MG tablet Indications:Tremors of nervous systemTake 1 tablet (40 mg) by mouth in the morning and 1 tablet (40 mg) before bedtime. 180 tablet tive glucose blood test strip 1 each by Other route if needed Use as instructedActive glucose blood (Accu-Chek Faye Plus) test strip Indications:Type 2 diabetes mellitus without complication, without long-term current use of insulin ([facility])1 each by Other route Daily 100 each /5Active glucose blood (Accu-Chek Guide Test) test strip Indications:Type 2 diabetes mellitus without complication, without long-term current use of insulin ([facility])Check blood sugar one a day 100 each /6Active Blood Glucose Monitoring Suppl (Accu-Chek Guide) w/Device kit Indications:Type 2 diabetes mellitus without complication, without long-term current use of insulin ([facility])1 kit Daily 1 kit /ctive Lancets 33G [facility] Indications:Type 2 diabetes mellitus without complication, without long-term current use of insulin ([facility])1 each Daily 100 each /5Active Active Problems ProblemNoted DateDiagnosed DateAcute bacterial conjunctivitis of right eye 10/29/2024 Assessment & Plan (10/29/2024 10:53 AM EDT): Warm compress to effected eye Cleanse eye with 1:1 ration of JJ baby shampoo and water Atb drops, in 2 days if not better call your eye doctor Encounter for subsequent annual wellness visit (AWV) in Medicare patient 09/05/2023 [...] up yearly and prn Encounter for screening mammogram for malignant neoplasm of ihnvdi4806/21/2023Left hip pain06/21/2023 Assessment & Plan (06/21/2023 5:10 PM EDT): Unclear if this is radiculopathy from lumbar spine, or bursitis Will check xray, trial NSAID Fu in 2-3 weeks Lumbar back pain with radiculopathy affecting left lower mgdgndsmu84/20/2024 Assessment & Plan (06/21/2023 5:15 PM EDT): Trial NSAIDS No steroids at this time d/t DM Vitamin D /04/2024 Assessment & Plan (06/21/2023 5:12 PM EDT): Check labs Sgtmjez6706/05/2023 Assessment & Plan (10/29/2024 6:33 AM EDT): Currently taking duloxetine Assessment & Plan (04/09/2024 7:06 AM EST): Currently taking duloxetine Assessment & Plan (12/28/2023 11:25 AM EDT): Continue current dose of meds Tremors of nervous vrrucy6206/05/2023 Assessment & Plan (04/09/2024 7:06 AM EST): Cont with b pierre therapy Assessment & Plan (12/28/2023 11:25 AM EDT): Cont with b pierre therapy Nnculfqyygfejs28/27/2023 Assessment & Plan (10/29/2024 6:32 AM EDT): On statin therapy Check labs yearly and prn dose changes Assessment & Plan (04/09/2024 7:06 AM EST): On statin therapy Check labs yearly and prn dose changes Assessment & Plan (12/28/2023 11:25 AM EDT): Cont statin Assessment & Plan (06/21/2023 5:12 PM EDT): Cont statin, check labs Coronary artery disease involving kotlik coronary artery of kotlik heart with angina iajrboep25/18/2023 Assessment & Plan (10/29/2024 6:32 AM EDT): NESHA is Blade Groover Cont ASA 81mg and imdur and statin Assessment & Plan (04/09/2024 1:53 PM EST): chest pain, w activity, nitroglycerin relieves it Spoke with NESHA Gentile regarding this, she does have upcoming appt with Cardiology GOLD FRAME ASSEMBLER on 04/24/24, cleo speak to GOLD FRAME ASSEMBLER about possible ECHO or stress prior to [...] pain, cont statin and b pierre Primary ntvlxwakunri11/07/2022 Assessment & Plan (10/29/2024 6:31 AM EDT): [...] meds, check labs Type 2 diabetes mellitus without complication, without long-term current use of cnibazj7703/06/2023 Overview (04/09/2024): A1c on 04/02/23: 7.0%, 12/26/23: 6.8%, 04/09/24 7.3% Assessment & Plan (10/29/2024 10:30 AM EDT): Check blood sugars daily, notify if <70 or >200. Take medications (pills or insulin) as directed. Monitor for s/s of hypoglycemia (sweaty, dizziness, nausea, vomiting, or shakiness). Watch for increase in thirst, urination, or appetite. Inspect feet frequently monitoring for open wounds , andalso recommend yearly eye exam. Pt should attempt [...] feet frequently monitoring for open wounds , andalso recommend yearly eye exam. Pt should attempt [...] feet frequently monitoring for open wounds , andalso recommend yearly eye exam. Pt should attempt [...] feet frequently monitoring for open wounds , andalso recommend yearly eye exam. Pt should attempt [...] feet frequently monitoring for open wounds , andalso recommend yearly eye exam. Pt should attempt to remain as physically active as chronic conditions allow, as well as trying to follow a diet low in carbohydrates, and simple sugars. Add back jardiance, cannot afford with insurance, we will trial PA form Jardiance 10mg #4 samples, [id number], exp 08/2024 total 28 days Chest pain03/11/20197520Pvbrqacfrs18/29/2019Restless leg qkmsiacs06/31/2019 Assessment & Plan (10/29/2024 6:31 AM EDT): Takes julianne Assessment & Plan (04/09/2024 7:03 AM EST): Takes julianne Resolved Problems ProblemNoted DateDiagnosed DateResolved ZdnkJsjcaarfzmng74 Encounters DateTypeDepartmentCare GzapJhmltqzwygg85/18/2025Refill [facility] [address] [place] [phone] Ivanna Mahmood NP Type 2 diabetes mellitus without complication, without long-term current use of insulin (HCC)11/18/2024Refill [facility] [address] [place] [address] Ivanna Mahmood NP Type 2 diabetes mellitus without complication, without long-term current use of insulin (HCC) (Primary Dx)11/18/2024[facility] [address] [place] [address] Ivanna Mahmood NP 11/11/2024Refill [facility] [address] [place] [phone] Ivanna Mahmood, MARIAJOSE Type 2 diabetes mellitus without complication, without long-term current use of insulin (HCC) (Primary Dx)11/11/2024bstract [facility] [address] [place] [address] Ivanna Mahmood NP 11/11/2024[facility] [address] [place] [address] Ivanna Mahmood, MARIAJOSE Type 2 diabetes mellitus without complication, without long-term current use of insulin (HCC) (Primary Dx)10/29/2024 10:00 AM EDTOffice Visit [facility] [address] [place] [phone] Ivanna Mahmood NP Encounter for subsequent annual wellness visit (AWV) in Medicare patient (Primary Dx); Restless leg syndrome; Primary hypertension ; 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 ; Type 2 diabetes mellitus without complication, without long-term current use of insulin (HCC); Mixed hyperlipidemia ; Anxiety; Tremors of nervous system; Acute bacterial conjunctivitis of right eye10/29/2024amboo flowsheet [facility] [address] [place] [address] Ivanna Mahmood NP 10/28/2024Telephone [facility] [address] [place] [phone] Ivanna Mahmood NP Medication Questionfrom Last 3 Months Immunizations ImmunizationAdministration DatesNext DueInfluenza, High Dose Seasonal, Preservative Free01/29/2024Influenza, High-dose Seasonal, Quadrivalent, Preservative Free01/29/2023,01/12/2022Influenza, Racrvvwnxqr20/28/2024Influenza, injectable, quadrivalent, preservative free01/12/2022,01/29/2019Influenza, seasonal, lnbiosyfjc36/08/2024,02/02/2020,12/02/2018Pneumococcal Conjugate PCV 3Pneumococcal Polysaccharide AHON3830,10/25/2018,04/03/2018 RSV, recombinant, protein subunit RSVpreF, adjuvant reconstitu, 120mcg/0.5mL, PF (Arexvy)07/14/2023Tdap07/14/20235384Xxigejuec30/07/2024Zoster, Iqnogalakao51/12/2024 ,02/14/2023 Social History Tobacco UseTypesPacks/DayYears UsedDateSmoking Tobacco: NeverSmokeless Tobacco: Never Tobacco Cessation:Counseling Given: Not Answered Alcohol UseStandard Drinks/WeekCommentsNever0 (1 standard drink = 0.6 oz pure alcohol)caffine: 2-6 cups of coffee/tea dailyPHQ-2AnswerDate RecordedPatient Health Questionnaire-2 Sesui560CommentsUnknownSex and Gender InformationValueDate RecordedSex Assigned at BirthNot on fileLegal SexFemale 06/15/2022 6:48 PM EDTGender IdentityNot on fileSexual OrientationNot on file Last Filed Vital Signs Vital SignReadingTime TakenCommentsBlood Pdbjqkin691/76010/29/2024 10:05 AM EDT Bnwdq285410/29/2024 10:05 AM KPKJydqfrpzzko20.1 ??C (98.7 ??F)10/29/2024 10:05 AM EDTRespiratory Sgca325910/29/2024 10:05 AM EDTOxygen Gerhbjssrx93%10/29/2024 10:05 AM EDTInhaled Oxygen Concentration--Tecqfs00.5 kg (146 lb 9.6 oz)10/29/2024 10:05 AM AFGDoqush990 cm (5' 3 )04/09/2024 1:06 PM ESTBody Mass Index25.97 04/09/2024 1:06 PM EST Plan of Treatment Health MaintenanceDue DateLast DoneCommentsCT Ysabhpvfyktu71/16/1955FIT-DNA 1955FIT1955FOBT07/17/19549275Jpxpjpdwiggyz26/16/1955Influenza Vaccine (#1)51, 01/29/2024, 01/09/2024, Additional history exists Srbkroyrs52/27/15774908/27/2024, 07/07/2023, 07/05/2023, Additional history exists Nzyiuxbkgky55/07/203209/10/2021, 12/08/2021, 12/08/2021olorectal Cancer Qhhjvnizi22/07/2032neumococcal Vaccine: 65+ MhnakZpdgqlnvc08/15/2024, 01/29/2023, 10/25/2018, Additional history exists Procedures Procedure NamePriorityDate/TimeAssociated DiagnosisCommentsPOCT GLYCOSYLATED HEMOGLOBIN (HGB A1C)Xwforqp2010/29/2024 10:25 AM EDT Type 2 diabetes mellitus without complication, without long-term current use of insulin (HCC) MM TOMOSYNTHESIS SCREENING BI08/27/2024 1:41 PM EDT from Last 3 Months or Most Recently Relevant to Health Maintenance Results * (ABNORMAL) POCT glycosylated hemoglobin (Hb A1C) docked device (10/29/2024 10:25 AM EDT)ComponentValueRef RangeTest MethodAnalysis TimePerformed At Pathologist SignatureHemoglobin A1C7.4Specimen (Source)Anatomical Location / LateralityCollection Method / VolumeCollection TimeReceived TimeBloodVenous blood specimen / Tzerkrz1510/29/2024 10:25 AM EDT Narrative Authorizing ProviderResult TypeResult StatusIvanna Villarrealsusannah NPPOINT OF CARE TEST ENTER/EDIT ORDERABLESFinal Result * MM TOMOSYNTHESIS SCREENING BI (08/27/2024 1:41 PM EDT)Anatomical Region LateralityModalityOtherSpecimen (Source)Anatomical Location / Laterality Collection Method / VolumeCollection TimeReceived Time08/27/2024 1:41 PM EDT Narrative 08/27/2024 1:42 PM EDT [facility] ?[address] ? [place] [address] ? Mammography Report ? Signed ? Patient: CJ,NNEKA L ?MR#: [id number] ?? : 1955 ?Acct:[id number] ?? Age/Sex: 69 / F ?ADM Date: 05/27/25 ?? Loc: MAMMO ? Attending Dr: Ivanna Mahmood GOLD FRAME ASSEMBLER ? Ordering Physician: Ivanna Mahmood NP ?Results: ? Date of Service: 08/27/24 ?Follow Up: ? Procedure(s): MM tomosynthesis screening BI ?? Accession Number(s): [id number] ? cc: Ivanna Mahmood NP ? Patient Name: ? NNEKA LEI ? MR#: [id number] ? : 1955 ? Exam Date: 08/27/2024 ?? Ordering Doctor: BROWN MAHMOOD CNP ? RADIOLOGY REPORT ? PROCEDURE: ? MM TOMOSYNTHESIS SCREENING BI ? COMPARISON: ? MM TOMOSYNTHESIS SCREENING BI, 07/05/2023. ??MG MAMM SCREEN 3D ?? CAM CAD, 05/16/2022. ??MG MAMM SCREEN 3D CAM CAD, 04/06/2021. ??MG MAMM CAM SCRN W ?? CAD DIG, 06/19/2013. ? INDICATIONS: ? Screening for malignant neoplasm ? Calculator Name ? NCI Breast Cancer Risk Assessment Tool ?? 5 Year Breast Cancer Risk ? 1.50% ?? Lifetime Breast Cancer Risk ? 4.50% ?? Personal Breast Cancer ?No ?? Personal Ovarian Cancer ? No ?? Treatments ? CHEMOTHERAPY AND RADIATION ?? Family Cancers ? None ? LOCATION: ? [facility] ? BREAST COMPOSITION: ? The breasts are heterogeneously dense,which may ?? obscure small masses. ? FINDINGS: ? RIGHT BREAST: ??No significant suspicious finding. ? LEFT BREAST: ??No significant suspicious finding. ? DIAGNOSTIC CATEGORY 1--NEGATIVE. ? RECOMMENDATIONS: ? ROUTINE MAMMOGRAM AND CLINICAL EVALUATION IN 12 MONTHS. ? PLEASE NOTE: ??A NORMAL MAMMOGRAM DOES NOT EXCLUDE THE POSSIBILITY OF BREAST ?? CANCER. ??A CLINICALLY SUSPICIOUS PALPABLE LUMP SHOULD BE BIOPSIED. ? Dictated by: Dimitry Mahan DO on 08/27/2024 at 13:39 ? Approved by: Dimitry Mahan DO on 08/27/2024 at 13:41 ? Dictated By: ?Dimitry Mahan D.O. ? Signed By: ?08/27/24 1342 ? DD/ 1341 ? TD/TT: ? Front Clerk: Procedure Note Radiology, Radiologist, MD - 08/27/2024 [place] [address] Mammography Report Signed Patient: NNEKA LEI LMR#: [id number] : 5Acct:[id number] Age/Sex: 69 / FADM Date: 08/27/24 Loc: MAMMO Attending Dr: Ivanna Mahmood GOLD FRAME ASSEMBLER Ordering Physician: Ivanna Mahmoodesults: Date of Service: 08/27/24Follow Up: Procedure(s): MM tomosynthesis screening BI Accession Number(s): [id number] cc: Ivanna Mahmood NP Patient Name: NNEKA LEI MR#: [id number] : 1955 Exam Date: 08/27/2024 Ordering Doctor: BROWN MAHMOOD RAILROAD DINING [employer] STEWARD/STEWARDESS RADIOLOGY REPORT PROCEDURE: MM TOMOSYNTHESIS SCREENING BI COMPARISON: MM TOMOSYNTHESIS SCREENING BI, 07/05/2023. MG MAMM KWVJPK3Z CAM CAD, 05/16/2022. MG MAMM SCREEN 3D CAM CAD, 04/06/2021. MG MAMM BILSCRN W CAD DIG, 06/19/2013. INDICATIONS: Screening for malignant neoplasm Calculator Name NCI Breast Cancer Risk Assessment Tool 5 Year Breast Cancer Risk 1.50% Lifetime Breast Cancer Risk 4.50% Personal Breast Cancer No Personal Ovarian Cancer No Treatments CHEMOTHERAPY AND RADIATION Family Cancers None LOCATION: [facility] BREAST COMPOSITION: The breasts are heterogeneously [...] D.O. Signed By:08/27/24 1342 DD/ 1341 TD/TT: Front Clerk: Authorizing ProviderResult TypeResult StatusLisa [facility] NPCLINISYNC IMAGING Final Result from Last 3 Months or Most Recently Relevant to Health Maintenance Insurance Care Teams Team MemberRelationshipSpecialtyStart DateEnd Date Alfonso Blank MD [facility]06/21/23
--- OUTSIDE RECORDS SUMMARY | 2025-01-23 09:40 | XMS_ITS | Clinical Summary ---
Author Organization [facility] Address [address] [place] [address] Phone Care Team Providers Care Blood Bank Laboratory Professional Name Role Phone Ivanna Mahmood APRN-ASSET PROTECTION SPECIALIST Primary Care Provider Allergies No known active allergies Medications MedicationSigDispense QuantityRefillsLast FilledStart DateEnd DateStatus gabapentin (Neurontin) 300 mg capsule Take 1 capsule (300 mg) by mouth 3 times a day.Active glipiZIDE (Glucotrol) 5 mg tablet Take 1 tablet (5 mg) by mouth once daily.Active lisinopril 5 mg tablet Take 1 tablet (5 mg) by mouth once daily.Active propranolol (Inderal) 40 mg tablet Take 2 tablets (80 mg) by mouth once daily.Active amLODIPine (Norvasc) 2.5 mg tablet Take 1 tablet (2.5 mg) by mouth once daily.Active aspirin 81 mg EC tablet Take 1 tablet (81 mg) by mouth once daily.Active DULoxetine (Cymbalta) [address] capsule Take 1 capsule (30 mg) by mouth once daily.Active hydroCHLOROthiazide (HYDRODiuril) 25 mg tablet Take 1 tablet (25 mg) by mouth once daily.Active cholecalciferol (Vitamin D-3) 50 MCG (2000 UT) tablet Take 1 tablet (2,000 Units) by mouth once daily.Active isosorbide mononitrate ER (Imdur) 60 mg 24 hr tablet Indications:Chest pain, unspecified type,Coronary artery disease involving buckland heart with other form of angina pectoris, unspecified vessel or lesion typeTake 1 tablet (60 mg) by mouth once daily. Do not crush or chew. 90 tablet 301/07/445566/07/2026Active atorvastatin (Lipitor) 10 mg tablet Indications:Coronary artery disease involving buckland coronary artery of buckland heart without angina pectorisTake 1 tablet (10 mg) by mouth once daily. 30 tablet 12:16 PM EDT5004/24/2025ctive Active Problems ProblemNoted DateDiagnosed DateBMI 26.0-26.9,adult04/24/2024 Assessment & Plan (04/24/2024 3:51 PM EST): Reviewed the merits of healthy lifestyle choices on overall cardiovascular health. Never smoked any uozshnhla83/10/2024enign essential aqhriajnruvt42/27/2023 Assessment & Plan (04/24/2024 3:50 PM EST): Mild asymptomatic hypotension noted in the office today. CAD (coronary artery disease)03/29/2023 Assessment & Plan (04/24/2024 3:50 PM EST): Mar 2019 @ [facility] heart cath: . Very [...] than 4 METS without recurrent symptoms Diabetes ohgudcfw40/27/2023 Assessment & Plan (04/24/2024 3:51 PM EST): On FRANC/statin Unknown hemoglobin A1c Zdfxlgihvtjcha56/27/2023 Assessment & Plan (04/24/2024 3:50 PM EST): Reports she was recently changed from simvastatin over to atorvastatin and we will plan on getting labs I believe in 2 months. Immunizations ImmunizationAdministration DatesNext DueFlu vaccine (IIV4), preservative free *Check age/dose*01/12/2022Influenza, seasonal, hhzpkxwdot76/08/2024,12/02/2018 Moderna SARS-CoV-2 Ivzczouttse38/05/2021,1Pneumococcal polysaccharide vaccine, 23-valent, age 2 years and older (PNEUMOVAX 23)01/16/2024,10/25/2018, 04/03/2018Varicella vaccine, subcutaneous (VARIVAX)01/08/2024 Family History Medical HistoryRelationNameCommentsheart problemsFatherheart problemsMother Diabetes type IMother's SisterRelationNameStatusCommentsFatherMotherMother's Sister Social History Tobacco UseTypesPacks/DayYears UsedDateSmoking Tobacco: NeverSmokeless Tobacco: Never Tobacco Cessation:Counseling Given: Yes Alcohol UseStandard Drinks/WeekCommentsNever0 (1 standard drink = 0.6 oz pure alcohol)CommentsUnknownSex and Gender InformationValueDate RecordedSex Assigned at BirthNot on fileLegal NqfWihfks43/25/2022 8:27 PM ESTGender Identity Not on fileSexual OrientationNot on file Last Filed Vital Signs Vital SignReadingTime TakenCommentsBlood Jpgodsue142/68004/24/2024 1:18 PM EST Qcmhu4699/22/2025 1:18 PM ESTTemperature--Respiratory Rate--Oxygen Saturation-- Inhaled Oxygen Concentration--Gyrmad85.1 kg (148 lb)04/24/2024 1:18 PM ESTHeight 160 cm (5' 3 )04/24/2024 1:18 PM ESTBody Mass Index26.22004/24/2024 1:18 PM EST Plan of Treatment DateTypeDepartmentCare Team (Latest Contact Info)Gdbgmhchrfo70/26/2026 2:30 PM ESTOffice Visit [facility] [address] [address] Yaneth Norotn, TECHNICAL SALES MANAGER-ASSET PROTECTION SPECIALIST [address] [facility] [address] [place] [address] Health MaintenanceDue DateLast DoneCommentsCT Kvteoduorwoj38/16/1955reatinine Level1954Diabetes: Hemoglobin A1C1954Diabetes: Urine Protein Uspejddeb44/16/0529Qyiyfrzygjkbdx09/16/1955FIT-DNA (Cologuard)1955FIT 1955Lipid Panel1954Medicare Annual Wellness Visit (AWV)1955 Potassium Level1954Diabetes: Retinopathy Sxyodtwea33/16/1965Hepatitis C Dvxfohnij94/16/3692Cdkrohbuc66/16/6612Jiizufmpyahee49, 04/24/2006Bone Density Scan07/18/20195943Uwaopvglkcm98, 02/28/2007 Colorectal Cancer Ycrlgnavg86/25/2023MMR Vaccines (1 of 1 - Standard series) 02/05/2024Influenza Vaccine (#1), 01/09/2024, 01/29/2023, Additional history existsCOVID-19 Vaccine ( season)2024 02/14/2023, 08/05/2020, 1DTaP/Tdap/Td Vaccines (2 - Td or Tdap) 4RSV High Risk: (Elderly (60+) or Population) Bvofcyvch52/12/2024Zoster WrutmmhsIzczgzfzg86/07/2024, 05/15/2023, 02/14/2023 Pneumococcal PydbdgsQnwqwjknt61/15/2024, 01/29/2023, 10/25/2018, Additional history existsHIB VaccinesAged OutNo longer eligible based on patient's age to complete this topicHPV VaccinesAged OutNo longer eligible based on patient's age to complete this topicHepatitis A VaccinesAged OutNo longer eligible based on patient's age to complete this topicHepatitis B VaccinesAged OutNo longer eligible based on patient's age to complete this topicIPV VaccinesAged OutNo longer eligible based on patient's age to complete this topicMeningococcal VaccineAged OutNo longer eligible based on patient's age to complete this topic Rotavirus VaccinesAged OutNo longer eligible based on patient's age to complete this topic Insurance * Guarantor: Nabila Bergeron TypeRelation to PatientDate of BirthPhone Billing Address[facility]/XzvcymOrvp52 [address] [place] [address] Care Teams Team MemberRelationshipSpecialtyStart DateEnd Date Ivanna Mahmood, TECHNICAL SALES MANAGER-ASSET PROTECTION SPECIALIST [address] [place] [phone] PCP - General04/03/16
--- OUTSIDE RECORDS SUMMARY | 2025-01-23 09:44 | XMS_ITS | CCD ---
Author Organization [facility] CliniSyct Care Team Providers Care Invoicing 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 Name Role Phone Kinjal Sandhu Primary [...] Unavailable Unavailable RADHA HARRIS Primary Care Physician [phone] Rosie FARIAS Attending Unavailable AICHHOLZIVANNA Referring Unavailabl e NILRosie Zelaya Attending Unavailable NILRosie Zelaya Attending Unavailable McGuinn IIDavid Attending Unav ailable McGuinn II, David Mathias Referring Unav ailable Aichholz, MrsArsalan Trejo Primary Care Unavailab le AICHHOLZ, BEAN SPROUT GROWER IVANNA Admitting Unavailable AICHHOLZ, BEAN SPROUT GROWER IVANNA Primary Care Unavailable DR JOSE HICKS V Consulting Unavailable AICHHOLZ, BEAN SPROUT GROWER IVANNA Attending Unavailable AICHHOLZ, BEAN SPROUT GROWER IVANNA Consulting Unavailable JOSE LEE Consulting Unavailable AICHHOLZ, BEAN SPROUT GROWER IVANNA Admitting Unavailable AICHHOLZ, BEAN SPROUT GROWER IVANNA Primary Care Unavailable AICHHOLZ, BEAN SPROUT GROWER IVANNA Consulting Unavailable AICHHOLZ, BEAN SPROUT GROWER IVANNA Attending Unavailable AICHHOLZ, BEAN SPROUT GROWER IVANNA Primary Care Unavailable JARRETT, DR VELEZ Admitting Unavailable NILL, DR VELEZ Consulting Unavailable NILL, DR VELEZ Attending Unavailable AICHHOLZ, BEAN SPROUT GROWER IVANNA Primary Care Unavailable NILL, DR VELEZ Admitting Unavailable NILL, DR VELEZ Consulting Unavailable NILL, DR VELEZ Attending Unavailable DAVID TOPETE Consulting Unava ilable Philhsusannah DIRECTOR [facility], Ivanna Trejo Primary Care Provider Alfonso Blank MD Primary Care Provider Timoteo SLIP COVER SEWER, Ivanna Unavailable PARI NORTON Attending Unavailable DAVID BERRIOS Referring Unavailable AICHHOLZ, IVANNA TREJO Primary Care Unavailable PARI NORTON Referring Unavailable AICHHOLWaqar, IVANNA TREJO Primary Care Unavailable PARI NORTON Referring Unavailable AICHHOLWaqar, IVANNA TREJO Primary Care Unavailable PARI NORTON Referring Unavailable AICHHOLZ, IVANNA TREJO Primary Care Unavailable PARI NORTON Referring Unavailable TIMOTEO, IVANNA TREJO Primary Care Unavailable TIMOTEO, IVANNA Attending Unavailable IVANNA MAHMOOD Attending Unavailable TIMOTEO, IVANNA Attending Unavailable Ivanna Mahmood Primary Care Provider Ivanna Mahmood Attending Provider Allergies Allergy ClassificationReported Allergen(s)Allergy TypeDate of OnsetReaction(s) Facility (1 source)No Known Medication Allergies; Translations: [No Known Medication Allergies]Propensity to adverse reactions (disorder)[facility] Medications Current Medications MedicationDrug Class(es)DatesSig (Normalized)Sig (Original)alendronic acid 35 mg oral tablet (6 sources)BisphosphonateStart: 38-32-3767gaov 1 tablet by mouth every week alendronate 35 mg oral tablet 35 mg = 1 tab(s), Oral, qWeek, Refills(s) 0 Start Date: 11/05/21 Status: OrderedStart: 12-07-2018 End: 60-06-9181dabveldaiou (FOSAMAX) 35 MG tablet Take 1 tablet by mouth every 7 days 12 tablet 3 12/07/2018 ActiveamLODIPine 2.5 mg oral tablet (20 sources)Dihydropyridine Calcium Channel BlockerStart: 03-21-2019 End: 11-30-4095ovvx 1 tablet by mouth once dailyAmlodipine 2.5 mg tablet Active 2.5 MG PO Daily December 05, 2024 12:00am Complies with drug therapyArexvy 120 MCG/0.5ML reconstituted suspension (2 sources)Start: 07-14-2023 End: 47-61-0276Dbdzmb 120 MCG/0.5ML reconstituted suspension 07/14/2023 04/09/2024 Discontinued (Therapy completed)aspirin 81 mg oral tablet (20 sources)Platelet Aggregation Inhibitor, Nonsteroidal Anti-inflammatory Drug Start: 90-50-7794zcue 1 tablet by mouth once dailyAspirin 81 mg tablet Active 81 MG PO Daily December 05, 2024 12:00am Complies with drug therapyStart: 24-33-9673ahvw 1 tablet by mouth once dailyaspirin 81 mg Oral EC Tab 81 mg = 1 tab(s), Oral, Daily, Refills(s) 0 Start Date: 11/09/21 Status: OrderedStart: 67-73-7711gils 1 tablet by mouth once dailyaspirin (ASPIRIN CHILDRENS) 81 MG chewable tablet Take 1 tablet by mouth daily 90 tablet 1 11/27/2018 Activetake 81 mg by mouth once dailyASPIRIN 81 PO Take 81 mg by mouth Daily Active atorvastatin 10 mg oral tablet (19 sources)HMG-CoA Reductase InhibitorStart: 04-10-2024 End: 74-55-6626trch 1 tablet by mouth once daily in the eveningAtorvastatin 10 mg tablet Active 10 MG PO Every evening December 05, 2024 12:00am Complies with drug therapyBlood Glucose Monitoring Suppl (Accu-Chek Guide) w/Device kit (3 sources)Start: 11-18-2024 End: 79-67-0639Jnzaw Glucose Monitoring Suppl (Accu-Chek Guide) w/Device kit Indications: Type 2 diabetes mellituswithout complication, without long-term current use of insulin (HCC) 1 kit Daily 1 kit 11/18/2024 11/18/2024 Discontinued (Reorder)Start: 11-18-2024 End: 71-10-0768Ofvro Glucose Monitoring Suppl (Accu-Chek Guide) w/Device kit Indications: Type 2 diabetes mellituswithout complication, without long-term current use of insulin (HCC) 1 kit Daily 1 kit 11/18/2024 11/18/2025 Active cholecalciferol 0.05 mg oral capsule (20 sources)Vitamin DStart: 65-72-9956obyg 1 capsule by mouth once daily Cholecalciferol (Vitamin D3) 50 mcg (2,000 unit) capsule Active 50 MCG PO Daily December 052:00am Complies with drug therapyStart: 34-09-1215phgo 1 tablet by mouth once dailycholecalciferol (Vitamin D-3) 50 MCG (2000 UT) tablet Indications: Vitamin D deficiency TAKE 1 TABLET BY MOUTH DAILY 90 tablet 1 12/25/2023 Active0.5 ml dulaglutide 3 mg/ml auto-injector (2 sources)GLP-1 Receptor AgonistStart: 89-87-2900Ddmpihociqa (TRULICITY) 1.5 MG/0.5ML SOPN Indications: Type 2 diabetes mellitus with complication, without long-term current use of insulin (HCC) Inject 1.5 mg into the skin once a week 12 pen 3 03/21/2019 ActiveStart: 65-08-5293Nvjmocuzlrq (TRULICITY) 0.75 MG/0.5ML SOPN Indications: Type 2 diabetes mellitus with complication,without long-term current use of insulin (HCC) Inject 0.75 mg into the skin once a week 4 pen 3 01/29/2019 ActiveDULoxetine 30 mg delayed release oral capsule (20 sources)Serotonin and Norepinephrine Reuptake InhibitorStart: 11-05-2021 End: 10-14-9169mvfw 1 capsule by mouth once dailyDuloxetine 30 mg capsule,delayed release(DR/EC) Active 30 MG PO Daily December 05, 2024 12:00am Complies with drug therapyStart: 34-24-8423qlkw 1 capsule by mouth once daily DULoxetine (CYMBALTA) 60 MG extended release capsule Indications: Positive depression screening , Dysthymia Take 1 capsule by mouth daily 90 capsule 1 11/27/2018 Activeempagliflozin 10 mg oral tablet (20 sources)Sodium-Glucose Cotransporter 2 InhibitorStart: 09-93-4851slwr 1 tablet by mouth once dailyEmpagliflozin (Jardiance) 10 mg tablet Active 10 MG PO Daily December 05, 2024 12:00am Complies with drug therapyStart: 11-05-2021 End: 99-29-5235aewp 1 tablet by mouth once dailyempagliflozin (Jardiance) 10 MG Indications: Type 2 diabetes mellitus without complication, withoutlong-term current use of insulin (HCC) Take 1 tablet (10 mg) by mouth Daily 90 tablet 1 04/16/2024 Activegabapentin 300 mg oral capsule (20 sources)Anti-epileptic AgentStart: 11-05-2021 End: 76-73-9605gthk 1 capsule by mouth three times dailyGabapentin 300 mg capsule Active 300 MG PO Three times daily December 05, 2024 12:00am Complies with drug therapyStart: 11-27-2018 End: 07-40-3388qyda 3 capsules by mouth once dailygabapentin (NEURONTIN) 300 MG capsule Take 3 capsules by mouth nightly for 180 days. Take 300 mg 1 tablet at dinner time and 600 mg 2 tablets 1-2 hours prior to sleeping. 270 capsule 1 11/27/2018 05/26/2019 ActiveglipiZIDE er 5 mg 24 hr extended release oral tablet (20 sources)SulfonylureaStart: 09-05-2023 End: 09-87-4311aozq 1 tablet by mouth once dailyGlipizide 5 mg tablet extended release 24hr Active 5 MG PO Daily December 05, 2024 12:00am Complies with drug therapyStart: 75-99-0794dqqp 1 tablet by mouth once dailyglipiZIDE 5 mg ER Tab 5 mg = 1 tab(s), Oral, Daily, Refills(s) 0 Start Date: 11/05/21 Status: Ordered Start: 12-74-8286cuyt 1 tablet by mouth once dailyglipiZIDE (GLUCOTROL XL) 5 MG extended release tablet Indications: Type 2 diabetes mellitus with complication, without long-term current use of insulin ([facility]) Take 1 tablet by mouth daily 90 tablet 1 11/27/2018 Activetake 1 tablet by mouth once dailyglipiZIDE (Glucotrol) 5 mg tablet Take 1 tablet (5 mg) by mouth once daily. ActivehydroCHLOROthiazide 25 mg oral tablet (20 sources)Thiazide DiureticStart: 04-02-2024 End: 54-03-6045bkul 1 tablet by mouth once dailyHydrochlorothiazide 25 mg tablet Active 25 MG PO Daily December 05, 2024 12:00am Complies with drug therapy Start: 12-07-2018 End: 48-28-4909agjk 1 tablet by mouth in the morninghydroCHLOROthiazide (HYDRODiuril) 25 MG tablet Indications: Primary hypertension (CMS/HCC) Take 1 ta blet (25 mg) by mouth in the morning. 90 tablet 1 12/05/2023 Chxqmk98 hr isosorbide mononitrate 30 mg extended release oral tablet (20 sources)Nitrate VasodilatorStart: 80-81-8875xoul 1 tablet by mouth once daily, then take 1 tablet by mouth every twenty-four hoursIsosorbide Mononitrate 30 mg tablet extended release 24 hr Active 30 MG PO Daily December 05, 2024 12:00am Complies with drug therapyStart: 04-09-2024 End: 29-20-1682elsz 1 tablet by mouth once dailyisosorbide mononitrate ER (Imdur) 60 mg 24 hr tablet Indications: Chest pain, unspecified type , Coronary artery disease involving [place] heart with other form of angina pectoris, unspecified vessel or lesion type Take 1 tablet (60 mg) by mouth once daily. Do not crush or chew. 90 tablet 3 04/09/2024 04/09/2025 ActiveStart: 09-05-2023 End: 72-54-2012qahi 1 tablet by mouth once dailyisosorbide mononitrate ER (Imdur) 30 MG 24 hr tablet Indications: Coronary artery disease involvingnative coronary artery of [place] heart with angina pectoris Take 1 tablet (30 mg) by mouth Daily 90tablet 1 06/30/2024 ActiveStart: 06-76-0791bkzy 1 tablet by mouth once daily in the morningisosorbide mononitrate 30 mg ER Tab 30 mg = 1 tab(s), Oral, qAM, Refills(s) 0 Start Date: 11/05/21 Status: Orderedlisinopril 5 mg oral tablet (20 sources)Angiotensin Converting Enzyme InhibitorStart: 03-21-2019 End: 79-16-4268rswe 1 tablet by mouth once dailyLisinopril 5 mg tablet Active 5 MG PO Daily December 05, 2024 12:00am Complies with drug therapylosartan potassium 50 mg oral tablet (1 source)Angiotensin 2 Receptor BlockerStart: 10-99-6267aubl 1 tablet by mouth once dailylosartan (COZAAR) 50 MG tablet Take 1 tablet by mouth daily 90 tablet 1 11/27/2018 ActivemethylPREDNISolone 4 mg oral tablet (1 source)CorticosteroidStart: 58-55-1236zsvn 1 tablet by mouth once at mealtime Methylprednisolone (Medrol (Faustino)) 4 mg tablets,dose pack Active 0 PO per package directions 21 December 05, 2024 12:00am PO PER PKG DIR for 6 days, take with food, will cause rise in blood sugar Complies with drug therapynitroglycerin 0.4 mg sublingual tablet (2 sources)Nitrate VasodilatorStart: 97-88-7211zlqykgrjatmtm 0.4 mg sublingual Tab 0.4 mg = 1 tab(s), SubLingual, q5min, PRN for chest pain, Refills(s) 0 Start Date: 11/05/21 Status: OrderedStart: 07-48-3546ryvyjSNYCUDHM (NITROSTAT) 0.4 MG SL tablet up to max of 3 total doses. If no relief after 1 dose, call 911. 20 tablet 0 03/13/2019 Activepolymyxin b 92500 unt/ml / trimethoprim 1 mg/ml ophthalmic solution (2 sources)Dihydrofolate Reductase Inhibitor Antibacterial, Polymyxin-class AntibacterialStart: 10-29-2024 End: 75-84-3257avyp 1 drop(s) into the eye(s) every four hourstrimethoprim- polymyxin b (Polytrim) ophthalmic solution Indications: Acute bacterial conjunctivitisof right eye Administer 1 drop into the right eye every 4 (four) hours for 7 days 10 mL 10/29/2024 11/05/2024 Activepropranolol hydrochloride 40 mg oral tablet (20 sources)beta-Adrenergic BlockerStart: 09-05-2023 End: 91-90-5651mlrh 1 tablet by mouth twice dailyPropranolol 40 mg tablet Active 40 MG PO Twice daily December 05, 2024 12:00am Complies with drugtherapyStart: 55-39-2802cazx 1 tablet by mouth twice dailypropranolol 40 mg Tab 40 mg = 1 tab(s), Oral, BID, Refills(s) 0 Start Date: 11/05/21 Status: Orderedtake 2 tablets by mouth once dailypropranolol (Inderal) 40 mg tablet Take 2 tablets (80 mg) by mouth once daily. Activetake 1 tablet by mouth once dailyPropranolol HCl - 40 MG Oral Tablet Take 1 tablet daily Quantity: 0 Refills: 0 Ordered: 05-Apr-2021 DO Activesimvastatin 10 mg oral tablet (20 sources)HMG-CoA Reductase InhibitorStart: 12-07-2018 End: 25-66-8740mfei 1 tablet by mouth at bedtimesimvastatin (Zocor) 10 MG tablet Indications: Mixed hyperlipidemia (CMS/HCC) Take 1 tablet (10 mg) by mouth at bedtime 90 tablet 1 03/28/2024 04/10/2024 Discontinued (Ineffective)Vitamin D3 2000 intl units oral Tab (1 source)Start: 34-25-5084aayo 1 tablet by mouth once dailyVitamin D3 2000 intl units oral Tab 50 mcg, Oral, Daily, Refills(s) 0 Start Date: 11/05/21 Status: Ord ered Completed/Discontinued Medications MedicationDrug Class(es)DatesSig (Normalized)Sig (Original)10 ml aminophylline 25 mg/ml injection (1 source)Start: 04-22-2024 End: 26-60-358568 mg, intravenous, Administer over 1 Minutes, Once, On Mon04/22/24 at 1445, For 1 doseStart: 04-22-2024 End: 92-77-171687 mg, intravenous, Administer over 1 Minutes, Once, On Mon04/22/24 at 1445, For 1 doseBlood Glucose Monitoring Suppl (Accu-Chek Faye Plus) w/Device kit (4 sources)Start: 11-11-2024 End: 71-59-8981Klpqs Glucose Monitoring Suppl (Accu-Chek Faye Plus) w/Device kit Indications: Type 2 diabetes mellitus without complication, without long- term current use of insulin ([facility]) 1 kit Daily 1 kit 11/11/2024 11/18/2024 Discontinued (Cost of medication)Start: 11-11-2024 End: 39-56-4214Ojhys Glucose Monitoring Suppl (Accu-Chek Faye Plus) w/Device kit Indications: Type 2 diabetes mellitus without complication, without long- term current use of insulin ([facility]) 1 kit Daily 1 kit 11/11/2024 11/11/2025 Active regadenoson (Lexiscan) injection 0.4 mg (1 source)Start: 04-22-2024 End: .4 mg, intravenous, Once, On Mon04/22/24 at 1330, For 1 doseTc- 99m tetrofosmin (Myoview) injection 10 millicurie (1 source)Start: 04-22-2024 End: millicurie, intravenous, Once in imaging, Starting on Mon04/22/24 at 1253, For 1 dose, Administer 45 to 90 minutes prior to imaging unless otherwise indicated.Tc-99m tetrofosmin (Myoview) injection 30 millicurie (1 source)Start: 04-22-2024 End: millicurie, intravenous, Once in imaging, Starting on Mon04/22/24 at 1418, For 1 dose, Administer 45 to 90 minutes prior to imaging unless otherwise indicated. Problems Active Problems Problem ClassificationProblemDateDocumented DateEpisodic/ChronicAnxiety disorders (20 sources)Anxiety; Translations: [Anxiety disorder, unspecified]Onset: 803709-44-4104DaehhbjTphkhwwpry heart failure; nonhypertensive (1 source)Chronic diastolic heart failureOnset: 966821-87-0965Arcvgqf Coronary atherosclerosis and other heart disease (20 sources)Coronary arteriosclerosis; Translations: [Coronary atherosclerosis of unspecified type of vessel, [place] or graft]Onset: ChronicDiabetes mellitus with complications (2 sources)Retinopathy due to diabetes mellitus; Translations: [Type 2 diabetes mellitus with unspecified diabetic retinopathy without macular edema]Onset: 807793-23-7025UuovfmdDyqtarhi mellitus without complication (20 sources)Type 2 diabetes mellitus; Translations: [Diabetes mellitus]Onset: 643320-69-0099OnjlruaQipfkvjsj of lipid metabolism (20 sources)Dyslipidemia; Translations: [Hyperlipidemia]Onset: 01-29-2019 Resolved: 900122-92-9936AaoqbcdQcnmuxstckkkco and diverticulitis (2 sources)Diverticular disease; Translations: [Diverticulosis of large intestine without perforation or abscess without bleeding]Onset: 12-10-2021 30-91-4808TmqupxtQhkzqmymo hypertension (20 sources)Essential hypertension; Translations: [Benign essential hypertension]Onset: 952250-54-3818LagywapWshviwvxhsfpw symptoms and ill- defined conditions (1 source)Urinary lywnhmhellsk76-52-2776YkohfgmAvxnmokg; including migraine (1 source)Lgqowsbj91-35-0245TkqpcqqXgoqyanwloef; infection of eye (except that caused by tuberculosis or sexually transmitteddisease) (9 sources)Acute infectious conjunctivitis; Translations: [Unspecified acute conjunctivitis, right eye]Onset: 046262-38-4789HgezteuoZazg disorders (4 sources)Dysthymia; Translations: [Depressive disorder]Onset: 10-31-2018 93-03-3744NhrdabtWievunsynii deficiencies (20 sources)Vitamin D deficiency; Translations: [Vitamin D deficiency, unspecified]Onset: 825477-60-8327BdkalvrHjvlnetwbivt (2 sources)Osteoporosis; Translations: [Age-related osteoporosis without current pathological fracture]Onset: 326253-41-1293YkkutrfQsfnl and unspecified benign neoplasm (2 sources)History of polyp of colon; Translations: [Personal history of colonic polyps]Onset: 00-01-4958BxhpgqnqJcqon and unspecified benign neoplasm (1 source)Villous adenoma of aakqre47-37-9371FlfsppsnBlujx bone disease and musculoskeletal deformities (20 sources)Osteopenia; Translations: [Other specified disorders of bone density and structure, unspecified site]Onset: 501199-29-6655KwmzquptQatfn connective tissue disease (2 sources)Trochanteric bursitis; Translations: [Trochanteric bursitis, left hip]52-19-5214ZsdksxxdJgdbf gastrointestinal disorders (1 source)Irritable bowel syndrome without diarrhea; Translations: [IRRITABLE BOWEL SYND W/O DIARRHEA]Onset: 07-20-8086NcdpejwMjtsv hereditary and degenerative nervous system conditions (20 sources)Restless legs; Translations: [Restless legs syndrome]Onset: 870268-18-1204IhnhhdwBbvfj hereditary and degenerative nervous system conditions (1 source)Essential tremor; Translations: [Essential and other specified forms of tremor]ChronicOther hereditary and degenerative nervous system conditions (1 source)Restless legs syndrome; Translations: [RESTLESS LEGS SYNDROME]Onset: 43-16-0039GkebpksCqkjd nervous system disorders (20 sources)Tremor; Translations: [Tremor, unspecified]Onset: 06-05-2023 84-97-5600BafnbslkRghqi nutritional; endocrine; and metabolic disorders (5 sources)Overweight in adulthood with body mass index of 25 or more but less than 30; Translations: [Overweight]Onset: 224244-01-0674WvaiuxxxIkfkb nutritional; endocrine; and metabolic disorders (2 sources)Body mass index (BMI) 26.0-26.9, adult; Translations: [Body mass index (BMI) 26.0-26.9, adult]Onset: 00-69-2478UkcoqngvCdaltcka of female genital organs (1 source)Uterovaginal wiinolpl47-10-9827AnzjuejLwafjcov codes; unclassified (1 source)Aswko25-75-9631FxszxembZnfhprkx codes; unclassified (1 source)Asymptomatic menopausal state; Translations: [ASYMPTOMATIC MENOPAUSAL STATE]Onset: 54-88-7479QobnuiokKonlhbkisln; intervertebral disc disorders; other back problems (20 sources)Lumbar radiculopathy; Translations: [Radiculopathy, lumbar region] Onset: 886755-40-6367OipqscwgVjbztqqujtqx (1 source)CONTACT W/AND (SUSP) EXPOS COVID-19; Translations: [CONTACT W/AND (SUSP) EXPOS COVID-19]Onset: 12-07-2021 Past or Other Problems Problem ClassificationProblemDateDocumented DateEpisodic/ChronicMood disorders (20 sources)Mood disordersOnset: 09-05-2023 Resolved: 298908-39-8664Blfqvrslipg chest pain (20 sources)Chest pain; Translations: [Chest pain, unspecified]Onset: 03-11-2019 88-07-1929NeyuwgqcRqrky aftercare (1 source)Other halfway (current) drug therapy; Translations: [OTH CUSTODIAL CURRENT DRUG THERAPY]Onset: 19-35-9986QhpourskNyqii aftercare (1 source)half-way (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; Translations: [CUSTODIAL CURRENT USE OF ASPIRIN]Onset: 40-89-2168VyvnbpbgOfdrw and unspecified benign neoplasm (1 source)Personal history of colonic polyps; Translations: [PERSONAL HISTORY OF COLONIC POLYPS]Onset: 42-87-0083LtjrbnggTowtt gastrointestinal disorders (3 sources)Other fecal abnormalities; Translations: [OTHER FECAL ABNORMALITIES] Onset: 21-21-5651SdbcuzstWochd gastrointestinal disorders (1 source)Change in bowel habit; Translations: [CHANGE IN BOWEL HABIT]Onset: 29-98-8289NxttwwdhFztcf non-traumatic joint disorders (20 sources)Hip pain; Translations: [Pain in left hip]Onset: 06-21-2023 28-06-2926UkeefxjgMpxmx screening for suspected conditions (not mental disorders or infectious disease) (20 sources)Encounter for screening mammogram for malignant neoplasm of breast; Translations: [Patient encounter status]Onset: 891818-57-9426Vhnastbw Residual codes; unclassified (1 source)Postmenopausal state; Translations: [Post-menopausal]EpisodicResidual codes; unclassified (8 sources)Never smoked any substance; Translations: [Other specified health status]Onset: 176024-95-9590JtglnwukKxlfdatoiemt (1 source)Never smoked tobacco; Translations: [Never a smoker]Unclassified (7 sources)Onset: 04-12-2023 Resolved: Results Test NameValueInterpretationReference BjoeeRfhljddrGsG3x (Bld) [Mass fraction]on 39-91-6640Rlgfnnljaualak and review of laboratory resultsAbnormHoward Young Medical CenterLaboratory - Hematology and Cell countson 95-97-8465IgB9v (Bld) [Mass fraction]7.4 %[facility] TOMOSYNTHESIS SCREENING BIon 14-56-4513[place] [address] Mammography Report Signed Patient: NNEKA CORONA MR#: [id number] : 1955 Acct:[id number] Age/Sex: 69 / F ADM Date: 08/27/24 Loc: MAMMO Attending Dr: Ivanna Mahmood NP Ordering Physician: Ivanna Mahmood NP Results: Date of Service: 08/27/24 Follow Up: Procedure(s): MM tomosynthesis screening BI Accession Number(s): [id number] cc: Ivanna Mahmood NP Patient Name: NNEKA CORONA MR#: [id number] : 1955 Exam Date: 08/27/2024 Ordering Doctor: [...] AND RADIATION Family Cancers None LOCATION: [facility] BREAST COMPOSITION: The breasts are heterogeneously [...] Signed By: 08/27/24 1342 DD/ 1341 TD/TT: Ware Cleaner:TBHRadiology, Radiologist, MD - 08/27/2024 [place] [id number] Mammography Report Signed Patient: NNEKA CORONA MR#: [id number] : 1955 Acct:[id number] Age/Sex: 69 / F ADM Date: 08/27/24 Loc: MAMMO Attending Dr: Ivanna Mahmood NP Ordering Physician: Ivanna Mahmood NP Results: Date of Service: 08/27/24 Follow Up: Procedure(s): MM tomosynthesis screening BI Accession Number(s): [id number] cc: Ivanna Mahmood NP Patient Name: NNEKA CORONA MR#: [id number] : 1955 Exam Date: 08/27/2024 Ordering Doctor: [...] AND RADIATION Family Cancers None LOCATION: [facility] BREAST COMPOSITION: The breasts are heterogeneously [...] Signed By: 08/27/24 1342 DD/ 1341 TD/TT: Ware Cleaner: SEFERINO [facility] CenterRadiology Study observation (narrative)[facility] TOMOSYNTHESIS SCREENING BIOrdered By: Radiologist Radiology on 19-30-5769EQUJ [employer] Work Phone: nm Heart Perfusion W stress and W radionuclide Betzy 22-59-0529Qkejat [facility] cardiac perfusion stress test. No evidence of ischemia or myocardial infarction by perfusion imaging. Normal left ventricular systolic function, ejection fraction 70%. No previous study available for comparison. Signed by: Dennis Cheng 04/22/2024 4:44 PM Dictation workstation: [id number] By: Dennis Cheng and Giannuzzi Michael STUDY: MYOCARDIAL PERFUSION STRESS TEST WITH LEXISCAN Performing facility: [facility], [address] [place] [address], [address], [place] [address] [facility] Provider: Pari Norton RN, BEAN [employer] GROWER PCP: Dr. Jabier Mahmood [employer] GR[employer] Supervising provider: Pari Norton RN, [employer] INDICATION: Chest Pain; CAD; HISTORY: Gender: F; Age: 68 y/o ; Height: HT 160 cm cm; Weight: WT 67.132 kg kg. High Cholesterol; CAD; Diabetes; HTN; Chest Pain; Denies smoking. Cardiac catheterization on 2019. PTCA on 2019. COMPARISON: No comparison. ACCESSION NUMBER(S): [id number] ORDERING CLINICIAN: PARI NORTON TECHNIQUE: ONE DAY [...] There were no evidence of attenuation artifact. Dennis Richard MD - 04/22/2024 Interpreted By: Dennis Cheng and Giannuzzi Michael STUDY: MYOCARDIAL PERFUSION STRESS TEST WITH LEXISCAN Performing facility: [facility], [address], [address], [place] [address] [facility] Provider: Pari Norton RN, BEAN SPROUT GROWER PCP: Dr. Jabier Mahmood BEAN SPROUT GROWER Supervising provider: Pari Norton RN, BEAN SPROUT GROWER INDICATION: Chest Pain; CAD; HISTORY: Gender: F; Age: 68 y/o ; Height: HT 160 cm cm; Weight: WT 67.132 kg kg. High Cholesterol; CAD; Diabetes; HTN; Chest Pain; Denies smoking. Cardiac catheterization on 2019. PTCA on 2019. COMPARISON: No comparison. ACCESSION NUMBER(S): [id number] ORDERING CLINICIAN: PARI NORTON TECHNIQUE: ONE DAY [...] Dennis Cheng 04/22/2024 4:44 PM Dictation workstation: [id number] [facility] Work Phone: Radiology Study observation (narrative)[facility] Work Phone: NM Heart Perfusion W stress and W radionuclide IV Ordered By: Dennis Cheng on 81-06-1046QwooforyqzJoint Township District [facility] Work Phone: NUCLEAR STRESS TESTon [id number] STRESS TEST Interpreted By: Dennis Cheng and Giannuzzi Michael STUDY: MYOCARDIAL PERFUSION STRESS TEST WITH LEXISCAN Performing facility: [facility], [address] [place] [address], [address], [address] Provider: Pari Norton RN, BEAN SPROUT GROWER PCP: Dr. Jabier Mahmood CNP Supervising provider: Pari Norton RN, BEAN SPROUT GROWER INDICATION: Chest Pain; CAD; HISTORY: Gender: F; Age: 68 y/o ; Height: HT 160 cm cm; Weight: WT 67.132 kg kg. High Cholesterol; CAD; Diabetes; HTN; Chest Pain; Denies smoking. Cardiac catheterization on 2018. PTCA on 2019. COMPARISON: No comparison. ACCESSION NUMBER(S): [id number] ORDERING CLINICIAN: PARI NORTON TECHNIQUE: ONE DAY [...] Dennis Cheng 04/22/2024 4:44 PM Dictation workstation: [id number]g Health Springfield HbA1c (Bld) [Mass fraction]on 15-64-9189Mxvgcsgtcudreo and review of laboratory resultsAbCarteret Health CareLaboratory - Hematology and Cell countson 24-80-9544PmW4q (Bld) [Mass fraction]7.30 %[facility] HEMOGLOBIN A1Con 28-66-2270Kwbnyqq [Mass/Vol]148 mg/dLLake Regional Health SystemHbA1c (Bld) [Mass fraction]6.8 %High4.5 - 6.2 %[facility] Regional Health SystemComment on above:ADA RECOMMENDED LIMIT 4.0 - 6.0 ADA THERAPEUTIC TARGET < 7.0 ACTION SUGGESTED > 7.0 Interpretation and review of laboratory resultsAbMyMichigan Medical Center SaginawCLINISYNBon [facility] AUTO DIFFon 91-04-2421MLJG #0.1 103/ulNormal0.0-0.1Mansfield HospitalComment on above:Performed By: #### CBC ####[facility] Orwwhq[address] [place], [place] [address]Dr.Yilan ChangBasophils/100 WBC (Bld)0.6 %Normal0.2-2.0The [facility] Memorial HospitalComment on above:Performed By: #### CBC ####[facility] [address] [place], [place] [address]Dr.Yilan ChangEO #0.2 103/ulNormal0.0-0.7The [facility] Memorial HospitalComment on above:Performed By: #### CBC ####[facility] Ynnr[address] [place], [place] [address]Dr.Yilan ChangEosinophils/100 WBC (Bld)2.6 %Normal 0.9-7.0The [facility] Memorial HospitalComment on above:Performed By: #### CBC ####[facility] U[address]shc[address] [place], [place] [address]Dr.Virgil Curiel Erythrocyte distribution width (RBC) [Ratio]13.1 %Nfeedo55.0-15.0The [facility] Memorial HospitalComment on above:Performed By: #### CBC ####[facility] Dlotcwk[address] [place], [place] [address]Dr.Virgil CurielHematocrit (Bld) [Volume fraction]45.9 %Svkcoz36.0-48.0The [facility] Memorial HospitalComment on above:Performed By: #### CBC ####[facility] Gfyjeefocq[address] [place], [place] [address]Dr.Virgil MoisésHemoglobin (Bld) [Mass/Vol]15.1 g/dL Kuatgg73.0-16.0The [facility] Memorial HospitalComment on above:Performed By: #### CBC ####[facility] Rdqjwticds[address] [place], [place] [address]Dr. Virgil CurielIG #0.02 10e3/ulNormal0.00-0.03The [facility] Memorial HospitalComment on above: Performed By: #### CBC ####[facility] Elyytjaeeh[address] [place], [place] [address]Dr.Virgil MoisésIG %0.2 %Normal0.0-0.5The [facility] Memorial HospitalComment on above:Performed By: #### CBC ####[facility] Xatqnasdsg[address] [place], [place] [address]Dr.Virgil CurielLYMPH #2.6 103/ulNormal1.2-3.8The [facility] Memorial HospitalComment on above:Performed By: #### CBC ####[facility] Wqgksdbqvg[address] [place], [place] [address]Dr. Ronitlupillo CurielLymphocytes/100 WBC (Bld)31.6 %Dxfqqj53.5-60.0The [facility] Comment on above:Performed By: #### CBC ####[facility] Ddjmznabve[address] [place], [place] [address]Dr.Virgil CurielMANUAL DIFF REQNONormalThe [facility] HospitalComment on above:Performed By: #### CBC ####[facility] [address] [address]Dr.Virgil CurielNUVANCE HEALTH (RBC) [Entitic mass]28.8 coIxhfva52.7-34.0The Houston HospitalComment on above: Performed By: #### CBC ####[facility] Wpksvzqatx[address] [place], [place] [address]Dr.Virgil CurielMEMORIAL SLO[facility] (RBC) [Mass/Vol]32.9 g/dLNormal 29.9-35.2The [facility] Memorial HospitalComment on above:Performed By: #### CBC ####[facility] Fyicwbdhnu[address] [place], [place] [address]Dr. Virgil CurielV (RBC) [Entitic vol]87.6 gBSfgnxb09.0-99.0The [facility] Comment on above:Performed By: #### CBC ####[facility] Reqnyqttjx[address] [place], [place] [address]Dr.Virgil CurielMONO #1.0 103/ulCritically high0.3-0.8The [facility] Memorial HospitalComment on above:Performed By: #### CBC ####[facility] Okljngcamt[address] [place], [place] [address]Dr. Virgil ChangMonocytes/100 WBC (Bld)12.2 %Critically high1.7-12.0The [facility] Memorial HospitalComment on above:Performed By: #### CBC ####[facility] Qppmtpwtuq[address] [place], [place] [address]Dr.Virgil CurielNEUT #4.4 103/ulNormal1.4-6.5The [facility] Memorial HospitalComment on above:Performed By: #### CBC ####[facility] Qgihmmbjmt[address] [place], [place] [address]Dr. Virgil CurielNeutrophils/100 WBC (Bld)52.8 %Ghluyc43.0-75.0The [facility] Comment on above:Performed By: #### CBC ####[facility] [address] [place] [address]Dr.Virgil CurielPlatelet mean volume (Bld) [Entitic vol]9.4 fLCritically low9.5-13.5The [facility] on above: Performed By: #### CBC ####[facility] [address] [address]Dr.Virgil CurielPLT335 103/inTafone696-943Qgl [facility] HospitalComment on above:Performed By: #### CBC ####[facility] [address] [address]Dr.Virgil CurielRBC5.24 106/ul Normal4.20-5.40The [facility] HospitalCommclaren greater lansing hospital on above:Performed By: #### CBC ####[facility] [address] [address]Dr. Virgil CurielWBC8.4 103/ulNormal4.0-11.0The [facility] Memorial HospitalComment on above: Performed By: #### CBC ####[facility] [address] [place] [address]DrNew CurielGLYCOHEMOGLOBIN A1Con 91-13-2867OFO RECOMMENDATIONSEE [facility] HospitalCommclaren greater [facility]ans[facility] hospital on above:Result Comment: ADA RECOMMENDED LIMIT 4.0 - 6.0 ADA THERAPEUTIC TARGET < 7.0 ACTION SUGGESTED > 7.0Performed By: #### A1C #### [facility] [address] [address] [address] Virgil CurielGlucose [Mass/Vol]163 mg/dLNoAdams County Regional Medical CenterCommclaren greater lansing hospital on above:Performed By: #### A1C #### [facility] [address] [address] [address] Virgil CurielHbA1c (Bld) [Mass fraction]7.3 %Critically high4.5-6.2The [facility] on above:Performed By: #### A1C #### [facility] [address] [address] [address] Virgil CurielLIPID PROFILEon 35-18-3491ROMS-HDL RATIO NORMSMarion HospitalCommclaren greater lansing hospital on above:Result Comment: 3.3 - 4.4 LOW RISK 4.4 - 7.1 AVERAGE RISK 7.1 - 11.0 MODERATE RISK >11.0 HIGH RISKPerformed By: #### CMP, LIPID #### [facility] [address] [address] [address] Virgil CurielCholesterol [Mass/Vol]151 mg/dLNormal<=200[facility] Comment on above:Performed By: #### CMP, LIPID #### [facility] [address] [address] [address] Virgil CurielCholesterol in HDL [Mass/Vol]56 mg/jWXvfaqj12-11EhmMansfield HospitalComment on above:Performed By: #### CMP, LIPID #### [facility] [address] [place] [address] Dr. Virgil CurielCholesterol in LDL [Mass/Vol]74.0 mg/dLOhioHealth Riverside Methodist HospitalComment on above:Performed By: #### CMP, LIPID #### [facility] [address] [place] [address] Dr. Virgil Abbottesterlauro.total/Cholesterol in HDL [Mass ratio]2.7 {ratio} NormalMansfield HospitalComment on above:Performed By: #### CMP, LIPID #### [facility] [address] [place] [address] Dr. Virgil Adamson NORMAL> or = 60 mg/dl - LOW CARDIOVASCULAR RISK <40 mg/dl - HIGH CARDIOVASCULAR RISKOhioHealth Riverside Methodist HospitalCommclaren greater lansing hospital on above:Performed By: #### CMP, LIPID #### [facility] [address] [place] [address] Dr. Virgil CurielLDL CALC NORMALSEE [facility] HospitalCommclaren greater lans[facility] hospital on above:Result Comment: <100 mg/dl OPTIMAL 100 - 129 mg/dl NEAR OR ABOVE OPTIMAL 130 - 159 mg/dl BORDERLINE HIGH 160 - 189 mg/dl HIGH >190 mg/dl VERY HIGH Performed By: #### CMP, LIPID #### [facility] [address] [place] [address] Dr. Virgil CurielTriglyceride [Mass/Vol]105 mg/dLNormal<=150[facility] Comment on above:Performed By: #### CMP, LIPID #### [facility] [address] [address] [address] Virgil CurielVLDL CALC21.0 mg/dLOhioHealth Riverside Methodist HospitalComment on above: Performed By: #### CMP, LIPID #### [facility] [address] [address] [address] Virgil CurielMG MAMM SCREEN 3D CAM CADon 52-62-0099XZ MAMM SCREEN 3D CAM CAD Patient: NNEKA GARCIA Exam Date: 05/16/2022 : 1955 Gender:F Ordering : BROWN IVANNAEdvin MAHMOOD BEAN SPROUT GROWER Admission #: [id number] Family : Order #: [id number] CLICK HERE TO VIEW EXAM RADIOLOGY REPORT [...] AND RADIATION Family Cancers None LOCATION: [facility] BREAST COMPOSITION: Heterogeneously dense,which may obscure [...] by: Jose Hicks MD on 05/16/2022 at 09:01[facility] MICROALBUMIN, RAND URon 45-21-4908cDKO<1.3Normal<=30.0[facility] Comment on above:Performed By: #### MALBR ####[facility] [address] [place], [place] [address]YfDr. Virgil SalasF 14(COMP METB)on 76-00-6212Dfemezi [Mass/Vol]4.0 g/dLNormal3.4-5.0The [facility] HospitalComment on above:Performed By: #### CMP, LIPID #### [facility] [address] [address] [address] Virgil CurielAlbumin/Globulin [Mass ratio]1.0 {ratio}NormalThe [facility] Memorial HospitalComment on above:Performed By: #### CMP, LIPID #### [facility] [address] [address] [address] Virgil Aburto [Catalytic activity/Vol]87 U/CUabkdv47-473Bpg [facility] HospitalComment on above:Performed By: #### CMP, LIPID #### [facility] [address] [address] [address] Virgil Urban [Catalytic activity/Vol]23 U/JYecltt28-44Szf [facility] HospitalComment on above:Performed By: #### CMP, LIPID #### [facility] [address] [address] [address] Virgil Elena gap [Moles/Vol]12.8 mmol/LNormalThe [facility] Comment on above:Performed By: #### CMP, LIPID #### [facility] [address] [address] [address] Virgil House [Catalytic activity/Vol]17 U/NZaiwpg65-78Kwm [facility] HospitalComment on above:Performed By: #### CMP, LIPID #### [facility] [address] [address] [address] Virgil CurielBilirubin [Mass/Vol]0.7 mg/dLNormal0.2-1.0The [facility] Comment on above:Performed By: #### CMP, LIPID #### [facility] [address] [address] [address] Virgil CurielCalcium [Mass/Vol]9.2 mg/dLNormal8.5-10.1The [facility] Comment on above:Performed By: #### CMP, LIPID #### [facility] [address] [address] [address] Virgil CurielChloride [Moles/Vol]101 mmol/SSjbulz30-707Xbr [facility] Comment on above:Performed By: #### CMP, LIPID #### [facility] [address] [address] [address] Virgil CurielCO2 [Moles/Vol]34.0 mmol/LCritically high21.0-32.0The [facility] HospitalComment on above:Performed By: #### CMP, LIPID #### [facility] [address] [address] [address] Virgil CurielCreatinine [Mass/Vol]0.68 mg/dLNormal0.55-1.02The [facility] HospitalComment on above:Performed By: #### CMP, LIPID #### [facility] [address] [place] [address] Dr. Virgil ByrdGFR-AF GERMAN>60Normal>=60The [facility] Memorial HospitalComment on above:Performed By: #### CMP, LIPID #### [facility] [address] [place] [address] Dr. Virgil Ragsdale-NON AF GERMAN>60Normal>=60The [facility] HospitalComment on above:Performed By: #### CMP, LIPID #### [facility] [address] [address] [address] Virgil CurielGlobulin (S) [Mass/Vol]3.9 g/dLNormalThe [facility] HospitalComment on above:Performed By: #### CMP, LIPID #### [facility] [address] [place] [address] Dr. Virgil CurielGlucose [Mass/Vol]137 mg/dLCritically uylo74-554Axq [facility] HospitalComment on above:Performed By: #### CMP, LIPID #### [facility] [address] [place] [address] Dr. Virgil CurielPotassium [Moles/Vol]3.8 mmol/LNormal3.5-5.1The [facility] Comment on above:Performed By: #### CMP, LIPID #### [facility] [address] [address] [address] Virgil CurielProtein [Mass/Vol]7.9 g/dLNormal6.4-8.2[facility] Comment on above:Performed By: #### CMP, LIPID #### [facility] [address] [address] [address] Virgil Renedium [Moles/Vol]144 mmol/SWnwyhw034-524Xfb [facility] Comment on above:Performed By: #### CMP, LIPID #### [facility] [address] [address] [address] Virgil Quintanilla nitrogen [Mass/Vol]14.0 mg/dLNormal7.0-18.0[facility] HospitalComment on above:Performed By: #### CMP, LIPID #### [facility] [address] [place] [address] Dr. Virgil Quintanilla nitrogen/Creatinine [Mass ratio]20.6 mg/mgNoalThVeterans Health AdministrationComment on above:Performed By: #### CMP, LIPID #### [facility] [address] [place] [address] Dr. Virgil Henderson RANDOM W/MICROSCOPICon 28-06-8092YUKWFXRYAFPG SEENNormalNONE SEENMansfield HospitalComment on above:Performed By: #### UAMIC #### [facility] [address] [place] [address] Dr. Virgil Youngirubin Ql (U)NegativeNormalNEGATIVEMansfield Hospital Comment on above:Performed By: #### UAMIC #### [facility] [address] [address] [address] Virgil CurielCASTNONE SEENNormalNONE SEENMansfield HospitalComment on above:Performed By: #### UAMIC #### [facility] [address] [place] [address] Dr. Virgil CurielClarity (U)CLEARNormalCLEARThe [facility] HospitalComment on above: Performed By: #### UAMIC #### [facility] [address] [address] [address] Virgil Neri (U)YELLOWNormalYELLOWMansfield HospitalComment on above: Performed By: #### UAMIC #### [facility] [address] [place] [address] Dr. Virgil CurielCrystals LM Nom (Urine sed)NONE SEENNormalNONE SEENMansfield HospitalCommclaren greater lansing hospital on above:Performed By: #### UAMIC #### [facility] [address] [place] [address] Dr. Herman ChangEpithelial cells LM Ql (Urine sed)NONE SEENNormalNONE SEEN /RARE The [facility] HospitalComment on above:Performed By: #### UAMIC #### [facility] [address] [place] [address] Dr. Virgil CurielGlucose Ql (U)1000 mg/dlAbnormalNEGChildren's Hospital of Columbus Comment on above:Performed By: #### UAMIC #### [facility] [address] [place] [address] Dr. Virgil CurielHemoglobin Ql (U)TRACE-INTACTAbnoalNEGATIVEMansfield HospitalCommclaren greater lansing hospital on above:Performed By: #### UAMIC #### [facility] [address] [place] [address] Dr. Virgil CurielKetones Ql (U)15 mg/dlAbnormalNEGChildren's Hospital of Columbus Comment on above:Performed By: #### UAMIC #### [facility] [address] [place] [address] Dr. Virgil CurielLEUKOCYTESNegativeNormalNEGATIVEMansfield HospitalComment on above:Performed By: #### UAMIC #### [facility] [address] [place] [address] Dr. Virgil CurielMUCOUSNONE SEENNormalNONE SEENMansfield HospitalCommclaren greater lansing hospital on above:Performed By: #### UAMIC #### [facility] [address] [place] [address] Dr. Virgil Lees Ql (U)NegativeNormalNEGATIVEThe [facility] HospitalComment on above:Performed By: #### UAMIC #### [facility] [address] [place] [address] Dr. Virgil CurielpH (U)5.5 [pH]Normal5-9The [facility] HospitalComment on above: Performed By: #### UAMIC #### [facility] [address] [place] [address] Dr. Virgil CurielUynyjWEQ0-6Emblse9-5Ikf [facility] HospitalComment on above:Performed By: #### UAMIC #### [facility] [address] [place] [address] Dr. Virgil CurielSPEC GRAVITY1.102Kxggqd8.005-<=1.025The [facility] HospitalComment on above:Performed By: #### UAMIC #### [facility] [address] [place] [address] Dr. Virgil Henderson PROTEINNegativeNormalNEGATIVE/ TRACEThe [facility] Comment on above:Performed By: #### UAMIC #### [facility] [address] [place] [address] Dr. Virgil Alcantar Qn (U)1.0 {Jaden'U}/dLNormal0.2 - 1.0[facility] HospitalComment on above:Performed By: #### UAMIC #### [facility] [address] [place] [address] Dr. Virgil CurielWBCNONE SEENNormalNONE SEENMansfield HospitalComment on above: Performed By: #### UAMIC #### [facility] [address] [place] [address] Dr. Virgil CurielVITAMIN D 25 OHon 65-62-7182SFJ D 25-OH62.7 ng/mLNormalMansfield HospitalComment on above:Performed By: #### VITAD #### [facility] [address] [place] [address] Dr. Virgil Kim RANGESSEE BELOWNormalThVeterans Health AdministrationComment on above: Result Comment: <20 ng/mL Vit D deficient 20 - <30 ng/mL Vit D insufficient 30 - 100 ng/mL Vit D sufficient >100 ng/mL Potential ToxicityPerformed By: #### VITAD #### [facility] [address] [place] [address] Dr. Virgil CurielXR DEXA BONE DENSITYon 35-31-9177UG DEXA BONE DENSITYDEXA Bone Density Study CLINICAL: Evaluate bone mineral density. Postmenopausal COMPARISON: 03/30/2020 FINDINGS: The bone density study was assessed by dual-energy x-ray absorptiometry with the Soundvamp scanner. The test results are expressed in [...] Electronically authenticated by: JOSE LEE Date: 2022-05-16 11:43[facility] Screening.on 41-52-4623Mqoms depression screening assessmentNoOthello Community Hospital Rackt[employer] DO Work Phone: Fall risk assessmenta) No falls within the last year [facility] [employer] [address] DO Work Phone: Tobacco use status CPHSb) NoMMary Bridge [facility] [employer] 250 DO Work Phone: Outside Colonoscopyon 95-10-7114Bzndiko Colonoscopy [id number]#1.00CD:127NoSt. Mary's Medical Center 35-86-1253Gmqzkvckn From: Christy Xiao LPN To: GSN - Clinical; Sent: 12/09/2021 13:09:21 EDT Show up: 11/07/2026 07:00:00 EDT Subject: colonoscopy recall Due Date/Time: 12/08/2026 07:00:00 EDT Reminder/Recall Patient is due for colonoscopy 12/08/2026 due to history of rectal tubulovillous adenoma.[facility] HospitalPOINT OF CARE GLUCOSEon 12-08-2021 Glucose [Mass/Vol]163 mg/dLCritically efql63-824DrqMansfield HospitalComment on above:Performed By: #### POCGLUC #### [facility] [address] [place], [place] [address] Dr. Virgil Brewster Reportson 28-52-0428Zhp Reports [id number]#1.00CD:127[facility] HospitalCovid-19 PCR (CVDTBH)on 85-70-1363UYNM-CoV-2 (COVID-19) RNA MOISÉS+probe Ql (Unsp spec)Not detectedNormalNOT DETECTEDThe [facility] HospitalCommclaren greater lansing hospital on above: Result Comment: This test is not yet approved or cleared by the [place] FDA. When there are no FDA-approved or cleared tests available, and other criteria are met, FDA can make tests available under an emergency access mechanism called an Emergency Use Authorization (EUA). The EUA for this test is supported by the [place] of Health and Human Service's (HHS's) declaration [...] of clinical signs and symptoms consistent with SARS-CoV-2.Performed By: #### CVDTBH #### [facility] [address] [place] [address] Vir[address] CurielPre-Certification Formon 20-33-4480Anj-Certification Form [id number]#1.00CD:127[facility] HospitalConsent for Procedure/Surgeryon 02-41-5870Cbjxkiz for Procedure/Surgery [id number]#1.00CD:127[facility] HospitalAmbulatory Visit Summaryon 06-09-0002Ndcrrzapxi Visit Summary NNEKA GARCIA :1955 Visit Date:11/09/2021 Ambulatory Visit Instructions Your Diagnosis Personal history of colonic polyps Your Care Team Attending Physician - JARRETT MARTINEZ, Rosie Weems Primary Care Physician - STEVEN HERNANDEZ, RADHA Pitts This Is Your Medications List Contact prescribing [...] Villous adenoma of rectum Vitamin D deficiency NormalAultman HospitalPhysician Referralon 10-08-2021 Physician [id number]#1.00CD:127Normal [facility] HospitalGLYCOHEMOGLOBIN A1Con 65-76-0461LPR RECOMMENDATIONSEE [facility] HospitalComment on above:Result Comment: ADA RECOMMENDED LIMIT 4.0 - 6.0 ADA THERAPEUTIC TARGET < 7.0 ACTION SUGGESTED > 7.0Performed By: #### A1C #### [facility] [address] [place] [address] Dr. Virgil CruielGlucose [Mass/Vol]154 mg/dLNormalThe [facility] HospitalComment on above:Performed By: #### A1C #### [facility] [address] [address] [address] Virgil CurielHbA1c (Bld) [Mass fraction]7.0 %Critically high4.5-6.2The [facility] HospitalComment on above:Performed By: #### A1C #### [facility] [address] [place] [address] Dr. Virgil CurielPROF CHEM 8 (BAS METB)on 97-66-3749Pulia gap [Moles/Vol]11.2 mmol/LNormalThe [facility] HospitalComment on above:Performed By: #### BMP #### [facility] [facility] [address] [place] [address] Dr. Virgil CurielCalcium [Mass/Vol]9.1 mg/dLNormal8.5-10.1[facility] Comment on above:Performed By: #### BMP #### [facility] [address] [place] [address] Dr. Virgil CurielChloride [Moles/Vol]100 mmol/DQrbrcu35-970Tqb [facility] Comment on above:Performed By: #### BMP #### [facility] [address] [place] [address] Dr. Virgil CurielCO2 [Moles/Vol]32.6 mmol/LCritically high21.0-32.0[facility] HospitalComment on above:Performed By: #### BMP #### [facility] [address] [place] [address] Dr. Virgil CurielCreatinine [Mass/Vol]0.73 mg/dLNormal0.55-1.02[facility] HospitalComment on above:Performed By: #### BMP #### [facility] [address] [place] [address] Dr. Herman ChangEGFR-AF GERMAN>60Normal>=60[facility] HospitalComment on above:Performed By: #### BMP #### [facility] [address] [place], [place] [id number] Dr. Virgil ByrdGFR-NON AF GERMAN>60Normal>=60The [facility] HospitalComment on above:Performed By: #### BMP #### [facility] [address] [address] [address] Virgil CurielGlucose [Mass/Vol]107 mg/dLCritically zzrr49-403Dgz [facility] HospitalComment on above:Performed By: #### BMP #### [facility] [address] [address] [address] Virgil CurielPotassium [Moles/Vol]3.8 mmol/LNormal3.5-5.1[facility] Comment on above:Performed By: #### BMP #### [facility] [address] [address] [address] Virgil CurielSodium [Moles/Vol]140 mmol/NEkfaph928-528Zpw [facility] Comment on above:Performed By: #### BMP #### [facility] [address] [address] [address] Virgil CurielUrea nitrogen [Mass/Vol]17.0 mg/dLNormal7.0-18.0[facility] HospitalComment on above:Performed By: #### BMP #### [facility] [address] [place] [address] Dr. Virgil Quintanilla nitrogen/Creatinine [Mass ratio]23.3 mg/mgNormalThe [facility] HospitalComment on above:Performed By: #### BMP #### [facility] [address] [address] [address] Virgil Conway Visit (Cardiology)on 15-38-2407Zrpgrl-up visit Diagnoses/Problems Assessed Hyperlipidemia (272.4) (E78.5) Diabetes [...] 1 TABLET DAILY. Vitamin D 50 MCG (2000 UT) Oral TabletTake 1 tablet daily Allergies [...] Rate56, R Radial Pulse QualityRegular, R Radial Gmxtlihf273, RUE, Sitting Eweiqnfsj51, RUE, Sitting Height5 ft 3 in Uacqgp085 lb 9.6 oz BMI Xsmyakdjon85.86 kg/m2 BSA Calculated1.72 Tobacco Useb) No Fall [...] MD; Apr 05 2021 11:45AM EST (Author) NormalUH TouchworksTobacco Screening.on 57-80-1956Wyre risk assessmenta) No [facility] the [facility] [address] DO Work Phone: Heart RateRegularOthello Community Hospital [address] 250 DO Work Phone: Tobacco use status CPHSb) NoMMary [facility] [employer] 250 DO Work Phone: Basic Metabolic Panelon 27-64-5916Aowgy gap [Moles/Vol]12 mmol/L9 - 17 mmol/LMercy Health Work Phone: bun/Cre Xsclt47Ljxky [employer] Work Phone: calcium [Mass/Vol]9.5 mg/dL8.6 - 10.4 mg/dLSumma Health [facility] Campus avocarrot Phone: chloride [Moles/Vol]99 mmol/L98 - 107 mmol/LMohiohealth shelby hospitaly [employer] Work Phone: cO2 [Moles/Vol]30 mmol/L20 - 31 mmol/LMohiohealth shelby hospitaly [employer] Work Phone: creatinine [Mass/Vol]0.71 mg/dL0.5 - 0.9 mg/dLSumma Health [facility] avocarrot Phone: GFR >60>60 mL/minSumma Health [facility]ron Campus avocarrot Phone: GFR Non->60>60 mL/minSumma Health Akron Campus avocarrot Phone: Glucose [Mass/Vol]102 mg/bGEvoy45 - 99 mg/dLSumma Health [facility] avocarrot Phone: Interpretation and review of laboratory results AbnormalSumma Health [facility] Campus avocarrot Phone: potassium [Moles/Vol]4.3 mmol/L3.7 - 5.3 mmol/LMohiohealth shelby hospitaly avocarrot Phone: sodium [Moles/Vol]141 mmol/L135 - 144 mmol/LMpremier health [employer] Work Phone: Urea nitrogen [Mass/Vol]14 mg/dL8 - 23 mg/dLSumma Health [facility] avocarrot Phone: basic Metabolic Profon 05-08-2019(cont.)NormalMercy Health Fairfield HospitalComment on above:Result Comment: Average GFR for 60-69 years old: 85 mL/min/1.73sq m Chronic Kidney Disease: <60 mL/min/1.73sq m Kidney failure: <15 mL/min/1.73sq m eGFR calculated using average adult body mass. Additional eGFR calculator available at: http://www.Spreadsave.Simple Lifeforms/multiple_crcl_2012.htmPerformed By: #### CBC, BMP, FE, LIPR, GLYHGB #### [address] [place], [place] [address] Quality Management Coordinator: Sharif Sims MDAnion gap [Moles/Vol]12 mmol/LNormal9-17[facility] HospitalComment on above:Performed By: #### CBC, BMP, FE, LIPR, GLYHGB #### [address] [place], [place] [address] Quality Management Coordinator: Sharif Sims MDBUN/CRE Fyifz89Tpshal3-56Exaql [facility] Comment on above:Performed By: #### CBC, BMP, FE, LIPR, GLYHGB #### [address] [place] [address] Quality Management Coordinator: EDY Wualcium [Mass/Vol]9.5 mg/dLNormal8.6-10.4[facility] HospitalComment on above:Performed By: #### CBC, BMP, FE, LIPR, GLYHGB #### [address] [place], [place] [address] Quality Management Coordinator: EDY Wuhloride [Moles/Vol]99 mmol/YOtrjnp05-099BrzmxMercy Health Fairfield HospitalComment on above:Performed By: #### CBC, BMP, FE, LIPR, GLYHGB #### [address] [place], [facility] Quality Management Coordinator: Sharif Sims MDCO2 [Moles/Vol]30 mmol/RExxtwo35-98Ucrey [facility] HospitalComment on above:Performed By: #### CBC, BMP, FE, LIPR, GLYHGB #### [address] [place] [address] Quality Management Coordinator: EDY Wureatinine [Mass/Vol]0.71 mg/dLNormal0.50-0.90 [facility] HospitalComment on above:Performed By: #### CBC, BMP, FE, LIPR, GLYHGB #### [address] [place] [address] Quality Management Coordinator: Sharif Sims MDGFR, Amer>60Normal>60[facility] Comment on above:Performed By: #### CBC, BMP, FE, LIPR, GLYHGB #### [address] [place], [facility] Quality Management Coordinator: Sharif Sims MDGFR,non Amer>60Normal>60[facility] HospitalComment on above:Performed By: #### CBC, BMP, FE, LIPR, GLYHGB #### [address] [place] [address] Quality Management Coordinator: Sharif Sims MDGlucose [Mass/Vol]102 mg/xZGnub44-25Xgann Thornton HospitalComment on above:Performed By: #### CBC, BMP, FE, LIPR, GLYHGB #### [address] [place] [address] Quality Management Coordinator: SKINNY Wuotassium [Moles/Vol]4.3 mmol/LNormal3.7-5.3Mohiohealth shelby hospitaly Thornton HospitalComment on above:Performed By: #### CBC, BMP, FE, LIPR, GLYHGB #### [address] [place], [place] [id number] Quality Management Coordinator: Sharif Sims MDSodium [Moles/Vol]141 mmol/EVxehoj534-718Jmajr [facility]iff[facility] HospitalComment on above:Performed By: #### CBC, BMP, FE, LIPR, GLYHGB #### [address] [place], [place] [id number] Quality Management Coordinator: NINA Wutaging:NormalSt. Charles Hospital HospitalComment on above:Result Comment: Stage 1: Some kidney damage normal GFR Stage 2: Mild kidney damage GFR 60-89 Stage 3: Moderate kidney damage GFR 30-59 Stage 4: Severe kidney damage GFR 15-29 Stage 5: Severe kidney damage GFR <15 ESRD - chronic treatment by dialysis or transplantPerformed By: #### CBC, BMP, FE, LIPR, GLYHGB #### [facility] [address] [place] [address] Quality Management Coordinator: Sharif Sims MDUrea nitrogen [Mass/Vol]14 mg/dLNormal8-[facility] HospitalComment on above:Performed By: #### CBC, BMP, FE, LIPR, GLYHGB #### [facility] [address] [place] [address] Quality Management Coordinator: Sharif Sims [facility] Auto Differentialon [id number] (Bld) [#/Vol]0.06 10*3/uLWilson HealthTweetwall Phone: basophils/100 WBC (Bld)1 %0 - 2 %Morgan Everett Phone: differential TypeNOT REPORTEDWilson HealthTweetwall Phone: eosinophils (Bld) [#/Vol]1.09 10*3/uLGardner State HospitalTweetwall Phone: eosinophils/100 WBC (Bld)12 %High1 - 4 %Morgan Everett Phone: erythrocyte distribution width (RBC) [Ratio]12.9 %11.8 - 14.4 %Morgan Everett Phone: Hematocrit (Bld) [Volume fraction]43.8 %36.3 - 47.1 % Morgan Everett Phone: Hemoglobin (Bld) [Mass/Vol]13.8 g/dL11.9 - 15.1 g/dL Morgan Everett Phone: Immature granulocytes (Bld) [#/Vol]0 %0Morgan Everett Phone: Immature granulocytes (Bld) [#/Vol]0.03 10*3/WaldronTweetwall Phone: Interpretation and review of laboratory results AbnormalWilson HealthTweetwall Phone: Lymphocytes (Bld) [#/Vol]2.38 10*3/WaldronTweetwall Phone: [phone]/100 WBC (Bld)26 %24 - 43 %Morgan Everett Phone: MCH (RBC) [Entitic mass]29.2 pg25.2 - 33.5 pgWilson HealthTweetwall Phone: MCHC (RBC) [Mass/Vol]31.5 g/dL28.4 - 34.8 g/dLWilson HealthTweetwall Phone: MCV (RBC) [Entitic vol]92.6 fL82.6 - 102.9 fLWilson HealthTweetwall Phone: Monocytes (Bld) [#/Vol]0.72 10*3/uLWilson HealthTweetwall Phone: [phone]/100 WBC (Bld)8 %3 - 12 %Morgan Everett Phone: Platelet mean volume (Bld) [Entitic vol]9.3 fL8.1 - 13.5 fLWilson HealthTweetwall Phone: [phone] (Bld) [#/Vol]NOT REPORTEDWilson HealthTweetwall Phone: [phone] (Bld) [#/Vol]367 10*3/WaldronTweetwall Phone: RBC (Bld) [#/Vol]4.73 10*6/uL3.95 - 5.11 m/WaldronTweetwall Phone: RBC morphology finding Nom (Bld)NOT REPORTEDWilson HealthTweetwall Phone: Segmented neutrophils/100 WBC (Bld)53 %36 - 65 %[facility] Phone: Segs Absolute4.85[facility] [employer] Phone: WBC (Bld) [#/Vol]9.1 10*3/uLMercy Health Lorain Hospital Phone: WBC (Bld) [#/Vol]0.0 10*3/uL0.0 per 100 WBCMercy Health Lorain Hospital Phone: WBC MorphologyNOT REPORTEDMercy Health Lorain Hospital Phone: cBC with Diffon [id number]. Basophil0.06 k/uLNormal 0.00-0.20[facility] HospitalComment on above:Performed By: #### CBC, BMP, FE, LIPR, GLYHGB #### [address] [place] [address] Quality Management Coordinator: Rama Wu.Imm.Granulocyte0.03 k/uLNormal0.00-0.30[facility] HospitalComment on above:Performed By: #### CBC, BMP, FE, LIPR, GLYHGB #### [address] [place] [address] Quality Management Coordinator: Rama Wu.Neutrophil (Seg)4.85 k/uLNormal1.50-8.10[facility] HospitalComment on above:Performed By: #### CBC, BMP, FE, LIPR, GLYHGB #### [address] [place] [address] Quality Management Coordinator: Jenna Wusophils/100 WBC (Bld)1 %Normal0-2[facility] HospitalComment on above:Performed By: #### CBC, BMP, FE, LIPR, GLYHGB #### [address] [place], [place] [address] Quality Management Coordinator: Sharif Sims MDEosinophils (Bld) [#/Vol]1.09 10*3/uLHigh 0.00-0.44[facility] HospitalComment on above:Performed By: #### CBC, BMP, FE, LIPR, GLYHGB #### [address] [place] [address] Quality Management Coordinator: RAVEN Wuosinophils/100 WBC (Bld)12 %High1-4[facility] HospitalComment on above:Performed By: #### CBC, BMP, FE, LIPR, GLYHGB #### [address] [place] [address] Quality Management Coordinator: Sharif Sims MDErythrocyte distribution width (RBC) [Ratio]12.9 %Ybqahi06.8-14.4[facility] HospitalComment on above:Performed By: #### CBC, BMP, FE, LIPR, GLYHGB #### [address] [place], [place] [address] Quality Management Coordinator: Sharif Sims MDHematocrit (Bld) [Volume fraction]43.8 %Normal 36.3-47.1MercConnecticut Children's Medical CenterComment on above:Performed By: #### CBC, BMP, FE, LIPR, GLYHGB #### [address] [place] [address] Quality Management Coordinator: Sharif Sims MDHemoglobin (Bld) [Mass/Vol]13.8 g/dLNormal 11.9-15.1[facility] HospitalComment on above:Performed By: #### CBC, BMP, FE, LIPR, GLYHGB #### [address] [place] [address] Quality Management Coordinator: Sharif Sims MDImmature granulocytes (Bld) [#/Vol]0 %Normal0 [facility] HospitalComment on above:Performed By: #### CBC, BMP, FE, LIPR, GLYHGB #### [address] [place], [facility] Quality Management Coordinator: Noemi Wumphocytes (Bld) [#/Vol]2.38 10*3/uLNormal 1.10-3.70[facility] HospitalComment on above:Performed By: #### CBC, BMP, FE, LIPR, GLYHGB #### [address] [place], [place] [address] Quality Management Coordinator: Danielle Wuhocytes/100 WBC (Bld)26 %Miovyp81-71AbhtyMercy Health Fairfield HospitalComment on above:Performed By: #### CBC, BMP, FE, LIPR, GLYHGB #### [address] [place] [address] Quality Management Coordinator: YOUSUF Wu (RBC) [Entitic mass]29.[address] ewFqcwku68.2-33.5 [facility] HospitalComment on above:Performed By: #### CBC, BMP, FE, LIPR, GLYHGB #### [address] [place], [facility] Quality Management Coordinator: YOUSUF WuC (RBC) [Mass/Vol]31.5 g/bNVjcfsi37.4-34.8 [facility] HospitalComment on above:Performed By: #### CBC, BMP, FE, LIPR, GLYHGB #### [address] [place], [facility] Quality Management Coordinator: BRUNILDA Wu (RBC) [Entitic vol]92.[address] eDEkpiaj90.6-102.9 [facility] HospitalComment on above:Performed By: #### CBC, BMP, FE, LIPR, GLYHGB #### [address] [place], [facility] Quality Management Coordinator: Sharif Levi, MDMonocytes (Bld) [#/Vol]0.72 10*3/uLNormal 0.10-1.20[facility] HospitalComment on above:Performed By: #### CBC, BMP, FE, LIPR, GLYHGB #### [address] [place] [address] Quality Management Coordinator: MARY Wuonocytes/100 WBC (Bld)8 %Normal3-12[facility] HospitalComment on above:Performed By: #### CBC, BMP, FE, LIPR, GLYHGB #### [address] [place] [address] Quality Management Coordinator: Baldemar Wuophil (Seg)53 %Rbvtzo62-53Adkoe [facility]iffin HospitalComment on above:Performed By: #### CBC, BMP, FE, LIPR, GLYHGB #### [address] [place], [facility] Quality Management Coordinator: Sharif Sims MDNRBC Automated0.0 per 100 WBCNormal0.0[facility] HospitalComment on above:Performed By: #### CBC, BMP, FE, LIPR, GLYHGB #### [address] [place], [place] [id number] Quality Management Coordinator: Tevin Wu mean volume (Bld) [Entitic vol]9.3 fL Normal8.1-13.5[facility] HospitalComment on above:Performed By: #### CBC, BMP, FE, LIPR, GLYHGB #### [address] [place], [place] [address]83 Quality Management Coordinator: SKINNY Wulatelets (Bld) [#/Vol]367 10*3/fPBxxfvi207-374 [facility] HospitalComment on above:Performed By: #### CBC, BMP, FE, LIPR, GLYHGB #### [address] [place], [facility] Quality Management Coordinator: JER Wu (Bld) [#/Vol]4.73 10*6/uLNormal3.95-5.11[facility] HospitalComment on above:Performed By: #### CBC, BMP, FE, LIPR, GLYHGB #### [address] [place], [place] [address] Quality Management Coordinator: LUZ Wu (Bld) [#/Vol]9.1 10*3/uLNormal3.5-11.3[facility] HospitalComment on above:Performed By: #### CBC, BMP, FE, LIPR, GLYHGB #### [address] [place] [address] Quality Management Coordinator: Claudio Wu PerformedNOT REPORTEDNormalMercy Thornton HospitalComment on above:Performed By: #### CBC, BMP, FE, LIPR, GLYHGB #### [address] [place] [address] Quality Management Coordinator: Mina Wu (d) [#/Vol]NOT REPORTEDNormalMercy Thornton HospitalComment on above:Performed By: #### CBC, BMP, FE, LIPR, GLYHGB #### [address] [place], [place] [address] Quality Management Coordinator: JER Wu morphology finding Nom (d)NOT REPORTED NormalMercy Thornton HospitalComment on above:Performed By: #### CBC, BMP, FE, LIPR, GLYHGB #### [address] [place] [address] Quality Management Coordinator: LUZ Wu MorphologyNOT REPORTEDNormalMercy Thornton HospitalComment on above:Performed By: #### CBC, BMP, FE, LIPR, GLYHGB #### [facility] [address] [place] [address] Quality Management Coordinator: Sharif Sims MDHemoglobin A1Con 06-26-4529PaC7d (Bld) [Mass fraction]6.5 %High4.8-5.9[facility] HospitalComment on above:Performed By: #### CBC, BMP, FE, LIPR, GLYHGB #### [facility] [address] [place] [address] Quality Management Coordinator: Sharif Sims MDHbA1c (Bld) [Mass fraction]140 mg/dLNormalMercy Health Fairfield HospitalComment on above:Result Comment: The ADA and AACC recommend providing the estimated average glucose result to permit better patient understanding of their HBA1c result.Performed By: #### CBC, BMP, FE, LIPR, GLYHGB #### [address] [place] [address] Quality Management Coordinator: Sharif Sims MDGlucose [Mass/Vol]140 mg/dLSumma Health [facility] Campus avocarrot Phone: comment on above:The ADA and AACC recommend providing the estimated average glucose result to permit better patient understanding of their HBA1c result. HbA1c (Bld) [Mass fraction]6.5 %High4.8 - 5.9 %[facility] [employer]rot Phone: Interpretation and review of laboratory results AbnormalWilson HealthTweetwall Phone: lipid Panelon 96-42-2187Hpzirmkasqf [Mass/Vol]133 mg/dL<200[facility] HealthTweet[facility] Phone: comment on above: Cholesterol Guidelines: <200 Desirable 200-240 Borderline >240 Undesirable Cholesterol in HDL [Mass/Vol]52 mg/dL>40Wilson HealthTweetwall Phone: comment on above: HDL Guidelines: <40 Undesirable 40-59 Borderline >59 Desirable Cholesterol in LDL [Mass/Vol]55 mg/dL0 - 130 mg/dLWilson HealthTweetwall Phone: comment on above: LDL Guidelines: <100 Desirable 100-129 Near to/above Desirable 130-159 Borderline >159 Undesirable Direct (measured) LDL and calculated LDL are not interchangeable tests. Cholesterol in VLDL [Mass/Vol]NOT REPORTED1 - 30 mg/dLMercy Health Lorain Hospital Phone: cholesterol.total/Cholesterol in HDL [Mass ratio]2.6 {ratio}<5[facility] Work Phone: Triglyceride [Mass/Vol]131 mg/dL<150[facility] Work Phone: comment on above: Triglyceride Guidelines: <150 Desirable 150-199 Borderline 200-499 High >499 Very high Based on AHA Guidelines for fasting triglyceride, January 2012. Lipid Profileon 85-94-2379Xdtepqhmdid [Mass/Vol]133 mg/dLNormal<200[facility] HospitalComment on above:Result Comment: Cholesterol Guidelines: <200 Desirable 200-240 Borderline >240 UndesirablePerformed By: #### CBC, BMP, FE, LIPR, GLYHGB #### [address] [place] [address] Quality Management Coordinator: EDY Wuholesterol in HDL [Mass/Vol]52 mg/dLNormal>40 [facility] HospitalCommclaren greater [facility] on above:Result Comment: HDL Guidelines: <40 Undesirable 40-59 Borderline >59 DesirablePerformed By: #### CBC, BMP, FE, LIPR, GLYHGB #### [address] [place] [address] Quality Management Coordinator: EDY Wuholesterol in LDL [Mass/Vol]55 mg/dLNormal0-130 [facility] HospitalCommclaren greater [facility] on above:Result Comment: LDL Guidelines: <100 Desirable 100-129 Near to/above Desirable 130-159 Borderline >159 Undesirable Direct (measured) LDL and calculated LDL are not interchangeable tests.Performed By: #### CBC, BMP, FE, LIPR, GLYHGB #### [facility] [address] [place] [address] [place] [address] Quality Management Coordinator: EDY Wuholesterol.total/Cholesterol in HDL [Mass ratio] 2.6 {ratio}Normal<5[facility] HospitalComment on above:Performed By: #### CBC, BMP, FE, LIPR, GLYHGB #### [facility] [address] [place] [address] Quality Management Coordinator: Sharif Sims MDTriglyceride [Mass/Vol]131 mg/dLNormal<150Mer[facility] HospitalComment on above:Result Comment: Triglyceride Guidelines: <150 Desirable 150-199 Borderline 200-499 High >499 Very high Based on AHA Guidelines for fasting triglyceride, January 2012.Performed By: #### CBC, BMP, FE, LIPR, GLYHGB #### [facility] [address] [place] [address] Quality Management Coordinator: EDY Wuholesterol in VLDL [Mass/Vol]NOT REPORTEDNormal 1-30[facility] HospitalComment on above:Performed By: #### CBC, BMP, FE, LIPR, GLYHGB #### [facility] [address] [place] [address] Quality Management Coordinator: MARY Wuetabolic Panelon [id number]/1.73 sq M predicted among non-blacks MDRD (S/P/Bld) [Vol rate/Area][facility] Work Phone: comment on above:Stage 1: Some kidney damage normal GFR Stage 2: Mild kidney damage GFR 60-89 Stage 3: Moderate kidney damage GFR 30-59 Stage 4: Severe kidney damage GFR 15-29 Stage 5: Severe kidney damage GFR <15 ESRD - chronic treatment by dialysis or transplant Average GFR for 60-69 years old: 85 mL/min/1.73sq m Chronic Kidney Disease: <60 mL/min/1.73sq m Kidney failure: <15 mL/min/1.73sq m eGFR calculated using average adult body mass. Additional eGFR calculator available at: http://www.[employer]Genix/multiple_crcl_2011.htm Microalb.,Random Uron 69-81-3766Qcadcteaix [Mass/Vol]189.8 mg/wQVbgeaj29.0-217.0 [facility] HospitalComment on above:Performed By: #### CBC, BMP, FE, LIPR, GLYHGB #### [facility] [address] [place] [address] [place] [address] Quality Management Coordinator: MARY Wuicroalb/Creat RatioCANNOT BE CALCULATEDNormal<25 [facility] HospitalComment on above:Performed By: #### CBC, BMP, FE, LIPR, GLYHGB #### [address] [place] [address] Quality Management Coordinator: Sharmila Wuroalbumin conc.<12Normal<21[facility] HospitalComment on above:Performed By: #### CBC, BMP, FE, LIPR, GLYHGB #### [address] [place] [address] Quality Management Coordinator: Cameron Wualbumin, Uron [id number]/Creatinine DL <= 20 mg/L (24H U) [Mass ratio]<12<21 mg/LMercy [employer] Work Phone: albumin/Creatinine DL <= 20 mg/L (U) [Ratio]CANNOT BE CALCULATED<25 mcg/mg creatSumma Health [facility] Campus [employer] Work Phone: creatinine [Mass/Vol]189.8 mg/dL28 - 217 mg/dLUniversity Hospitals [facility] Work Phone: cARDIAC STRESS TESTon 12-26-0432CYVIYSL STRESS TEST [address] [id number] CARDIAC STRESS TEST PATIENT NAME: NNEKA GARCIA : 1955 MED REC NO: [id number] ROOM: [facility]8 ACCOUNT NO: [id number] ADMIT DATE: 03/11/2019 PROVIDER: Richie Multani CARDIOVASCULAR [...] Doc#: Unknown CC: Mary Watson Shawn M. APRN-[facility] [id number] distribution width (RBC) [Ratio]13.5 %Xtqhkv42.8-14.4[facility] Comment on above:Performed By: #### CBC, BMP, FE, LIPR, GLYHGB #### [address] [place] [address] Quality Management Coordinator: Sharif Sims MDHematocrit (Bld) [Volume fraction]39.3 %Normal 36.3-47.1Mohiohealth shel[facility] hospitaly [place] HospitalComment on above:Performed By: #### CBC, BMP, FE, LIPR, GLYHGB #### [facility] [address] [place] [address] Quality Management Coordinator: Sharif Sims MDHemoglobin (Bld) [Mass/Vol]12.3 g/dLNormal 11.9-15.1Mohio[facility] hospitaly [place] HospitalComment on above:Performed By: #### CBC, BMP, FE, LIPR, GLYHGB #### [address] [place] [address] Quality Management Coordinator: YOUSUF Wu (RBC) [Entitic mass]28.6 jhXigupq82.2-33.5 [facility] HospitalComment on above:Performed By: #### CBC, BMP, FE, LIPR, GLYHGB #### [address] [place] [facility] Quality Management Coordinator: YOUSUF WuC (RBC) [Mass/Vol]31.3 g/hAVajqls19.4-34.8 [facility] HospitalComment on above:Performed By: #### CBC, BMP, FE, LIPR, GLYHGB #### [address] [place], [facility] Quality Management Coordinator: BRUNILDA Wu (RBC) [Entitic vol]91.[address]z37.6-102.9 [facility] HospitalComment on above:Performed By: #### CBC, BMP, FE, LIPR, GLYHGB #### [address] [place], [facility] Quality Management Coordinator: PHOENIX Wu Automated0.0 per 100 WBCNormal0.0[facility] HospitalComment on above:Performed By: #### CBC, BMP, FE, LIPR, GLYHGB #### [address] [place], [facility] Quality Management Coordinator: Tevin Wu mean volume (Bld) [Entitic vol]9.1 fL Normal8.1-13.5[facility] HospitalComment on above:Performed By: #### CBC, BMP, FE, LIPR, GLYHGB #### [address] [place] [address] Quality Management Coordinator: Mina Wu (Bld) [#/Vol]344 10*3/rQWktbak701-781 [facility] HospitalComment on above:Performed By: #### CBC, BMP, FE, LIPR, GLYHGB #### [address] [place], [place] [address] Quality Management Coordinator: JER Wu ([facility]) [#/Vol]4.30 10*6/uLNormal3.95-5.11[facility] HospitalComment on above:Performed By: #### CBC, BMP, FE, LIPR, GLYHGB #### [address] [place], [facility] Quality Management Coordinator: LUZ Wu ([facility]) [#/Vol]6.9 10*3/uLNormal3.5-11.3MHighland District HospitalComment on above:Performed By: #### CBC, BMP, FE, LIPR, GLYHGB #### [address] [place], [place] [address] Quality Management Coordinator: Sharif Sims MDLipid Profileon [id number] [Mass/Vol] 134 mg/dLNormal<200[facility] HospitalComment on above:Result Comment: Cholesterol Guidelines: <200 Desirable 200-240 Borderline >240 UndesirablePerformed By: #### CBC, BMP, FE, LIPR, GLYHGB #### [address] [place], [facility] Quality Management Coordinator: EDY Wuholesterol in HDL [Mass/Vol]41 mg/dLNormal>40 [facility] HospitalComment on above:Result Comment: HDL Guidelines: <40 Undesirable 40-59 Borderline >59 DesirablePerformed By: #### CBC, BMP, FE, LIPR, GLYHGB #### [address] [place], [facility] Quality Management Coordinator: EDY Wuholesterol in LDL [Mass/Vol]59 mg/dLNormal0-130 [facility] HospitalComment on above:Result Comment: LDL Guidelines: <100 Desirable 100-129 Near to/above Desirable 130-159 Borderline >159 Undesirable Direct (measured) LDL and calculated LDL are not interchangeable tests.Performed By: #### CBC, BMP, FE, LIPR, GLYHGB #### [facility] [address] [place], [place] [id number] Quality Management Coordinator: EDY Wuholestaura.total/Cholesterol in HDL [Mass ratio] 3.3 {ratio}Normal<5[facility] HospitalComment on above:Performed By: #### CBC, BMP, FE, LIPR, GLYHGB #### [facility] [address] [place] [address] Quality Management Coordinator: Sharif Sims MDTriglyceride [Mass/Vol]172 mg/dLHigh<150[facility] HospitalComment on above:Result Comment: Triglyceride Guidelines: <150 Desirable 150-199 Borderline 200-499 High >499 Very high Based on AHA Guidelines for fasting triglyceride, January 2012.Performed By: #### CBC, BMP, FE, LIPR, GLYHGB #### [facility] [address] [place], [place] [id number] Quality Management Coordinator: EDY Wuholesterol in VLDL [Mass/Vol]NOT REPORTEDNormal 1-30[facility] HospitalComment on above:Performed By: #### CBC, BMP, FE, LIPR, GLYHGB #### [facility] [address] [place], [place] [id number] Quality Management Coordinator: Sharif Sims MDTrhenrique [id number] I.cardiac [Mass/Vol]NormalMercy Health Fairfield HospitalComment on above:Result Comment: Reference Range: <0.03 Within reference range. 0.03-0.09 Possible myocardial damage. Repeat at appropriate intervals to rule out chronic elevation. >= 0.10 Indicative of myocardial damage. Patients with high levels of Biotin oral intake (i.e >5mg/day) may have falsely decreased Troponin T levels. Samples collected within 8 hours of biotin intake may require additional information for diagnosis.Performed By: #### CBC, BMP, FE, LIPR, GLYHGB #### [facility] [address] [place] [address] Quality Management Coordinator: Erin Wu I.cardiac [Mass/Vol]ng/mLNormal<0.03 [facility] HospitalComment on above:Result Comment: Troponin T results cannot be compared to Troponin-I results.Performed By: #### CBC, BMP, FE, LIPR, GLYHGB #### [facility] [address] [place] [address] Quality Management Coordinator: Erin Wu I.cardiac [Mass/Vol]NOT REPORTEDNormal 0-14[facility] HospitalComment on above:Performed By: #### CBC, BMP, FE, LIPR, GLYHGB #### [address] [place] [address] Quality Management Coordinator: Shantel Wu [id number] Coag (Bld) [Time]20.4 sLow 23.2-34.4[facility] HospitalComment on above:Performed By: #### CBC, BMP, FE, LIPR, GLYHGB #### [address] [place] [address] Quality Management Coordinator: Gabriele Wu Metabolic Profon 03-11-2019(cont.)Normal [facility] HospitalComment on above:Result Comment: Average GFR for 60-69 years old: 85 mL/min/1.73sq m Chronic Kidney Disease: <60 mL/min/1.73sq m Kidney failure: <15 mL/min/1.73sq m eGFR calculated using average adult body mass. Additional eGFR calculator available at: http://www.Spreadsave.Simple Lifeforms/multiple_crcl_2012.htmPerformed By: #### CBC, BMP, FE, LIPR, GLYHGB #### [address] [place] [address] Quality Management Coordinator: Sharif Sims MDAnion gap [Moles/Vol]13 mmol/LNormal9-17[facility] HospitalComment on above:Performed By: #### CBC, BMP, FE, LIPR, GLYHGB #### [address] [place] [address] Quality Management Coordinator: Sharif Sims MDBUN/CRE Hoemt34Oqci0-26KajejMercy Health Fairfield Hospital Comment on above:Performed By: #### CBC, BMP, FE, LIPR, GLYHGB #### [address] [place], [place] [address]83 Quality Management Coordinator: Sharif Sims MDCalcium [Mass/Vol]9.1 mg/dLNormal8.6-10.4[facility] HospitalComment on above:Performed By: #### CBC, BMP, FE, LIPR, GLYHGB #### [address] [place], [facility] Quality Management Coordinator: EDY Wuhloride [Moles/Vol]97 mmol/PBpc41-183NjejaMercy Health Fairfield HospitalComment on above:Performed By: #### CBC, BMP, FE, LIPR, GLYHGB #### [address] [place] [address] Quality Management Coordinator: Sharif Sims MDCO2 [Moles/Vol]30 mmol/JLfrxqg27-90Miduq [facility] HospitalComment on above:Performed By: #### CBC, BMP, FE, LIPR, GLYHGB #### [address] [place] [address] Quality Management Coordinator: Sharif Sims MDCreatinine [Mass/Vol]0.60 mg/dLNormal0.50-0.90 [facility] HospitalComment on above:Performed By: #### CBC, BMP, FE, LIPR, GLYHGB #### [address] [place], [facility] Quality Management Coordinator: Sharif Sims MDGFR, Amer>60Normal>60[facility] Comment on above:Performed By: #### CBC, BMP, FE, LIPR, GLYHGB #### [address] [place], [place] 437[address]83 Quality Management Coordinator: Sharif Sims MDGFR,non Amer>60Normal>60MerHolzer Medical Center – Jackson HospitalComment on above:Performed By: #### CBC, BMP, FE, LIPR, GLYHGB #### [address] [place] [address] Quality Management Coordinator: Sharif Sims MDGlucose [Mass/Vol]79 mg/cVZodlik06-43Iqaou [facility] HospitalComment on above:Performed By: #### CBC, BMP, FE, LIPR, GLYHGB #### [address] [place], [facility] Quality Management Coordinator: SKINNY Wuotassium [Moles/Vol]3.6 mmol/LLow3.7-5.3Mohiohealth shelby hospitaly Thornton HospitalComment on above:Performed By: #### CBC, BMP, FE, LIPR, GLYHGB #### [address] [place], [facility] Quality Management Coordinator: NINA Wuodium [Moles/Vol]140 mmol/NEiuozg945-994Quosm [facility] HospitalComment on above:Performed By: #### CBC, BMP, FE, LIPR, GLYHGB #### [address] [place] [address] Quality Management Coordinator: NINA Wutaging:NormalSt. Charles Hospital HospitalComment on above:Result Comment: Stage 1: Some kidney damage normal GFR Stage 2: Mild kidney damage GFR 60-89 Stage 3: Moderate kidney damage GFR 30-59 Stage 4: Severe kidney damage GFR 15-29 Stage 5: Severe kidney damage GFR <15 ESRD - chronic treatment by dialysis or transplantPerformed By: #### CBC, BMP, FE, LIPR, GLYHGB #### [address] [place] [address] Quality Management Coordinator: Henry Wu nitrogen [Mass/Vol]13 mg/dLNormal8-23MerHolzer Medical Center – Jackson HospitalComment on above:Performed By: #### CBC, BMP, FE, LIPR, GLYHGB #### [address] [place] [address] Quality Management Coordinator: Sharif Sims [facility] with Diffon [id number]. Basophil0.04 k/uL Normal0.00-0.20MerHolzer Medical Center – Jackson HospitalComment on above:Performed By: #### CDP, BMP, TROPI #### [address] [place] [address] Quality Management Coordinator: Rama Wu.Imm.Granulocyte<0.25Usvfhw6.00-0.30MerHolzer Medical Center – Jackson HospitalComment on above:Performed By: #### CDP, BMP, TROPI #### [address] [place] [address] Quality Management Coordinator: Rama Wu.Neutrophil (Seg)4.69 k/uLNormal1.50-8.10[facility] HospitalComment on above:Performed By: #### CDP, BMP, TROPI #### [address] [place] [address] Quality Management Coordinator: Sharif Sims MDBasophils/100 WBC (Bld)0 %Normal0-2[facility]ercMain [facility] HospitalComment on above:Performed By: #### CDP, BMP, TROPI #### [address] [place] [address] Quality Management Coordinator: Sharif Sims MDEosinophils (Bld) [#/Vol]0.43 10*3/uLNormal 0.00-0.44[facility] HospitalComment on above:Performed By: #### CDP, BMP, TROPI #### [address] [place] [address] Quality Management Coordinator: Sharif Sims MDEosinophils/100 WBC (Bld)5 %High1-4[facility] HospitalComment on above:Performed By: #### [place], BMP, TROPI #### [address] [place] [address] Quality Management Coordinator: Sharif Sims MDErythrocyte distribution width (RBC) [Ratio]13.2 %Vtffnj24.8-14.4[facility] HospitalComment on above:Performed By: #### [place], BMP, TROPI #### [address] [place] [address] Quality Management Coordinator: Sharif Sims MDHematocrit (Bld) [Volume fraction]41.1 %Normal 36.3-47.1MTriHealth McCull[facility] HospitalComment on above:Performed By: #### [place], SRINIVAS, TROPI #### [address] [place] [address] Quality Management Coordinator: Sharif Sims MDHemoglobin (Bld) [Mass/Vol]13.5 g/dLNormal 11.9-15.1MTriHealth McCull[facility] HospitalComment on above:Performed By: #### [place], BMP, TROPI #### [address] [place] [address] Quality Management Coordinator: Sharif Sims MDImmature granulocytes (Bld) [#/Vol]0 %Normal0 [facility] HospitalCommclaren greater [facility] hospital on above:Performed By: #### [place], BMP, TROPI #### [address] [place] [id number] Quality Management Coordinator: Sharif Sims MDLymphocytes (Bld) [#/Vol]2.68 10*3/uLNormal 1.10-3.70[facility] HospitalComment on above:Performed By: #### CDP, BMP, TROPI #### [address] [place], [place] [address] Quality Management Coordinator: Noemi Wumphocytes/100 WBC (Bld)30 %Aszeda69-72Hwetr [facility] HospitalComment on above:Performed By: #### CDP, BMP, TROPI #### [address] [place], [place] [address] Quality Management Coordinator: YOUSUF Wu (RBC) [Entitic mass]29.1 zjAoxjnu38.2-33.5 [facility] HospitalComment on above:Performed By: #### CDP, BMP, TROPI #### [address] [place], [place] [address] Quality Management Coordinator: YOUSUF WuC (RBC) [Mass/Vol]32.8 g/nFJlvnus85.4-34.8 [facility] HospitalComment on above:Performed By: #### [place], BMP, TROPI #### [address] [place], [facility] Quality Management Coordinator: BRUNILDA Wu (RBC) [Entitic vol]88.[address]tsihu39.6-102.9 [facility] HospitalComment on above:Performed By: #### [place], BMP, TROPI #### [address] [place], [facility] Quality Management Coordinator: MARY Wuonocytes (Bld) [#/Vol]1.03 10*3/uLNormal 0.10-1.20[facility] HospitalComment on above:Performed By: #### CDP, BMP, TROPI #### [address] [place], [facility] Quality Management Coordinator: MARY Wuonocytes/100 WBC (Bld)12 %Normal3-12[facility] HospitalComment on above:Performed By: #### CDP, BMP, TROPI #### [address] [place] [address] Quality Management Coordinator: Baldemar Wuophil (Seg)53 %Azcuvn27-52Onmkv [facility] HospitalComment on above:Performed By: #### CDP, BMP, TROPI #### [address] [place], [facility] Quality Management Coordinator: PHOENIX Wu Automated0.0 per [address] HospitalComment on above:Performed By: #### CDP, BMP, TROPI #### [address] [place], [facility] Quality Management Coordinator: Tevin Wu mean volume (Bld) [Entitic vol]9.1 fL Normal8.1-13.5[facility] HospitalComment on above:Performed By: #### [place], BMP, TROPI #### [address] [place], [facility] Quality Management Coordinator: Mina Wu (Bld) [#/Vol]380 10*3/zSOinpap484-778 [facility] HospitalComment on above:Performed By: #### CDP, BMP, TROPI #### [address] [place], [facility] Quality Management Coordinator: JER Wu (Bld) [#/Vol]4.64 10*6/uLNormal3.95-5.11[facility] HospitalComment on above:Performed By: #### CDP, BMP, TROPI #### [address] [place] [address] Quality Management Coordinator: LUZ Wu (Bld) [#/Vol]8.9 10*3/uLNormal3.5-11.3[facility] HospitalComment on above:Performed By: #### CDP, BMP, TROPI #### [facility] [address] [place] [address] Quality Management Coordinator: Claudio Wu Diff PerformedNOT REPORTEDNormalMercy Thornton HospitalComment on above:Performed By: #### CDP, BMP, TROPI #### [facility] [address] [place] [address] Quality Management Coordinator: SKINNY Wulatelets (Bld) [#/Vol]NOT REPORTEDNormalMercy Thornton HospitalComment on above:Performed By: #### CDP, BMP, TROPI #### [address] [place] [address] Quality Management Coordinator: JER Wu morphology finding Nom (Bld)NOT REPORTED NormalMercy Thornton HospitalComment on above:Performed By: #### CDP, BMP, TROPI #### [address] [place] [address] Quality Management Coordinator: LUZ Wu MorphologyNOT REPORTEDNormalMercy Thornton HospitalComment on above:Performed By: #### CDP, BMP, TROPI #### [address] [place], [place] [address]83 Quality Management Coordinator: JOSÉ Wu [facility]ST [facility] CONTRASTon [id number] CHEST [facility] CONTRASTEXAMINATION: CTA OF THE CHEST WITH AND WITHOUT [...] Signed by: Cedric Shannon MD 03/11/19 Final resultNormalTriHealth [facility] [id number] Coag (PPP) [Relative time]1.0 {INR}Normal0.9-1.2[facility] HospitalComment on above:Performed By: #### CBC, BMP, FE, LIPR, GLYHGB #### [address] [place] [address] Quality Management Coordinator: SANJIV Wu Coag (PPP) [Time]10.0 sNormal9.7-12.2[facility] HospitalComment on above:Performed By: #### CBC, BMP, FE, LIPR, GLYHGB #### [address] [place] [address] Quality Management Coordinator: Dionne Wu 60-53-1857Timqnxba I.cardiac [Mass/Vol]NormalMercy Health Fairfield HospitalComment on above:Result Comment: Reference Range: <0.03 Within reference range. 0.03-0.09 Possible myocardial damage. Repeat at appropriate intervals to rule out chronic elevation. >= 0.10 Indicative of myocardial damage. Patients with high levels of Biotin oral intake (i.e >5mg/day) may have falsely decreased Troponin T levels. Samples collected within 8 hours of biotin intake may require additional information for diagnosis.Performed By: #### CBC, BMP, FE, LIPR, GLYHGB #### [address] [place] [address] Quality Management Coordinator: Erin Wu I.cardiac [Mass/Vol]ng/mLNormal<0.03 [facility] HospitalComment on above:Result Comment: Troponin T results cannot be compared to Troponin-I results.Performed By: #### CBC, BMP, FE, LIPR, GLYHGB #### [address] [place] [id number] Quality Management Coordinator: Erin Wu I.cardiac [Mass/Vol]NOT REPORTEDNormal 0-14[facility] HospitalComment on above:Performed By: #### CBC, BMP, FE, LIPR, GLYHGB #### [address] [place] [address] Quality Management Coordinator: Erin Wu I.cardiac [Mass/Vol]NormalMercy Health Fairfield HospitalComment on above:Result Comment: Reference Range: <0.03 Within reference range. 0.03-0.09 Possible myocardial damage. Repeat at appropriate intervals to rule out chronic elevation. >= 0.10 Indicative of myocardial damage. Patients with high levels of Biotin oral intake (i.e >5mg/day) may have falsely decreased Troponin T levels. Samples collected within 8 hours of biotin intake may require additional information for diagnosis.Performed By: #### CBC, BMP, FE, LIPR, GLYHGB #### [address] [place] [address] Quality Management Coordinator: Erin Wu I.cardiac [Mass/Vol]ng/mLNormal<0.03 [facility] HospitalCommclaren greater [facility] hospital on above:Result Comment: Troponin T results cannot be compared to Troponin-I results.Performed By: #### CBC, BMP, FE, LIPR, GLYHGB #### [address] [place] [address] Quality Management Coordinator: Erin Wu I.cardiac [Mass/Vol]NOT REPORTEDNormal 0-14[facility] HospitalComment on above:Performed By: #### CBC, BMP, FE, LIPR, GLYHGB #### [address] [place] [address] Quality Management Coordinator: Erin Wu I.cardiac [Mass/Vol]ng/mLNormal<0.03 [facility] HospitalCommclaren greater [facility] hospital on above:Result Comment: Troponin T results cannot be compared to Troponin-I results.Performed By: #### CBC, BMP, FE, LIPR, GLYHGB #### [address] [place] [address] Quality Management Coordinator: Erin Wu I.cardiac [Mass/Vol]NormalWilson Healthcy Natchaug HospitalComment on above:Result Comment: Reference Range: <0.03 Within reference range. 0.03-0.09 Possible myocardial damage. Repeat at appropriate intervals to rule out chronic elevation. >= 0.10 Indicative of myocardial damage. Patients with high levels of Biotin oral intake (i.e >5mg/day) may have falsely decreased Troponin T levels. Samples collected within 8 hours of biotin intake may require additional information for diagnosis.Performed By: #### CBC, BMP, FE, LIPR, GLYHGB #### [address] [place] [address] Quality Management Coordinator: Erin Wu I.cardiac [Mass/Vol]NOT REPORTEDNormal 0-14[facility] HospitalComment on above:Performed By: #### CBC, BMP, FE, LIPR, GLYHGB #### [address] [place] [address] Quality Management Coordinator: LESLIE Wu CHEST PORTABLEon [id number] CHEST PORTABLE EXAMINATION: ONE XRAY VIEW OF [...] Signed by: Reji Oleary MD 03/11/19 Final resultNoMarion HospitalDEXA BONE DENSITY AXIAL SKELETONon [id number] BONE DENSITY AXIAL SKELETONEXAMINATION: BONE DENSITOMETRY 02/20/2019 1:55 pm TECHNIQUE: A bone density dual x-ray absorptiometry (DEXA) scan was performed of the lumbar spine and left hip on a [employer] system. COMPARISON: None. HISTORY: ORDERING SYSTEM PROVIDED [...] Signed by: Primitivo Ordaz MD 02/20/19 Final resultNoMarion HospitalOsteopenia by WHO criteria. Fracture risk is moderate. Treatment is advised.[facility], [place]EXAMINATION: BONE DENSITOMETRY 02/20/2019 1:55 pm TECHNIQUE: A bone density dual x-ray absorptiometry (DEXA) scan was performed of the lumbar spine and left hip on a [employer] system. COMPARISON: None. HISTORY: ORDERING SYSTEM PROVIDED HISTORY: Post-menopausal 63-year-old postmenopausal female who presents for osteoporosis screening FINDINGS: LUMBAR SPINE: The bone mineral density in the lumbar spine including the L1-L4 levels is measured at 1.173 g/cm2, which corresponds to a T-score of-0.1 and a Z-score of 1.2. This is [...] is within the osteopenia range by WHO criteria.[employer] Incoming Radiant Results From [employer]CO[employer]ac[employer] - 02/20/2019 2:06 PM EST EXAMINATION: BONE DENSITOMETRY 02/20/2019 1:55 pm TECHNIQUE: A bone density dual x-ray absorptiometry (DEXA) scan was performed of the lumbar spine and left hip on a [employer] system. COMPARISON: None. HISTORY: ORDERING SYSTEM PROVIDED [...] Fracture risk is moderate. Treatment is advised. [employer] DOTM DIGITAL SCREEN W OR WO CAD BILATERALon [id number] DIGITAL SCREEN W OR WO CAD BILATERALEXAMINATION: BILATERAL DIGITAL SCREENING MAMMOGRAM 12/25/2018 TECHNIQUE: Screening [...] to the patient regarding the results. [employer] recommends annual mammograms for women 40 years and older. Interpreted by: Rosie Smith MD Signed by: Rosie Smith MD 12/26/18 Final resultNormalGalion Hospital Metabolic Profon 07-30-2018(cont.) NormalMercy Health Fairfield HospitalComment on above:Result Comment: Average GFR for 60- 69 years old: 85 mL/min/1.73sq m Chronic Kidney Disease: <60 mL/min/1.73sq m Kidney failure: <15 mL/min/1.73sq m eGFR calculated using average adult body mass. Additional eGFR calculator available at: http://www.Spreadsave.Simple Lifeforms/multiple_crcl_2012.htmPerformed By: #### CBC, BMP, FE, LIPR, GLYHGB #### [facility] [address] [place] [address] [place] [address] Quality Management Coordinator: Willow Wu gap [Moles/Vol]12 mmol/LNormal9-17[facility] HospitalComment on above:Performed By: #### CBC, BMP, FE, LIPR, GLYHGB #### [facility] [address] [place] [address] Quality Management Coordinator: RUIZ WuN/CRE Gqxmv11Uqokre3-38Yeaag [facility] Comment on above:Performed By: #### CBC, BMP, FE, LIPR, GLYHGB #### [facility] [address] [place], [place] [id number] Quality Management Coordinator: EDY Wualcium [Mass/Vol]9.3 mg/dLNormal8.6-10.4[facility] HospitalComment on above:Performed By: #### CBC, BMP, FE, LIPR, GLYHGB #### [address] [place] [address] Quality Management Coordinator: EDY Wuhloride [Moles/Vol]93 mmol/SOew51-924VjbylMercy Health Fairfield HospitalComment on above:Performed By: #### CBC, BMP, FE, LIPR, GLYHGB #### [address] [place] [address] Quality Management Coordinator: Sharif Sims MDCO2 [Moles/Vol]32 mmol/ESmmp13-68BjlxlMercy Health Fairfield HospitalComment on above:Performed By: #### CBC, BMP, FE, LIPR, GLYHGB #### [address] [place], [place] [address] Quality Management Coordinator: EDY Wureatinine [Mass/Vol]0.64 mg/dLNormal0.50-0.90 [facility] HospitalComment on above:Performed By: #### CBC, BMP, FE, LIPR, GLYHGB #### [address] [place], [place] 360[address] Quality Management Coordinator: MY Wu, Amer>60Normal>60[facility] Comment on above:Performed By: #### CBC, BMP, FE, LIPR, GLYHGB #### [facility] [address] [place], [place] [address] Quality Management Coordinator: Sharif Sims MDGFR,non Amer>60Normal>60[facility] HospitalComment on above:Performed By: #### CBC, BMP, FE, LIPR, GLYHGB #### [address] [place], [place] [address]683 Quality Management Coordinator: Sharif Sims MDGlucose [Mass/Vol]166 mg/cDGqhs06-46Gxwpe Thornton HospitalComment on above:Performed By: #### CBC, BMP, FE, LIPR, GLYHGB #### [address] [place], [place] [address]83 Quality Management Coordinator: SKINNY Wuotassium [Moles/Vol]3.8 mmol/LNormal3.7-5.3Mohiohealth shelby hospitaly Thornton HospitalComment on above:Performed By: #### CBC, BMP, FE, LIPR, GLYHGB #### [address] [place], [place] [id number] Quality Management Coordinator: NINA Wuodium [Moles/Vol]137 mmol/RWfvqys351-333Zgvhc [facility] HospitalComment on above:Performed By: #### CBC, BMP, FE, LIPR, GLYHGB #### [address] [place], [place] [id number] Quality Management Coordinator: NINA Wutaging:NormalSt. Charles Hospital HospitalComment on above:Result Comment: Stage 1: Some kidney damage normal GFR Stage 2: Mild kidney damage GFR 60-89 Stage 3: Moderate kidney damage GFR 30-59 Stage 4: Severe kidney damage GFR 15-29 Stage 5: Severe kidney damage GFR <15 ESRD - chronic treatment by dialysis or transplantPerformed By: #### CBC, BMP, FE, LIPR, GLYHGB #### [address] [place], [place] [id number] Quality Management Coordinator: Sharif Sims MDUrea nitrogen [Mass/Vol]13 mg/dLNormal8-23[facility] HospitalComment on above:Performed By: #### CBC, BMP, FE, LIPR, GLYHGB #### [address] [place] [address] Quality Management Coordinator: Ren Wu 45-85-0111Acbsrukwluq distribution width (RBC) [Ratio]12.9 %Leozli66.8-14.4[facility] HospitalComment on above: Performed By: #### CBC, BMP, FE, LIPR, GLYHGB #### [address] [place] [address] Quality Management Coordinator: Sharif Sims MDHematocrit (Bld) [Volume fraction]45.9 %Normal 36.3-47.1MHighland District HospitalComment on above:Performed By: #### CBC, BMP, FE, LIPR, GLYHGB #### [address] [place] [facility] Quality Management Coordinator: Sharif Sims MDHemoglobin (Bld) [Mass/Vol]14.4 g/dLNormal 11.9-15.1MTriHealth [facility] HospitalComment on above:Performed By: #### CBC, BMP, FE, LIPR, GLYHGB #### [address] [place] [address] Quality Management Coordinator: YOUSUF Wu (RBC) [Entitic mass]28.[address]zhrn92.2-[address].5 [facility] HospitalComment on above:Performed By: #### CBC, BMP, FE, LIPR, GLYHGB #### [address] [place], [facility] Quality Management Coordinator: YOUSUF WuC (RBC) [Mass/Vol]31.4 g/jYFjmyfs87.4-34.8 [facility] HospitalComment on above:Performed By: #### CBC, BMP, FE, LIPR, GLYHGB #### [address] [place], [facility] Quality Management Coordinator: MARY WuCV (RBC) [Entitic vol]91.6 oLNwiewz55.6-102.9 [facility] HospitalComment on above:Performed By: #### CBC, BMP, FE, LIPR, GLYHGB #### [address] [place] [address] Quality Management Coordinator: PHOENIX Wu Automated0.0 per 100 WBCNormal0.0[facility] HospitalComment on above:Performed By: #### CBC, BMP, FE, LIPR, GLYHGB #### [address] [place] [address] Quality Management Coordinator: Tevin Wu mean volume (Bld) [Entitic vol]9.8 fL Normal8.1-13.5[facility] HospitalComment on above:Performed By: #### CBC, BMP, FE, LIPR, GLYHGB #### [address] [place] [address] Quality Management Coordinator: Mina Wu (Bld) [#/Vol]321 10*3/rVSzmuha527-443 [facility] HospitalComment on above:Performed By: #### CBC, BMP, FE, LIPR, GLYHGB #### [address] [place], [place] [address] Quality Management Coordinator: JER Wu (Bld) [#/Vol]5.01 10*6/uLNormal3.95-5.11[facility] HospitalComment on above:Performed By: #### CBC, BMP, FE, LIPR, GLYHGB #### [address] [place], [place] 614[address]83 Quality Management Coordinator: LUZ Wu (Bld) [#/Vol]8.0 10*3/uLNormal3.5-11.3[facility] HospitalComment on above:Performed By: #### CBC, BMP, FE, LIPR, GLYHGB #### [facility] [address] [place], [place] 609[address]83 Quality Management Coordinator: Sharif Sims MDHemoglobin A1Con 61-30-2658ZeO3o (Bld) [Mass fraction]8.1 %High4.8-5.9[facility] HospitalComment on above:Performed By: #### CBC, BMP, FE, LIPR, GLYHGB #### [facility] [address] [place], [place] 3675483 Quality Management Coordinator: Sharif Sims MDHbA1c (Bld) [Mass fraction]186 mg/dLNormalMercy Health Fairfield HospitalCommclaren greater [facility]ans[facility] hospital on above:Result Comment: The ADA and AACC recommend providing the estimated average glucose result to permit better patient understanding of their HBA1c result.Performed By: #### CBC, BMP, FE, LIPR, GLYHGB #### [address] [place], [place] [address]83 Quality Management Coordinator: Sharif Sims MDIroyan 03-21-4411Rucm [Mass/Vol]127 ug/dLNormal 37-145[facility] HospitalCommclaren [facility] hospital on above:Performed By: #### CBC, BMP, FE, LIPR, GLYHGB #### [address] [place], [place] 8332783 Quality Management Coordinator: Sharif Sims MDLipid Profileon 12-03-7151Bzkrxxlwxvh [Mass/Vol] 164 mg/dLNormal<200[facility] HospitalComment on above:Result Comment: Cholesterol Guidelines: <200 Desirable 200-240 Borderline >240 UndesirablePerformed By: #### CBC, BMP, FE, LIPR, GLYHGB #### [address] [place] [address] Quality Management Coordinator: EDY Wuholesterol in HDL [Mass/Vol]60 mg/dLNormal>40 [facility] HospitalComment on above:Result Comment: HDL Guidelines: <40 Undesirable 40-59 Borderline >59 DesirablePerformed By: #### CBC, BMP, FE, LIPR, GLYHGB #### [facility] [address] [place], [place] [address]83 Quality Management Coordinator: EDY Wuholesterol in LDL [Mass/Vol]79 mg/dLNormal0-130 [facility] HospitalComment on above:Result Comment: LDL Guidelines: <100 Desirable 100-129 Near to/above Desirable 130-159 Borderline >159 Undesirable Direct (measured) LDL and calculated LDL are not interchangeable tests.Performed By: #### CBC, BMP, FE, LIPR, GLYHGB #### [facility] [address] [place], [place] 450[address] Quality Management Coordinator: Kristal Wu.total/Cholesterol in HDL [Mass ratio] 2.7 {ratio}Normal<5[facility] HospitalComment on above:Performed By: #### CBC, BMP, FE, LIPR, GLYHGB #### [facility] [address] [place], [place] 213[address]83 Quality Management Coordinator: Sharif Sims MDTriglyceride [Mass/Vol]123 mg/dLNormal<150[facility] HospitalComment on above:Result Comment: Triglyceride Guidelines: <150 Desirable 150-199 Borderline 200-499 High >499 Very high Based on AHA Guidelines for fasting triglyceride, January 2012.Performed By: #### CBC, BMP, FE, LIPR, GLYHGB #### [facility] [address] [place], [place] 39[address]83 Quality Management Coordinator: EDY Wuholesterol in VLDL [Mass/Vol]NOT REPORTEDNormal 1-30[facility] HospitalComment on above:Performed By: #### CBC, BMP, FE, LIPR, GLYHGB #### [facility] [address] [place], [place] 119[address]83 Quality Management Coordinator: Sharif Levi, MDMicroalb.,Random Uron 54-35-5480Rgutzkcntg [Mass/Vol]122.9 mg/jAYkzbvo38.0-217.0[facility] HospitalComment on above: Performed By: #### URNMAB #### [facility] [address] [place] [address] Quality Management Coordinator: Sharif Sims, MDMicroalb/Creat RatioCANNOT BE CALCULATEDNormal<25 [facility] HospitalComment on above:Performed By: #### URNMAB #### [facility] [address] [place], [place] [address]83 Quality Management Coordinator: MARY Wuicroalbumin conc.<12Normal<21[facility] HospitalComment on above:Performed By: #### URNMAB #### [facility] [address] [place] [address] Quality Management Coordinator: Sharif Sims MDPEACEHEALTH [facility] w/reflex to FT4on 85-10-2953BEB Qn1.02 m[IU]/LNormal0.30-5.00[facility] HospitalComment on above:Performed By: #### TSHX #### [address] [place], [place] 18[address]83 Quality Management Coordinator: Sharif Sims MD Vital Signs Date TimeVital SignValuePerforming OunicsbizLgbdhhsm37-26-0438 16:10-0400Body eedfjw855.5 cmLisa Timoteo Work Phone: [facility]09-04-2025 16:10-0400 Body mass index (BMI) [Ratio]27.3 kg/m2Lisa Philsusannah Work Phone: [facility]09-04-2025 16:10-0400 Body rvawneqhiuw37.1 [degF]Vianna Timoteo Work Phone: [facility]09-04-2025 16:10-0400 Body miulwa78.22 kgLisa Philsusannah Work Phone: [facility]09-04-2025 16:10-0400 Diastolic blood fbngplru98 mm[Hg]Ivanna Aichholz Work Phone: [facility]09-04-2025 16:10-0400 Heart rate63 /minLisa Aichholz Work Phone: [facility]09-04-2025 16:10-0400 Respiratory rate20 /minLisa Aichholz Work Phone: [facility]09-04-2025 16:10-0400 SaO2% (BldA) [Mass fraction]95 %Ivanna Aichholz Work Phone: [facility]09-04-2025 16:10-0400 Systolic blood bobxawti263 mm[Hg]Ivanna Aichholz Work Phone: [facility]07-29-2025 10:05-0400 Body mass index (BMI) [Ratio]25.97 kg/m2Lisa Aichholz [employer] Work Phone: [facility] SystemWqbderqeli76-02-7417 10:05-0400Body temperature 98.71 [degF]Ivanna Aichholz [employer] Work Phone: [facility] SystemBowzwcxwic80-35-7557 10:05-0400Body cyysxa54.5 kg Ivanna Aichholz [employer] Work Phone: [facility] SystemXxgrbaxdam54-49-7702 10:05-0400Diastolic blood mm[Hg]Ivanna Aichholz [employer] Work Phone: [facility] SystemJnezfcvrpy89-69-3491 10:05-0400Heart rate56 /min Ivanna Aichholz [employer] Work Phone: [facility] SystemRmfffkykbw60-32-1041 10:05-0400Respiratory rate18 /minLisa Aichholz [employer] Work Phone: [facility] SystemWomgrxujjw09-31-3968 10:05-0520ZvK9% (BldA) [Mass fraction]98 %Ivanna Timoteo [employer] Work Phone: [facility] SystemPgjurmcmmp42-83-4753 10:05-0400Systolic blood mm[Hg]Ivanna Timoteo [employer] Work Phone: [facility] SystemVdcuolwwxn86-39-5660 13:18-0500Body kqazzo396 cm Pari Norton DIRECTOR [facility] Work Phone: [phone] [place], [place] 8941101-22-2025 13:18-0500 Body mass index (BMI) [Ratio]26.22 kg/u2WtgspPari Norton DIRECTOR [facility] [employer] Work Phone: [phone]01-22-2025 13:18-0500 Body .13 kgPari Norton DIRECTOR [facility] [employer] Work Phone: [phone]01-22-2025 13:18-0500 Diastolic blood zjwiexpo66 mm[Hg]Pari Norton DIRECTOR [facility] [employer] Work Phone: [phone]01-22-2025 13:18-0500 Heart rate60 /minDphil Norton DIRECTOR [facility] [employer] Work Phone: [phone]01-22-2025 13:18-0500 Systolic blood kkxuogkz569 mm[Hg]Pari Norton DIRECTOR [facility] [employer] Work Phone: [phone] [place], [place] 8941101-07-2025 13:06-0500 Body dsyocc616 cmLave Timoteo [employer] Work Phone: [facility] SystemWpuwrkouyj00-21-9467 13:06-0500Body mass index (BMI) [Ratio]26.29 kg/m2Ivanna Mahmood [employer] Work Phone: [facility] SystemTijecotjzp57-83-8808 13:06-0500Body temperature 98.1 [degF]Ivanna Mahmood [employer] Work Phone: [facility] SystemBmiedhfzgd07-66-0127 13:06-0500Body xiaeki30.31 kgIvanna Mahmood [employer] Work Phone: [facility] SystemAoniefusqy73-53-9082 13:06-0500Diastolic blood bcmuzaoz32 mm[Hg]Ivanna Mahmood [employer] Work Phone: [facility] SystemRnjbmdpheh00-20-4828 13:06-0500Heart rate56 /min Ivannaedvin Mahmood [employer] Work Phone: [facility] SystemSmxbowowtn95-67-8191 13:06-0500Respiratory rate18 /minLisa Mahmood [employer] Work Phone: [facility] SystemYjsocxbnqq80-76-2150 13:06-0874FqU1% (BldA) [Mass fraction]96 %Iavnna Mahmood [employer] Work Phone: [facility] SystemQvigbrqaqn31-31-6029 13:06-0500Systolic blood mm[Hg]Ivanna Mahmood [employer] Work Phone: [facility] SystemNryprjwivx56-39-1200 10:41-0400Body pitjxx353 cm Ivanna Mahmood [employer] Work Phone: [facility] SystemMtcqerqdjb98-10-3388 10:41-0400Body mass index (BMI) [Ratio]26.18 kg/m2Ivanna Mahmood [employer] Work Phone: [facility] SystemVlniiwxpny22-54-4080 10:41-0400Body temperature 98.29 [degF]Ivanna Mahmood [employer] Work Phone: [facility] SystemXlojjifplv53-70-8934 10:41-0400Body xgncup29.04 kgIvanna Mahmood [employer] Work Phone: [place] [address]Rtwehladlb38-63-2710 10:41-0400Diastolic blood nvgdvzzy06 mm[Hg]Ivanna Mahmood [employer] Work Phone: [place] [address]Zawsmtuuss21-65-8086 10:41-0400Heart rate59 /min Ivannaedvin Crooksz [employer] Work Phone: [place] [address]Hfjgurihcd49-29-3820 10:41-0400Respiratory rate19 /minIvanna Mahmood [employer] Work Phone: [facility] SystemUndpnxltyy43-70-8804 10:41-9477GhT4% (BldA) [Mass fraction]96 %Ivanna Timoteo [employer] Work Phone: [facility] SystemPfxcjsrlas67-95-8800 10:41-0400Systolic blood sapctrxp556 mm[Hg]Ivanna Timoteo [employer] Work Phone: [facility] SystemOkdcudimnm26-48-1942 12:47-0500Body ddcdew548 cm David Berrios MD Work Phone: [facility]01-10-2024 12:47-0500 Body mass index (BMI) [Ratio]26.22 kg/x5RhjtwhbDavid Berrios MD Work Phone: [phone] [place], [place] 5753401-10-2024 12:47-0500 Body fvvebq82.13 kgDavid Berrios MD Work Phone: [address] [place], [place] 5753401-10-2024 12:47-0500 Diastolic blood sijotivt42 mm[Hg]David Berrios MD Work Phone: [facility]01-10-2024 12:47-0500 Heart rate52 /Radha Berrios MD Work Phone: [facility]01-10-2024 12:47-0500 Systolic blood pczutsbw10 mm[Hg]David Berrios MD Work Phone: [address] [place], [place] 5753401-10-2023 10:46-0500 Body yuvyeg916.02 cmLisa Maya Mahmood Work Phone: mp-[facility] 250 DO Work Phone: [phone] 133-941801-10-2023 10:46-0500Body mass index (BMI) [Ratio] 26.39 kg/m2Ivanna Mahmood Work Phone: mp095-5652DB-Etgau [facility] 250 DO Work Phone: [phone] 803-190601-10-2023 10:46-0500Body surface area Derived from formula1.71 m2Ivanna Colemanholwaqar Work Phone: mp039-2309VU-Bxkxo [facility] 250 DO Work Phone: 1(578) 241-652901-10-2023 10:46-0500Body jtyxep16.59 kgIvanna Colemanholwaqar Work Phone: mp034-4131XE-Lgaja [facility] 250 DO Work Phone: 1([phone]) 356-381901-10-2023 10:46-0500Diastolic blood mm[Hg] Ivanna Mahmood Work Phone: mp993-6826PM-Kuztl [facility] 250 DO Work Phone: 1([phone] 123-296101-10-2023 10:46-0500Heart rate62 /minLisa Maya Colemanholwaqar Work Phone: mp272-0831RR-Fwxko [facility] 250 DO Work Phone: 1(370) 405-801201-10-2023 10:46-0500Systolic blood fhuxbjhb759 mm[Hg] Ivanna Mahmood Work Phone: mp966-9370KQ-Cjrig [facility] 250 DO Work Phone: 1(384) 569-946908-09-2022 13:23-0400Blood Pressure LocationMichael NILL [facility] [place] 08-09-2022 13:23-0400Diastolic blood vylnewql07 mm[Hg] Rosie NILL [facility] [place] 08-09-2022 13:23-0400Heart rate60 /minMichael NILL [facility] [place] 08-09-2022 13:23-0400Respiratory rate16 /minMichael NILL [facility] Surgery [place] 08-09-2022 13:23-0400Systolic blood mm[Hg] Rosie FARIAS [facility] [place] 01-03-2022 10:10-0500Body ahhdry741.02 cmLave Trejo Jaredholwaqar Work Phone: mp737-7296AA-Mfare [facility] 250 DO Work Phone: [phone]) 868-576801-03-2022 10:10-0500Body mass index (BMI) [Ratio] 26.86 kg/m2Ivanna Trejo Timoeto Work Phone: mp725-2674UR-Awrbz [facility] 250 DO Work Phone: [phone] 770-711201-03-2022 10:10-0500Body surface area Derived from formula1.72 m2Ivanna Trejo Timoteo Work Phone: mp311-9490WI-Psqzv [facility] 250 DO Work Phone: 1(810) 603-813701-03-2022 10:10-0500Body sodlzq79.77 kgLi Maya Timoteo Work Phone: mp763-8904HD-Umzst [facility] 250 DO Work Phone: 1(925) 746-592301-03-2022 10:10-0500Diastolic blood fecgteke55 mm[Hg] Ivanna Jo Jaredholwaqar Work Phone: mp658-3204JC[facility] 250 DO Work Phone: 1(469) 677-196801-03-2022 10:10-0500Heart rate56 /minLisa Trejo Jaredholwaqar Work Phone: mp114-2467NG-Mmqza [facility] 250 DO Work Phone: 1(832) 139-131101-03-2022 10:10-0500Systolic blood obzaqtwn152 mm[Hg] Ivanna Trejo Jaredholz Work Phone: mp176-1222SM-Mzjit [facility] 250 DO Work Phone: Encounters Encounter DateEncounter TypeCare ProviderFacilityStart: 12-05-2024 End: 33-29-6296hieimejfvkTdwk J Aichholz Work Phone: [facility] Work Phone: Start: 12-05-2024 End: 82-35-8065Blxkyfc encounter Lena Mahmood [employer]-[facility] Medicine Karl Work Phone: Start: 11-18-2024 End: 04-13-5371CygbhySeac Aichholz [employer] Work Phone: noms CWM FMComment on above:Type 2 diabetes mellitus without complication, without long-term current use of insulin (HCC) (Primary Dx)Type 2 diabetes mellitus without complication, without long-term current use of insulin (HCC)Start: 11-11-2024 End: 54-96-3675ZtdrkdYdig Aichholz [employer] Work Phone: [facility] CWM FMComment on above:Type 2 diabetes mellitus without complication, without long-term current use of insulin (HCC) (Primary Dx)Start: 10-29-2024 End: 45-57-8151Owqbek flowsGinny Mahmood [employer] Work Phone: n[facility] CWM FMStart: 10-29-2024 End: 53-66-6253Luacsb flowsGinny Mahmood [employer] Work Phone: [facility] CWM FMStart: 10-29-2024 End: 13-95-3367Gwriqqf encounter procedureIvanna Mahmood [employer] Work Phone: [facility] CWM FMComment on above:Encounter for subsequent annual wellness visit (AWV) in Medicare patient (Primary Dx); Restless leg syndrome; Primary hypertension ; Coronary artery disease involving [place] coronary artery of [place] heart with angina pectoris ; Type 2 diabetes mellitus without complication, without long-term current use of insulin (HCC); Mixed hyperlipidemia ; Anxiety; Tremors of nervous system; Acute bacterial conjunctivitis of right eyeStart: 10-29-2024 End: 19-79-4881giuzehzzpnORJD AICHHOLZNot AvailableStart: 10-28-2024 End: 72-80-8139Fvbltjpzq encounterLisa Aichholz [employer] Work Phone: NOM[facility] CWM FMComment on above:Medication QuestionStart: 09-30-2024 End: 90-85-2831RkgpgmMewl Aichholz [employer] Work Phone: n[facility] CWM FMComment on above:Primary hypertension ; AnxietyStart: 08-27-2024 End: 51-07-6724Tgiwygxng Result EncounterLisa Aichholz [employer] Work Phone: noms External Department UnsolicitedStart: 08-27-2024 End: 93-21-7459Tqlmkztvc Result EncounterLisa Aichholz [employer] Work Phone: noms External Department UnsolicitedStart: 07-22-2024 End: 77-75-9345NgyqxdPjem Aichholz [employer] Work Phone: [facility] CWM FMComment on above:Mixed hyperlipidemia (CMS/HCC); Coronary artery disease involving [place] coronary artery of [place] heart with angina pectoris (CMS/HCC); Primary hypertension (CMS/HCC)Start: 07-01-2024 End: 97-41-2178BeckofLgcz Aichholz [employer] Work Phone: n[facility] CWM FMComment on above:Primary hypertension (CMS/HCC)Start: 06-30-2024 End: 84-59-4516UrybzuKxzs Aichholz [employer] Work Phone: NOLI CWM FMComment on above:Coronary artery disease involving [place] coronary artery of [place] heart with angina pectoris (CMS/HCC) Start: 04-24-2024 End: 92-89-4339Rcvwks outpatient visit 15 Denys Norton APRN-[employer] Work Phone: uh Firenavos healthComment on above:Mixed hyperlipidemia (Primary Dx); Coronary artery disease involving [place] coronary artery of [place] heart without angina pectoris; Benign essential hypertension; Diabetes mellitus of other type without complication, unspecified whether exterminator insulin use (Multi); BMI 26.0-26.9,adultStart: 04-24-2024 End: 40-06-7382owijizuwzoWHWDDEvans Memorial Hospital AmbulatoryStart: 04-22-2024 End: 08-17-9597Xwstdfrojp hospital visit by physicianFilomena Braxton [address] [place], [place] [address]Comment on above:Chest pain, unspecified type; Coronary artery disease involving [place] heart with other form of angina pectoris, unspecified vessel or lesion typeStart: 04-22-2024 End: 87-01-9005mjsatpeyjkUAEPDUC Medical Center Start: 04-16-2024 End: 07-49-2805MzzxekSbdb Aichholz [employer] Work Phone: N[facility] CWM FMComment on above:Type 2 diabetes mellitus without complication, without long-term current use of insulin (CMS/HCC) (P rimary Dx)Start: 04-10-2024 End: 79-07-4368DbnbltUpbg Aichholz [employer] Work Phone: NOM[facility] CWM FMComment on above:Mixed hyperlipidemia (CMS/HCC) (Primary Dx); Coronary artery disease involving [place] coronary artery of [place] heart with angina pectoris (CMS/HCC)Start: 04-09-2024 End: 82-13-2362Qfiplv flowsheetIvanna Mahmood [employer] Work Phone: [facility] CWM FMStart: 04-09-2024 End: 27-80-1962Swsqmb flowsheetIvanna Mahmood [employer] Work Phone: [facility] CWM FMStart: 04-09-2024 End: 91-54-3743pcvcaulxlpYQGN AICHHOLZNot AvailableStart: 04-09-2024 End: 08-09-1848Wuptzd outpatient visit 25 Gladys Mahmood [employer] Work Phone: [facility] CWM FMComment on above:Coronary artery disease involving [place] coronary artery of [place] heart with angina pectoris (CMS/HCC) (Primary Dx); Type 2 diabetes mellitus without complication, without long-term current use of insulin (CMS/HCC); Restless leg syndrome; Primary hypertension (CMS/HCC); Mixed hyperlipidemia (CMS/HCC); Tremors of nervous system; AnxietyStart: 03-28-2024 End: 57-01-1410TarmxiYrhh Aichholz [employer] Work Phone: NOEH CWM FMComment on above:Anxiety; Primary hypertension (CMS/HCC); Mixed hyperlipidemia (CMS/HCC)Start: 02-17-2024 End: 26-10-2465ZsurlnRype Aichholz [employer] Work Phone: [facility] CWM FMComment on above:Primary hypertension (CMS/HCC)Start: 01-02-2024 End: 47-50-6245FpwliiEdgu Aichholz [employer] Work Phone: [facility] CWM FMComment on above:Tremors of nervous system Start: 12-28-2023 End: 81-91-3945Icmryr flowsheetLisa Aichholz [employer] Work Phone: [facility] CWM FMStart: 12-28-2023 End: 07-58-0233Qeijib flowsheetLisa Aichholz [employer] Work Phone: [facility] CWM FMStart: 12-28-2023 End: 53-54-2682Lihlqs outpatient visit 25 minutesLisa Mahmood [employer] Work Phone: [facility] CWM FMComment on above:Coronary artery disease involving [place] coronary artery of [place] heart with angina pectoris (CMS/HCC) (Primary Dx); Primary hypertension (CMS/HCC); Type 2 diabetes mellitus without complication, without long-term current use of insulin (CMS/HCC); Anxiety; Mixed hyperlipidemia (CMS/HCC); Tremors of nervous systemStart: 12-28-2023 End: 18-06-9873ytdlgimxwfSHCW AICHHOLZNot AvailableStart: 12-26-2023 End: 46-56-8189Csovgixvc Result EncounterLisa Philhholz [employer] Work Phone: NOYG External Department UnsolicitedStart: 12-26-2023 End: 79-48-5178Eezxcvrws Result EncounterLisa Crooksz [employer] Work Phone: noms External Department UnsolicitedStart: 12-25-2023 End: 10-42-5195CljzegHshh Aichholz [employer] Work Phone: noms CWM FMComment on above:Vitamin D deficiencyStart: 12-05-2023 End: 18-22-6063HkalivAroa Aicsilvanaholz [employer] Work Phone: noms CWM FMComment on above:Primary hypertension (CMS/HCC); AnxietyStart: 43-98-6947Ytrgtpu encounter procedureLisa Colemanholz [employer] Work Phone: noms HealthcareStart: 04-12-2023 End: 61-63-5768Yjfkwa outpatient visit 25 Annie Berrios MD Work Phone: [facility] ServicesComment on above:Coronary artery disease involving [place] coronary artery of [place] heart without angina pectoris (Pr imary Dx); Benign essential hypertension; Mixed hyperlipidemia; Diabetes mellitus of other type without complication, unspecified whether halfway insulin use (CMS/HCC); Never smoked any substanceStart: 05-16-2022 End: 62-17-4842monvnexndgLJF IVANNA AICHHOLZFacility:E7Pamgh: 47-96-6401mttudipcqr David Berrios IIFacility:[address]Aosxv: 09-49-3103Cvmyjg outpatient visit 25 minutesIvanna Maya Mahmood Work Phone: [phone]-Wjwov [facility] 250 DO Work Phone: Start: 12-08-2021 End: 45-48-9729lsstlzjymcIrnjxby R NILLFacility:CD:[id number]: 12-07-2021 Encounter for preprocedural laboratory examinationDR ROSIE Cole [facility] Systemtart: 12-04-2021 End: 58-70-8330pjecmsuahkCTU IVANNA AICHHOLZFacility:Y6Mostn: 12-04-2021 End: 06-86-1324Hgqyuunnw for preprocedural laboratory examinationCNP IVANNA TIMOTEOFacility:X3Lhuqx: 11-09-2021 End: 74-77-3887exjfgfrgzmVbjwyhh R NILLFacility: [place]vueStart: 11-09-2021 End: 38-88-2618Wwauqnq encounter procedureMichael R NILL General Surgery [place]/Said [place] Start: 99-53-2995wrpmjobcflTapltrr R NILLFacility: BellevueStart: 10-07-2021 End: 00-07-8321hdflryjztiZRP IVANNA TIMOTEOFacility:V9Enaxy: 67-55-2900Qtqclm outpatient visit 25 minutesLisa Maya Vill[place] Work Phone: [phone]-KjmkzSt. [facility] 250 DO Work Phone: Start: 05-08-2019 End: 74-09-5044Xejnmxz encounter procedureSUK Healthcare Start: 05-08-2019 End: 07-68-9612Jdtnkimrzm hospital visit by [facility] Comment on above:Type 2 diabetes mellitus with complication, without long-term current use of insulin (HCC); Essential hypertension; DyslipidemiaStart: 03-11-2019 End: 72-40-9749Graufyqckc and management of inpatientSARAHYAMILE Maurice BURASMARYSt. Charles Hospital HospitalStart: 02-20-2019 End: 60-36-8633Ifrmsyk encounter procedureSMARLEY [facility] Start: 02-20-2019 End: 72-29-1588Qjwfpejdgn hospital visit by Low [facility] HospitalComment on above:Post-menopausal; Osteopenia, unspecified locationStart: 12-25-2018 End: 07-97-6943Tditdmc encounter procedureSAUSTEN RIGGS CENTERJake [facility] Start: 07-30-2018 End: 19-98-5379Agmjztd encounter procedureSUK Healthcare Procedures DateProcedureProcedure DetailPerforming ClinicianStart: 77-52-5836Napazaeixl glycosylated i1yFvqa Aichholz [employer] Work Phone: Start: 25-75-7732FA TOMOSYNTHESIS SCREENING BILisa Aichholz [employer] Work Phone: Start: 70-92-8636PazolndpspfWrzk Aichholz [employer] Work Phone: Start: 54-27-8295Hw strs tst xers&/or rx cont ecg trcg Ron Norton DIRECTOR [facility] Work Phone: Start: 65-22-1612Vzxrcxpuie glycosylated y1mVizn Aichholz [employer] Work Phone: Start: 07-48-4289AQU HEMOGLOBIN J2DIvfs Aichholz [employer] Work Phone: Start: 47-73-2824EvtdrbwvjxgKzic Aichholz [employer] Work Phone: Start: 79-03-5910OorlnlpnoalRkxi Aichholz [employer] Work Phone: Start: 53-36-1407Wrpyu albumin quantitativeSHAWN DEATS Start: 40-33-7283Rzlkg metabolic panel calcium totalSHAWN DEATSStart: 05-08-2019 Blood count complete auto&auto difrntl wbcSHAWN DEATSStart: 38-68-1716Maukdraghq glycosylated p7kBMJIZ DEATSStart: 46-86-3778Vvdog panelSHAWN DEATSStart: 33-12-0684Zqcjq albumin quantitativeShawn M Deats Work Phone: Start: 91-34-1320Zifmf metabolic panel calcium total Magda M Deats Work Phone: Start: 84-19-3599Favwp count complete auto&auto difrntl wbcShawn M Deats Work Phone: Start: 90-47-1175Ezpiqktexs glycosylated u0gWgrig M Deats Work Phone: Start: 54-72-7978Kpoao panelShawn M Deats Work Phone: Start: 10-29-2566Enusinfobh spect multiple studies MAGDA DEATSStart: 05-88-6096KBJMHDCZQ PATIENTSHAWN DEATSStart: 03-13-2019 AMBULATE PATIENTSHAWN DEATSStart: 46-36-7984LVLN GENERALTUFTS MEDICAL [facility]ENTER DEATSStart: 17-36-2749MFHICVBH OXYGEN THERAPY PROTOCOLSHAWN DEATSStart: 03-13-2019 NEURO/VASCULAR CHECKSTUFTS MEDICAL CENTER DEATSStart: 46-92-3619MKRNXU PHYSICIAN (SPECIFY)MAGDA DEATSStart: 02-33-6592ODPKAKN COMMUNICATIONSHENRY [facility] DEATSStart: 41-45-6979BNSYBYKX SITE CARETUFTS MEDICAL CENTER DEATSStart: 89-34-5937NCQRFWI CESSATION EDUCATIONTUFTS MEDICAL CENTER DEATS Start: 99-18-1700IEAW CODESHAW DEATSStart: 38-92-2563JHBXOAJGK MONITORINGTUFTS MEDICAL CENTER DEATSStart: 90-83-9681NEWDT SIGNSTUFTS MEDICAL CENTER DEATSStart: 83-87-0149DLUMZRTV PATIENT MAGDA DEATSStart: 75-87-4481YZHE LAB REPORTSHAWN DEATSStart: 84-08-5472XJDVZN PHYSICIAN (SPECIFY)MAGDA DEATSStart: 34-29-7054FXNCNPU COMMUNICATIONSHENRY [facility] DEATS Start: 18-98-9000VFPCA OXIMETRY SPOT CHECKSHAWN DEATSStart: 10-17-8331GQYDHKDVM MONITORINGTUFTS MEDICAL CENTER DEATSStart: 82-26-2356JJTFJ SIGNSTUFTS MEDICAL CENTER DEATSStart: 03-13-2019 DIAGNOSIS FOR PROCEDURESHAWN DEATSStart: 03-13-2019R & l hrt cath w/njx l ventriculog img s&iSHAWN DEATSStart: 81-39-7692RIFFJZKCT CONSENTSHN DEATS Start: 17-30-0120DBNBGF INFORMED CONSENTTUFTS MEDICAL CENTER DEATSStart: 17-65-2756Jnsuydc quantitative blood xcpt reagent stripSHAWN DEATSStart: 06-76-6735VOGDOGEH OXYGEN THERAPY PROTOCOLSHAWN DEATSStart: 08-95-6326KUQFFT AND OUTPUTSHAWN DEATSStart: 48-25-9668Wezr tthrc r-t 2d w/wom-mode compl spec&colr dSHAWN DEATSStart: 78-31-3848Vxj routine ecg w/least 12 lds w/i&rSHAWN DEATSStart: 47-51-8152ARK REPORTSHAWN DEATSStart: 61-05-3434QHSPJAYM OXYGEN THERAPY PROTOCOLSHAWN DEATS Start: 37-77-2180Njdby count complete automatedRICHMONDN DEATSStart: 65-08-1941Ssghr panelSHAWN DEATSStart: 62-43-8732PISQW WEIGHTSSHAWN DEATSStart: 03-12-2019 INTAKE AND OUTPUTSHAWN DEATSStart: 12-96-8102Uzjcq of troponin quantitativeSHAWN DEATSStart: 17-95-0169Ayyyj of troponin quantitativeAWN DEATSStart: 25-33-3900AW CONSULT TO SPIRITUAL SERVICESRICHMONDN DEATSStart: 91-93-5433GU CONSULT TO CARDIOLOGYRICHMONDN DEATSStart: 75-18-6881SNFTWR FOR NOT SELECTING ANTILIPEMIC MAGDA DEATSStart: 73-82-9715BEZZVNSY OXYGEN THERAPY PROTOCOLSHAWN DEATSStart: 66-69-7195KYUAQG AND OUTPUTSHAWN DEATSStart: 16-29-4554HT CONSULT TO CASE MANAGEMENTSHN DEATSStart: 84-84-0412VAISR OXIMETRY SPOT CHECKSHAWN DEATSStart: 88-86-9770QEABEQ FOR NO MECHANICAL VTE PROPHYLAXISRICHMONDN DEATSStart: 03-11-2019 TELEMETRY MONITORINGRICHMONDN DEATSStart: 62-65-7753XMZKEBW CESSATION EDUCATIONSHN DEATSStart: 30-63-6512LEBOX SIGNSRICHMONDN DEATSStart: 36-27-4940IVDKODP STATUS (FROM ED OR OR/PROCEDURAL)MAGDA DEATSStart: 27-00-5578Pbpxz of troponin quantitativeSHAWN DEATSStart: 30-94-7371Oes routine ecg w/least 12 lds w/i&r MAGDA DEATSStart: 49-13-0599WGK REPORTSHAWN DEATSStart: 34-90-6886Tf angiography chest w/contrast/noncontrastSHAWN DEATSStart: 77-27-9520Yuvwetwlhx exam chest single viewSHAWN DEATSStart: 15-93-8579Wtqjz of troponin quantitativeSHAWN DEATS Start: 77-03-4426Knsye metabolic panel calcium totalRICHMONDN DEATSStart: 03-11-2019 Blood count complete auto&auto difrntl wbcAWN DEATSStart: 03-11-2019 Prothrombin timeSHAWN DEATSStart: 66-94-3103Fanzneeikezwem time partial plasma/whole bloodSHN DEATSStart: 97-80-8333Pou routine ecg w/least 12 lds w/i&rSHAWN DEATSStart: 07-82-5261GXN REPORTSHAWN DEATSStart: 62-48-7892BCFRRT PERIPHERAL IVSHN DEATSStart: 59-24-7920AQIOKJMSY MONITORINGRICHMONDN DEATSStart: 40-76-1877VEQLR SIGNSRICHMONDN DEATSStart: 29-87-7606Fql bone density study 1/> sites axial skelSPHOEBEJake DEATSStart: 37-96-7599Jic bone density study 1/> sites axial skCuba Memorial Hospitalmarley Deats Work Phone: Start: 31-20-1421Vsrtvghri mammography bi 2-view breast inc cadRICHMONDN DEATSStart: 09-22-8486Ffjts of thyroid stimulating hormone tshRICHMONDN DEATSStart: 77-25-8521Opnfu of ironSHN DEATSStart: 45-70-6868Spsjp metabolic panel calcium totalRICHMONDN DEATSStart: 55-39-8866Ecyyr count complete automatedRICHMONDN DEATSStart: 02-75-4664Bmeovxpvfb glycosylated n7cJPIOO DEATS Start: 42-45-1970Fzswv panelSHAWN DEATSStart: 82-74-6297Lkpiq albumin quantitativeRICHMONDN DEATSStart: 19-87-5085MhgjnfeblkrZbhnsab McGuinn MD Work Phone: Start: 70-43-1202McqgdgsaqmkLjamtjc NILL Start: 52-88-0972BthujoixgqeHmlzqll NILL Start: 33-35-8541IwngjsqoavqxtHekcrly NILL Start: 32-44-6930Atwqyqatrcm of lesion of rectum by fulgurationMichael NILL Start: 88-46-9174FugeoorzuaickXlnhuib NILL Cardiac catheterizationMichael NILL Diagnostic laparoscopyMichael NILL Ligation of fallopian tubeLisa Maya VenJuvohEner1z Work Phone: Ligation of fallopian tubeMichael NILL Operation on colonLisa Maya [employer] Work Phone: TonsillectomyLisa Maya Mirimusz Work Phone: TonsillectomyMichael NILL Total colonoscopyLisa Maya [employer] Work Phone: Plan of Treatment DateCare ActivityDetailAuthorStart: 73-77-2690MFhJ/Tdap/Td Vaccines (2 - Td or Tdap)DTaP/Tdap/Td Vaccines (2 - Td or Tdap)[facility] Start: 71-12-7881Skwrmbwfy for malignant neoplasm of colonNOMS HealthcareStart: 56-42-3947Wxbzzgsc screeningDiabetes: Retinopathy ScreeningNOMS HealthcareStart: 11-05-2025 End: 85-61-9526Soulfhu encounter procedureNOMS CWM FMStart: 07-29-2026Medicare Annual Wellness (AWV)Medicare Annual Wellness (AWV)[facility] HealthcareStart: 25-20-6189Grtqqstix for malignant neoplasm of breastMammogramNOMS Healthcare Start: 04-28-2025 End: 66-55-6968Igugyap encounter swhdttsce42/26/2026 2:30 PM EST Office Visit [facility] [address] [facility] [address] [place] [phone] Pari Norton, DIRECTOR [facility] [address] [facility] [address] [place] [address] [facility] ServicesStart: 10-43-8198Ifhkmkffoa A1c measurement Diabetes: Hemoglobin N6OSRYD HealthcareStart: 01-29-2025 End: 94-24-5730Xnhwtoo encounter procedureSALINAS [facility] FMStart: 42-84-5823Ubozgtpvr vaccinationInfluenza Vaccine (#1)[facility] HealthcareStart: 03-73-9536Wjezvxwi screeningDiabetes: Retinopathy ScreeningNOOH HealthcareStart: 11-04-2024 End: 95-18-8159Tnfcruw encounter zbmsaqwoc73/04/2025 9:00 AM EDT Office Visit [facility] [address] [place] [phone] Ivanna Mahmood, MARIAJOSE [address] [place] [phone] [facility] FMStart: 10-29-2024 End: 26-33-8726RGS W Auto Differential panel - BloodCBC and differential Lab Routine 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 Expected: 10/29/2024 (Approximate), Expires: 10/29/2025[facility] Work Phone: Comment on above:Expected: 10/29/2024 (Approximate), Expires: 10/29/2025Start: 10-29-2024 End: 13-58-0764Dpwfvdsszmxky metabolic 2000 panel - Serum or PlasmaComprehensive metabolic panel Lab Routine Primary hypertension Coronary artery disease involving [place] coronary artery of [place] heart with angina pectoris Type 2 diabetes mellitus without complication, without long-term current use of insulin (HCC) Mixed hyperlipidemia Expected: 10/29/2024 (Approximate), Expires: 10/29/2025[facility] SystemComment on above:Expected: 10/29/2024 (Approximate), Expires: 10/29/2025Start: 10-29-2024 End: 68-53-3265Rygvu 1996 panel - Serum or PlasmaLipid panel Lab Routine Coronary artery disease involving [place] coronary artery of [place] heart with angina pectoris Mixed hyperlipidemia Expected: 10/29/2024 (Approximate), Expires: 10/29/2025[facility] HealthcareComment on above:Expected: 10/29/2024 (Approximate), Expires: 10/29/2025Start: 10-29-2024 End: 18-77-7074Dawqwbfujaar/Creatinine panel in random UrineMicroalbumin / creatinine, urine ratio Lab Routine Primary hypertension Type 2 diabetes mellitus without complication, without long-term current use of insulin (HCC) Expected: 10/29/2024 (Approximate), Expires: 10/29/2025[facility] HealthcareComment on above:Expected: 10/29/2024 (Approximate), Expires: 10/29/2025Start: 10-29-2024 End: 61-33-0530Urxopwspifh [Units/volume] in Serum or PlasmaTSH Lab Routine Anxiety Expected: 10/29/2024 (Approximate), Expires: 10/29/2025[facility] Comment on above:Expected: 10/29/2024 (Approximate), Expires: 10/29/2025Start: 10-29-2024 End: 08-89-2333Vjgaurskhq complete panel - UrineUrinalysis with reflex microscopic (clean catch) Lab Routine Primary hypertension Type 2 diabetes me llitus without complication, without long-term current use of insulin (HCC) Expected: 10/29/2024 (Approximate), Expires: 10/29/2025[facility] HealthcareComment on above:Expected: 10/29/2024 (Approximate), Expires: 10/29/2025Start: 10-29-2024 End: 64-95-6563Prvsjnc encounter fzoclytqw72/29/2025 10:00 AM EDT Office Visit [facility] [address] [place] [address] Ivanna Mahmood NP [address] [place] [address] Restless leg syndrome (Primary Dx); Primary hypertension ; Coronary artery disease involving [place] coronary artery of [place] heart with angina pectoris ; Type 2 diabetes mellitus without complication, without long- term current use of insulin (HCC); Mixed hyperlipidemia ; Encounter for subsequentannual wellness visit (AWV) in Medicare patient; AnxietyNO CWM FM Comment on above:Restless leg syndrome (Primary Dx); Primary hypertension ; Coronary artery disease involving [place] coronary artery of [place] heart with angina pectoris ; Type 2 diabetes mellitus without complication, without long-term current use of insulin (HCC); Mixed hyperlipidemia ; Encounter for subsequent annual wellness visit (AWV) in Medicare patient; AnxietyStart: 06-04-2025Medicare Annual Wellness (AWV)Medicare Annual Wellness (AWV)[facility] HealthcareStart: 73-95-6819Xypyixqaic A1c measurementDiabetes: Hemoglobin U3NROLI HealthcareStart: 75-09-3172Dooinrdim for malignant neoplasm of breastMammogramVA HOSPITAL HealthcareStart: 26-86-3986Otwmj screening for protein Diabetes: Urine Protein ScreeningVA HOSPITAL HealthcareStart: 06-08-2024 End: 78-50-2251Geinhdd aminotransferase [Enzymatic activity/volume] in Serum or PlasmaALT Lab Routine Mixed hyperlipidemia ([facility]/HCC) Expected: 06/08/2024 (Approximate), Expires: 04/10/2025[facility] HealthcareComment on above:Expected: 06/08/2024 (Approximate), Expires: 04/10/2025Start: 06-08-2024 End: 96-51-6844Aytqbqfys aminotransferase [Enzymatic activity/volume] in Serum or PlasmaAST Lab Routine Mixed hyperlipidemia ([facility]/HCC) Expected: 06/08/2024 (Approximate), Expires: 04/10/2025NOOH HealthcareComment on above:Expected: 06/08/2024 (Approximate), Expires: 04/10/2025Start: 06-08-2024 End: 15-20-4250Gswfx 1996 panel - Serum or PlasmaLipid panel Lab Routine Mixed hyperlipidemia ([facility]/HCC) Expected: 06/08/2024 (Approximate), Expires:04/10/2025 [facility] Work Phone: Comment on above:Expected: 06/08/2024 (Approximate), Expires: 04/10/2025Start: 05-08-2024 End: 93-30-0165Qgvtztt encounter uqmvmxpta62/05/2025 1:20 PM EST Office Visit [facility] [address] [place] [address] Ivanna Mahmood, [employer] [address] [place] [phone] [facility] CW FMStart: 04-24-2024 End: 44-04-5633Oxbivvx encounter procedureSub[facility]: 03-26-2024 Hemoglobin A1c measurementDiabetes: Hemoglobin R9HEEUY HealthcareStart: 03-25-2024 End: 81-14-4745Ltmpirl encounter pkebmhiri36/23/2024 9:40 AM EST Office Visit [facility] [address] [place] [address] Ivanna Mahmood, MARIAJOSE [address] [place] [phone] [facility] CW FMStart: 02-96-0604Izrilwfhb vaccinationInfluenza Vaccine (#1)[facility] HealthcareComment on above:Postponed from 12/03/2023 (Patient Does Not Have Time)Start: 12-28-2023 End: 33-56-2938Xeqvizo encounter /26/2024 10:50 AM EDT Office Visit [facility] [address] [place] [address] Ivanna Mahmood, [employer] [address] [place] [phone] ArrivedNOMERCY HEALTH [facility] FMComment on above:ArrivedStart: 12-03-2023 COVID-19 Vaccine ( season)COVID-19 Vaccine ( season) [facility] CenterStart: 54-16-4484Yxnkwgwwk vaccinationInfluenza Vaccine (#1)[facility] HealthcareStart: 66-19-0200LDO, Provider: David Berrios, Status: Pen, Time: 1:00 PMFUV, Provider: David Berrios, Status: Pen, Time: 1:00 [facility] [employer] [address] DO Work Phone: Start: 75-94-6803HXXWG-19 Vaccine (3 - Moderna series) COVID-19 Vaccine (3 - Moderna series)[facility]: 29-17-1661Hhuksg Vaccines (2 of 2)Zoster Vaccines (2 of 2)[facility]: 81-25-7822Isfsgaivn for malignant neoplasm of [facility]: 57-37-4442TPW, Provider: David Berrios, Status: Pen, Time: 10:30 AMFUV, Provider: David Berrios, Status: Pen, Time: 10:30 AM [facility] [employer] [address] DO Work Phone: Start: 04-22-2524Hyfxmt cancer screenBreast cancer screenPremier Health Atrium Medical Center: 26-14-1794Kprik screenLipid screenWilson HealthUMMC Work Phone: start: 04-64-3390Vyppagjtxt monitoringCreatinine monitoringWilson HealthUMMC Work Phone: start: 60-84-8871Rxyzwavkj monitoringPotassium monitoringWilson HealthUMMC Work Phone: start: 01-30-2020[object Object]Diabetic foot exam [facility]: 93-13-0465Q0G test (Diabetic or Prediabetic)A1C test (Diabetic or Prediabetic)[place], [place]: 34-77-4811Escfu Cancer Screen FIT/FOBTColon Cancer Screen FIT/FOBTPremier Health Atrium Medical Center: 11-06-2019 End: 65-14-4548Esdcto Visit11/06/2019 Office Visit Cardiology Siddharth Garrison MD [address] [place] [address] [place] [address] [facility] CARDIOLOGYStart: 03-45-8098Joecfpua retinal examDiabetic retinal examMercy Health- [place], [place]Comment on above:Postponed from 1964 (Patient Refused)Start: 65-58-2961Ysgnqatfvs A1c measurementDiabetes: Hemoglobin N6JYWVH HealthcareStart: 16-35-7717Orezedzqbq monitoringCreatinine monitoring [facility], KYStart: 81-47-2835Tmvdptqv microalbuminuria testDiabetic microalbuminuria testKnox Community Hospital, KYStart: 57-84-2532Roevt screenLipid screenKnox Community Hospital, KYStart: 57-17-3041Bnljafwbt monitoringPotassium monitoringKnox Community Hospital, KYStart: 63-48-9646Enfxkfgb cancer screenCervical cancer screenKnox Community Hospital, KYComment on above:Postponed from 07/18/1975 (Patient Refused)Start: 49-61-0955UIqR/Tdap/Td vaccine (1 - Tdap)DTaP/Tdap/Td vaccine (1 - Tdap)[facility], KYComment on above:Postponed from 1965 (Patient Refused)Start: 31-16-6933Okkrjalyd C screenHepatitis C screenKnox Community Hospital, KYComment on above:Postponed from 1954 (Patient Refused)Start: 68-66-3070FBS screenHIV screenKnox Community Hospital, KYComment on above:Postponed from 1969 (Patient Refused)Start: 96-41-1984Izslhuua Vaccine (1 of 2) Shingles Vaccine (1 of 2)[facility], KYComment on above:Postponed from 2004 (Patient Refused)Start: 06-20-2019 End: 79-95-6674Fskjxj Visit06/20/2019 Office Visit Primary Care Kinjal Sandhu, DIRECTOR [facility] [address] [place] [address] [phone] [facility] TiffinStart: 05-01-2019 End: 29-97-1698Sruhvr Visit05/01/2019 Office Visit Primary Care Kinjal Sandhu DIRECT[facility] [address] [place] [address] [phone] [facility] TiffinStart: 94-69-3255Gwofjvvhz for malignant neoplasm of colonSigmoidoscopyMain Campus Medical Center: 58-43-1875Rkdaizymb for malignant neoplasm of breastMammogramMain Campus Medical Center: 20-35-3045EDtI/Tdap/Td Vaccines (1 - Tdap)DTaP/Tdap/Td Vaccines (1 - Tdap) [facility]: 11-42-5265Kqyjkrkpo B vaccine (1 of 3 - Risk 3-dose series)Hepatitis B vaccine (1 of 3 - Risk 3-dose series)[facility] [employer] Work Phone: start: 85-99-4767Bspig screening for proteinDiabetes: Urine Protein ScreeningMain Campus Medical Center: 1972 Hepatitis C screeningHepatitis C ScreeningUniversity Hospitals [facility] Start: 67-59-2572Lyuesgmu foot examinationDiabetes: Foot ExamUnMercy Health West Hospital: 01-02-3542Fdvkithy screeningDiabetes: Retinopathy ScreeningMain Campus Medical Center: 44-60-8288Mkledcselr measurementCreatinine [facility]: 1955 EchocardiographyEchocardiogramMain Campus Medical Center: 1954 Hemoglobin A1c measurementDiabetes: Hemoglobin P7OXobzbuvqgvMain Campus Medical Center: 58-72-4461Bcsvn panelLipid PanelMain Campus Medical Center: 04-16-1955Medicare Annual Wellness VisitMedicare Annual Wellness Visit (AWV)[facility]: 60-01-1038Uzlddpbij measurementPotassium [facility] HospitalUnMercy Health West Hospital: 1955 Screening for malignant neoplasm of colonUnMercy Health West Hospital: 77-04-5329Lukfobsck for osteoporosisBone Density ScanMain Campus Medical Center: 34-89-0798Dnfcl screening for proteinDiabetes: Urine Protein ScreeningUniversity Hospitals Cleveland Medical CenterXR Hip - left 2 ViewsLakehealth Tripoint Medical CenterXR Lumbar spine 2 or 3 ViewsLakehealth Tripoint Medical Center Immunizations Immunization DateImmunizationNotesCare YkpvdzyrHcjzeaqx05-88-8427gnsjksdge virus vaccine, unspecified formulationLisa Aichholz [employer] Work Phone: [facility] SystemZlgckmhvkp87-36-6446gesegzitq, high dose seasonal, preservative-freeLisa Aichholz [employer] Work Phone: [facility] SystemByjygtetki38-39-7340Wwezcrq High-Dose 0.5 ML suspension prefilled syringeLisa Aichholz [employer] Work Phone: [facility] SystemTiivmfxlgx64-18-1090eqefjejvviel polysaccharide vaccine, 23 valentPari Norton DIRECTOR [facility] Work Phone: [facility] Work Phone: [phone]n, seasonal, injectablePari Norton DIRECTOR [facility] Work Phone: [facility] Work Phone: [phone]f virus vaccinePari Norton DIRECTOR [facility] Work Phone: [facility] Work Phone: [phone], tetanus toxoids and acellular pertussis vaccine, unspecified formulationLisa Aichholz [employer] Work Phone: [facility] SystemSuboqifecn08-69-9415AAT, recombinant, protein subunit RSVpreF, adjuvant reconstitu, 120mcg/0.5mL, PF (Arexvy)Ivanna Aichholz [employer] Work Phone: [facility] SystemDegnqeclem74-68-6412aqnpywj toxoid, reduced diphtheria toxoid, and acellular pertussis vaccine, adsorbedLisa Aichholz [employer] Work Phone: [facility] SystemWeowwnumqq75-05-3897lxqgol vaccine recombinant Ivanna Aichholz [employer] Work Phone: [facility] SystemEiyrzlsiud79-76-5793Avczwans 50 MCG/0.5ML vaccine Ivanna Aichholz [employer] Work Phone: [facility] SystemRmzyiwrykp68-17-1503razcml vaccine recombinant Ivanna Aichholz [employer] Work Phone: [facility] SystemEdtwkocbjq28-57-5480Iiuydboik, High-dose Seasonal, Quadrivalent, Preservative FreeLisa Colemanholz [employer] Work Phone: [facility] SystemZwjmqxtwro76-88-7213Vgbbuywnugtm Conjugate PCV 20 Ivanna Valeriyz [employer] Work Phone: noPemiscot Memorial Health SystemsMnvgvezyki13-59-4898flhljtiyv virus vaccine, unspecified formulationLisa Crooksz [employer] Work Phone: [facility] SystemWklosoaddu92-46-4427Iysvmaz High-Dose Quadrivalent 0.7 ML Intramuscular Suspension Prefilled SyringeLisa Maya Mahmood Work Phone: [phone]-WongoMurray County Medical Center 250 DO Work Phone: [phone], injectable, quadrivalent, preservative Paul Berrios MD Work Phone: [facility] Work Phone: [phone] COVID-19 Vaccine 100 MCG/0.5ML Intramuscular SuspensionIvanna Villarrealsusannah Work Phone: [phone]-MpupgNew Prague Hospital 250 DO Work Phone: [phone] COVID-19 Vaccine 100 MCG/0.5ML Intramuscular SuspensionLisa Maya Villarrealsusannah Work Phone: [phone]-VyyfdNew Prague Hospital 250 DO Work Phone: [phone], seasonal, injectableLisa Maya Mahmood Work Phone: [phone]-ZzjtfNew Prague Hospital 250 DO Work Phone: [phone]c, injectable, quadrivalent, preservative freeHCA Midwest DivisionEosjucrhmm68-47-2027wpmdkefaj, seasonal, injectable Ivanna Maya Mahmood Work Phone: [place] [address]-2019 pneumococcal polysaccharide vaccine, 23 valentMth [facility] Hospital01-01-2019pneumococcal polysaccharide vaccine, 23 valentLisa Maya Mahmood Work Phone: [facility] Payers DatePayer CategoryPayerPolicy [id number] Care (Private)[facility] [id number] Health [id number] [id number] 2022Medicare (Managed Care)[id number] 66-40-9458Bdazcrolwsndkzdsxhf [id number]9292-13-2961 [id number]HM91[id number] 2.840.1.290071.3.57[id number] 2.840.1.846445.3.57[id number] 2.840.1.051724.3.57[id number] 2.16840.1.664871.3.57[id number] 2.840.1.397054.3.57[id number] 2.16.840.1.432979.3.57[id number] 2.840.1.103218.3.57[id number] 2.840.1.036119.3.579.[id number] 2.840.1.271044.3.57[id number] 2.840.1.356525.3.579.[id number] 2.840.1.071562.3.579.[id number] 2.0.1.129548.3.57[id number] 2.840.1.263794.3.579.[id number] 2.840.1.165276.3.579.[id number] 2.840.1.808610.3.57[id number] 2.840.1.423366.3.579.[id number] 2.840.1.558247.3.579.2.924[id number] 2.16.840.1.681769.3.579.[id number] 2.16.840.1.211208.3.579.[id number] 2.16.840.1.146480.3.57[id number] 2..840.1.864928.3.579.2.62[id number] 2.16.840.1.705445.3.579.[id number]-[id number]-[id number] Health InsuranceProvidence Hospital [id number] MEDICARE ADV Social History DateTypeDetailFacilityStart: 05-08-2019 End: 15-01-0354Hxsabwm smoking status NHISNever smokerPremier Healthart: 05-08-2019 End: 22-83-7528Buxjkdw intakeLifetime non-drinker (finding)[place], [place] Start: 17-39-5201Lwnkgce SDOH Alcohol Lslaespct3Xvldl[address] [place], [place] [address]art: 57-67-9417Wiv Assigned At BirthNot on [facility] Hospitalart: 04-12-2023 End: 42-02-9489Buqva a smokerNever a smokerOthello [facility] 250 DO Work Phone: Comment on above:2 CUPS A DAY;Tobacco smoking status NeverGeneral Surgery [place] Start: 04-12-2023 End: 37-28-9404Stb Assigned At BirthFemaleGeneral Surgery [place] Start: 04-12-2023 End: 07-29-2521Qgxrfrj use and exposureSmokeless tobacco non-userUniversity Hospitals Cleveland Medical Center Work Phone: Start: 04-02-2023 End: 07-62-2226Qatmjneb to SARS-CoV-2 (event)Not sureUniversity Hospitals Cleveland Medical CenterStart: 86-36-8592Pznrapa Commentcaffine: 2-6 cups of coffee/tea daily [facility] HealthcareTobacco smoking status NHISUnknown if ever smokedBucyrus Community Hospital Work Phone: SexFemale (finding)[facility] Start: 47-52-1779Vjj Assigned At [facility] Medical Equipment Procedure CodeEquipment CodeEquipment Original TextEquipment IdentifierDates [id number]: 11-11-2024 End: each [id number]: 11-11-2024 End: 49-96-0673Eoayg blood sugar one a [id number]: 11-18-2024 End: 10-42-4480Abhux blood sugar one a [id number]: 11-18-2024 End: each [id number]: 11-18-2024 End: 02-26-2025 Functional Status KcfpYmpltxzdhbZxkjgsFqpchinx64-00-2810Ijwtxvc Health Questionnaire 2 item (PHQ- 2) [Reported][facility] SystemCojgcbvjde40-31-8642Ufrwogzhbq StatusN/AGeneral Surgery [place] [facility] Clinical Notes 11-09-2021 to 11-11-2024 Note Date & MvfjZhkwBihcfone82-42-7200 Miscellaneous Notes* Telephone Encounter - Ashley Mars MA - 11/11/2024 4:41 PM EDT Text Control Officer Hi, this is an Dee Dee from [facility], and I am calling [...] any questions[place] [phone]. Thank you * Telephone Encounter - [...] would call a prescription in for her. [phone] documented in this encounterLake Regional Health SystemGwxeavworj75-54-0637 Telephone encounter Note* Telephone Encounter - Ashley Mars MA - 11/11/2024 4:41 PM EDT Text Control Officer Hi, this is an Dee Dee from [facility], and I am calling because Ivanna [...] any questions, [place] [phone]. Thank you [facility] SystemDjyrolmhxp43-98-4379 Telephone encounter Note* Telephone Encounter - Anh Garciahood - 11/11/2024 12:58 PM EDT Patient left a voicemail stating that she thought you were calling in an Accu check device so she can check her blood sugar levels. She said the pharmacy does not have that. JN NOMS [id number] History of Present illness Narrative* Ivanna Mahmood NP - 10/29/2024 10:53 AM EDTAssociated Problem(s): Acute bacterial conjunctivitis of right eye Warm compress to effected eye Cleanse eye with 1:1 ration of JJ baby shampoo and water Atb drops, in 2 days if not better call your eye doctor * ASHLEY MARS - 10/29/2024 10:00 AM EDT Right eye-started 3-4 days ago pt has tried putting otc drops in however not helping. Pt states hereye is crusted closed in the mornings. Pt states the eye is watering constantly and is painful. No issues with visions. No difference in headaches. Pt is needing either contour or acutecheck prescriptions for the diabetic supplies for her insurance to cover * Ivanna Mahmood NP - 10/29/2024 10:00 AM EDT Images from the original note were not [...] for diabetic complications include no nephropathy. Risk factorsfor coronary artery disease include diabetes mellitus, dyslipidemia and hypertension. Current diabetic treatment includes oral agent (triple therapy). She is compliant with treatment all of the time.She is following a generally healthy diet. Her overall blood glucose range is 110-130 mg/dl. An ACEinhibitor/angiotensin II receptor pierre is being taken. She does not see a compliance specialist.Eye exam iscurrent. SUBJECTIVE: MEDICATIONS: Current Outpatient Medications Medication Instructions [...] History: Diagnosis Date Coronary artery disease involving agua caliente coronary artery of agua cal[place] heart with angina pectoris 03/20/2023 Primary hypertension 03/06/2023 Type 2 diabetes mellitus without complication, without long-term current use of insulin ([facility]) 03/06/2023 No past surgical history on [...] long-term current use of insulin ([facility]) Check blood sugars daily, notify if [...] docked device (Completed) Coronary artery disease involving agua caliente coronary artery of ag[place] heart with angina pectoris 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 is 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 Cont ASA 81mg and imdur and statin [...] Relevant Medications trimethoprim-polymyxin b (Polytrim) ophthalmic solution * Ivanna Mahmood NP - 10/29/2024 6:33 AM EDTAssociated Problem(s): Anxiety Currently taking duloxetine * Ivanna Mahmood NP - 10/29/2024 6:33 AM EDTAssociated Problem(s): Encounter for subsequent annual wellness visit (AWV) in Medicare patient Reviewed Ht/Wt/BMI Recommend eye exam yearly Recommend dental exams twice a year Balance work/leisure activities Exercises is recommended most days of the week (appropriate as chronic conditions allow) Follow up yearly and prn * Ivanna Mahmood NP - 10/29/2024 6:32 AM EDTAssociated Problem(s): Hyperlipidemia On statin therapy Check labs yearly and prn dose changes * Ivanna Mahmood NP - 10/29/2024 6:32 AM EDTAssociated Problem(s): Type 2 diabetes mellitus without complication, without long-term current useof insulin (HCC) Check blood sugars daily, notify [...] and glipizide A1c 7.4% 10/29/24, 7.3% 04/09/24 * Ivanna Mahmood NP - 10/29/2024 6:32 AM EDTAssociated Problem(s): Coronary artery disease involving agua caliente coronary artery of ag[place] heart with angina pectoris NO is 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 Cont ASA 81mg and imdur and statin * Ivanna Mahmood NP - 10/29/2024 6:31 AM EDTAssociated Problem(s): Primary hypertension Please check blood pressure daily and record DASH diet Limit caffeine Take medication as directed Contact office if chest pain, pressure, dizziness, shortness of breath, swelling legs Recommend slow position changes Current meds: amlodipine, asa, hydrochlorothiazide, lisinopril, propranolol * Ivanna Mahmood NP - 10/29/2024 6:31 AM EDTAssociated Problem(s): Restless leg syndrome Takes julianne documented in this encounterLake Regional Health SystemFldrwaesjn59-10-0629 Instructions* Patient Instructions* Ivanna Mahmood NP - 10/29/2024 10:00 AM [...] while doing eye drops documented in this encounterLake Regional Health SystemTmadupalcu35-87-1699 Telephone encounter Note* Telephone Encounter - Latanya Pagan - 10/28/2024 9:44 AM EDT Nneka scheduled an appointment to see you on November 04, at 9:00 AM. She has an eye infection and wanted to know if you would call a prescription in for her. [phone] NOMS [id number] Telephone encounter Note* Telephone Encounter - Ivanna Mahmood NP - 09/30/2024 7:28 PM EDT Missed her last appt, needs an appt, make it an AWV LA NOMS [id number] Miscellaneous Notes* Telephone Encounter - Ivanna Mahmood NP - 09/30/2024 7:28 PM EDT Missed her last appt, needs an appt, make it an AWV LA documented in this encounterLake Regional Health SystemUxslohafff67-07-4728 Evaluation + Plan note* Assessment & Plan Note - JESS Malloy - 04/24/2024 3:51 PM EST Associated Problem(s): BMI 26.0-26.9,adult Reviewed the merits of healthy lifestyle choices on overall cardiovascular health. [facility] Work Phone: 1(123) 324-964501-22-2025 Evaluation + Plan note* Assessment & Plan Note - JESS Malloy - 04/24/2024 3:51 PM ESTAssociated Problem(s): Diabetes mellitus (Multi) On ROBERTA/statin Unknown hemoglobin A1c [facility] Work Phone: 1(417) 647-330501-22-2025 Miscellaneous Notes* Assessment & Plan Note - JESS Malloy - 04/24/2024 3:51 PM ESTAssociated Problem(s): BMI 26.0-26.9,adult Reviewed the merits of healthy lifestyle choices on overall cardiovascular health. * Assessment & Plan Note - JESS Malloy - 04/24/2024 3:51 PM EST Associated Problem(s): Diabetes mellitus (Multi) On ROBERTA/statin Unknown hemoglobin A1c * Assessment & Plan Note - JESS Malloy - 04/24/2024 3:50 PM EST Associated Problem(s): Hyperlipidemia Reports she was recently changed from simvastatin over to atorvastatin and we will plan on getting labs I believe in 2 months. * Assessment & Plan Note - JESS Malloy - 04/24/2024 3:50 PM EST Associated Problem(s): Benign essential hypertension Mild asymptomatic hypotension noted in the office today. * Assessment & Plan Note - JESS Malloy - 04/24/2024 1:12 PM EST Associated Problem(s): CAD (coronary artery disease) Mar 2019 @ [facility] heart cath: . Very small circumflex coronary [...] METS without recurrent symptoms documented in this [facility] Work Phone: 1(846) 971-501201-22-2025 Evaluation + Plan note* Assessment & Plan Note - JESS Malloy - 04/24/2024 3:50 PM ESTAssociated Problem(s): Hyperlipidemia Reports she was recently changed from simvastatin over to atorvastatin and we will plan on getting labs I believe in 2 months. [facility] Work Phone: 1(213) 535-410801-22-2025 Evaluation + Plan note* Assessment & Plan Note - JESS Malloy - 04/24/2024 3:50 PM ESTAssociated Problem(s): Benign essential hypertension Mild asymptomatic hypotension noted in the office today. [facility] Work Phone: 1(504) 315-194301-22-2025 History of Present illness Narrative* JESS Malloy - 04/24/2024 1:30 PM EST Chief Complaint I think I am doing [...] CAD (coronary artery disease) Mar 2019 @ [facility] heart cath: . Very small circumflex coronary [...] making process incorporating patients unique circumstances, the followingtreatment plan will be initiated: 1. Prescription drug management of cardiovascular medication for efficacy, adherence to treatment, side effect assessment and polypharmacy. Current treatment clinically warranted and to continue without modifications. 2. Return for follow-up; in the interim, contact the office if new symptoms arise. SLIP COVER SEWER annual Discussed the dynamic nature of coronary artery disease and the importance of seeking medical attention if new symptoms arise. Pari Norton MSN, DIRECTOR [facility], PMHNP-[facility] [place], [place] Please excuse any errors in grammar or translation related to this dictation. Voice recognition software was utilized to prepare this document. documented in this [facility] Work Phone: 1(461) 209-795301-22-2025 Instructions* Patient Instructions* JESS Malloy - 04/24/2024 1:30 PM EST [...] making process incorporating patients unique circumstances, the followingtreatment plan will be initiated: 1. Prescription drug management of cardiovascular medication for efficacy, adherence to treatment, side effect assessment and polypharmacy. Current treatment clinically warranted and to continue without modifications. 2. Return for follow-up; in the interim, contact the office if new symptoms arise. SLIP COVER SEWER annual Discussed the dynamic nature of coronary artery disease and the importance of seeking medical attention if new symptoms arise. documented in this encounterUniversity Hospitals [facility] Medical Center Work Phone: 1(391) 473-312701-22-2025 Evaluation + Plan note* Assessment & Plan Note - JESS Malloy - 04/24/2024 1:12 PM ESTAssociated Problem(s): CAD (coronary artery disease) Mar 2019 @ [facility] heart cath: . Very small circumflex coronary [...] greater than 4 METS without recurrent symptoms [facility] Work Phone: 1(321) 511-648501-07-2025 History of Present illness Narrative* Ivanna Mahmood NP - 04/09/2024 1:00 PM EST Images from the original note were not included. Nneka Corona is a 68 y.o. female presents with chief complaint of Diabetes HPI: Diabetes She presents for her follow-up diabetic visit. She has type 2 diabetes mellitus. Her disease coursehas been stable. Hypoglycemia symptoms include nervousness/anxiousness and [...] post-menopausal. Current diabetic treatment includes oral agent (dualtherapy). She is compliant with treatment all of the time. An ROBERTA inhibitor/angiotensin II receptorblocker is being taken. She does not see a compliance specialist.Eye exam is current. Hypertension This is a [...] improvement. There are no compliance problems. Hypertensive end- organ damage includes CAD/CT. There is no history of kidney disease, heart failure or PVD. Heart Problem This is a chronic problem. The current episode started more than 1 year ago. The problem occurs rarely. The problem has been unchanged. Associated symptoms include chest pain. 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 No pertinent surgical history. [...] List Items Addressed This Visit Primary hypertension ([facility]) Please check blood pressure daily and record DASH diet Limit caffeine Take medication as directed Contact office if chest pain, pressure, dizziness, shortness of breath, swelling legs Recommend slow position changes Current meds: amlodipine, asa, hydrochlorothiazide, lisinopril, propranolol Relevant Medications hydroCHLOROthiazide (HYDRODiuril) 25 MG tablet Type 2 diabetes mellitus without complication, without long-term current use of insulin ([facility]) -Primary Check blood sugars daily, notify if <70 [...] docked device (Completed) 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 I did confirm that they had her working number continue tight blood pressure/blood sugar control Cont ASA 81mg and imdur and statin Hyperlipidemia ([facility]) On statin therapy Check labs yearly and prn dose changes Restless leg syndrome Takes julianne Relevant Medications gabapentin (Neurontin) 300 MG capsule Anxiety Currently taking duloxetine Tremors of nervous system Cont with b pierre therapy Relevant Medications propranolol (Inderal) 40 MG tablet * Ivanna Mahmood NP - 04/09/2024 7:06 AM ESTAssociated Problem(s): Anxiety Currently taking duloxetine * Ivanna Mahmood NP - 04/09/2024 7:06 AM ESTAssociated Problem(s): Tremors of nervous system Cont with b pierre therapy * Ivanna Mahmood NP - 04/09/2024 7:06 AM ESTAssociated Problem(s): Hyperlipidemia ([facility]) On statin therapy Check labs yearly and prn dose changes * Ivanna Mahmood NP - 04/09/2024 7:05 AM ESTAssociated Problem(s): Type 2 diabetes mellitus without complication, without long-term current useof insulin ([facility]) Check blood sugars daily, notify if [...] roberta, jardiance and glipizide A1c 7.3% 04/09/24 * Ivanna Mahmood NP - 04/09/2024 7:05 AM ESTAssociated Problem(s): Primary hypertension (CMS/HCC) Please check blood pressure daily and record DASH diet Limit caffeine Take medication as directed Contact office if chest pain, pressure, dizziness, shortness of breath, swelling legs Recommend slow position changes Current meds: amlodipine, asa, hydrochlorothiazide, lisinopril, propranolol * Ivanna Mahmood NP - 04/09/2024 7:03 AM ESTAssociated Problem(s): 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 I did confirm that they had her working number continue tight blood pressure/blood sugar control Cont ASA 81mg and imdur and statin * Ivanna Mahmood NP - 04/09/2024 7:03 AM ESTAssociated Problem(s): Restless leg syndrome Takes julianne documented in this encounterLake Regional Health [id number] Instructions* Patient Instructions* Ivanna Mahmood NP - 04/09/2024 1:00 PM EST I called [facility] ([phone]), spoke with Nurse Gentile, she will contact the SLIP COVER SEWER to see ifa stress test or ECHO of your heart is to be done prior to appt on 04/24/24 If worsening chest pain, go to ER. Avoid strenuous activity as well documented in this encounterLake Regional Health SystemGegkwvygvd39-93-8545 History of Present illness Narrative* Ivanna Mahmood NP - 12/28/2023 11:25 AM EDTAssociated Problem(s): Tremors of nervous system Cont with b pierre therapy * Ivanna Mahmood NP - 12/28/2023 11:25 AM EDTAssociated Problem(s): Hyperlipidemia ([facility]) Cont statin * Ivanna Mahmood NP - 12/28/2023 11:25 AM EDTAssociated Problem(s): Anxiety Continue current dose of meds * Ivanna Mahmood NP - 12/28/2023 11:25 AM EDTAssociated Problem(s): Type 2 diabetes mellitus without complication, without long-term current useof insulin ([facility]/HCC) Check blood sugars daily, notify if <70 [...] sugars. 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 chase Corona is a 68 y.o. female presents with chief complaint of No chief complaint on file. HPI: Diabetes She presents for her follow-up diabetic visit. She has type 2 diabetes mellitus. Her disease coursehas been stable. Hypoglycemia symptoms include nervousness/anxiousness. Pertinent negatives for hypoglycemia include no dizziness, headaches, seizures or tremors. Associated symptoms include foot pare sthesias. Pertinent negatives for diabetes include no chest [...] 140-180 mg/dl. An ROBERTA inhibitor/angiotensin II receptor blockeris being taken. She does not see a compliance specialist.Eye exam is current. Hypertension This is a chronic problem. The current episode started more than 1 year ago. The problem is unchanged. The problem is controlled. Associated symptoms include anxiety. Pertinent negatives include no chest pain, headaches, palpitations, peripheral edema or shortness of breath. There are no associatedagents to hypertension. Risk factors for coronary artery disease include diabetes mellitus and dyslipidemia. Past treatments include beta blockers, calcium channel blockers and angiotensin blockers. The current treatment provides significant improvement. There are no compliance problems. Hypertensive end-organ damage includes CAD/CT. Anxiety Presents for follow-up visit. 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 No pertinent surgical history. 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 [...] performed in 2019 in [facility]. Nonethelessthe patient gives a good recounting of the event and she states she had 50% stenosis in 1 vessel. Because of this no intervention was undertaken and she has been stable and asymptomatic ever since. The merits of treating her risk factors hypertension and hyperlipidemia were reviewed and review ofthe treatment demonstrates satisfactory control hence no adjustments [...] (25 mg) by mouth once daily., Disp: ,Rfl: isosorbide mononitrate ER (Imdur) 30 mg 24 [...] Rfl: Assessment/Plan 1. Coronary artery disease involving agua caliente coronary artery of [place] heart without angina pectoris No anginal symptomatology [...] of other type without complication, unspecified whether exterminator insulin use ([facility]) Managed by other providers. She claims good control. 5. Never smoked any substance As above Scribe Attestation By signing my name below, Deborah Sorto LPN , Scribe attest that this documentation has been prepared under the direction and in the presence of Quinn Berrios MD. documented in this [facility] Work Phone: 1(446) 280-816001-10-2024 Instructions* Patient Instructions* Deborah Bowens LPN - 04/12/2023 1:00 PM [...] time of your visit. documented in this [facility] Work Phone: [phone]) 893-420009-07-2022 NoteOPERATIVE NOTE OPERATION DATE: 12/08/2021 PREOPERATIVE DIAGNOSIS: Guaiac [...] room in good condition. CC: Ivanna Mahmood, [facility]08-09-2022 NoteChief Complaint consultation for anemia and positive occult stool HPI Staff 66 year old female presents on consultation from Ivanna Mahmood for colonoscopy. 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 Treatment included partial excision, radiation, chemotherapy and electrofulguration. Denies abdominal or rectal pain. No rectal bleeding. Reports one month history ofconstipation for which she takes Colace. Denies unexplained weight loss. Last colonoscopy [id number]- normal. History of Present Illness 66 yo female with h/o CAD, htn, DMII, hyperlipidemia, migraine headaches, referred for surveillancecolonoscopy; h/o tubulovillous adenoma, extensive, dx in 2005; had multiple excisions and fulgurations; last colonoscopy [address] Dumont, wn; negative Cologuard in 2018; some constipation overthe past month, improved with colace, no blood [...] swallowing difficulties, no hearing loss, no ear infection(s),no nose bleeds. Cardiovascular: normal blood pressure, no [...] 0.4 mg= 1 (more content not included)... [facility]:Result Comment: Electronically Signed By: JARRETT MARTINEZ, Rosie Parr\Date and Time Signed: 11/09/21 13:54 EDT Evaluation + Plan note No data available for this section [facility] [place] Evaluation note* Diagnosis Coronary artery disease involving [place] coronary artery of [place] heart without angina pectoris- Primary Benign essential hypertension Essential hypertension, benign Mixed hyperlipidemia Diabetes mellitus of other type without complication, unspecified whether exterminator insulin use (CMS/[facility]) Never smoked any substance documented in this encounter [facility] Work Phone: Evaluation note* Diagnosis Tremors of nervous system [facility] Diagnosis Left hip pain- Primary Pain in joint, pelvic region and thigh Coronary artery disease involving [place] coronary artery of [place] heart with angina pectoris (CMS/HCC) Primary hypertension [...] of insulin (CMS/HCC) Coronary artery disease involving [place] coronary artery of [place] heart with angina pectoris (CMS/HCC) Mixed hyperlipidemia (CMS/HCC) Mixed hyperlipidemia Vitamin D deficiency Coronary artery disease involving [place] coronary artery of [place] heart with angina pectoris (CMS/HCC)- Primary Primary [...] HealthcareEvaluation note* Diagnosis Coronary artery disease involving [place] coronary artery of [place] heart with angina pectoris (CMS/HCC)- Primary Primary hypertension (/HCC) Unspecified essential hypertension Type 2 diabetes mellitus without complication, without long-term current use of insulin (/) Anxiety Anxiety state, unspecified Mixed hyperlipidemia (/) Mixed hyperlipidemia Tremors of nervous system [facility] Diagnosis Vitamin D deficiency [facility] Diagnosis Left hip pain- Primary Pain in joint, pelvic region and thigh Coronary artery disease involving [place] coronary artery of [place] heart with angina pectoris (CMS/HCC) Primary hypertension (/HCC) Unspecified essential hypertension Type 2 diabetes mellitus without complication, without long-term current use of insulin (/) Vitamin D deficiency Mixed hyperlipidemia (/HCC) Mixed hyperlipidemia Encounter for screening mammogram for malignant neoplasm of breast Lumbar back pain with radiculopathy affecting left lower extremity Encounter for subsequent annual wellness visit (AWV) in Medicare patient- Primary Primary hypertension (/HCC) Unspecified essential hypertension Anxiety Anxiety state, unspecified Restless leg syndrome Restless legs syndrome (RLS) Tremors of nervous system Type 2 diabetes mellitus without complication, without long-term current use of insulin (/HCC) Coronary artery disease involving [place] coronary artery of [place] heart with angina pectoris (CMS/HCC) Mixed hyperlipidemia (/HCC) Mixed hyperlipidemia Vitamin D deficiency Coronary artery disease involving [place] coronary artery of [place] heart with angina pectoris (/HCC)- Primary Primary hypertension (/HCC) Unspecified essential hypertension Type 2 diabetes mellitus without complication, without long-term current use of insulin (/HCC) Anxiety Anxiety state, unspecified Mixed hyperlipidemia (CMS/HCC) Mixed hyperlipidemia Tremors of nervous system Anxiety Anxiety state, unspecified Primary hypertension (CMS/HCC) Unspecified essential hypertension Mixed hyperlipidemia (CMS/HCC) Mixed hyperlipidemia documented in this encounter [facility]* Diagnosis Left hip pain- Primary Pain in joint, pelvic region and thigh Coronary artery disease involving [place] coronary artery of [place] heart with angina pectoris (CMS/HCC) Primary hypertension [...] of insulin (CMS/HCC) Coronary artery disease involving [place] coronary artery of [place] heart with angina pectoris (CMS/HCC) Mixed hyperlipidemia (CMS/HCC) Mixed hyperlipidemia Vitamin D deficiency Coronary artery disease involving [place] coronary artery of [place] heart with angina pectoris (CMS/HCC)- Primary Primary hypertension (CMS/HCC) Unspecified essential hypertension Type 2 diabetes mellitus without complication, without long-term current use of insulin (CMS/HCC) Anxiety Anxiety state, unspecified Mixed hyperlipidemia (CMS/HCC) Mixed hyperlipidemia Tremors of nervous system Coronary artery disease involving [place] coronary artery of [place] heart with angina pectoris (CMS/HCC)- Primary Type 2 diabetes mellitus without complication, without long-term current use of insulin (CMS/HCC) Restless leg syndrome Restless legs syndrome (RLS) Primary hypertension (CMS/HCC) Unspecified essential hypertension Mixed hyperlipidemia (CMS/HCC) Mixed hyperlipidemia Tremors of nervous system Anxiety Anxiety state, unspecified documented in this encounter [facility]* Diagnosis Left hip pain- Primary Pain in joint, pelvic region and thigh Coronary artery disease involving [place] coronary artery of [place] heart with angina pectoris (CMS/HCC) Primary hypertension [...] of insulin (CMS/HCC) Coronary artery disease involving [place] coronary artery of [place] heart with angina pectoris (CMS/HCC) Mixed hyperlipidemia (CMS/HCC) Mixed hyperlipidemia Vitamin D deficiency Coronary artery disease involving [place] coronary artery of [place] heart with angina pectoris (CMS/HCC)- Primary Primary hypertension (CMS/HCC) Unspecified essential hypertension Type 2 diabetes mellitus without complication, without long-term current use of insulin (CMS/HCC) Anxiety Anxiety state, unspecified Mixed hyperlipidemia (CMS/HCC) Mixed hyperlipidemia Tremors of nervous system Coronary artery disease involving [place] coronary artery of [place] heart with angina pectoris (CMS/HCC)- Primary Type 2 diabetes mellitus without complication, without long-term current use of insulin (CMS/HCC) Restless leg syndrome Restless legs syndrome (RLS) Primary hypertension (CMS/HCC) Unspecified essential hypertension Mixed hyperlipidemia (CMS/HCC) Mixed hyperlipidemia Tremors of nervous system Anxiety Anxiety state, unspecified Mixed hyperlipidemia (CMS/HCC)- Primary Mixed hyperlipidemia Coronary artery disease involving [place] coronary artery of [place] heart with angina pectoris (CMS/HCC) [facility] Diagnosis Left hip pain- Primary Pain in joint, pelvic region and thigh Coronary artery disease involving [place] coronary artery of [place] heart with angina pectoris (CMS/HCC) Primary hypertension [...] of insulin (CMS/HCC) Coronary artery disease involving [place] coronary artery of [place] heart with angina pectoris (CMS/HCC) Mixed hyperlipidemia (CMS/HCC) Mixed hyperlipidemia Vitamin D deficiency Coronary artery disease involving [place] coronary artery of [place] heart with angina pectoris (CMS/HCC)- Primary Primary hypertension (CMS/HCC) Unspecified essential hypertension Type 2 diabetes mellitus without complication, without long-term current use of insulin (CMS/HCC) Anxiety Anxiety state, unspecified Mixed hyperlipidemia (CMS/HCC) Mixed hyperlipidemia Tremors of nervous system Coronary artery disease involving [place] coronary artery of [place] heart with angina pectoris (CMS/HCC)- Primary Type 2 diabetes mellitus without complication, without long-term current use of insulin (CMS/HCC) Restless leg syndrome Restless legs syndrome (RLS) Primary hypertension (CMS/HCC) Unspecified essential hypertension Mixed hyperlipidemia (CMS/HCC) Mixed hyperlipidemia Tremors of nervous system Anxiety Anxiety state, unspecified Type 2 diabetes mellitus without complication, without long-term current use of insulin (CMS/HCC)- Primary documented in [facility] encounter [facility]* Diagnosis Chest pain, unspecified type Coronary artery disease involving [place] heart with other form of angina pectoris, unspecified vessel or lesion type documented in this encounter [facility] Work Phone: Evaluation note* Diagnosis Mixed hyperlipidemia- Primary Coronary artery disease involving [place] coronary artery of [place] heart without angina pectoris Benign essential hypertension Essential hypertension, benign Diabetes mellitus of other type without complication, unspecified whether halfway insulin use (Multi) BMI 26.0-26.9,adult documented in this encounter [facility] Work Phone: Evaluation note* Diagnosis Left hip pain- Primary Pain in joint, pelvic region and thigh Coronary artery disease involving [place] coronary artery of [place] heart with angina pectoris (CMS/HCC) Primary hypertension [...] use of insulin Coronary artery disease involving [place] coronary artery of [place] heart with angina pectoris (CMS/HCC) Mixed hyperlipidemia (CMS/HCC) Mixed hyperlipidemia Vitamin D deficiency Coronary artery disease involving [place] coronary artery of [place] heart with angina pectoris (CMS/HCC)- Primary Primary hypertension (CMS/HCC) Unspecified essential hypertension Type 2 diabetes mellitus without complication, without long-term current use of insulin Anxiety Anxiety state, unspecified Mixed hyperlipidemia (CMS/HCC) Mixed hyperlipidemia Tremors of nervous system Coronary artery disease involving [place] coronary artery of [place] heart with angina pectoris (CMS/HCC)- Primary Type 2 diabetes mellitus without complication, without long-term current use of insulin Restless leg syndrome Restless legs syndrome (RLS) Primary hypertension (CMS/HCC) Unspecified essential hypertension Mixed hyperlipidemia (CMS/HCC) Mixed hyperlipidemia Tremors of nervous system Anxiety Anxiety state, unspecified Coronary artery disease involving [place] coronary artery of [place] heart with angina pectoris (CMS/HCC) documented in this encounter [facility]* Diagnosis Left hip pain- Primary Pain in joint, pelvic region and thigh Coronary artery disease involving [place] coronary artery of [place] heart with angina pectoris (CMS/HCC) Primary hypertension [...] use of insulin Coronary artery disease involving [place] coronary artery of [place] heart with angina pectoris (CMS/HCC) Mixed hyperlipidemia (CMS/HCC) Mixed hyperlipidemia Vitamin D deficiency Coronary artery disease involving [place] coronary artery of [place] heart with angina pectoris (CMS/HCC)- Primary Primary hypertension (CMS/HCC) Unspecified essential hypertension Type 2 diabetes mellitus without complication, without long-term current use of insulin Anxiety Anxiety state, unspecified Mixed hyperlipidemia (CMS/HCC) Mixed hyperlipidemia Tremors of nervous system Coronary artery disease involving [place] coronary artery of [place] heart with angina pectoris (CMS/HCC)- Primary Type [...] region and thigh Coronary artery disease involving [place] coronary artery of [place] heart with angina pectoris (CMS/HCC) Primary hypertension [...] use of insulin Coronary artery disease involving [place] coronary artery of [place] heart with angina pectoris (CMS/HCC) Mixed hyperlipidemia (CMS/HCC) Mixed hyperlipidemia Vitamin D deficiency Coronary artery disease involving [place] coronary artery of [place] heart with angina pectoris (CMS/HCC)- Primary Primary hypertension (CMS/HCC) Unspecified essential hypertension Type 2 diabetes mellitus without complication, without long-term current use of insulin Anxiety Anxiety state, unspecified Mixed hyperlipidemia (CMS/HCC) Mixed hyperlipidemia Tremors of nervous system Coronary artery disease involving [place] coronary artery of [place] heart with angina pectoris (CMS/HCC)- Primary Type 2 diabetes mellitus without complication, without long-term current use of insulin Restless leg syndrome Restless legs syndrome (RLS) Primary hypertension (CMS/HCC) Unspecified essential hypertension Mixed hyperlipidemia (CMS/HCC) Mixed hyperlipidemia Tremors of nervous system Anxiety Anxiety state, unspecified Mixed hyperlipidemia (CMS/HCC) Mixed hyperlipidemia Coronary artery disease involving [place] coronary artery of [place] heart with angina pectoris (CMS/HCC) Primary hypertension (CMS/HCC) Unspecified essential hypertension [facility] Diagnosis Left hip pain- Primary Pain in joint, pelvic region and thigh Coronary artery disease involving [place] coronary artery of [place] heart with angina pectoris Primary hypertension Unspecified [...] of insulin (HCC) Coronary artery disease involving [place] coronary artery of [place] heart with angina pectoris Mixed hyperlipidemia Mixed hyperlipidemia Vitamin D deficiency Coronary artery disease involving [place] coronary artery of [place] heart with angina pectoris- Primary Primary hypertension Unspecified essential hypertension Type 2 diabetes mellitus without complication, without long-term current use of insulin (HCC) Anxiety Anxiety state, unspecified Mixed hyperlipidemia Mixed hyperlipidemia Tremors of nervous system Coronary artery disease involving [place] coronary artery of [place] heart with angina pectoris- Primary Type 2 [...] region and thigh Coronary artery disease involving [place] coronary artery of [place] heart with angina pectoris Primary hypertension Unspecified [...] of insulin (HCC) Coronary artery disease involving [place] coronary artery of [place] heart with angina pectoris Mixed hyperlipidemia Mixed hyperlipidemia Vitamin D deficiency Coronary artery disease involving [place] coronary artery of [place] heart with angina pectoris- Primary Primary hypertension Unspecified essential hypertension Type 2 diabetes mellitus without complication, without long-term current use of insulin (HCC) Anxiety Anxiety state, unspecified Mixed hyperlipidemia Mixed hyperlipidemia Tremors of nervous system Coronary artery disease involving [place] coronary artery of [place] heart with angina pectoris- Primary Type 2 [...] Unspecified essential hypertension Coronary artery disease involving [place] coronary artery of [place] heart with angina pectoris Type 2 diabetes mellitus without complication, without long-term current use of insulin (HCC) Mixed hyperlipidemia Mixed hyperlipidemia Anxiety Anxiety state, unspecified Tremors of nervous system Acute bacterial conjunctivitis of right eye documented in this encounter [facility]* Diagnosis Left hip pain- Primary Pain in joint, pelvic region and thigh Coronary artery disease involving [place] coronary artery of [place] heart with angina pectoris Primary hypertension Unspecified [...] of insulin (HCC) Coronary artery disease involving [place] coronary artery of [place] heart with angina pectoris Mixed hyperlipidemia Mixed hyperlipidemia Vitamin D deficiency Coronary artery disease involving [place] coronary artery of [place] heart with angina pectoris- Primary Primary hypertension Unspecified essential hypertension Type 2 diabetes mellitus without complication, without long-term current use of insulin (HCC) Anxiety Anxiety state, unspecified Mixed hyperlipidemia Mixed hyperlipidemia Tremors of nervous system Coronary artery disease involving [place] coronary artery of [place] heart with angina pectoris- Primary Type 2 [...] Unspecified essential hypertension Coronary artery disease involving [place] coronary artery of [place] heart with angina pectoris Type 2 diabetes mellitus without complication, without long-term current use of insulin (HCC) Mixed hyperlipidemia Mixed hyperlipidemia Anxiety Anxiety state, unspecified Tremors of nervous system Acute bacterial conjunctivitis of right eye Type 2 diabetes mellitus without complication, without long-term current use of insulin (HCC)- Primary documented in this encounter [facility]* Diagnosis Left hip pain- Primary Pain in joint, pelvic region and thigh Coronary artery disease involving [place] coronary artery of [place] heart with angina pectoris Primary hypertension Unspecified [...] of insulin (HCC) Coronary artery disease involving [place] coronary artery of [place] heart with angina pectoris Mixed hyperlipidemia Mixed hyperlipidemia Vitamin D deficiency Coronary artery disease involving [place] coronary artery of [place] heart with angina pectoris- Primary Primary hypertension Unspecified essential hypertension Type 2 diabetes mellitus without complication, without long-term current use of insulin (HCC) Anxiety Anxiety state, unspecified Mixed hyperlipidemia Mixed hyperlipidemia Tremors of nervous system Coronary artery disease involving [place] coronary artery of [place] heart with angina pectoris- Primary Type 2 [...] Unspecified essential hypertension Coronary artery disease involving [place] coronary artery of [place] heart with angina pectoris Type 2 diabetes mellitus without complication, without long-term current use of insulin (HCC) Mixed hyperlipidemia Mixed hyperlipidemia Anxiety Anxiety state, unspecified Tremors of nervous system Acute bacterial conjunctivitis of right eye Type 2 diabetes mellitus without complication, without long-term current use of insulin (HCC)- Primary documented in this encounter [facility]* Diagnosis Left hip pain- Primary Pain in joint, pelvic region and thigh Coronary artery disease involving [place] coronary artery of [place] heart with angina pectoris Primary hypertension Unspecified [...] of insulin (HCC) Coronary artery disease involving [place] coronary artery of [place] heart with angina pectoris Mixed hyperlipidemia Mixed hyperlipidemia Vitamin D deficiency Coronary artery disease involving [place] coronary artery of [place] heart with angina pectoris- Primary Primary hypertension Unspecified essential hypertension Type 2 diabetes mellitus without complication, without long-term current use of insulin (HCC) Anxiety Anxiety state, unspecified Mixed hyperlipidemia Mixed hyperlipidemia Tremors of nervous system Coronary artery disease involving [place] coronary artery of [place] heart with angina pectoris- Primary Type 2 [...] Unspecified essential hypertension Coronary artery disease involving [place] coronary artery of [place] heart with angina pectoris Type 2 diabetes [...] region and thigh Coronary artery disease involving [place] coronary artery of [place] heart with angina pectoris Primary hypertension Unspecified [...] of insulin (HCC) Coronary artery disease involving [place] coronary artery of [place] heart with angina pectoris Mixed hyperlipidemia Mixed hyperlipidemia Vitamin D deficiency Coronary artery disease involving [place] coronary artery of [place] heart with angina pectoris- Primary Primary hypertension Unspecified essential hypertension Type 2 diabetes mellitus without complication, without long-term current use of insulin (HCC) Anxiety Anxiety state, unspecified Mixed hyperlipidemia Mixed hyperlipidemia Tremors of nervous system Coronary artery disease involving [place] coronary artery of [place] heart with angina pectoris- Primary Type 2 [...] Unspecified essential hypertension Coronary artery disease involving [place] coronary artery of [place] heart with angina pectoris Type 2 diabetes [...] Date Resolution Status Admit Date Greater trochanteric bursitis of left hi p acuteSeptember 2024 3:58pm [facility] Work Phone: History of Present illness NarrativePatient [...] pharmacologic therapy as is [facility] Work Phone: History of Present illness NarrativePatient returns in follow-up of problems as noted. In the interim she is done well. Control risk factors including diabetes hypertension and hyperlipidemia is reviewed and felt to be adequate and appropriate. We reviewed in detail the old and/or outside records from [facility]. She appeared to have coronary spasm but no occlusive disease and because of this the likelihood of a coronary event in the near future appears very low. We suggest continued aggressive risk factor management but otherwise no other testing or intervention appears necessary.[facility] 250 DO Work Phone: Hospital Discharge instructions No data available for this section [facility] [place] Progress note No data available for this section [facility] [place] Reason for referral (narrative)* Consultation (Routine) - AuthorizedSpecialtyDiagnoses / ProceduresReferred By ContactReferred To ContactCardiology Diagnoses Coronary artery disease involving ag[place] coronary artery of [place] heart without angina pectoris Benign essential hypertension Procedures Follow Up In Cardiology David Berrios MD [address] [facility] [place] [address] David Berrios MD [address] [facility] [place] [address] [place] [id number] Referral IDStatusReasonStart DateExpiration DateVisits RequestedVisits [id number] [facility] Work Phone: reason for referral (narrative)No reason for referral information availableBu[facility] Work Phone: Reason for visit Narrative* Cardiac Stress Testing (Routine) - AuthorizedSpecialtyDiagnoses / ProceduresReferred By Contact Referred To ContactRadiology Diagnoses Chest pain, unspecified type Coronary artery disease involving [place] heart with other form of angina pectoris, unspecified vessel or lesion type Procedures Nuclear Stress Test CHG MYOCARDIAL SPECT MULTIPLE STUDIES Pari Norton, DIRECTOR [facility] [address] [facility] [address] [place] [address] [place] [id number] Phone: tel: fax: Referral IDStatusReasonStart DateExpiration DateVisits RequestedVisits [id number]/7/20251/ [facility] Work Phone: reason for visit Narrative* Cardiac Stress Testing (Routine) - AuthorizedSpecialtyDiagnoses / ProceduresReferred By Contact Referred To ContactRadiology Diagnoses Chest pain, unspecified type Coronary artery disease involving [place] heart with other form of angina pectoris, unspecified vessel or lesion type Procedures Nuclear Stress Test CHG MYOCARDIAL SPECT MULTIPLE STUDIES Pari Norton, DIRECTOR [facility] [address] [facility] [address] [place] [address] Phone: tel: fax: Referral IDStatusReasonStart DateExpiration DateVisits RequestedVisits [id number] [facility] Work Phone: Assessments Diagnosis Type 2 diabetes mellitus with complication, without long-term current use of insulin (HCC) Essential hypertension Unspecified essential hypertension Dyslipidemia Other and unspecified hyperlipidemia Diagnosis Post-menopausal Asymptomatic postmenopausal status (age-related) (natural) Osteopenia, unspecified location Advance Directives TypeDate RecordedPatient RepresentativeExplanationAdvance Directives and Living WillPower of AttorneyCode StatusDate ActivatedDate InactivatedCommentsFull Code 03/13/2019 10:08 AM03/13/2019 4:32 PMFull Code03/13/2019 8:12 AM03/13/2019 10:08 AMFull Code03/11/2019 6:58 PM03/13/2019 8:12 AMTypeDate RecordedPatient RepresentativeExplanationAdvance Directives and Living WillPower of Sales Administrator Advance Directive Response Recorded Date/ Time Advance Directives No December 2:02pm Summary Purpose Family History Unknown Family Member Name Dates Details Heart problem: Mother, Fathe r Status:ActiveFamily history of diabetes mellitus: Brother(V18.0, Z83.3) Status:Active Unknown Family Member Name Dates Details Heart problem: Mother, Fathe r Status:ActiveFamily history of diabetes mellitus: Brother(V18.0, Z83.3) Status:Active Chief Complaint NNEKA RADHA is being seen for an annual follow-up of.NNEKA RADHA is being seen for an annual follow-up of. Chief Complaint and Reason for Visit Chief Complaint Admit Date hip pain December 05, 2024 3:58pm Reason for Visit Admit Date Greater trochanteric bursitis of left hi p December 05, 2024 3:58pm Additional Source Comments INFORMATION SOURCE (unrecogn ized section and content) DATE CREATED AUTHOR 05/09/2019 [facility] DATE CREATED AUTHOR AUTHOR'S ORGANIZ ATION 04/05/2021 [facility] DATE CREATED AUTHOR AUTHOR'S ORGANIZ ATION 01/01/2022 [facility] DATE CREATED AUTHOR AUTHOR'S ORGANIZ ATION 04/12/2022 [facility] DATE CREATED AUTHOR AUTHOR'S ORGANIZ ATION 05/21/2022 [facility] DATE CREATED AUTHOR AUTHOR'S ORGANIZ ATION 04/24/2024 [facility] DATE CREATED AUTHOR AUTHOR'S ORGANIZ ATION 04/26/2024 [facility] DATE CREATED AUTHOR AUTHOR'S ORGANIZ ATION 10/30/2024 [facility] EPIC Reason for Visit (unrecogniz ed section and content) StatusReasonSpecialtyDiagnoses / ProceduresReferred By ContactReferred To ContactOpenRadiology Diagnoses Post-menopausal Osteopenia, unspecified location Procedures DEXA BONE DENSITY AXIAL SKELETON DEXA BONE DENSITY 2 SITES HC DEXA AXIAL SKELETON Magda Carballo, DIRECTOR [facility] [place] [address] [id number] RefillReasonCommentsDiabetesReason CommentsResultsmplSpecialtyDiagnoses / ProceduresReferred By ContactReferred To ContactCardiology Diagnoses Coronary artery disease involving [place] coronary artery of [place] heart without angina pectoris Benign essential hypertension Procedures Follow Up In Cardiology David Berrios MD McGuinn, William P, MD Retired From Practice Referral IDStatusReasonStart DateExpiration DateVisits RequestedVisits [id number] DateCommentsMed Refill 07/01/2024ReasonCommentsMedicare Annual Wellness Visit InitialEye ProblemReason Onset DateCommentsMedication Yqlwgdne80/28/2025 Care Team (unrecognized sect ion and content) Team MemberRelationshipSpecialtyStart DateEnd Date Ivanna Mahmood, DIRECTOR [facility] [address] [place] [phone] PCP - General04/03/16Team MemberRelationshipSpecialtyStart DateEnd Date Alfonso Blank MD [address] [place] [address] PCP - GeneralFamily Medicine06/21/23Team MemberRelationshipSpecialtyStart DateEnd Date Alfonso Blank MD [address] [place] [address] PCP - GeneralFamily Medicine06/21/23 Ivanna Mahmood NP [address] [place] [address] PCP - [place]12/03/23Team MemberRelationshipSpecialtyStart DateEnd Date Alfonso Blank MD [address] [place] [address] PCP - GeneralFamily Medicine06/21/23Team MemberRelationshipSpecialtyStart DateEnd Date Alfonso Blank MD [address] [place] [address] PCP - GeneralFamily Medicine06/21/23Team MemberRelationshipSpecialtyStart DateEnd Date Alfonso Blank MD [address] [place] [address] PCP - GeneralFamily Medicine06/21/23Team MemberRelationshipSpecialtyStart DateEnd Date Alfonso Blank MD [address] [place] [address] PCP - GeneralFamily Medicine06/21/23Team MemberRelationshipSpecialtyStart DateEnd Date Alfonso Blank MD [address] [place] [address] PCP - GeneralFamily Medicine06/21/23Team MemberRelationshipSpecialtyStart DateEnd Date Alfonso Blank MD [address] [place] [address] PCP - Generalmily Medicine06/21/23 Ivanna Mahmood, MARIAJOSE [address] [place] [address] PCP - [place]12/03/23Team MemberRelationshipSpecialtyStart DateEnd Date Alfonso Blank MD [address] [place] [address] PCP - GeneralFamily Medicine06/21/23 Ivanna Mahmood NP [address] [place] [address] PCP - [place]12/03/23Team MemberRelationshipSpecialtyStart DateEnd Date Alfonso Blank MD [address] [place] [address] PCP - GeneralFamily Medicine06/21/23 Ivanna Mahmood NP [address] [place] [address] PCP - [place]12/03/23Team MemberRelationshipSpecialtyStart DateEnd Date Alfonso Blank MD [address] [place] [address] PCP - Generalmi Medicine06/21/23 Ivanna Mahmood NP [address] [place] [address] PCP - [place]12/03/23Team MemberRelationshipSpecialtyStart DateEnd Date Alfonso Blank MD [address] [place] [address] PCP - [facility] Medicine06/21/23 Ivanna Mahmood NP [address] [place] [address] PCP - [place]12/03/23Team MemberRelationshipSpecialtyStart DateEnd Date Ivanna Mahmood, DIRECTOR [facility] [address] [place] [address] PCP - General04/03/16Team MemberRelationshipSpecialtyStart DateEnd Date Ivanna Mahmood, DIRECTOR [facility] [address] [place] [address] PCP - General04/03/16Team MemberRelationshipSpecialtyStart DateEnd Date Ivanna Mahmood, DIRECTOR [facility] [address] [place] [address] PCP - General04/03/16Team MemberRelationshipSpecialtyStart DateEnd Date Ivanna Mahmood, DIRECTOR [facility] [address] [place] [address] PCP - General04/03/16Team MemberRelationshipSpecialtyStart DateEnd Date PhilsilvanaIvanna davalos, DIRECTOR [facility] [address] [place] [address] PCP - General04/03/16Team MemberRelationshipSpecialtyStart DateEnd Date Alfonso Blank MD [address] [place] [address] PCP - GeneralFamily Medicine06/21/23Team MemberRelationshipSpecialtyStart DateEnd Date Alfonso Blank MD [address] [place] [address] PCP - GeneralFamily Medicine06/21/23Team MemberRelationshipSpecialtyStart DateEnd Date Alfonso Blank MD [address] [place] [address] PCP - GeneralFamily Medicine06/21/23Team MemberRelationshipSpecialtyStart DateEnd Date Alfonso Blank MD [address] [place] [address] PCP - GeneralFamily Medicine06/21/23Team MemberRelationshipSpecialtyStart DateEnd Date Alfonso Blank MD [address] [place] [address] PCP - GeneralFamily Medicine06/21/23Team MemberRelationshipSpecialtyStart DateEnd Date Alfonso Blank MD [address] [place] [address] PCP - GeneralFamily Medicine06/21/23Team MemberRelationshipSpecialtyStart DateEnd Date Alfonso Blank MD [address] [place] [address] PCP - GeneralFamily Medicine06/21/23Team MemberRelationshipSpecialtyStart DateEnd Date Alfonso Blank MD [address] [place] [address] PCP - GeneralFamily Medicine06/21/23Team MemberRelationshipSpecialtyStart DateEnd Date Alfonso Blank MD [address] [place] [address] PCP - GeneralFamily Medicine06/21/23Team MemberRelationshipSpecialtyStart DateEnd Date Alfonso Blank MD [address] [place] [address] PCP - GeneralFamily Medicine06/21/23Team MemberRelationshipSpecialtyStart DateEnd Date Alfonso Blank MD [address] [place] [address] PCP - [facility]06/21/23 Team Status: Active Member Role Status Dates Ivanna Mahmood Primary Care Provider Active Team Status: Inactive Member Role Status Dates Ivanna Mahmood Primary Care Provider Active Sta rt: December 05, 2024 End: December 05, 2024Ivanna Leeending ProviderActiveStart: December 05, 2024 End: December 05, 2024 [...] BE BASED ON THE PRIMARY CLINICAL RECORDS. [facility] [employer] [facility]. provides no warranty or guarantee of the accuracy or completeness of information in this document.
[2025-01-23 09:50] LABS: Hematocrit 44.3 % (36.0-48.0); Hemoglobin 14.6 g/dL (12.0-16.0); Immature Granulocytes Abs Auto 0.02 10^3/uL (0.00-0.03); Immature Granulocytes Pct Auto 0.3 % (0.0-0.5); Lymphocytes Absolute Auto 2.0 10^3/uL (1.2-3.8); Mean Corpuscular HGB Conc 33.0 g/dL (29.9-35.2); Mean Corpuscular Hemoglobin 29.6 pg (26.7-34.0); Mean Corpuscular Volume 89.7 fL (81.0-99.0); Platelet Count 277 10^3/uL (150-450); Red Blood Count 4.94 10^6/uL (4.20-5.40); White Blood Count 7.8 10^3/uL (4.0-11.0)
[2025-01-23 10:04] LABS: Glucose Urine UA >=1000 mg/dL (NEGATIVE)
[2025-01-23 10:31] LABS: Alanine Aminotransferase 24 U/L (14-59); Albumin Globulin Ratio 1.1; Albumin Level 3.8 g/dL (3.4-5.0); Alkaline Phosphatase 94 U/L (46-116); Anion Gap 11.1; Aspartate Amino Transferase 18 U/L (15-37); Blood Urea Nitrogen 17.0 mg/dL (7.0-18.0); Calcium 8.9 mg/dL (8.5-10.1); Carbon Dioxide 32.9 mmol/L (21.0-32.0); Chloride 103 mmol/L (98-107); Cholesterol 167 mg/dL (<=200); Estimated GFR (African America >60 (>=60 mL/min/1.73m^2); Estimated GFR (Non-African Ame >60 (>=60 mL/min/1.73m^2); Globulin 3.5 g/dL; Glucose 157 mg/dL (74-106); HDL Cholesterol 56 mg/dL (40-60); Potassium 4.0 mmol/L (3.5-5.1); Sodium 143 mmol/L (136-145); Thyroid Stimulating Hormone 1.115 uIU/mL (0.358-3.740); Total Protein 7.3 g/dL (6.4-8.2); Triglycerides 137 mg/dL (<=150); VLDL CHOLESTEROL 27.4 mg/dL
== END 2025-01-23 09:31 | disposition home or self-care (01) ==
PROVIDERS: PCP Nurse Practitioner; Visit Provider Nurse Practitioner
DX: I25.119 Atherosclerotic heart disease of native coronary artery with unspecified angina pectoris (principal); I10 Essential (primary) hypertension; E11.9 Type 2 diabetes mellitus without complications; E78.2 Mixed hyperlipidemia; F41.9 Anxiety disorder, unspecified
CPT/HCPCS: 36415; 80053; 80061; 81003; 82043; 82570; 84443; 85025